=== PATIENT | male | born 1955 | race Caucasian/White ===

== ENCOUNTER 2019-02-08 15:26 | Emergency (ER) | payer MEDICARE ==
[2019-02-08 15:39] VITALS: RESP 16
[2019-02-08] MEDS ORDERED: DIPH,PERTUS(ACELL)TETVAC-LF 0.5 ML VIAL IM ONE (15:57)
[2019-02-08 16:20] LABS: INR 1.9 (<1.2); Prothrombin Time 19.1 sec (9.0-12.0)
--- NOTE | 2019-02-08 16:48 | ED ---
Wound/Laceration HPI - General Chief Complaint: Wound/Laceration Stated Complaint: RT FOOT LACERATION Time Seen by Provider: 02/08/19 15:46 Source: patient Mode of arrival: wheelchair Limitations: no limitations - History of Present Illness Initial Comments: 63-year-old male past medical history of atrial fibrillation on Coumadin presenting today for chief complaint of right foot laceration. Patient states he axially himself the storm door in the posterior right foot. Patient states he is on a blood thinner and has not been ill to stop the bleeding. He is unsure of his last tetanus. Patient denies any fall or twisting of the ankle or foot he denies any other injury or complaints. Pt denies any significant pain, states more concerned about bleeding. Remaining ROS (-). - Related Data Home Medications Medication Instructions Recorded Confirmed Warfarin Sodium 2.5 mg PO SUMOTUTHFRSA 02/08/19 02/08/19 Allergies Allergy/AdvReac Type Severity Reaction Status Date / Time No Known Allergies Allergy Verified 02/08/19 15:39 Review of Systems ROS Statement: Those systems with pertinent positive or pertinent negative responses have been documented in the HPI. ROS Other: All systems not noted in ROS Statement are negative. Past Medical History Past Medical History: Atrial Fibrillation, Hypertension History of Any Multi-Drug Resistant Organisms: None Reported Past Surgical History: No Surgical Hx Reported Past Psychological History: No Psychological Hx Reported Smoking Status: Former smoker Past Alcohol Use History: None Reported Past Drug Use History: None Reported General Exam - General Exam Comments Initial Comments: General: The patient is awake and alert, in no distress, and does not appear acutely ill. Eye: Pupils are equal, round and reactive to light, extra-ocular movements are intact. No nystagmus. There is normal conjunctiva bilaterally. No signs of icterus. Ears, nose, mouth and throat: There are moist mucous membranes and no oral lesions. Neck: The neck is supple, there is no tenderness or JVD. Cardiovascular: There is a regular rate and rhythm. No murmur, rub or gallop is appreciated. Respiratory: Lungs are clear to auscultation, respirations are non-labored, breath sounds are equal. No wheezes, stridor, rales, or rhonchi. Musculoskeletal: Normal ROM, no tenderness. Strength 5/5. Sensation intact. DP pulses equal bilaterally 2+. Neurological: A&O x 3. CN II-XII intact, There are no obvious motor or sensory deficits. Coordination appears grossly intact. Speech is normal. Skin: Skin is warm and dry and no rashes or lesions are noted. 1 cm skin tear of the right heel. No laceration. No active bleeding. Psychiatric: Cooperative, appropriate mood & affect, normal judgment. Limitations: no limitations Course Vital Signs 02/08/19 02/08/19 15:36 17:05 Temperature 98.8 F 98.2 F Pulse Rate 52 L 55 L Respiratory 16 16 Rate Blood Pressure 156/86 150/72 O2 Sat by Pulse 98 98 Oximetry Medical Decision Making - Medical Decision Making 63-year-old on Coumadin presenting for laceration right foot. Upon examination there is very superficial skin tear. No active bleeding on examination. INR was obtained revealing 1.9 subtherapeutic. Recommended outpatient follow-up for adjustment of Coumadin. Patient denies any other symptoms. Area was cleansed extensively. No indication repair bandage applied. At this time feel patient is stable for discharge with outpatient primary care follow-up. Tetanus was updated. Discussed case with Dr. Trimble who is agreeable with care plan and discharge. - Lab Data Lab Results 02/08/19 Range/Units 16:06 PT 19.1 H (9.0-12.0) sec INR 1.9 H (<1.2) Disposition Clinical Impression: Skin tear, Subtherapeutic anticoagulation Disposition: HOME SELF-CARE Condition: Good Instructions (If sedation given, give patient instructions): Skin Tear (ED) Additional Instructions: Please follow-up with both cardiology and primary care provider in the next 1-2 days for warfarin adjustment. Please do not skip any doses. Please use medication as discussed. Please return to emergency room if the symptoms increase or worsen or for any other concerns.. Is patient prescribed a controlled substance at d/c from ED?: No Referrals: Ricardo Weaver DO [Primary Care Provider] - 1-2 days Time of Disposition: 16:48
[2019-02-08 17:28] VITALS: BP 150/72; PULSE 55; TEMP 98.2
== END 2019-02-08 17:05 | disposition home or self-care (01) ==
LOC: EC 15:26
DX: S91.311A Laceration without foreign body, right foot, initial encounter (principal); R79.1 Abnormal coagulation profile; I48.91 Unspecified atrial fibrillation; I10 Essential (primary) hypertension; Z23 Encounter for immunization; Z87.891 Personal history of nicotine dependence; Z79.01 Long term (current) use of anticoagulants; W23.0XXA Caught, crushed, jammed, or pinched between moving objects, initial encounter
CPT/HCPCS: 36415; 85610; 90471; 90715; 99283

== ENCOUNTER → 2020-08-15 | Outpatient (CLI) | payer MEDICARE, OTHER ==
[2020-08-15 12:14] LABS: HCT 40.4 % (39.0-53.0); MCHC 32.2 g/dL (31.0-37.0); MCV 99.4 fL (80.0-100.0); Mean Platelet Volume 7.6; Platelet Count 114 k/uL (150-450); RBC 4.06 m/uL (4.30-5.90); RDW 12.8 % (11.5-15.5); WBC 4.5 k/uL (3.8-10.6)
[2020-08-15 12:30] LABS: Magnesium 2.3 mg/dL (1.6-2.3); Potassium 4.9 mmol/L (3.5-5.1)
== END | disposition home or self-care (01) ==
LOC: LABPAT 11:06
PROVIDERS: ATTEND Internal Medicine Interventional Cardiology
DX: Z01.818 Encounter for other preprocedural examination (principal); I42.0 Dilated cardiomyopathy
CPT/HCPCS: 36415; 80051; 82565; 83735; 84520; 85027

== ENCOUNTER 2020-10-29 06:13 | Day surgery (SDC) | payer MEDICARE, OTHER ==
[2020-10-24 16:22] VITALS: BMI 30.8
[~2020-10-29 06:13] MED LIST: LACTATED RINGERS 1,000 ML IV SCH; LIDOCAINE 1% (10MG/ML) FOR IV START INTRADERMA PRN; MIDAZOLAM 2 MG/2 ML VIAL IV PRN; SODIUM CHLORIDE 0.9% 1,000 ML IV SCH; ceFAZolin 1,000 MG in SODIUM CHLORIDE 0.9% IRRIGATIO 250 ML IRRIGATION STA
[2020-10-29 06:46] LABS: Basophils # (A) 0.1 k/uL (0-0.2); Basophils % (A) 1 %; Eosinophils # (A) 0.2 k/uL (0-0.7); Eosinophils % (A) 3 %; HCT 40.3 % (39.0-53.0); HGB 13.3 gm/dL (13.0-17.5); Lymphocytes # (A) 0.7 k/uL (1.0-4.8); Lymphocytes % (A) 15 %; MCH 31.7 pg (25.0-35.0); MCHC 32.9 g/dL (31.0-37.0); MCV 96.1 fL (80.0-100.0); Mean Platelet Volume 7.6; Monocytes # (A) 0.5 k/uL (0-1.0); Monocytes % (A) 10 %; Neutrophils # (A) 3.2 k/uL (1.3-7.7); Neutrophils % (A) 69 %; Platelet Count 116 k/uL (150-450); RBC 4.19 m/uL (4.30-5.90); RDW 13.1 % (11.5-15.5); WBC 4.7 k/uL (3.8-10.6)
[2020-10-29 06:53] VITALS: RESP 16; TEMP 97.7
[2020-10-29] MEDS ORDERED: HYDROmorphone 0.5 MG/0.5 ML SYRINGE IVP PRN (07:00)
[2020-10-29 07:05] LABS: INR 2.6 (<1.2); Prothrombin Time 24.9 sec (9.0-12.0)
[2020-10-29 07:06] LABS: Calcium 9.7 mg/dL (8.4-10.2); Potassium 4.1 mmol/L (3.5-5.1)
[2020-10-29] MEDS ORDERED: HYDROmorphone (PF) 1 MG/ML ONE (07:25)
[2020-10-29] MEDS ORDERED: PROPOFOL 10 MG/ML 20 ML VIAL IV ONE (07:25)
[2020-10-29] MEDS ORDERED: MIDAZOLAM 2 MG/2 ML VIAL ONE (07:25)
[2020-10-29] MEDS ORDERED: fentaNYL (PF) 50 MCG/ML 2 ML AMP ONE (07:25)
[2020-10-29] MEDS ORDERED: HEPARIN SODIUM 1,000 UN/ML (10ML VL) ONE (07:47)
[2020-10-29] MEDS ORDERED: LIDOCAINE 1% INJ 10MG/ML (20 ML MDV) ONE ×2 (07:51)
[2020-10-29] MEDS ORDERED: LIDOCAINE 1% INJ 10MG/ML (20 ML MDV) SQ ONE ×2 (08:04→09:00)
[2020-10-29] MEDS ORDERED: IOPAMIDOL-250 50ML BTL IV ONE (08:31)
--- NOTE | 2020-10-29 08:44 | P.PCN ---
Preoperative Diagnosis: Procedure Right heart cath Indication for the procedure Severely dilated right atrium and right ventricle An 8-Khmer venous sheath was placed in the right femoral vein A balloon flotation Strandquist-Sruthi catheter was placed in the right heart This was guided into the right ventricle A wire was placed through it and then guided into the pulmonary artery branches on the left side Pulmonary artery pressure 37/13/21 mmHg The catheter was then withdrawn slowly into the right ventricle RV pressure 35/1/17 mmHg Withdrawn into the right atrium RA pressures 24/3/14 mmHg The catheter was removed Coronary sinus deflectable catheter was placed in the coronary sinus to assist in LV lead placement/guidance of the Ravindra sinus sheath Result Right heart cath reveals mild-moderate pulmonary hypertension in the face of a severely dilated right atrium and right ventricle
[2020-10-29] MEDS ORDERED: ACETAMINOPHEN TAB 325 MG TAB PO PRN (10:51)
--- NOTE | 2020-10-29 11:31 | P.PCN ---
Preoperative Diagnosis: Left upper extremity venogram 15 mL IV dye injected in the left arm Left axillary and left subclavian veins well opacified Plan Proceed with implantation of a biventricular ICD Extended procedure This is a long procedure on account of the severely dilated right atrium and a severely dilated right ventricle with tricuspid regurgitation An extra long specially ordered ICD lead had to be placed in the right ventricle Coronary sinus access was difficult and it required multiple sheaths multiple in the sheaths first to cannulate the mean Ravindra sinus body and then to subselect the posterior lateral vein over a guidewire within in the sheath followed by the outer sheath, followed by placement of the LV lead Coronary sinus catheter had been placed from the right femoral vein to guide the access of the biventricular LV lead since this was an extremely dilated right atrium This catheter was removed prior to removing the biventricular sheath Patient of the procedure well without any acute complications
--- NOTE | 2020-10-29 12:25 | XR ---
EXAMINATION TYPE: XR chest 1V portable DATE OF EXAM: 10/29/2020 Comparison: None Clinical History: 65-year-old male Lead placement check Findings: Left anterior chest wall ICD generator with right ventricular and coronary sinus leads. Right atrial lead not well seen on the present exam due to portable technique and large body habitus. Heart is enl arged. Diffuse interstitial and vascular prominence. There is a moderate right effusion with prominen t mid and lower lung opacity on the right. IMPRESSION: 1. Left anterior chest wall AICD generator. Right ventricular and coronary sinus leads are visualized . 2. Cardiomegaly and interstitial/vascular change. Correlate for CHF with pulmonary vascular congestio n. 3. Moderate right effusion with adjacent mid and lower lung atelectasis and/or consolidation.
--- NOTE | 2020-10-29 12:34 | CE ---
CARDIAC ELECTROPHYSIOLOGY REPORT Dylan Garcia is a 65-year-old male patient of Dr. Fletcher and Dr. Ricardo Arnold, who underwent a biventricular ICD implant. 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 The patient underwent a cardiac MRI, which confirmed these findings. His has a QRS of about 142 milliseconds. He has severe bradycardia and is unable to take beta blockers, anticipated RV pacing percentage greater than 40% with a single-chamber device. Hence, a biventricular device was recommended to allow for necessary beta jose alberto use as well as to avoid RV pacing. Patient was brought to the EP lab. Patient's left pectoral area was prepped and draped as per protocol and 1% lidocaine was used for local anesthesia. A 4 cm incision was made parallel to the deltopectoral groove, about 1.5 cm medial to it incision was carried down to the level of the pectoralis muscle. A subfascial pocket was made. Hemostasis was assured. The left axillary vein was accessed at 2 separate points under fluoroscopy and via appropriately-sized introducer sheaths 2 leads were positioned in the right heart. Given the size of the right atrium and the right ventricle, an extra long ICD lead was used. This was special ordered and this was a Medtronic model number 6935M, 72 cm length and serial number [id number]. This was positioned in the low RV septum. The R- waves were 5.3 mV, pacing impedance 456 ohms, pacing threshold 0.5 V at 0.4 milliseconds. Ten volt test was negative. The coronary sinus lead was placed in the posterolateral vein. The coronary sinus was accessed. A sheath was placed. A sub selecting sheath was then placed. A venogram was performed. The patient had a large posterolateral vein. This was then sub selected and a guidewire was placed in this and over that the inner sheath was placed following that. Following that, the outer sheath was placed and this posterolateral vein was sub selected. The LV lead is a Medtronic model number 4398, 88 cm in length and serial number [id number] was positioned in the posterolateral vein. Pacing threshold 1.5 V at 1 millisecond. Good thresholds were obtained between poles 1 and 2 and poles 1 and 3. The pacing impedance of 589 ohms. Both sheaths were removed. The leads were secured to the underlying pectoralis muscle. The leads were connected to the generator (Bownty model number [id number], serial number [id number]). The leads and the generator were then placed in subfascial pocket. The wound was closed in 3 layers and dressed per protocol. RESULT: Successful implantation of a biventricular ICD. The patient has permanent atrial fibrillation for many years and atrial lead was not placed. The atrial port was plugged. Biventricular LV lead in the posterolateral vein and extra long specially ordered 78 cm RV ICD lead placed in the low RV septum on account of severely dilated right ventricle with severe LV dysfunction. PLAN: 1. Biventricular pacing VVIR 60-130 ppm. 2. Add beta blockers to current regimen. NEREIDA / ALLISONN: [id number] /
[2020-10-29] MEDS ORDERED: ACETAMINOPHEN IV (For NPO) 1,000 MG in EMPTY BAG 1 BAG IVPB ONE (13:00)
[2020-10-29 14:05] VITALS: PULSE 70
[2020-10-29 14:06] VITALS: BP 125/73
[2020-10-29] MEDS ORDERED: KETOROLAC 15 MG/ML 1 ML VIAL ONE (15:42)
[2020-10-29] MEDS ORDERED: KETOROLAC 15 MG/ML 1 ML VIAL IVP STA (15:50)
== END 2020-10-29 16:00 | disposition home or self-care (01) ==
LOC: CATHEP 06:13
PROVIDERS: ATTEND Internal Medicine Clinical Cardiac Electrophysiology
DX: I42.6 Alcoholic cardiomyopathy (principal); I47.2 Ventricular tachycardia; I48.21 Permanent atrial fibrillation; I49.5 Sick sinus syndrome; I49.3 Ventricular premature depolarization; R00.1 Bradycardia, unspecified; Q20.8 Other congenital malformations of cardiac chambers and connections; I25.10 Atherosclerotic heart disease of native coronary artery without angina pectoris; R60.9 Edema, unspecified; Z87.891 Personal history of nicotine dependence; I10 Essential (primary) hypertension; Z79.01 Long term (current) use of anticoagulants; Z79.899 Other long term (current) drug therapy
CPT/HCPCS: 93451; 33225; 33249; 80048; 85025; 85610; 71045; C1769 ×9; C1894; C1892; C1730 ×2; C1895; C1900; C1882; J2250; J0690 ×2; J2001; J3010; J1170; J0131; J1885; J2704; Q9966

== ENCOUNTER → 2021-05-05 | Outpatient (CLI) | payer MEDICARE, OTHER ==
[2021-05-05 21:18] LABS: African American GFR (CKD) 36.6 (60.0-200.0); Anion Gap 9.5 mmol/L (4.00-12.00); BUN/Creat Ratio 46.67 Ratio (12.00-20.00); Calcium 9.8 mg/dL (8.7-10.3); Carbon Dioxide 35.5 mmol/L (21.6-31.8); Non-African American GFR(CKD) 31.6 (60.0-200.0); Potassium 3.8 mmol/L (3.5-5.5)
== END | disposition home or self-care (01) ==
LOC: LABWHC1 11:23
PROVIDERS: ATTEND Internal Medicine Interventional Cardiology
DX: I50.9 Heart failure, unspecified (principal)
CPT/HCPCS: 36415; 80048

== ENCOUNTER → 2021-07-17 | Outpatient (CLI) | payer MEDICARE, OTHER ==
[2021-07-18 13:19] LABS: African American GFR (CKD) 47.7 (60.0-200.0); Anion Gap 18.8 mmol/L (4.00-12.00); BUN/Creat Ratio 49.29 Ratio (12.00-20.00); Blood Urea Nitrogen 82.8 mg/dL (9.0-27.0); Calcium 9.7 mg/dL (8.7-10.3); Carbon Dioxide 25.9 mmol/L (21.6-31.8); Non-African American GFR(CKD) 41.1 (60.0-200.0); Potassium 4.3 mmol/L (3.5-5.5)
== END | disposition home or self-care (01) ==
LOC: LABWHC1 12:03
PROVIDERS: ATTEND Internal Medicine Interventional Cardiology
DX: I42.9 Cardiomyopathy, unspecified (principal)
CPT/HCPCS: 36415; 80048

== ENCOUNTER → 2022-03-07 | Outpatient (CLI) | payer MEDICARE, OTHER ==
[2022-03-07 19:42] LABS: African American GFR (CKD) 44.4 (60.0-200.0); Anion Gap 10.2 mmol/L (10.00-18.00); BUN/Creat Ratio 48.15 Ratio (12.00-20.00); Blood Urea Nitrogen 85.7 mg/dL (9.0-27.0); Calcium 9.2 mg/dL (8.7-10.3); Carbon Dioxide 31.2 mmol/L (20.0-27.5); Non-African American GFR(CKD) 38.3 (60.0-200.0); Potassium 4.5 mmol/L (3.5-5.5)
== END | disposition home or self-care (01) ==
LOC: LABWHC1 09:35
PROVIDERS: ATTEND Nurse Practitioner
DX: I12.9 Hypertensive chronic kidney disease with stage 1 through stage 4 chronic kidney disease, or unspecified chronic kidney disease (principal); N18.9 Chronic kidney disease, unspecified
CPT/HCPCS: 36415; 80048

== ENCOUNTER → 2022-03-30 | Outpatient (CLI) | payer MEDICARE, OTHER ==
[2022-03-30 19:30] LABS: African American GFR (CKD) 38.6 (60.0-200.0); Anion Gap 11.5 mmol/L (10.00-18.00); BUN/Creat Ratio 35.15 Ratio (12.00-20.00); Blood Urea Nitrogen 70.3 mg/dL (9.0-27.0); Calcium 9.4 mg/dL (8.7-10.3); Carbon Dioxide 30.5 mmol/L (20.0-27.5); Non-African American GFR(CKD) 33.3 (60.0-200.0); Potassium 4.5 mmol/L (3.5-5.5)
== END | disposition home or self-care (01) ==
LOC: LABWHC1 11:29
PROVIDERS: ATTEND Internal Medicine Interventional Cardiology
DX: I10 Essential (primary) hypertension (principal)
CPT/HCPCS: 36415; 80048

== ENCOUNTER → 2022-06-03 | Outpatient (CLI) | payer MEDICARE, OTHER ==
[2022-06-04 00:19] LABS: African American GFR (CKD) 41.1 (60.0-200.0); Anion Gap 8.9 mmol/L (10.00-18.00); BUN/Creat Ratio 42.74 Ratio (12.00-20.00); Blood Urea Nitrogen 81.2 mg/dL (9.0-27.0); Calcium 9.5 mg/dL (8.7-10.3); Carbon Dioxide 37.1 mmol/L (20.0-27.5); Non-African American GFR(CKD) 35.4 (60.0-200.0); Potassium 3.8 mmol/L (3.5-5.5)
== END | disposition home or self-care (01) ==
LOC: LABWHC1 15:58
PROVIDERS: ATTEND Internal Medicine Interventional Cardiology
DX: I10 Essential (primary) hypertension (principal)
CPT/HCPCS: 36415; 80048

== ENCOUNTER → 2022-08-17 | Outpatient (CLI) | payer MEDICARE, OTHER ==
[2022-08-17 15:03] LABS: African American GFR (CKD) 38.1 (60.0-200.0); Anion Gap 8.8 mmol/L (10.00-18.00); BUN/Creat Ratio 31.44 Ratio (12.00-20.00); Blood Urea Nitrogen 63.2 mg/dL (9.0-27.0); Calcium 9.1 mg/dL (8.7-10.3); Carbon Dioxide 35.4 mmol/L (20.0-27.5); Non-African American GFR(CKD) 32.9 (60.0-200.0); Potassium 5.1 mmol/L (3.5-5.5)
== END | disposition home or self-care (01) ==
LOC: LABWHC1 09:49
PROVIDERS: ATTEND Internal Medicine Interventional Cardiology
DX: I10 Essential (primary) hypertension (principal)
CPT/HCPCS: 36415; 80048

== ENCOUNTER 2022-09-09 15:46 | Inpatient (IN) | payer MEDICARE, OTHER ==
--- NOTE | 2022-09-09 16:39 | ED ---
SOB HPI - General Chief Complaint: Shortness of Breath Stated Complaint: SOB Time Seen by Provider: 09/09/22 16:24 Source: patient Mode of arrival: wheelchair Limitations: altered mental status - History of Present Illness Initial Comments: This patient is a 67-year-old man brought to have evaluation for worsening of shortness of breath that is been going on for the past approximately 2-3 days. The patient had been admitted at [facility], where he was treated for sounds like pneumonia and she was noted to have a pleural effusion, that they w ere going to deal with as an outpatient. The patient had also tested positive for covid infection at the previous hospitalization . The patient completed his course of treatment, was doing a little better and then over the course of the past few days at home they have noted he has had increasing leg edema, increasing shortness of breath, and orthopnea. No fevers noted. Only occasional cough. Patient is very somnolent and only able to give short answers. Denies chest pain. MD Complaint: shortness of breath -: days(s) Severity scale (1-10): 0 Consistency: constant Worsens With: lying flat, exertion Known History Of: congestive heart failure Associated Symptoms: cough Treatments Prior to Arrival: oxygen - Related Data Home Oxygen Therapy: Yes Home Medications Medication Instructions Recorded Confirmed Warfarin Sodium 2.5 mg PO SUMOTUTHFRSA@209902/08/19 09/09/22 Cholecalciferol [Vitamin D3 (25 50 mcg PO DAILY 09/09/22 09/09/22 Mcg = 1000 Iu)] Ferrous Sulfate [Feosol] 325 mg PO DAILY 09/09/22 09/09/22 Glucosamine Sulfate 500 mg PO HS 09/09/22 09/09/22 Losartan [Cozaar] 12.5 mg PO DAILY 09/09/22 09/09/22 Spironolactone [Aldactone] 12.5 mg PO DAILY 09/09/22 09/09/22 Thiamine [Vitamin B-1] 100 mg PO DAILY 09/09/22 09/09/22 Torsemide [Demadex] 30 mg PO BID 09/09/22 09/09/22 Warfarin [Coumadin] 1.25 mg PO WE@209909/09/22 09/09/22 metOLazone [Zaroxolyn] 2.5 mg PO BID 09/09/22 09/09/22 Previous Rx's Medication Instructions Recorded Metoprolol Succinate [Toprol XL] 50 mg PO DAILY #90 tab 10/29/20 Allergies Allergy/AdvReac Type Severity Reaction Status Date / Time aspirin Allergy Unknown Verified 09/09/22 17:18 Review of Systems ROS Statement: Those systems with pertinent positive or pertinent negative responses have been documented in the HPI. ROS Other: All systems not noted in ROS Statement are negative. Constitutional: Denies: fever, chills Respiratory: Reports: cough, dyspnea. Denies: wheezes, hemoptysis Cardiovascular: Reports: orthopnea, edema. Denies: chest pain, palpitations, syncope Gastrointestinal: Denies: abdominal pain, vomiting, diarrhea, melena, hematochezia Genitourinary: Denies: dysuria, hematuria Musculoskeletal: Denies: back pain Skin: Denies: rash Neurological: Denies: headache, weakness, numbness Past Medical History Past Medical History: Atrial Fibrillation, Hypertension, Renal Disease Additional Past Medical History / Comment(s): SEE DR CHIANG'S HISTORY AND ABELARDO MICHELLE FOR CARDIAC HISTORY, CHRONIC KIDNEY DISEASE , History of Any Multi-Drug Resistant Organisms: None Reported Past Surgical History: No Surgical Hx Reported Past Anesthesia/Blood Transfusion Reactions: No Reported Reaction Past Psychological History: No Psychological Hx Reported Smoking Status: Former smoker Past Alcohol Use History: None Reported Past Drug Use History: None Reported - Past Family History Mother Family Medical History: Cancer General Exam Limitations: no limitations General appearance: obtunded Head exam: Present: atraumatic, normocephalic Eye exam: Present: normal appearance. Absent: scleral icterus, conjunctival injection Neck exam: Present: normal inspection, full ROM. Absent: meningismus Respiratory exam: Present: respiratory distress, wheezes, rales, decreased breath sounds. Absent: rhonchi, stridor, accessory muscle use Cardiovascular Exam: Present: normal rhythm, bradycardia, systolic murmur. Absent: diastolic murmur, rubs, gallop GI/Abdominal exam: Present: soft. Absent: distended, tenderness, guarding, re bound, rigid, mass Extremities exam: Present: normal capillary refill, pedal edema. Absent: calf tenderness Back exam: Present: normal inspection Neurological exam: Present: alert Skin exam: Present: warm, dry, intact, normal color. Absent: rash Course Vital Signs 09/09/22 09/09/22 09/09/22 16:18 17:57 18:40 Temperature 98.4 F Pulse Rate 55 L 61 Respiratory 20 18 Rate Blood Pressure 97/66 106/84 O2 Sat by Pulse 87 L 94 L Oximetry Fraction of 28 Inspired Oxygen (FIO2) 09/09/22 09/09/22 19:29 20:34 Temperature Pulse Rate 62 Respiratory 16 Rate Blood Pressure 108/82 O2 Sat by Pulse 93 L Oximetry Fraction of 28 Inspired Oxygen (FIO2) Medical Decision Making - Lab Data Result diagrams: 09/09/22 16:36 09/09/22 16:36 Lab Results 09/09/22 09/09/22 09/09/22 Range/Units 16:36 16:36 16:36 WBC 5.5 (3.8-10.6) k/uL RBC 3.83 L (4.30-5.90) m/uL Hgb 11.9 L (13.0-17.5) gm/dL Hct 38.2 L (39.0-53.0) % MCV 99.5 (80.0-100.0) fL MCH 31.1 (25.0-35.0) pg MCHC 31.3 (31.0-37.0) g/dL RDW 14.3 (11.5-15.5) % Plt Count 138 L (150-450) k/uL MPV 9.5 Neutrophils % 85 % Lymphocytes % 5 % Monocytes % 6 % Eosinophils % 1 % Basophils % 0 % Neutrophils # 4.7 (1.3-7.7) k/uL Lymphocytes # 0.3 L (1.0-4.8) k/uL Monocytes # 0.3 (0-1.0) k/uL Eosinophils # 0.1 (0-0.7) k/uL Basophils # 0.0 (0-0.2) k/uL Hypochromasia Marked PT 32.8 H (9.0-12.0) sec INR 3.4 H (<1.2) APTT 44.0 H (22.0-30.0) sec Sample Site ABG pH (7.35-7.45) ABG pCO2 (35-45) mmHg ABG pO2 (83-108) mmHg ABG HCO3 (21-25) mmol/L ABG Total CO2 (19-24) mmol/L ABG O2 Saturation (94-97) % ABG Base Excess mmol/L Jim Test FiO2 % Sodium 138 (137-145) mmol/L Potassium 4.8 (3.5-5.1) mmol/L Chloride 96 L (98-107) mmol/L Carbon Dioxide 36 H (22-30) mmol/L Anion Gap 6 mmol/L BUN 86 H (9-20) mg/dL Creatinine 2.19 H (0.66-1.25) mg/dL Est GFR (CKD-EPI)AfAm 34 (>60 ml/min/1.73 sqM) Est GFR (CKD-EPI)NonAf 30 (>60 ml/min/1.73 sqM) Glucose 113 H (74-99) mg/dL Plasma Lactic Acid Devonte (0.7-2.0) mmol/L Calcium 9.1 (8.4-10.2) mg/dL Magnesium 2.6 H (1.6-2.3) mg/dL Total Bilirubin 0.7 (0.2-1.3) mg/dL AST 28 (17-59) U/L ALT 19 (4-49) U/L Alkaline Phosphatase 101 (38-126) U/L Troponin I (0.000-0.034) ng/mL NT-Pro-B Natriuret Pep pg/mL Total Protein 7.7 (6.3-8.2) g/dL Albumin 4.2 (3.5-5.0) g/dL 09/09/22 09/09/22 09/09/22 Range/Units 16:36 16:36 16:36 WBC (3.8-10.6) k/uL RBC (4.30-5.90) m/uL Hgb (13.0-17.5) gm/dL Hct (39.0-53.0) % MCV (80.0-100.0) fL MCH (25.0-35.0) pg MCHC (31.0-37.0) g/dL RDW (11.5-15.5) % Plt Count (150-450) k/uL MPV Neutrophils % % Lymphocytes % % Monocytes % % Eosinophils % % Basophils % % Neutrophils # (1.3-7.7) k/uL Lymphocytes # (1.0-4.8) k/uL Monocytes # (0-1.0) k/uL Eosinophils # (0-0.7) k/uL Basophils # (0-0.2) k/uL Hypochromasia PT (9.0-12.0) sec INR (<1.2) APTT (22.0-30.0) sec Sample Site ABG pH (7.35-7.45) ABG pCO2 (35-45) mmHg ABG pO2 (83-108) mmHg ABG HCO3 (21-25) mmol/L ABG Total CO2 (19-24) mmol/L ABG O2 Saturation (94-97) % ABG Base Excess mmol/L Jim Test FiO2 % Sodium (137-145) mmol/L Potassium (3.5-5.1) mmol/L Chloride (98-107) mmol/L Carbon Dioxide (22-30) mmol/L Anion Gap mmol/L BUN (9-20) mg/dL Creatinine (0.66-1.25) mg/dL Est GFR (CKD-EPI)AfAm (>60 ml/min/1.73 sqM) Est GFR (CKD-EPI)NonAf (>60 ml/min/1.73 sqM) Glucose (74-99) mg/dL Plasma Lactic Acid Devonte 1.3 (0.7-2.0) mmol/L Calcium (8.4-10.2) mg/dL Magnesium (1.6-2.3) mg/dL Total Bilirubin (0.2-1.3) mg/dL AST (17-59) U/L ALT (4-49) U/L Alkaline Phosphatase (38-126) U/L Troponin I <0.012 (0.000-0.034) ng/mL NT-Pro-B Natriuret Pep 2810 pg/mL Total Protein (6.3-8.2) g/dL Albumin (3.5-5.0) g/dL 09/09/22 Range/Units 17:30 WBC (3.8-10.6) k/uL RBC (4.30-5.90) m/uL Hgb (13.0-17.5) gm/dL Hct (39.0-53.0) % MCV (80.0-100.0) fL MCH (25.0-35.0) pg MCHC (31.0-37.0) g/dL RDW (11.5-15.5) % Plt Count (150-450) k/uL MPV Neutrophils % % Lymphocytes % % Monocytes % % Eosinophils % % Basophils % % Neutrophils # (1.3-7.7) k/uL Lymphocytes # (1.0-4.8) k/uL Monocytes # (0-1.0) k/uL Eosinophils # (0-0.7) k/uL Basophils # (0-0.2) k/uL Hypochromasia PT (9.0-12.0) sec INR (<1.2) APTT (22.0-30.0) sec Sample Site rrad ABG pH 7.16 L* (7.35-7.45) ABG pCO2 107 H* (35-45) mmHg ABG pO2 119 H (83-108) mmHg ABG HCO3 38 H (21-25) mmol/L ABG Total CO2 41 H (19-24) mmol/L ABG O2 Saturation 97.8 H (94-97) % ABG Base Excess 9.3 mmol/L Jim Test Yes FiO2 28 % Sodium (137-145) mmol/L Potassium (3.5-5.1) mmol/L Chloride (98-107) mmol/L Carbon Dioxide (22-30) mmol/L Anion Gap mmol/L BUN (9-20) mg/dL Creatinine (0.66-1.25) mg/dL Est GFR (CKD-EPI)AfAm (>60 ml/min/1.73 sqM) Est GFR (CKD-EPI)NonAf (>60 ml/min/1.73 sqM) Glucose (74-99) mg/dL Plasma Lactic Acid Devonte (0.7-2.0) mmol/L Calcium (8.4-10.2) mg/dL Magnesium (1.6-2.3) mg/dL Total Bilirubin (0.2-1.3) mg/dL AST (17-59) U/L ALT (4-49) U/L Alkaline Phosphatase (38-126) U/L Troponin I (0.000-0.034) ng/mL NT-Pro-B Natriuret Pep pg/mL Total Protein (6.3-8.2) g/dL Albumin (3.5-5.0) g/dL Disposition Clinical Impression: Congestive heart failure, Hypercarbia, Acute respiratory failure, Chronic renal failure Disposition: ADMITTED IP TO THIS HOSP Condition: Serious Is patient prescribed a controlled substance at d/c from ED?: No
[2022-09-09 17:08] LABS: Basophils % (A) 0 %; Eosinophils # (A) 0.1 k/uL (0-0.7); Eosinophils % (A) 1 %; HCT 38.2 % (39.0-53.0); HGB 11.9 gm/dL (13.0-17.5); Hypochromasia Marked; Lymphocytes # (A) 0.3 k/uL (1.0-4.8); Lymphocytes % (A) 5 %; MCH 31.1 pg (25.0-35.0); MCHC 31.3 g/dL (31.0-37.0); MCV 99.5 fL (80.0-100.0); Mean Platelet Volume 9.5; Monocytes # (A) 0.3 k/uL (0-1.0); Monocytes % (A) 6 %; Neutrophils # (A) 4.7 k/uL (1.3-7.7); Neutrophils % (A) 85 %; Platelet Count 138 k/uL (150-450); RBC 3.83 m/uL (4.30-5.90); RDW 14.3 % (11.5-15.5); WBC 5.5 k/uL (3.8-10.6)
[2022-09-09 17:24] LABS: INR 3.4 (<1.2); Prothrombin Time 32.8 sec (9.0-12.0)
[2022-09-09 17:25] LABS: Albumin 4.2 g/dL (3.5-5.0); Calcium 9.1 mg/dL (8.4-10.2); Magnesium 2.6 mg/dL (1.6-2.3); Potassium 4.8 mmol/L (3.5-5.1); Total Bilirubin 0.7 mg/dL (0.2-1.3); Total Protein 7.7 g/dL (6.3-8.2)
[2022-09-09 17:31] LABS: ABG Base Excess 9.3 mmol/L; ABG HCO3 38 mmol/L (21-25); ABG Oxygen Saturation 97.8 % (94-97); ABG PO2 119 mmHg (83-108); ABG TCO2 41 mmol/L (19-24); Allen Test Performed? Yes
--- NOTE | 2022-09-09 17:32 | XR ---
EXAMINATION TYPE: XR chest 2V DATE OF EXAM: 09/09/2022 COMPARISON: 10/29/2020 HISTORY: Short of breath. Pleural effusion. TECHNIQUE: FINDINGS: The heart is enlarged. There is some pulmonary vascular congestion and blunting of the righ t cost phrenic angle. There is slight blunting also left costophrenic angle. There are no hilar august s. There is left axillary pacemaker. Electrodes appear intact and tips overlying the right ventricle. There are chest leads. IMPRESSION: Congestive heart failure and right pleural effusion. Small left pleural effusion. Pulmona ry congestion increased compared to old exam.
[2022-09-09 17:37] LABS: ABG PCO2 107 mmHg (35-45); ABG PH 7.16 (7.35-7.45)
[2022-09-10 00:47] LABS: Appearance,Urine Cloudy (Clear); Bacteria,Urine Rare /hpf; Bilirubin,Urine Negative (Negative); Blood,Urine Moderate (Negative); Color,Urine Yellow; Glucose,Urine (UA) Negative (Negative); Ketones,Urine Negative (Negative); Leukocyte Esterase,Urine Negative (Negative); Mucus,Urine Rare /hpf; Nitrite,Urine Negative (Negative); Protein,Urine 1+ (Negative); RBC,Urine 29 /hpf (0-5); Specific Gravity,Urine 1.014 (1.001-1.035); Squamous Epithelial Cell,Urine <1 /hpf (0-4); Urobilinogen,Urine <2.0 mg/dL (<2.0); WBC,Urine 9 /hpf (0-5)
[2022-09-10] MEDS: SODIUM CHLORIDE 0.9% 1,000 ML IV SCH ×2 (02:42→23:00)
--- NOTE | 2022-09-10 10:21 | P.CRDCN ---
History of Present Illness History of present illness: This is a 67 year old male with a past medical history of non-ischemic cardiomyopathy, mild non-obstructive coronary artery disease cath in 08/2020, congestive heart failure, ventricular tachycardia, BiV ICD implantation 10/2020, severe tricuspid regurgitation, permanent atrial fibrillation on coumadin, ventricular tachycardia, chronic kidney disease. He follows with Dr. Fletcher. We are consulted for CHF. Patient presented to the ER with complaints of shortness of breath, orthopnea, PND, increased weight gain for about 3 days. Patient was admitted in August 2022 at [facility], being evaluated for nausea and vomiting. On discharge patient was found to be Covid positive and was recovering at home. He was having increased shortness of breath and was evaluated in the office his torsemide was increased and metolazone was added. Over the past couple days patient has been having increased symptoms and presented to the ER for further evaluation. He denies any chest pain. He endorses some lightheadedness, denies any palpitations syncope or near syncope. DIAGNOSTICS * EKG reveals BiV pacing * Chest xray pulmonary vascular congestion, congestive heart failure, pleural effusion, small left pleural effusion * Laboratory reviewed, W be C5 0.5-11.9, platelets 138, INR 3.4, sodium 138, potassium 4.8, BUN 86, serum crit and 2.1, troponin negative, proBNP 2810 * Cardiac catheterization 08/2020 revealed right dominant system minor irregularities, no significant obstructive CAD. * Echocardiogram in the office 07/23/2022 revealed an EF of 45%, mild aortic regurgitation, mild mitral regurgitation, severe tricuspid regurgitation with RVSP of 41 mmHg * Current home cardiac medications include metolazone 2.5 mg twice a day, Coumadin, torsemide 30 mg twice a day, spironolactone 25 mg daily, Toprol pulse ox and 50 mg daily, losartan to 0.5 mg daily REVIEW OF SYSTEMS At the time of my exam: CONSTITUTIONAL: Denies fever or chills. CARDIOVASCULAR: Denies chest pain, +shortness of breath, +orthopnea, +PND +weight gain. No palpitations. RESPIRATORY: Denies cough. GASTROINTESTINAL: Denies abdominal pain, diarrhea, constipation, nausea or vomiting. MUSCULOSKELETAL: Denies myalgias. NEUROLOGIC: Denies numbness, tingling, headacbe or weakness. ENDOCRINE: Denies fatigue, weight change, polydipsia or polyurina. GENITOURINARY: Denies burning, hematuria or urgency with micturation. HEMATOLOGIC: Denies bleeding. PHYSICAL EXAMINATION Vitals reviewed CONSTITUTIONAL: No apparent distress. HEENT: Head is normocephalic. Pupils are equal, round. Sclerae anicteric. Mucous membranes of the mouth are moist. No JVD. \ CHEST EXAMINATION: Lungs crackles bilaterally to auscultation. No chest wall tenderness is noted on palpation or with deep breathing. HEART EXAMINATION: Regular rate and rhythm. S1, S2 heard. Systolic murmur noted. ABDOMEN: Soft, nontender. Positive bowel sounds. EXTREMITIES: 2+ peripheral pulses,2+ bilateral lower extremity edema and no calf tenderness. NEUROLOGIC EXAMINATION: Patient is awake, alert and oriented x3. ASSESSMENT Acute on chronic heart failure with mildly reduced ejection fraction, EF 45% Hypotension Nonischemic cardiomyopathy Mild Nonobstructive coronary disease Permanent atrial fibrillation on Coumadin History of ventricular tachycardia Status post by the ICD in 10/2020 Chronic kidney disease PLAN Start IV Lasix Monitor I/Os daily weights, renal function and electrolytes Continue anticoagulation with coumadin Monitor INR Losartan, aldactone, metoprolol succinate on hold secondary to hypotension, will continue to monitor Further recommendations based on clinical course Nurse practitioner note has been reviewed by physician. Signing provider agrees with the documented findings, assessment, and plan of care. Past Medical History Past Medical History: Atrial Fibrillation, Hypertension, Renal Disease Additional Past Medical History / Comment(s): SEE DR CHIANG'S HISTORY AND PHYSICAL FOR CARDIAC HISTORY, CHRONIC KIDNEY DISEASE , History of Any Multi-Drug Resistant Organisms: None Reported Past Surgical History: No Surgical Hx Reported Past Anesthesia/Blood Transfusion Reactions: No Reported Reaction Past Psychological History: No Psychological Hx Reported Smoking Status: Former smoker Past Alcohol Use History: None Reported Past Drug Use History: None Reported - Past Family History Mother Family Medical History: Cancer Medications and Allergies Home Medications Medication Instructions Recorded Confirmed Type Warfarin Sodium 2.5 mg PO BRIDGETTETUTHFRSA@2100 02/08/19 09/09/22 History Metoprolol Succinate [Toprol XL] 50 mg PO DAILY #90 tab 10/29/20 09/09/22 Rx Cholecalciferol [Vitamin D3 (25 50 mcg PO DAILY 09/09/22 09/09/22 History Mcg = 1000 Iu)] Ferrous Sulfate [Feosol] 325 mg PO DAILY 09/09/22 09/09/22 History Glucosamine Sulfate 500 mg PO HS 09/09/22 09/09/22 History Losartan [Cozaar] 12.5 mg PO DAILY 09/09/22 09/09/22 History Spironolactone [Aldactone] 12.5 mg PO DAILY 09/09/22 09/09/22 History Thiamine [Vitamin B-1] 100 mg PO DAILY 09/09/22 09/09/22 History Torsemide [Demadex] 30 mg PO BID 09/09/22 09/09/22 History Warfarin [Coumadin] 1.25 mg PO WE@2100 09/09/22 09/09/22 History metOLazone [Zaroxolyn] 2.5 mg PO BID 09/09/22 09/09/22 History Allergies Allergy/AdvReac Type Severity Reaction Status Date / Time aspirin Allergy Unknown Verified 09/09/22 17:18 Physical Exam Vitals: Vital Signs Temp Pulse Resp BP Pulse Ox FiO2 09/10/22 07:30 28 09/10/22 03:28 28 09/10/22 00:13 28 09/09/22 20:34 62 16 108/82 93 L 09/09/22 19:29 28 09/09/22 18:40 61 18 106/84 94 L 09/09/22 17:57 28 09/09/22 16:18 98.4 F 55 L 20 97/66 87 L Intake and Output 09/09/22 09/10/22 09/10/22 22:59 06:59 14:59 Other: Weight 118.841 kg Results 09/09/22 16:36 09/09/22 16:36 Cardiac Enzymes 09/09/22 09/09/22 Range/Units 16:36 16:36 AST 28 (17-59) U/L Troponin I <0.012 (0.000-0.034) ng/mL Coagulation 09/09/22 Range/Units 16:36 PT 32.8 H (9.0-12.0) sec APTT 44.0 H (22.0-30.0) sec CBC 09/09/22 Range/Units 16:36 WBC 5.5 (3.8-10.6) k/uL RBC 3.83 L (4.30-5.90) m/uL Hgb 11.9 L (13.0-17.5) gm/dL Hct 38.2 L (39.0-53.0) % Plt Count 138 L (150-450) k/uL Comprehensive Metabolic Panel 09/09/22 Range/Units 16:36 Sodium 138 (137-145) mmol/L Potassium 4.8 (3.5-5.1) mmol/L Chloride 96 L (98-107) mmol/L Carbon Dioxide 36 H (22-30) mmol/L BUN 86 H (9-20) mg/dL Creatinine 2.19 H (0.66-1.25) mg/dL Glucose 113 H (74-99) mg/dL Calcium 9.1 (8.4-10.2) mg/dL AST 28 (17-59) U/L ALT 19 (4-49) U/L Alkaline Phosphatase 101 (38-126) U/L Total Protein 7.7 (6.3-8.2) g/dL Albumin 4.2 (3.5-5.0) g/dL Current Medications Generic Name Dose Route Start Last Admin Trade Name Freq PRN Reason Stop Dose Admin Sodium Chloride 1,000 mls @ 20 mls/hr 09/09/22 22:15 09/10/22 02:42 Saline 0.9% IV 20 mls/hr .Q24H YULY Administration Intake and Output 09/09/22 09/10/22 09/10/22 22:59 06:59 14:59 Other: Weight 118.841 kg 09/09/22 16:36 09/09/22 16:36
[2022-09-10] MEDS: FUROSEMIDE 10 MG/ML 4 ML VIAL IV SCH ×2 (10:29→23:00)
[2022-09-10 10:36] LABS: INR 3.6 (<1.2); Prothrombin Time 35.1 sec (9.0-12.0)
[2022-09-10 11:35] LABS: Basophils % (A) 0 %; Eosinophils # (A) 0.1 k/uL (0-0.7); Eosinophils % (A) 1 %; HCT 37.3 % (39.0-53.0); HGB 11.2 gm/dL (13.0-17.5); Hypochromasia Marked; Lymphocytes # (A) 0.2 k/uL (1.0-4.8); Lymphocytes % (A) 3 %; MCHC 30.1 g/dL (31.0-37.0); MCV 103.2 fL (80.0-100.0); Macrocytosis Slight; Monocytes # (A) 0.3 k/uL (0-1.0); Monocytes % (A) 4 %; Neutrophils # (A) 7.2 k/uL (1.3-7.7); Neutrophils % (A) 91 %; Platelet Count 131 k/uL (150-450); RBC 3.61 m/uL (4.30-5.90); RDW 14.4 % (11.5-15.5); WBC 7.9 k/uL (3.8-10.6)
[2022-09-10] MEDS: IPRATROPIUM-ALBUTEROL 3 ML NEB INHALATION SCH ×2 (11:44→19:15)
--- NOTE | 2022-09-10 11:45 | P.CNPUL ---
History of Present Illness Consult date: 09/10/22 Requesting physician: John Montesinos Reason for consult: dyspnea, hypoxemia, pleural effusion, abnormal CXR/CT Chief complaint: Shortness of breath. History of present illness: Pulmonary consult dated 09/10/2022. 67-year-old male seen in the emergency department, on September 09. He came in with complaints of mental status changes, and shortness of breath. He apparently has not been feeling well for about 2 or 3 days prior to admission. The patient was recently at [facility], he was treated for pneumonia, and pleural effusion. The patient also recently tested positive for coronavirus on his previous hospitalization. Patient complains of shortness of breath, chest congestion, and lower extremity edema. No chest pain or chest discomfort. He is seen in the emergency room, room #2. He is on BiPAP at 16/5 and 28%. He is getting saline at KVO. We added duo neb breathing treatments. White count 5.5, hemoglobin 11.9, hematocrit 38.2, and platelet count 238,000. PTT was 35.1 with an INR 3.6. Arterial blood gases done on 28% oxygen show pO2 of 119, pCO2 of 107, sodium 138, potassium 4.8, chlorides 96, CO2 36, BUN 86, and creatinine 2.19. Chest x-ray shows changes of CHF. Review of Systems REVIEW OF SYSTEMS: CONSTITUTIONAL: weakness. NEUROLOGIC: [ Negative.] HEENT: [ Negative.] CARDIAC: [Negative.] PULMONARY: shortness of breath. GI: [Negative.] : [Negative.] RHEUMATOLOGIC: [ Negative.] IMMUNOLOGIC: [ Negative.] ENDOCRINE: [Negative. ] DERMATOLOGIC: [Negative.] Past Medical History Past Medical History: Atrial Fibrillation, Hypertension, Renal Disease Additional Past Medical History / Comment(s): SEE DR CHIANG'S HISTORY AND PHYSICAL FOR CARDIAC HISTORY, CHRONIC KIDNEY DISEASE , History of Any Multi-Drug Resistant Organisms: None Reported Past Surgical History: No Surgical Hx Reported Past Anesthesia/Blood Transfusion Reactions: No Reported Reaction Past Psychological History: No Psychological Hx Reported Smoking Status: Former smoker Past Alcohol Use History: None Reported Past Drug Use History: None Reported - Past Family History Mother Family Medical History: Cancer Medications and Allergies Home Medications Medication Instructions Recorded Confirmed Type Warfarin Sodium 2.5 mg PO SUMOTUTHFRSA@209902/08/19 09/09/22 History Metoprolol Succinate [Toprol XL] 50 mg PO DAILY #90 tab 10/29/20 09/09/22 Rx Cholecalciferol [Vitamin D3 (25 50 mcg PO DAILY 09/09/22 09/09/22 History Mcg = 1000 Iu)] Ferrous Sulfate [Feosol] 325 mg PO DAILY 09/09/22 09/09/22 History Glucosamine Sulfate 500 mg PO HS 09/09/22 09/09/22 History Losartan [Cozaar] 12.5 mg PO DAILY 09/09/22 09/09/22 History Spironolactone [Aldactone] 12.5 mg PO DAILY 09/09/22 09/09/22 History Thiamine [Vitamin B-1] 100 mg PO DAILY 09/09/22 09/09/22 History Torsemide [Demadex] 30 mg PO BID 09/09/22 09/09/22 History Warfarin [Coumadin] 1.25 mg PO WE@209909/09/22 09/09/22 History metOLazone [Zaroxolyn] 2.5 mg PO BID 09/09/22 09/09/22 History Allergies Allergy/AdvReac Type Severity Reaction Status Date / Time aspirin Allergy Unknown Verified 09/09/22 17:18 Physical Exam Osteopathic Statement: *. No significant issues noted on an osteopathic structural exam other than those noted in the History and Physical/Consult. Vitals: Vital Signs Temp Pulse Resp BP Pulse Ox FiO2 09/10/22 09:52 60 103/86 09/10/22 08:00 66 20 88/66 93 L 09/10/22 07:30 28 09/10/22 03:28 28 09/10/22 00:13 28 09/09/22 20:34 62 16 108/82 93 L 09/09/22 19:29 28 09/09/22 18:40 61 18 106/84 94 L 09/09/22 17:57 28 09/09/22 16:18 98.4 F 55 L 20 97/66 87 L Intake and Output 09/09/22 09/10/22 09/10/22 22:59 06:59 14:59 Other: Weight 118.841 kg No acute distress, oriented 3. BiPAP mask in place. HEENT examination is grossly unremarkable. Neck supple. Full range of motion. No adenopathy thyromegaly or neck vein distention. Cardiovascular examination reveals regular rhythm rate. S1-S2 normal. No S3 or S4. No discernible murmur noted. Heart sounds are distant. Heart rate 66 bpm. Lungs reveal bilateral coarse rhonchi. Bibasilar crackles. Breath sounds equal bilaterally. No wheezes. Saturations are 93% on BiPAP. Abdomen soft bowel sounds are heard. No masses or tenderness. Extremities are wrapped. Significant lower extremity edema is noted. Skin is without rash or lesion. Neurologic examination is brief but nonfocal. Results - Laboratory Findings CBC and BMP: 09/09/22 16:36 09/09/22 16:36 ABG ABG pH 7.16 (7.35-7.45) L* 09/09/22 17:30 ABG pCO2 107 mmHg (35-45) H* 09/09/22 17:30 ABG pO2 119 mmHg (83-108) H 09/09/22 17:30 ABG O2 Saturation 97.8 % (94-97) H 09/09/22 17:30 PT/INR, D-dimer PT 35.1 sec (9.0-12.0) H 09/10/22 09:32 INR 3.6 (<1.2) H 09/10/22 09:32 Abnormal lab findings: Abnormal Labs 09/09/22 09/09/22 09/09/22 16:36 16:36 16:36 RBC 3.83 L Hgb 11.9 L Hct 38.2 L Plt Count 138 L Lymphocytes # 0.3 L PT 32.8 H INR 3.4 H APTT 44.0 H ABG pH ABG pCO2 ABG pO2 ABG HCO3 ABG Total CO2 ABG O2 Saturation Chloride 96 L Carbon Dioxide 36 H BUN 86 H Creatinine 2.19 H Glucose 113 H Magnesium 2.6 H Urine Protein Urine Blood Urine RBC Urine WBC Urine Bacteria Urine Mucus 09/09/22 09/09/22 09/10/22 17:30 23:59 09:32 RBC Hgb Hct Plt Count Lymphocytes # PT 35.1 H INR 3.6 H APTT ABG pH 7.16 L* ABG pCO2 107 H* ABG pO2 119 H ABG HCO3 38 H ABG Total CO2 41 H ABG O2 Saturation 97.8 H Chloride Carbon Dioxide BUN Creatinine Glucose Magnesium Urine Protein 1+ H Urine Blood Moderate H Urine RBC 29 H Urine WBC 9 H Urine Bacteria Rare H Urine Mucus Rare H - Diagnostic Findings Chest x-ray: image reviewed Assessment and Plan Assessment: Acute hypoxemic and hypercapnic respiratory failure, secondary to CHF. History of recent coronavirus infection. History of chronic atrial fibrillation. History of hypertension. Chronic lower extremity edema. History of chronic kidney disease. Obesity. Prior history of tobacco use. Plan: Plan dated 09/10/2022. The patient was initially seen in the emergency department. The patient is seen in room 2. We added sanjay bee, to the patient's regimen. He is currently getting saline at KVO. He is on BiPAP at 16/5 and 28%. Labs, x-rays, and medications are reviewed.We will continue to follow and make recommendations along the way. Time with Patient: Greater than 30
[2022-09-10 11:54] LABS: Calcium 8.6 mg/dL (8.4-10.2); Potassium 4.8 mmol/L (3.5-5.1)
[2022-09-10 12:23] LABS: Glucose,Whole Blood 91 mg/dL (70-110)
--- NOTE | 2022-09-10 14:57 | P.HPIM ---
History of Present Illness H&P Date: 09/09/22 Chief Complaint: Short of breath This is a 67-year-old patient, follows with Dr. Ricardo Arnold. Chronic stable medical conditions include atrial fibrillation, hypertension, COPD, permanent pacemaker. Patient seen by me in the ER. Most of the history is obtained by the at the bedside. Patient was admitted for lung infection about a month ago. He didn't improve. Following the patient did have COVID. Patient now presents with worsening short of breath. Especially for 3-4 days. Also becoming bloated. Lower extremity edema. Appetite is poor. No cough. Patient has also underlying chronic kidney disease. Patient does smoke cigars and pipes. Patient is requiring a BiPAP in the ER. Has lower extremity wound being followed by Dr. Leung. Patient has some not able to give much of history.) Short of breath. Review of systems: GEN.: Tired, decreased appetite EYES: None HEENT: None NECK: None RESPIRATORY: Short of breath CARDIOVASCULAR: No chest pain GASTROINTESTINAL: None GENITOURINARY: None MUSCULOSKELETAL: Arthritis LYMPHATICS: None HEMATOLOGICAL: None PSYCHIATRY: None NEUROLOGICAL: None Past medical history to include: Atrial fibrillation, hypertension, CK D, permanent pacemaker, Social history: . 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 Physical examination: VITAL SIGNS: 98.4, 62, 16, 108/82, 93% on BiPAP GENERAL: BMI 33.6, reclining in bed, tired, short of breath but lethargic. EYES: Pupils equal. Conjunctiva normal. HEENT: [External appearance of nose and ears normal, oral cavity dry mucous membranes. NECK: JVD unable to assess; masses not palpable. HEART: First and second heart sounds are normal; significant edema. LUNGS: Respiratory rate increased; decreased breath sounds. ABDOMEN: Soft, nontender, liver spleen not palpable, no masses palpable. PSYCH: [Lethargic, barely able to answer questions l. MUSCULOSKELETAL:No Clubbing/cyanosis;muscles-grossly intact, OA NEUROLOGICAL: Cranial nerves grossly intact; no facial asymmetry, power and sensation grossly intact. EXTREMITIES: Wound with dressing on the left leg LYMPHATICS: No lymph nodes palpable in the axilla and neck INVESTIGATIONS, reviewed in the clinical context: WBC 5.5 hemoglobin 11.9 platelets 138 ABG: PH 7.16 pCO2 107 oxygen saturation 97.8 Sodium 138 potassium 4.8 BUN 8622.19 proBNP 10 EKG tracing personally reviewed by me-electronic atrial pacemaker Chest x-ray film personally reviewed by me-basilar infiltrate versus fluid. Hyperinflation Assessment and plan: -Acute hypoxic hypercapnic respiratory failure secondary to COPD/pulmonary edema/pneumonia BiPAP. Dr. Mendoza from pulmonary consulted -Possible acute CHF exacerbation, EF not known Blood pressures running a bit on lower side. Consult cardiology -Acute metabolic encephalopathy from hypoxic/delirium -Chronic kidney disease stage III. Likely nephrosclerosis Baseline creatinine 2 from March 2022 -Normocytic anemia, likely from chronic kidney disease Follow H&H -Essential hypertension Hold antihypertensive, currently blood pressure running on the lower side -Permanent pacemaker -Cardiomyopathy, EF not known -Permanent atrial fibrillation On Toprol-XL. Coumadin. -Chronic left lower extremity wound. Follows with Dr. Leung. We'll consulted for the same. -Full code Consultation to cardiology and pulmonary. Patient on BiPAP. Care was discussed with the at the bedside. Prognosis guarded. Prognosis guarded. Past Medical History Past Medical History: Atrial Fibrillation, Hypertension, Renal Disease Additional Past Medical History / Comment(s): SEE DR CHIANG'S HISTORY AND PHYSICAL FOR CARDIAC HISTORY, CHRONIC KIDNEY DISEASE , History of Any Multi-Drug Resistant Organisms: None Reported Past Surgical History: No Surgical Hx Reported Past Anesthesia/Blood Transfusion Reactions: No Reported Reaction Type of Cardiac Device: Permanent Pacemaker Device Placement Date:: 10/2020 Past Psychological History: No Psychological Hx Reported Smoking Status: Former smoker Past Alcohol Use History: None Reported Past Drug Use History: None Reported - Past Family History Mother Family Medical History: Cancer Additional Family Medical History / Comment(s): BREAST CA Medications and Allergies Home Medications Medication Instructions Recorded Confirmed Type Warfarin Sodium 2.5 mg PO SUMOTUTHFRSA@2100 02/08/19 09/09/22 History Metoprolol Succinate [Toprol XL] 50 mg PO DAILY #90 tab 10/29/20 09/09/22 Rx Cholecalciferol [Vitamin D3 (25 50 mcg PO DAILY 09/09/22 09/09/22 History Mcg = 1000 Iu)] Ferrous Sulfate [Feosol] 325 mg PO DAILY 09/09/22 09/09/22 History Glucosamine Sulfate 500 mg PO HS 09/09/22 09/09/22 History Losartan [Cozaar] 12.5 mg PO DAILY 09/09/22 09/09/22 History Spironolactone [Aldactone] 12.5 mg PO DAILY 09/09/22 09/09/22 History Thiamine [Vitamin B-1] 100 mg PO DAILY 09/09/22 09/09/22 History Torsemide [Demadex] 30 mg PO BID 09/09/22 09/09/22 History Warfarin [Coumadin] 1.25 mg PO WE@2100 09/09/22 09/09/22 History metOLazone [Zaroxolyn] 2.5 mg PO BID 09/09/22 09/09/22 History Allergies Allergy/AdvReac Type Severity Reaction Status Date / Time aspirin Allergy Unknown Verified 09/09/22 17:18 Physical Exam Vitals: Vital Signs Temp Pulse Pulse Resp BP BP Pulse Ox 09/10/22 11:55 59 L 09/10/22 11:45 61 09/10/22 11:41 09/10/22 09:52 60 103/86 09/10/22 08:00 66 20 88/66 93 L 09/10/22 07:30 09/10/22 03:28 09/10/22 00:13 09/10/22 00:12 97.2 F L 60 22 81/63 94 L 09/09/22 20:34 62 16 108/82 93 L 09/09/22 19:29 09/09/22 18:40 61 18 106/84 94 L 09/09/22 17:57 09/09/22 16:18 98.4 F 55 L 20 97/66 87 L FiO2 09/10/22 11:55 09/10/22 11:45 09/10/22 11:41 28 09/10/22 09:52 09/10/22 08:00 09/10/22 07:30 28 09/10/22 03:28 28 09/10/22 00:13 28 09/10/22 00:12 28 09/09/22 20:34 09/09/22 19:29 28 09/09/22 18:40 09/09/22 17:57 28 09/09/22 16:18 Intake and Output 09/09/22 09/10/22 09/10/22 22:59 06:59 14:59 Other: Weight 118.841 kg 118.841 kg Results CBC & Chem 7: 09/10/22 09:32 09/10/22 09:32 Labs: Abnormal Lab Results - Last 24 Hours (Table) 09/09/22 09/09/22 09/09/22 Range/Units 16:36 16:36 16:36 RBC 3.83 L (4.30-5.90) m/uL Hgb 11.9 L (13.0-17.5) gm/dL Hct 38.2 L (39.0-53.0) % MCV (80.0-100.0) fL MCHC (31.0-37.0) g/dL Plt Count 138 L (150-450) k/uL Lymphocytes # 0.3 L (1.0-4.8) k/uL PT 32.8 H (9.0-12.0) sec INR 3.4 H (<1.2) APTT 44.0 H (22.0-30.0) sec ABG pH (7.35-7.45) ABG pCO2 (35-45) mmHg ABG pO2 (83-108) mmHg ABG HCO3 (21-25) mmol/L ABG Total CO2 (19-24) mmol/L ABG O2 Saturation (94-97) % Chloride 96 L (98-107) mmol/L Carbon Dioxide 36 H (22-30) mmol/L BUN 86 H (9-20) mg/dL Creatinine 2.19 H (0.66-1.25) mg/dL Glucose 113 H (74-99) mg/dL Magnesium 2.6 H (1.6-2.3) mg/dL Urine Protein (Negative) Urine Blood (Negative) Urine RBC (0-5) /hpf Urine WBC (0-5) /hpf Urine Bacteria (None) /hpf Urine Mucus (None) /hpf 09/09/22 09/09/22 09/10/22 Range/Units 17:30 23:59 09:32 RBC (4.30-5.90) m/uL Hgb (13.0-17.5) gm/dL Hct (39.0-53.0) % MCV (80.0-100.0) fL MCHC (31.0-37.0) g/dL Plt Count (150-450) k/uL Lymphocytes # (1.0-4.8) k/uL PT 35.1 H (9.0-12.0) sec INR 3.6 H (<1.2) APTT (22.0-30.0) sec ABG pH 7.16 L* (7.35-7.45) ABG pCO2 107 H* (35-45) mmHg ABG pO2 119 H (83-108) mmHg ABG HCO3 38 H (21-25) mmol/L ABG Total CO2 41 H (19-24) mmol/L ABG O2 Saturation 97.8 H (94-97) % Chloride (98-107) mmol/L Carbon Dioxide (22-30) mmol/L BUN (9-20) mg/dL Creatinine (0.66-1.25) mg/dL Glucose (74-99) mg/dL Magnesium (1.6-2.3) mg/dL Urine Protein 1+ H (Negative) Urine Blood Moderate H (Negative) Urine RBC 29 H (0-5) /hpf Urine WBC 9 H (0-5) /hpf Urine Bacteria Rare H (None) /hpf Urine Mucus Rare H (None) /hpf 09/10/22 09/10/22 Range/Units 09:32 09:32 RBC 3.61 L (4.30-5.90) m/uL Hgb 11.2 L (13.0-17.5) gm/dL Hct 37.3 L (39.0-53.0) % MCV 103.2 H (80.0-100.0) fL MCHC 30.1 L (31.0-37.0) g/dL Plt Count 131 L (150-450) k/uL Lymphocytes # 0.2 L (1.0-4.8) k/uL PT (9.0-12.0) sec INR (<1.2) APTT (22.0-30.0) sec ABG pH (7.35-7.45) ABG pCO2 (35-45) mmHg ABG pO2 (83-108) mmHg ABG HCO3 (21-25) mmol/L ABG Total CO2 (19-24) mmol/L ABG O2 Saturation (94-97) % Chloride 96 L (98-107) mmol/L Carbon Dioxide 37 H (22-30) mmol/L BUN 90 H (9-20) mg/dL Creatinine 2.75 H (0.66-1.25) mg/dL Glucose (74-99) mg/dL Magnesium (1.6-2.3) mg/dL Urine Protein (Negative) Urine Blood (Negative) Urine RBC (0-5) /hpf Urine WBC (0-5) /hpf Urine Bacteria (None) /hpf Urine Mucus (None) /hpf Thrombosis Risk Factor Assmnt - Choose All That Apply Any of the Below Risk Factors Present?: Yes Each Factor Represents 1 point: Heart failure (<1month), Medical pt on bed rest, Swollen legs (current) Other Risk Factors: Yes Each Risk Factor Represents 2 Points: Age 61-74 years Thrombosis Risk Factor Assessment Total Risk Factor Score: 5 Thrombosis Risk Factor Assessment Level: High Risk
--- NOTE | 2022-09-10 15:01 | P.PN ---
Progress Note - Text Progress Note Date: 09/10/22 Chief Complaint: Short of breath This is a 67-year-old patient, follows with Dr. Ricardo Arnold. Chronic stable medical conditions include atrial fibrillation, hypertension, COPD, permanent pacemaker. Patient seen by me in the ER. Most of the history is obtained by the at the bedside. Patient was admitted for lung infection about a month ago. He didn't improve. Following the patient did have COVID. Patient now presents with worsening short of breath. Especially for 3-4 days. Also becoming bloated. Lower extremity edema. Appetite is poor. No cough. Patient has also underlying chronic kidney disease. Patient does smoke cigars and pipes. Patient is requiring a BiPAP in the ER. Has lower extremity wound being followed by Dr. Leung. Patient has some not able to give much of history.) Short of breath. 09/10/2022: Patient remains or overflow in the ER. On BiPAP. Tired lethargic. IV Lasix. Worsening renal function. We have pneumonia. Start IV ceftriaxone. Bronchodilators. Steroids. Strict I's and O's. Active Medications Albuterol/Ipratropium (Ipratropium-Albuterol 3 Ml Neb) 3 ml INHALATION RT-TID [facility] Last Admin: 09/10/22 11:44 Dose: 3 ml Budesonide (Budesonide 1 Mg/2 Ml Nebu) 1 mg INHALATION RT-BID [facility] Furosemide (Furosemide 10 Mg/Ml 4 Ml Vial) 40 mg IV Q12HR [facility] Last Admin: 09/10/22 10:29 Dose: 40 mg Sodium Chloride (Saline 0.9%) 1,000 mls @ 20 mls/hr IV .Q24H [facility] Last Admin: 09/10/22 02:42 Dose: 20 mls/hr Ceftriaxone Sodium 1 gm/ (Sodium Chloride) 50 mls @ 100 mls/hr IVPB Q12H [facility]; Protocol Methylprednisolone Sodium Succinate (Methylprednisolone Sod Succi 125 Mg/2 Ml Vial) 60 mg IV Q8HR [facility] Miscellaneous Information (Warfarin Per Pharmacy) 0 each MISCELLANE DIRECTED PRN PRN Reason: PER PROTOCOL Warfarin Sodium (Warfarin 0.5 Mg Tab) 0 mg PO ONCE@1800 ONE Stop: 09/10/22 18:01 Past medical history to include: Atrial fibrillation, hypertension, CK D, permanent pacemaker, Social history: . 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 Physical examination: VITAL SIGNS: Afebrile, 60, 20, 103/86, 93% on BiPAP GENERAL: , reclining in bed, tired, short of breath / lethargic. EYES: Pupils equal. Conjunctiva normal. HEENT: [External appearance of nose and ears normal, oral cavity dry mucous membranes. NECK: JVD unable to assess; masses not palpable. HEART: First and second heart sounds are normal; significant edema. LUNGS: Respiratory rate increased; decreased breath sounds. ABDOMEN: Soft, nontender, liver spleen not palpable, no masses palpable. PSYCH: [Lethargic, attempting to answer l. MUSCULOSKELETAL:No Clubbing/cyanosis;muscles-grossly intact, OA EXTREMITIES: Wound with dressing on the left leg INVESTIGATIONS, reviewed in the clinical context: 09/10/2022: WBC 7.9 hemoglobin 11.2 platelets 131 INR 3.6 BUN 90 creatinine 2.75 WBC 5.5 hemoglobin 11.9 platelets 138 ABG: PH 7.16 pCO2 107 oxygen saturation 97.8 Sodium 138 potassium 4.8 BUN 8622.19 proBNP 10 EKG tracing personally reviewed by me-electronic atrial pacemaker Chest x-ray film personally reviewed by me-basilar infiltrate versus fluid. Hyperinflation Assessment and plan: -Acute hypoxic hypercapnic respiratory failure secondary to COPD/pulmonary adeel ma/pneumonia: Slow to respond BiPAP. Dr. Mendoza from pulmonary -Possible acute CHF exacerbation, EF not known Blood pressures running a bit on lower side. Follow with cardiology. 2-D echo. -Acute metabolic encephalopathy from hypoxic/delirium: Slow to respond -Chronic kidney disease stage III. Likely nephrosclerosis Baseline creatinine 2 from March 2022 -Normocytic anemia, likely from chronic kidney disease Follow H&H -Essential hypertension Hold antihypertensive, currently blood pressure running on the lower side -Permanent pacemaker -Cardiomyopathy, EF not known -Permanent atrial fibrillation Coetcf-VS-slyp for low blood pressure. Coumadin. -Coumadin monitoring Pharmacy to dose -Chronic left lower extremity wound. Follows with Dr. Leung. We'll consulted for the same. -Full code [id number]. Nebulized Pulmicort. IV Solu-Medrol. IV ceftriaxone. Strict I's and O's. No family at the bedside. Follows with cardiology and pulmonary. Check pro calcitonin.
[2022-09-10] MEDS: BUDESONIDE 1 MG/2 ML NEBU INHALATION SCH ×2 (15:35→19:15)
--- NOTE | 2022-09-10 16:24 | P.GSCN ---
History of Present Illness History of present illness: 67-year-old gentleman known to me from the past patient has a wound on the plantar S aspect 1 x 0.5 cm with Brown induration of the bilateral lower extremity. Patient has been admitted with shortness of breath and patient is on BiPAP on examination patient has a chronic wound plantar aspect of the right lower leg with Brown induration and running venous hypertension of bilateral Femorals are 1+ PTDP not palpable we will use medihoney gel for the wound clinic today with change dressing daily Chest patient has bilateral rhonchi Eschen or BiPAP Abdomen soft nontender Plan is no surgical intervention we'll use medihoney gel any discharge we'll follow in the wound clinic Past Medical History Past Medical History: Atrial Fibrillation, Hypertension, Renal Disease Additional Past Medical History / Comment(s): SEE DR CHIANG'S HISTORY AND PHYSICAL FOR CARDIAC HISTORY, CHRONIC KIDNEY DISEASE , History of Any Multi-Drug Resistant Organisms: None Reported Past Surgical History: No Surgical Hx Reported Past Anesthesia/Blood Transfusion Reactions: No Reported Reaction Type of Cardiac Device: Permanent Pacemaker Device Placement Date:: 10/2020 Past Psychological History: No Psychological Hx Reported Smoking Status: Former smoker Past Alcohol Use History: None Reported Past Drug Use History: None Reported - Past Family History Mother Family Medical History: Cancer Additional Family Medical History / Comment(s): BREAST CA Medications and Allergies Home Medications Medication Instructions Recorded Confirmed Type Warfarin Sodium 2.5 mg PO SUMOTUTHFRSA@2100 02/08/19 09/09/22 History Metoprolol Succinate [Toprol XL] 50 mg PO DAILY #90 tab 10/29/20 09/09/22 Rx Cholecalciferol [Vitamin D3 (25 50 mcg PO DAILY 09/09/22 09/09/22 History Mcg = 1000 Iu)] Ferrous Sulfate [Feosol] 325 mg PO DAILY 09/09/22 09/09/22 History Glucosamine Sulfate 500 mg PO HS 09/09/22 09/09/22 History Losartan [Cozaar] 12.5 mg PO DAILY 09/09/22 09/09/22 History Spironolactone [Aldactone] 12.5 mg PO DAILY 09/09/22 09/09/22 History Thiamine [Vitamin B-1] 100 mg PO DAILY 09/09/22 09/09/22 History Torsemide [Demadex] 30 mg PO BID 09/09/22 09/09/22 History Warfarin [Coumadin] 1.25 mg PO WE@2100 09/09/22 09/09/22 History metOLazone [Zaroxolyn] 2.5 mg PO BID 09/09/22 09/09/22 History Allergies Allergy/AdvReac Type Severity Reaction Status Date / Time aspirin Allergy Unknown Verified 09/09/22 17:18 Surgical - Exam Vital Signs Temp Pulse Resp BP Pulse Ox 98.4 F 55 L 20 97/66 87 L 09/09/22 16:18 09/09/22 16:18 09/09/22 16:18 09/09/22 16:18 09/09/22 16:18 Results - Labs 09/10/22 09:32 09/10/22 09:32 Abnormal Lab Results - Last 24 Hours (Table) 09/09/22 09/09/22 09/09/22 Range/Units 16:36 16:36 16:36 RBC 3.83 L (4.30-5.90) m/uL Hgb 11.9 L (13.0-17.5) gm/dL Hct 38.2 L (39.0-53.0) % MCV (80.0-100.0) fL MCHC (31.0-37.0) g/dL Plt Count 138 L (150-450) k/uL Lymphocytes # 0.3 L (1.0-4.8) k/uL PT 32.8 H (9.0-12.0) sec INR 3.4 H (<1.2) APTT 44.0 H (22.0-30.0) sec ABG pH (7.35-7.45) ABG pCO2 (35-45) mmHg ABG pO2 (83-108) mmHg ABG HCO3 (21-25) mmol/L ABG Total CO2 (19-24) mmol/L ABG O2 Saturation (94-97) % Chloride 96 L (98-107) mmol/L Carbon Dioxide 36 H (22-30) mmol/L BUN 86 H (9-20) mg/dL Creatinine 2.19 H (0.66-1.25) mg/dL Glucose 113 H (74-99) mg/dL Magnesium 2.6 H (1.6-2.3) mg/dL Urine Protein (Negative) Urine Blood (Negative) Urine RBC (0-5) /hpf Urine WBC (0-5) /hpf Urine Bacteria (None) /hpf Urine Mucus (None) /hpf 09/09/22 09/09/22 09/10/22 Range/Units 17:30 23:59 09:32 RBC (4.30-5.90) m/uL Hgb (13.0-17.5) gm/dL Hct (39.0-53.0) % MCV (80.0-100.0) fL MCHC (31.0-37.0) g/dL Plt Count (150-450) k/uL Lymphocytes # (1.0-4.8) k/uL PT 35.1 H (9.0-12.0) sec INR 3.6 H (<1.2) APTT (22.0-30.0) sec ABG pH 7.16 L* (7.35-7.45) ABG pCO2 107 H* (35-45) mmHg ABG pO2 119 H (83-108) mmHg ABG HCO3 38 H (21-25) mmol/L ABG Total CO2 41 H (19-24) mmol/L ABG O2 Saturation 97.8 H (94-97) % Chloride (98-107) mmol/L Carbon Dioxide (22-30) mmol/L BUN (9-20) mg/dL Creatinine (0.66-1.25) mg/dL Glucose (74-99) mg/dL Magnesium (1.6-2.3) mg/dL Urine Protein 1+ H (Negative) Urine Blood Moderate H (Negative) Urine RBC 29 H (0-5) /hpf Urine WBC 9 H (0-5) /hpf Urine Bacteria Rare H (None) /hpf Urine Mucus Rare H (None) /hpf 09/10/22 09/10/22 Range/Units 09:32 09:32 RBC 3.61 L (4.30-5.90) m/uL Hgb 11.2 L (13.0-17.5) gm/dL Hct 37.3 L (39.0-53.0) % MCV 103.2 H (80.0-100.0) fL MCHC 30.1 L (31.0-37.0) g/dL Plt Count 131 L (150-450) k/uL Lymphocytes # 0.2 L (1.0-4.8) k/uL PT (9.0-12.0) sec INR (<1.2) APTT (22.0-30.0) sec ABG pH (7.35-7.45) ABG pCO2 (35-45) mmHg ABG pO2 (83-108) mmHg ABG HCO3 (21-25) mmol/L ABG Total CO2 (19-24) mmol/L ABG O2 Saturation (94-97) % Chloride 96 L (98-107) mmol/L Carbon Dioxide 37 H (22-30) mmol/L BUN 90 H (9-20) mg/dL Creatinine 2.75 H (0.66-1.25) mg/dL Glucose (74-99) mg/dL Magnesium (1.6-2.3) mg/dL Urine Protein (Negative) Urine Blood (Negative) Urine RBC (0-5) /hpf Urine WBC (0-5) /hpf Urine Bacteria (None) /hpf Urine Mucus (None) /hpf Diabetes panel 09/09/22 09/10/22 Range/Units 16:36 09:32 Sodium 138 141 (137-145) mmol/L Potassium 4.8 4.8 (3.5-5.1) mmol/L Chloride 96 L 96 L (98-107) mmol/L Carbon Dioxide 36 H 37 H (22-30) mmol/L BUN 86 H 90 H (9-20) mg/dL Creatinine 2.19 H 2.75 H (0.66-1.25) mg/dL Glucose 113 H 76 (74-99) mg/dL Calcium 9.1 8.6 (8.4-10.2) mg/dL AST 28 (17-59) U/L ALT 19 (4-49) U/L Alkaline Phosphatase 101 (38-126) U/L Total Protein 7.7 (6.3-8.2) g/dL Albumin 4.2 (3.5-5.0) g/dL Calcium panel 09/09/22 09/10/22 Range/Units 16:36 09:32 Calcium 9.1 8.6 (8.4-10.2) mg/dL Albumin 4.2 (3.5-5.0) g/dL Pituitary panel 09/09/22 09/10/22 Range/Units 16:36 09:32 Sodium 138 141 (137-145) mmol/L Potassium 4.8 4.8 (3.5-5.1) mmol/L Chloride 96 L 96 L (98-107) mmol/L Carbon Dioxide 36 H 37 H (22-30) mmol/L BUN 86 H 90 H (9-20) mg/dL Creatinine 2.19 H 2.75 H (0.66-1.25) mg/dL Glucose 113 H 76 (74-99) mg/dL Calcium 9.1 8.6 (8.4-10.2) mg/dL Adrenal panel 09/09/22 09/10/22 Range/Units 16:36 09:32 Sodium 138 141 (137-145) mmol/L Potassium 4.8 4.8 (3.5-5.1) mmol/L Chloride 96 L 96 L (98-107) mmol/L Carbon Dioxide 36 H 37 H (22-30) mmol/L BUN 86 H 90 H (9-20) mg/dL Creatinine 2.19 H 2.75 H (0.66-1.25) mg/dL Glucose 113 H 76 (74-99) mg/dL Calcium 9.1 8.6 (8.4-10.2) mg/dL Total Bilirubin 0.7 (0.2-1.3) mg/dL AST 28 (17-59) U/L ALT 19 (4-49) U/L Alkaline Phosphatase 101 (38-126) U/L Total Protein 7.7 (6.3-8.2) g/dL Albumin 4.2 (3.5-5.0) g/dL
[2022-09-10] MEDS: methylPREDNISolone SOD SUCCI 125 MG/2 ML VIAL IV SCH (17:58)
[2022-09-10] MEDS ORDERED: WARFARIN 0.5 MG TAB PO ONE (18:00)
[2022-09-10] MEDS ORDERED: WARFARIN 2.5 MG TAB PO SCH (21:00)
[2022-09-11] MEDS: methylPREDNISolone SOD SUCCI 125 MG/2 ML VIAL IV SCH ×3 (00:54→16:44)
[2022-09-11 06:14] LABS: Glucose,Whole Blood 94 mg/dL (70-110)
[2022-09-11] MEDS: IPRATROPIUM-ALBUTEROL 3 ML NEB INHALATION SCH ×3 (07:05→19:13)
[2022-09-11] MEDS: BUDESONIDE 1 MG/2 ML NEBU INHALATION SCH ×2 (07:05→19:13)
[2022-09-11 07:41] LABS: Prothrombin Time 52.9 sec (9.0-12.0)
--- NOTE | 2022-09-11 07:48 | P.PN ---
Subjective Progress Note Date: 09/11/22 Principal diagnosis: Heart failure with reduced ejection fraction This is a 67-year-old gentleman with mild nonobstructive CAD and ischemic cardiomyopathy with EF around 45% as well as permanent atrial fibrillation as well as history of ventricular tachycardia status post AICD as well as multiple comorbid conditions was admitted to the hospital with acute hypoxic respiratory failure secondary to COPD exacerbation and CHF exacerbation as well as. 09/11/2022 The patient was seen this morning. He was transferred to the intensive care unit because of overflow. He is still hypoxic and he is on BiPAP. On examination he is still having bilateral expiratory wheezing and crackles at continues to have bilateral lower extremities edema. Currently he is on Lasix 40 mg IV twice a day and his urine output has been low. I will suggest consult nephrology service. His creatinine continues to be elevated and above his baseline. No symptoms of chest pain or chest discomfort. He continues to have in atrial fibrillation with controlled heart rate and he continues to be on oral anticoagulation. Objective - Vital Signs Vital signs: Vital Signs Temp 97.5 F L 09/10/22 14:00 Pulse 77 09/11/22 07:07 Resp 24 09/11/22 00:00 BP 101/66 09/11/22 00:00 Pulse Ox 91 L 09/11/22 00:00 FiO2 28 09/11/22 07:07 Intake & Output 09/10/22 09/11/22 09/11/22 18:59 06:59 18:59 Weight 118.841 kg 118.6 kg Other: Voiding Method Indwelling Catheter Indwelling Catheter - Constitutional General appearance: Present: no acute distress - Respiratory Respiratory: bilateral: diminished, rales - Cardiovascular Rhythm: irregularly irregular - Labs CBC & Chem 7: 09/10/22 09:32 09/10/22 09:32 Labs: Abnormal Lab Results - Last 24 Hours (Table) 09/10/22 09/10/22 09/10/22 Range/Units 09:32 09:32 09:32 RBC 3.61 L (4.30-5.90) m/uL Hgb 11.2 L (13.0-17.5) gm/dL Hct 37.3 L (39.0-53.0) % MCV 103.2 H (80.0-100.0) fL MCHC 30.1 L (31.0-37.0) g/dL Plt Count 131 L (150-450) k/uL Lymphocytes # 0.2 L (1.0-4.8) k/uL PT 35.1 H (9.0-12.0) sec INR 3.6 H (<1.2) Chloride 96 L (98-107) mmol/L Carbon Dioxide 37 H (22-30) mmol/L BUN 90 H (9-20) mg/dL Creatinine 2.75 H (0.66-1.25) mg/dL Microbiology - Last 24 Hours (Table) 09/09/22 18:57 Blood Culture - Preliminary Blood No Growth after 24 hours 09/09/22 18:40 Blood Culture - Preliminary Blood No Growth after 24 hours Assessment and Plan Assessment: Assessment Acute hypoxic respiratory failure COPD exacerbation CHF exacerbation secondary to heart failure with reduced ejection fraction Permanent atrial fibrillation Nonischemic cardiomyopathy Mild CAD Status post AICD Plan Continue the current dose of Lasix IV. Suggest consult nephrology service Continue oral anticoagulation Follow-up with the patient
[2022-09-11 07:51] LABS: Calcium 8.3 mg/dL (8.4-10.2); Potassium 4.9 mmol/L (3.5-5.1)
[2022-09-11 07:56] LABS: INR 5.4 (<1.2)
[2022-09-11 08:16] LABS: Glucose,Whole Blood 96 mg/dL (70-110)
[2022-09-11] MEDS: FUROSEMIDE 10 MG/ML 4 ML VIAL IV SCH ×2 (08:21→21:21)
--- NOTE | 2022-09-11 09:20 | CT ---
EXAMINATION TYPE: CT brain wo con DATE OF EXAM: 09/11/2022 HISTORY: Altered mental status. Unequal pupils. CT DLP: 2300.4 mGycm. Automated Exposure Control for Dose Reduction was Utilized. TECHNIQUE: CT scan of the head is performed without contrast. COMPARISON: None. FINDINGS: There is no acute intracranial hemorrhage or midline shift identified. There is mild to m oderate diffuse ventricular and sulcal prominence consistent with diffuse age-related cerebral atroph y. There is mild low-attenuation in the periventricular white matter consistent with chronic small v essel ischemic change. The globes are intact bilaterally. There is partial visualization of mucous r etention cyst and/or polyp in the anterior inferior left maxillary sinus otherwise the paranasal sinu ses are clear.. IMPRESSION: No acute intracranial hemorrhage or midline shift. There is mild to moderate diffuse ag e-related cerebral atrophy and mild chronic small vessel ischemic change noted.
[2022-09-11] MEDS: MIDODRINE 5 MG TAB PO SCH ×3 (10:24→16:46)
--- NOTE | 2022-09-11 10:26 | P.NPCON ---
History of Present Illness - Reason for Consult acute renal failure, chronic renal failure - History of Present Illness Reason for consultation: Acute kidney injury on chronic kidney disease History of present illness: Patient is a 67-year-old male seen in renal consultation for acute kidney injury on chronic kidney disease. Patient has chronic kidney disease stage IIIB secondary to nephrosclerosis and cardiorenal syndrome with baseline creatinine in the range of 1.8-2. Patient's creatinine on admission was 2.19 and is up to 2.99 today. Patient presented to the hospital on 09/09/2022 with worsening shortness of breath going on for about 2-3 days. Patient was recently treated for pneumonia and at that time was admitted at [facility]. He is currently on BiPAP. It is noted to the patient tested positive for covid infection during his last hospitalization. Patient was quite somnolent on admission as noted in the chart. Patient's pCO2 yesterday was 107. Again he is currently on a BiPAP. His mentation seems to have improved. He does answer questions at this time. He is denying chest pain or shortness of breath. Patient became hypotensive last night and received IV fluids. However he is back on IV Lasix this morning per cardiology. Patient has history of systolic CHF with ejection fraction of 45% with severe tricuspid regurgitation. He denies history of diabetes. Blood pressure has been low in the systolic 70s to 90s this morning. Vital signs - Hypotensive. General: Resting in bed. No acute distress. HEENT: On BiPAP. LUNGS: Breath sounds decreased. HEART: Rate and Rhythm are regular. ABDOMEN: Soft, no distention. EXTREMITITES: 1+ edema. Past Medical History Past Medical History: Atrial Fibrillation, Hypertension, Renal Disease Additional Past Medical History / Comment(s): SEE DR CHIANG'S HISTORY AND PHYSICAL FOR CARDIAC HISTORY, CHRONIC KIDNEY DISEASE , History of Any Multi-Drug Resistant Organisms: None Reported Past Surgical History: No Surgical Hx Reported Past Anesthesia/Blood Transfusion Reactions: No Reported Reaction Type of Cardiac Device: Permanent Pacemaker Device Placement Date:: 10/2020 Past Psychological History: No Psychological Hx Reported Smoking Status: Former smoker Past Alcohol Use History: None Reported Past Drug Use History: None Reported - Past Family History Mother Family Medical History: Cancer Additional Family Medical History / Comment(s): BREAST CA Medications and Allergies Home Medications Medication Instructions Recorded Confirmed Type Warfarin Sodium 2.5 mg PO BRIDGETTETUTHFRSA@209902/08/19 09/09/22 History Metoprolol Succinate [Toprol XL] 50 mg PO DAILY #90 tab 10/29/20 09/09/22 Rx Cholecalciferol [Vitamin D3 (25 50 mcg PO DAILY 09/09/22 09/09/22 History Mcg = 1000 Iu)] Ferrous Sulfate [Feosol] 325 mg PO DAILY 09/09/22 09/09/22 History Glucosamine Sulfate 500 mg PO HS 09/09/22 09/09/22 History Losartan [Cozaar] 12.5 mg PO DAILY 09/09/22 09/09/22 History Spironolactone [Aldactone] 12.5 mg PO DAILY 09/09/22 09/09/22 History Thiamine [Vitamin B-1] 100 mg PO DAILY 09/09/22 09/09/22 History Torsemide [Demadex] 30 mg PO BID 09/09/22 09/09/22 History Warfarin [Coumadin] 1.25 mg PO WE@209909/09/22 09/09/22 History metOLazone [Zaroxolyn] 2.5 mg PO BID 09/09/22 09/09/22 History Allergies Allergy/AdvReac Type Severity Reaction Status Date / Time aspirin Allergy Unknown Verified 09/09/22 17:18 Physical Exam Vitals: Vital Signs Temp Pulse Pulse Resp BP Pulse Ox FiO2 09/11/22 08:00 96.4 F L 89 22 75/56 91 L 09/11/22 07:07 77 28 09/11/22 03:35 28 09/11/22 00:00 80 24 101/66 91 L 09/10/22 23:36 28 09/10/22 19:32 62 09/10/22 19:19 64 28 09/10/22 15:55 28 09/10/22 14:00 97.5 F L 60 20 73/60 93 L 28 09/10/22 11:55 59 L 09/10/22 11:45 61 09/10/22 11:41 28 Intake and Output 09/10/22 09/11/22 09/11/22 22:59 06:59 14:59 Output Total 150 Balance -150 Output: Urine 150 Other: Voiding Method Indwelling Catheter Indwelling Catheter Weight 118.6 kg Results - Lab Results Most recent lab results ABG pH 7.16 (7.35-7.45) L* 09/09/22 17:30 ABG pCO2 107 mmHg (35-45) H* 09/09/22 17:30 ABG pO2 119 mmHg (83-108) H 09/09/22 17:30 ABG HCO3 38 mmol/L (21-25) H 09/09/22 17:30 ABG O2 Saturation 97.8 % (94-97) H 09/09/22 17:30 Calcium 8.3 mg/dL (8.4-10.2) L 09/11/22 06:13 Magnesium 2.6 mg/dL (1.6-2.3) H 09/09/22 16:36 09/10/22 09:32 09/11/22 06:13 Assessment and Plan Plan: Assessment: 1. Acute kidney injury secondary to ATN secondary to hypotension and cardiorenal syndrome. Creatinine 2.99 today. 2. Chronic kidney disease stage IIIB with baseline creatinine 1.8-2 secondary to nephrosclerosis and cardiorenal syndrome. 3. Acute hypoxic and hypercapnic respiratory failure. On BiPAP. 4. Acute on chronic systolic CHF with ejection fraction of 45% with severe tricuspid regurgitation. Status post AICD. Plan: Maintain IV Lasix for now. Add midodrine 5 mg 3 times daily. Hold for systolic blood pressure greater than 110. May need vasopressor support. Continue to monitor renal function and urine output. Check cortisol level. Check renal ultrasound. Thank you for the consultation. I will continue to follow the patient with you during his hospital stay.
--- NOTE | 2022-09-11 10:27 | P.CNNES ---
History of Present Illness Consult date: 09/11/22 Requesting physician: John Montesinos Reason for Consult: AMS, unequal pupils, weakness History of Present Illness: This is a 67-year-old gentleman with history of atrial fibrillation on Coumadin who presented emergency department on 09/09/2022 for altered mental status and shortness of breath. Neurology is consulted for unequal pupils altered mental status and weakness. Patient is a poor historian. History is obtained from medical records and patient's nurse. According to the patient's nurse patient has been having altered mental status during this hospital stay but upon examining her and starting her shift she noticed that the pupils are unequal and she asked overnight nurse in the overnight nurse felt the patient's pupils were equal. Unknown exact last normal state. According to the patient's nurse jose ent has body jerks with confusion. No history of seizure. Patient stated he had chronic right shoulder pain. Denies headache. It seems that during the patient's hospital stay his ABG is that the pCO2 is 107 with a pH of 7.16 and his creatinine and BUN are trending up. Also the patient's INR is supratherapeutic on presentation is 3.4 and currently is 5.4 and per the nurse and the Coumadin has been held. As a result as stats CAT scan of the head was ordered that today and is reported as no acute intracranial hemorrhage or midline shift. There is mild to moderate diffuse age-related cerebral atrophy and the mild chronic small vessel ischemic changes noted. Some of the other workup during this hospital visit consisted of: Glucose is 1:30 on presentation. Chloride 96, digoxin is 36 ALT and AST are within normal limits Review of Systems Review of system: The 12 point system was reviewed and apparent positive and negative per HPI. Past Medical History Past Medical History: Atrial Fibrillation, Hypertension, Renal Disease Additional Past Medical History / Comment(s): SEE DR CHIANG'S HISTORY AND PHYSICAL FOR CARDIAC HISTORY, CHRONIC KIDNEY DISEASE , History of Any Multi-Drug Resistant Organisms: None Reported Past Surgical History: No Surgical Hx Reported Past Anesthesia/Blood Transfusion Reactions: No Reported Reaction Type of Cardiac Device: Permanent Pacemaker Device Placement Date:: 10/2020 Past Psychological History: No Psychological Hx Reported Smoking Status: Former smoker Past Alcohol Use History: None Reported Past Drug Use History: None Reported - Past Family History Mother Family Medical History: Cancer Additional Family Medical History / Comment(s): BREAST CA Medications and Allergies Home Medications Medication Instructions Recorded Confirmed Type Warfarin Sodium 2.5 mg PO ROSAURA@2100 02/08/19 09/09/22 History Metoprolol Succinate [Toprol XL] 50 mg PO DAILY #90 tab 10/29/20 09/09/22 Rx Cholecalciferol [Vitamin D3 (25 50 mcg PO DAILY 09/09/22 09/09/22 History Mcg = 1000 Iu)] Ferrous Sulfate [Feosol] 325 mg PO DAILY 09/09/22 09/09/22 History Glucosamine Sulfate 500 mg PO HS 09/09/22 09/09/22 History Losartan [Cozaar] 12.5 mg PO DAILY 09/09/22 09/09/22 History Spironolactone [Aldactone] 12.5 mg PO DAILY 09/09/22 09/09/22 History Thiamine [Vitamin B-1] 100 mg PO DAILY 09/09/22 09/09/22 History Torsemide [Demadex] 30 mg PO BID 09/09/22 09/09/22 History Warfarin [Coumadin] 1.25 mg PO WE@209909/09/22 09/09/22 History metOLazone [Zaroxolyn] 2.5 mg PO BID 09/09/22 09/09/22 History Allergies Allergy/AdvReac Type Severity Reaction Status Date / Time aspirin Allergy Unknown Verified 09/09/22 17:18 Physical Examination - Vital Signs Vital Signs: Vital Signs Temp Pulse Pulse Resp BP BP Pulse Ox 09/11/22 08:00 96.4 F L 89 22 75/56 91 L 09/11/22 07:07 77 09/11/22 03:35 09/11/22 00:00 80 24 101/66 91 L 09/10/22 23:36 09/10/22 19:32 62 09/10/22 19:19 64 09/10/22 15:55 09/10/22 14:00 97.5 F L 60 20 73/60 93 L 09/10/22 11:55 59 L 09/10/22 11:45 61 09/10/22 11:41 09/10/22 09:52 60 103/86 FiO2 09/11/22 08:00 09/11/22 07:07 28 09/11/22 03:35 28 09/11/22 00:00 09/10/22 23:36 28 09/10/22 19:32 09/10/22 19:19 28 09/10/22 15:55 28 09/10/22 14:00 28 09/10/22 11:55 09/10/22 11:45 09/10/22 11:41 28 09/10/22 09:52 Intake and Output 09/10/22 09/11/22 09/11/22 22:59 06:59 14:59 Output Total 150 Balance -150 Output: Urine 150 Other: Voiding Method Indwelling Catheter Indwelling Catheter Weight 118.6 kg GENERAL: The patient is lying in bed and is not in acute distress. CHEST: The heart rate is regular rate rhythm. No murmurs to auscultation. LUNG: Clear to auscultation bilaterally no wheezing noted throughout. Not labored breathing. Is on BiPAP. ABDOMEN/GI: Bowel sounds present in all 4 quadrants. No tenderness to palpation throughout. INTEGUMENTARY: Significant edema of bilateral lower extremity NEUROLOGICAL: Limited because of cooperation Higher mental function: The patient is drowsy but is awakeable to voice. Oriented to self, time. He correctly stated he was in the hospital. Patient is following simple commands. No aphasia from limited language and no neglect. Cranial nerves: The pupils are round, right is 3mm and left is 4-5mm and bilater ally reactive to light. Visual johnson is hard to assess because of cooperation. EOM was hard to assess and attempted multiple time and was able to look to right and left with no restriction. The facial strength is normal throughout. No dysarthria is noted. Has breathing mask for his BiPAP. Otherwise rest is limited because of his cooperation. Motor: The strength is hard to assess individual muscles. He was able to raise bilateral upper and lower extremity above gravity but appears has drift on the right lower and stated has old shoulder pain. He has myclonic jerks of uppers. Normal tone and bulk. Cerebellum: Unable to assess. Sensation: Unable to assess. Reflexes (right/left): 1+ throughout. Plantars are mute bilaterally. Results - Laboratory Findings CBC and BMP: 09/10/22 09:32 09/11/22 06:13 Abnormal Lab Findings: Abnormal Labs 09/09/22 09/09/22 09/09/22 16:36 16:36 16:36 RBC 3.83 L Hgb 11.9 L Hct 38.2 L MCV MCHC Plt Count 138 L Lymphocytes # 0.3 L PT 32.8 H INR 3.4 H APTT 44.0 H ABG pH ABG pCO2 ABG pO2 ABG HCO3 ABG Total CO2 ABG O2 Saturation Chloride 96 L Carbon Dioxide 36 H BUN 86 H Creatinine 2.19 H Glucose 113 H Calcium Magnesium 2.6 H Urine Protein Urine Blood Urine RBC Urine WBC Urine Bacteria Urine Mucus 09/09/22 09/09/22 09/10/22 17:30 23:59 09:32 RBC Hgb Hct MCV MCHC Plt Count Lymphocytes # PT 35.1 H INR 3.6 H APTT ABG pH 7.16 L* ABG pCO2 107 H* ABG pO2 119 H ABG HCO3 38 H ABG Total CO2 41 H ABG O2 Saturation 97.8 H Chloride Carbon Dioxide BUN Creatinine Glucose Calcium Magnesium Urine Protein 1+ H Urine Blood Moderate H Urine RBC 29 H Urine WBC 9 H Urine Bacteria Rare H Urine Mucus Rare H 09/10/22 09/10/22 09/11/22 09:32 09:32 06:13 RBC 3.61 L Hgb 11.2 L Hct 37.3 L MCV 103.2 H MCHC 30.1 L Plt Count 131 L Lymphocytes # 0.2 L PT INR APTT ABG pH ABG pCO2 ABG pO2 ABG HCO3 ABG Total CO2 ABG O2 Saturation Chloride 96 L 97 L Carbon Dioxide 37 H 33 H BUN 90 H 98 H Creatinine 2.75 H 2.99 H Glucose Calcium 8.3 L Magnesium Urine Protein Urine Blood Urine RBC Urine WBC Urine Bacteria Urine Mucus 09/11/22 06:13 RBC Hgb Hct MCV MCHC Plt Count Lymphocytes # PT 52.9 H INR 5.4 H* APTT ABG pH ABG pCO2 ABG pO2 ABG HCO3 ABG Total CO2 ABG O2 Saturation Chloride Carbon Dioxide BUN Creatinine Glucose Calcium Magnesium Urine Protein Urine Blood Urine RBC Urine WBC Urine Bacteria Urine Mucus Assessment and Plan Assessment: Altered mental status due to multifactorial: Metabolic encephalopathy, is hypercapnic with elevated kidney function (worsening) Anisocoria (left > right) unknown exact cause. Rule out aneurysm (I feel unlikely since reactive to light) vs medication effect (Nebulizer) Myoclonic jerks and I feel it's most likely due to his metabolic dysfunction and unlikely seizures. Acute hypoxemic and hypercapnic respiratory failure Supratherapeutic INR History of chronic atrial fibrillation on Coumadin History of chronic kidney disease Hypertension History of recent [place] virus Bilateral lower extremity edema History of tobacco use Plan: I ordered MRI of the brain and MRA of the head to rule out any acute stroke or aneurysm. Cannot obtain CT angiography because of the kidney function Ordered routine EEG for his myoclonic jerks to rule out seizure. Ordered TSH, ammonia level, vitamin B12, folate, hemoglobin A1c for generalized weakness and anisocoria (TSH, vitamin B12). Neuro checks. Recommend INR goal to be between 2-3 and we'll defer the management to the primary team Cardiology is consulted We'll defer the rest of the medical management to the primary team The plan is discussed with the nurse and primary attending. Thank you for the consultation. Time spend on case was 35 minutes: Going over history, labs/imaging and relaying history to different team members. Dr. Arambula will start neurology service tomorrow A.M. then Dr. Herrera will resume service Wednesday A.M. Time with Patient: Greater than 30
--- NOTE | 2022-09-11 10:57 | P.PN ---
Subjective Progress Note Date: 09/11/22 Principal diagnosis: Shortness of breath. Pulmonary consult dated 09/10/2022. 67-year-old male seen in the emergency department, on September 09. He came in with complaints of mental status changes, and shortness of breath. He apparently has not been feeling well for about 2 or 3 days prior to admission. The patient was recently at [facility], he was treated for pneumonia, and pleural effusion. The patient also recently tested positive for coronavirus on his previous hospitalization. Patient complains of shortness of breath, chest congestion, and lower extremity edema. No chest pain or chest discomfort. He is seen in the emergency room, room #2. He is on BiPAP at 16/5 and 28%. He is getting saline at KVO. We added duo neb breathing treatments. White count 5.5, hemoglobin 11.9, hematocrit 38.2, and platelet count 238,000. PTT was 35.1 with an INR 3.6. Arterial blood gases done on 28% oxygen show pO2 of 119, pCO2 of 107, sodium 138, potassium 4.8, chlorides 96, CO2 36, BUN 86, and creatinine 2.19. Chest x-ray shows changes of CHF. Progress note dated 09/11/2022. 67-year-old male seen in the emergency department yesterday. He came in with me ntal status changes shortness of breath. The patient is on BiPAP at 16/5 and 28%. He was on BiPAP yesterday. He is going for a CAT scan of the brain. The nurse noted that his pupils were unequal. His INR was 5.4. Labs today include a sodium 141, potassium 4.9, chlorides 97, CO2 33, BUN 98, and creatinine 2.99.Blood cultures are thus far negative. Computed tomography scan of the brain shows nothing acute. Objective - Vital Signs Vital signs: Vital Signs Temp 96.4 F L 09/11/22 08:00 Pulse 89 09/11/22 08:00 Resp 22 09/11/22 08:00 BP 75/56 09/11/22 08:00 Pulse Ox 91 L 09/11/22 08:00 FiO2 28 09/11/22 07:07 Intake & Output 09/10/22 09/11/22 09/11/22 18:59 06:59 18:59 Output Total 150 Balance -150 Weight 118.841 kg 118.6 kg Output: Urine 150 Other: Voiding Method Indwelling Catheter Indwelling Catheter Indwelling Catheter - Exam No acute distress, oriented 3. BiPAP mask in place. HEENT examination is grossly unremarkable. Neck supple. Full range of motion. No adenopathy thyromegaly or neck vein distention. Cardiovascular examination reveals regular rhythm rate. S1-S2 normal. No S3 or S4. No discernible murmur noted. Heart sounds are distant. Heart rate 89 bpm. Lungs reveal bilateral coarse rhonchi. Bibasilar crackles. Breath sounds equal bilaterally. No wheezes. Saturations are 91% on BiPAP. Abdomen soft bowel sounds are heard. No masses or tenderness. Extremities are wrapped. Significant lower extremity edema is noted. Skin reveals chronic venous stasis changes. Neurologic examination is brief but nonfocal. - Labs CBC & Chem 7: 09/10/22 09:32 09/11/22 06:13 Labs: Abnormal Lab Results - Last 24 Hours (Table) 09/10/22 09/10/22 09/11/22 Range/Units 09:32 09:32 06:13 RBC 3.61 L (4.30-5.90) m/uL Hgb 11.2 L (13.0-17.5) gm/dL Hct 37.3 L (39.0-53.0) % MCV 103.2 H (80.0-100.0) fL MCHC 30.1 L (31.0-37.0) g/dL Plt Count 131 L (150-450) k/uL Lymphocytes # 0.2 L (1.0-4.8) k/uL PT (9.0-12.0) sec INR (<1.2) Chloride 96 L 97 L (98-107) mmol/L Carbon Dioxide 37 H 33 H (22-30) mmol/L BUN 90 H 98 H (9-20) mg/dL Creatinine 2.75 H 2.99 H (0.66-1.25) mg/dL Calcium 8.3 L (8.4-10.2) mg/dL 09/11/22 Range/Units 06:13 RBC (4.30-5.90) m/uL Hgb (13.0-17.5) gm/dL Hct (39.0-53.0) % MCV (80.0-100.0) fL MCHC (31.0-37.0) g/dL Plt Count (150-450) k/uL Lymphocytes # (1.0-4.8) k/uL PT 52.9 H (9.0-12.0) sec INR 5.4 H* (<1.2) Chloride (98-107) mmol/L Carbon Dioxide (22-30) mmol/L BUN (9-20) mg/dL Creatinine (0.66-1.25) mg/dL Calcium (8.4-10.2) mg/dL Microbiology - Last 24 Hours (Table) 09/09/22 18:57 Blood Culture - Preliminary Blood No Growth after 24 hours 09/09/22 18:40 Blood Culture - Preliminary Blood No Growth after 24 hours Assessment and Plan Assessment: Acute hypoxemic and hypercapnic respiratory failure, secondary to CHF. History of recent coronavirus infection. History of chronic atrial fibrillation. History of hypertension. Chronic lower extremity edema. History of chronic kidney disease. Obesity. Prior history of tobacco use. Plan: Plan dated 09/10/2022. The patient was initially seen in the emergency department. The patient is seen in room 2. We added duo nebs, to the patient's regimen. He is currently getting saline at KVO. He is on BiPAP at 16/5 and 28%. Labs, x-rays, and medications are reviewed.We will continue to follow and make recommendations along the way. Plan dated 09/11/2022. The patient remains on BiPAP, 16/5, and 28%. The patient's getting saline at 10 mL an hour. INR is 5.4. The brain CT was negative. Labs, x-rays, and medications are reviewed. We will continue to follow and make recommendations were appropriate. Prognosis is guarded. The patient is seen today in the intensive care unit, room 250. Time with Patient: Less than 30
--- NOTE | 2022-09-11 13:56 | US ---
EXAMINATION TYPE: US kidneys/renal and bladder DATE OF EXAM: 09/11/2022 COMPARISON: NONE CLINICAL HISTORY: keyana. KEYANA EXAM MEASUREMENTS: Right Kidney: 9.2 x 4.6 x 4.3 cm Left Kidney: 10.5 x 4.9 x 5.1 cm Limited views due to pt immobility and overlying bowel gas Right Kidney: Limited views show no evidence of hydro Left Kidney: Limited views show no evidence of hydro Bladder: Pt has cath in place Suboptimal study. No obvious hydronephrosis. No masses are identified on images saved. Dalton cathete r decompresses bladder. IMPRESSION: Suboptimal study without hydronephrosis seen bilaterally.
[2022-09-11 17:04] LABS: ABG Base Excess 8.3 mmol/L; ABG HCO3 34 mmol/L (21-25); ABG Oxygen Saturation 97.6 % (94-97); ABG PCO2 61 mmHg (35-45); ABG PH 7.36 (7.35-7.45); ABG PO2 85 mmHg (83-108); ABG TCO2 36 mmol/L (19-24); Allen Test Performed? Yes
[2022-09-11 17:21] LABS: Appearance,Urine Turbid (Clear); Bacteria,Urine Occasional /hpf; Bilirubin,Urine Negative (Negative); Blood,Urine Large (Negative); Color,Urine Red; Glucose,Urine (UA) Negative (Negative); Hyaline Casts,Urine 40 /lpf (0-2); Ketones,Urine Negative (Negative); Leukocyte Esterase,Urine Moderate (Negative); Mucus,Urine Occasional /hpf; Nitrite,Urine Negative (Negative); Protein,Urine 1+ (Negative); RBC,Urine >182 /hpf (0-5); Specific Gravity,Urine 1.015 (1.001-1.035); Urobilinogen,Urine <2.0 mg/dL (<2.0); WBC,Urine 57 /hpf (0-5)
[2022-09-11] MEDS ORDERED: WARFARIN 0.5 MG TAB PO ONE (18:00)
--- NOTE | 2022-09-11 18:06 | P.PN ---
Progress Note - Text Progress Note Date: 09/11/22 Chief Complaint: Short of breath This is a 67-year-old patient, follows with Dr. Ricardo Arnold. Chronic stable medical conditions include atrial fibrillation, hypertension, COPD, permanent pacemaker. Patient seen by me in the ER. Most of the history is obtained by the at the bedside. Patient was admitted for lung infection about a month ago. He didn't improve. Following the patient did have COVID. Patient now presents with worsening short of breath. Especially for 3-4 days. Also becoming bloated. Lower extremity edema. Appetite is poor. No cough. Patient has also underlying chronic kidney disease. Patient does smoke cigars and pipes. Patient is requiring a BiPAP in the ER. Has lower extremity wound being followed by Dr. Leung. Patient has some not able to give much of history.) Short of breath. 09/10/2022: Patient remains or overflow in the ER. On BiPAP. Tired lethargic. IV Lasix. Worsening renal function. We have pneumonia. Start IV ceftriaxone. Bronchodilators. Steroids. Strict I's and O's. 09/11/2022: Patient will lethargic. Remains on BiPAP. 16/5/28%. Overnight patient had become hypotensive. I held the Lasix temporarily and given fluid bolus. Lasix resumed today. Remains on IV ceftriaxone, DuoNeb, IV Solu-Medrol. Active Medications Albuterol/Ipratropium (Ipratropium-Albuterol 3 Ml Neb) 3 ml INHALATION RT-TID [facility] Last Admin: 09/11/22 13:14 Dose: 3 ml Budesonide (Budesonide 1 Mg/2 Ml Nebu) 1 mg INHALATION RT-BID [facility] Last Admin: 09/11/22 07:05 Dose: 1 mg Furosemide (Furosemide 10 Mg/Ml 4 Ml Vial) 40 mg IV Q12HR [facility] Last Admin: 09/11/22 08:21 Dose: 40 mg Sodium Chloride (Saline 0.9%) 1,000 mls @ 20 mls/hr IV .Q24H [facility] Last Admin: 09/10/22 23:00 Dose: 20 mls/hr Ceftriaxone Sodium 1 gm/ (Sodium Chloride) 50 mls @ 100 mls/hr IVPB Q12H [facility]; Protocol Last Admin: 09/11/22 16:41 Dose: 100 mls/hr Methylprednisolone Sodium Succinate (Methylprednisolone Sod Succi 125 Mg/2 Ml Vial) 60 mg IV Q8HR [facility] Last Admin: 09/11/22 16:44 Dose: 60 mg Midodrine (Midodrine 5 Mg Tab) 5 mg PO AC-TID [facility] Last Admin: 09/11/22 16:46 Dose: 5 mg Miscellaneous Information (Warfarin Per Pharmacy) 0 each MISCELLANE DIRECTED PRN PRN Reason: PER PROTOCOL Past medical history to include: Atrial fibrillation, hypertension, CK D, permanent pacemaker, Social history: . 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 Physical examination: VITAL SIGNS: I 6.5, 89, 22, 106/79, 90% on BiPAP GENERAL: , reclining in bed, tired, short of breath / lethargic. EYES: Pupils equal. Conjunctiva normal. HEENT: [External appearance of nose and ears normal, oral cavity dry mucous membranes. NECK: JVD unable to assess; masses not palpable. HEART: First and second heart sounds are normal; edema. LUNGS: Respiratory rate increased; decreased breath sounds. ABDOMEN: Soft, nontender, liver spleen not palpable, no masses palpable. PSYCH: [Lethargic, unable to answer questions MUSCULOSKELETAL:No Clubbing/cyanosis;muscles-grossly intact, OA EXTREMITIES: Wound with dressing on the both plantar INVESTIGATIONS, reviewed in the clinical context: 09/11/2022: Potassium 4.9 BUN 98 creatinine 2.99 procalcitonin 1.02 TSH 0.79 09/10/2022: WBC 7.9 hemoglobin 11.2 platelets 131 INR 3.6 BUN 90 creatinine 2.75 WBC 5.5 hemoglobin 11.9 platelets 138 ABG: PH 7.16 pCO2 107 oxygen saturation 97.8 Sodium 138 potassium 4.8 BUN 8622.19 proBNP 10 EKG tracing personally reviewed by me-electronic atrial pacemaker Chest x-ray film personally reviewed by me-basilar infiltrate versus fluid. Hyperinflation Assessment and plan: -Acute hypoxic hypercapnic respiratory failure secondary to COPD/pulmonary edema/pneumonia: Slow to respond BiPAP. Dr. Mendoza from pulmonary - acute on chronic CHF exacerbation, from systolic dysfunction EF 45% IV Lasix Follow with cardiology. 2-D echo. -Acute metabolic encephalopathy from hypoxic/delirium: Slow to respond -Chronic kidney disease stage III. Likely nephrosclerosis Baseline creatinine 2 from March 2022 -Normocytic anemia, likely from chronic kidney disease Follow H&H -Essential hypertension Hold antihypertensive, currently blood pressure running on the lower side -AICD for regular tachycardia -Permanent atrial fibrillation Ftpsut-PE-igal for low blood pressure. Coumadin. -Coumadin monitoring Pharmacy to dose -Lateral plantar lower extremity wound. Follows with Dr. Leung. [facility] -Full code DuoNeb. Nebulized Pulmicort. IV Solu-Medrol. IV ceftriaxone. Strict I's and O's. Follow with multiple consultants. Wound care.
[2022-09-11] MEDS: LACOSAMIDE IV 50 MG in SODIUM CHLORIDE 0.9% 50 ML IVPB SCH (21:21)
[2022-09-12] MEDS: methylPREDNISolone SOD SUCCI 125 MG/2 ML VIAL IV SCH ×2 (00:45→10:36)
[2022-09-12] MEDS: SODIUM CHLORIDE 0.9% 1,000 ML IV SCH (00:45)
[2022-09-12 06:21] LABS: Prothrombin Time 39.6 sec (9.0-12.0)
--- NOTE | 2022-09-12 06:56 | P.PN ---
Subjective Progress Note Date: 09/12/22 Principal diagnosis: Heart failure with reduced ejection fraction This is a 67-year-old gentleman with mild nonobstructive CAD and ischemic cardiomyopathy with EF around 45% as well as permanent atrial fibrillation as well as history of ventricular tachycardia status post AICD as well as multiple comorbid conditions was admitted to the hospital with acute hypoxic respiratory failure secondary to COPD exacerbation and CHF exacerbation as well as. 09/11/2022 The patient was seen this morning. He was transferred to the intensive care unit because of overflow. He is still hypoxic and he is on BiPAP. On examination he is still having bilateral expiratory wheezing and crackles at continues to have bilateral lower extremities edema. Currently he is on Lasix 40 mg IV twice a day and his urine output has been low. I will suggest consult nephrology service. His creatinine continues to be elevated and above his baseline. No symptoms of chest pain or chest discomfort. He continues to have in atrial fibrillation with controlled heart rate and he continues to be on oral anticoagulation. September [id number] The patient was seen this morning. He definitely looks better. His mentation has improved. He is not on BiPAP anymore and the saturation seems to be in norm al limits. Clinically he continues to be in heart failure was evidence of diminished breathing sounds bilaterally and bilateral lower extremity edema. Currently he is on Lasix 40 mg twice a day and he seems to be making urine now. At this point I would continue the current medical regimen including the current dose of Lasix IV with continued monitor the kidney function and electrolytes and follow-up with the patient. He continues to be in atrial fibrillation was controlled heart rate continues to be on oral anticoagulation Objective - Vital Signs Vital signs: Vital Signs Temp 98 F 09/12/22 00:00 Pulse 64 09/11/22 19:29 Resp 17 09/12/22 04:00 BP 107/97 09/12/22 04:00 Pulse Ox 94 L 09/12/22 04:00 FiO2 28 09/12/22 04:00 Intake & Output 09/11/22 09/11/22 09/12/22 06:59 18:59 06:59 Intake Total 140 1340 Output Total 500 480 Balance -360 860 Weight 118.6 kg 122.1 kg Intake: IV 140 240 Sodium Chloride 0.9% 1, 140 240 000 ml @ 20 mls/hr IV . Q24H [facility] Rx#:[id number] Intake, IV Titration 100 Amount Lacosamide IV 50 mg In 50 Sodium Chloride 0.9% 50 ml @ 100 mls/hr IVPB BID [facility] Rx#:[id number] cefTRIAXone 1 gm In 50 Sodium Chloride 0.9% 50 ml @ 100 mls/hr IVPB Q12H [facility] Rx#:[id number] Oral 1000 Output: Urine 500 480 Other: Voiding Method Indwelling Catheter Indwelling Catheter Indwelling Catheter - Constitutional General appearance: Present: no acute distress - Respiratory Respiratory: bilateral: diminished - Cardiovascular Rhythm: irregularly irregular - Labs CBC & Chem 7: 09/10/22 09:32 09/11/22 06:13 Labs: Abnormal Lab Results - Last 24 Hours (Table) 09/11/22 09/11/22 09/11/22 Range/Units 06:13 06:13 06:13 PT 52.9 H (9.0-12.0) sec INR 5.4 H* (<1.2) ABG pCO2 (35-45) mmHg ABG HCO3 (21-25) mmol/L ABG Total CO2 (19-24) mmol/L ABG O2 Saturation (94-97) % Chloride 97 L (98-107) mmol/L Carbon Dioxide 33 H (22-30) mmol/L BUN 98 H (9-20) mg/dL Creatinine 2.99 H (0.66-1.25) mg/dL Calcium 8.3 L (8.4-10.2) mg/dL Vitamin B12 (200.0-944.0) pg/mL Procalcitonin 1.02 H (0.02-0.09) ng/mL Urine Protein (Negative) Urine Blood (Negative) Ur Leukocyte Esterase (Negative) Urine RBC (0-5) /hpf Urine WBC (0-5) /hpf Urine Bacteria (None) /hpf Hyaline Casts (0-2) /lpf Urine Mucus (None) /hpf 09/11/22 09/11/22 09/11/22 Range/Units 10:06 16:48 17:03 PT (9.0-12.0) sec INR (<1.2) ABG pCO2 61 H (35-45) mmHg ABG HCO3 34 H (21-25) mmol/L ABG Total CO2 36 H (19-24) mmol/L ABG O2 Saturation 97.6 H (94-97) % Chloride (98-107) mmol/L Carbon Dioxide (22-30) mmol/L BUN (9-20) mg/dL Creatinine (0.66-1.25) mg/dL Calcium (8.4-10.2) mg/dL Vitamin B12 1159.0 H (200.0-944.0) pg/mL Procalcitonin (0.02-0.09) ng/mL Urine Protein 1+ H (Negative) Urine Blood Large H (Negative) Ur Leukocyte Esterase Moderate H (Negative) Urine RBC >182 H (0-5) /hpf Urine WBC 57 H (0-5) /hpf Urine Bacteria Occasional H (None) /hpf Hyaline Casts 40 H (0-2) /lpf Urine Mucus Occasional H (None) /hpf 09/12/22 Range/Units 05:25 PT 39.6 H (9.0-12.0) sec INR 4.0 H (<1.2) ABG pCO2 (35-45) mmHg ABG HCO3 (21-25) mmol/L ABG Total CO2 (19-24) mmol/L ABG O2 Saturation (94-97) % Chloride (98-107) mmol/L Carbon Dioxide (22-30) mmol/L BUN (9-20) mg/dL Creatinine (0.66-1.25) mg/dL Calcium (8.4-10.2) mg/dL Vitamin B12 (200.0-944.0) pg/mL Procalcitonin (0.02-0.09) ng/mL Urine Protein (Negative) Urine Blood (Negative) Ur Leukocyte Esterase (Negative) Urine RBC (0-5) /hpf Urine WBC (0-5) /hpf Urine Bacteria (None) /hpf Hyaline Casts (0-2) /lpf Urine Mucus (None) /hpf Microbiology - Last 24 Hours (Table) 09/09/22 18:57 Blood Culture - Preliminary Blood No Growth after 48 hours 09/09/22 18:40 Blood Culture - Preliminary Blood No Growth after 48 hours Assessment and Plan Assessment: Assessment Acute hypoxic respiratory failure COPD exacerbation CHF exacerbation secondary to heart failure with reduced ejection fraction Permanent atrial fibrillation Nonischemic cardiomyopathy Mild CAD Status post AICD Plan Continue the current dose of Lasix IV. Monitor the kidney function and electrolyte Continue oral anticoagulation Follow-up with the patient
[2022-09-12] MEDS: BUDESONIDE 1 MG/2 ML NEBU INHALATION SCH ×2 (07:47→19:22)
[2022-09-12] MEDS: IPRATROPIUM-ALBUTEROL 3 ML NEB INHALATION SCH ×3 (07:47→19:22)
[2022-09-12] MEDS: MIDODRINE 5 MG TAB PO SCH ×4 (08:33→17:04)
--- NOTE | 2022-09-12 10:14 | P.PN ---
Subjective Patient is seen in follow-up for acute kidney injury on chronic kidney disease. Creatinine 2.99 as of yesterday morning. Maintained on IV Lasix. Urine output documented as 980 mL for today. Currently on 2 L cannula. Blood pressure stable. Oral intake is fair. Vital signs are stable. General: No acute distress. HEENT: Head exam is unremarkable. On nasal cannula. LUNGS: Breath sounds decreased. HEART: Rate and Rhythm are regular. ABDOMEN: Soft, no distention. EXTREMITITES: Lower extremities wrapped. Trace edema. Objective - Vital Signs Vital signs: Vital Signs Temp 98 F 09/12/22 00:00 Pulse 68 09/12/22 08:03 Resp 17 09/12/22 04:00 BP 107/97 09/12/22 04:00 Pulse Ox 94 L 09/12/22 04:00 FiO2 28 09/12/22 04:00 Intake & Output 09/11/22 09/12/22 09/12/22 18:59 06:59 18:59 Intake Total 140 1340 Output Total 500 480 Balance -360 860 Weight 119.3 kg Intake: IV 140 240 Sodium Chloride 0.9% 1, 140 240 000 ml @ 20 mls/hr IV . Q24H [facility] Rx#:[id number] Intake, IV Titration 100 Amount Lacosamide IV 50 mg In 50 Sodium Chloride 0.9% 50 ml @ 100 mls/hr IVPB BID [facility] Rx#:[id number] cefTRIAXone 1 gm In 50 Sodium Chloride 0.9% 50 ml @ 100 mls/hr IVPB Q12H [facility] Rx#:[id number] Oral 1000 Output: Urine 500 480 Other: Voiding Method Indwelling Catheter Indwelling Catheter - Labs CBC & Chem 7: 09/10/22 09:32 09/11/22 06:13 Labs: Abnormal Lab Results - Last 24 Hours (Table) 09/11/22 09/11/22 09/11/22 Range/Units 06:13 10:06 16:48 PT (9.0-12.0) sec INR (<1.2) ABG pCO2 (35-45) mmHg ABG HCO3 (21-25) mmol/L ABG Total CO2 (19-24) mmol/L ABG O2 Saturation (94-97) % Vitamin B12 1159.0 H (200.0-944.0) pg/mL Procalcitonin 1.02 H (0.02-0.09) ng/mL Urine Protein 1+ H (Negative) Urine Blood Large H (Negative) Ur Leukocyte Esterase Moderate H (Negative) Urine RBC >182 H (0-5) /hpf Urine WBC 57 H (0-5) /hpf Urine Bacteria Occasional H (None) /hpf Hyaline Casts 40 H (0-2) /lpf Urine Mucus Occasional H (None) /hpf 09/11/22 09/12/22 Range/Units 17:03 05:25 PT 39.6 H (9.0-12.0) sec INR 4.0 H (<1.2) ABG pCO2 61 H (35-45) mmHg ABG HCO3 34 H (21-25) mmol/L ABG Total CO2 36 H (19-24) mmol/L ABG O2 Saturation 97.6 H (94-97) % Vitamin B12 (200.0-944.0) pg/mL Procalcitonin (0.02-0.09) ng/mL Urine Protein (Negative) Urine Blood (Negative) Ur Leukocyte Esterase (Negative) Urine RBC (0-5) /hpf Urine WBC (0-5) /hpf Urine Bacteria (None) /hpf Hyaline Casts (0-2) /lpf Urine Mucus (None) /hpf Microbiology - Last 24 Hours (Table) 09/09/22 18:57 Blood Culture - Preliminary Blood No Growth after 48 hours 09/09/22 18:40 Blood Culture - Preliminary Blood No Growth after 48 hours Assessment and Plan Plan: Assessment: 1. Acute kidney injury secondary to ATN secondary to hypotension and cardiorenal syndrome. Creatinine 2.99 yesterday. No hydronephrosis noted on kidney ultrasound. 2. Chronic kidney disease stage IIIB with baseline creatinine 1.8-2 secondary to nephrosclerosis and cardiorenal syndrome. 3. Acute hypoxic and hypercapnic respiratory failure. On BiPAP. 4. Acute on chronic systolic CHF with ejection fraction of 45% with severe tricuspid regurgitation. Status post AICD. Plan: Maintain IV Lasix for now. Maintain midodrine 5 mg 3 times daily. Hold for systolic blood pressure greater than 110. Continue to monitor renal function and urine output. Cortisol level not low. Morning labs pending.
[2022-09-12] MEDS: FUROSEMIDE 10 MG/ML 4 ML VIAL IV SCH (10:35)
[2022-09-12] MEDS: LACOSAMIDE IV 50 MG in SODIUM CHLORIDE 0.9% 50 ML IVPB SCH ×2 (10:41→22:52)
[2022-09-12 10:53] LABS: Calcium 8.4 mg/dL (8.4-10.2); Potassium 5.1 mmol/L (3.5-5.1)
--- NOTE | 2022-09-12 11:29 | P.PN ---
Subjective Progress Note Date: 09/12/22 Principal diagnosis: Shortness of breath. Pulmonary consult dated 09/10/2022. 67-year-old male seen in the emergency department, on September 09. He came in with complaints of mental status changes, and shortness of breath. He apparently has not been feeling well for about 2 or 3 days prior to admission. The patient was recently at [facility], he was treated for pneumonia, and pleural effusion. The patient also recently tested positive for coronavirus on his previous hospitalization. Patient complains of shortness of breath, chest congestion, and lower extremity edema. No chest pain or chest discomfort. He is seen in the emergency room, room #2. He is on BiPAP at 16/5 and 28%. He is getting saline at KVO. We added duo neb breathing treatments. White count 5.5, hemoglobin 11.9, hematocrit 38.2, and platelet count 238,000. PTT was 35.1 with an INR 3.6. Arterial blood gases done on 28% oxygen show pO2 of 119, pCO2 of 107, sodium 138, potassium 4.8, chlorides 96, CO2 36, BUN 86, and creatinine 2.19. Chest x-ray shows changes of CHF. Progress note dated 09/11/2022. 67-year-old male seen in the emergency department yesterday. He came in with me ntal status changes shortness of breath. The patient is on BiPAP at 16/5 and 28%. He was on BiPAP yesterday. He is going for a CAT scan of the brain. The nurse noted that his pupils were unequal. His INR was 5.4. Labs today include a sodium 141, potassium 4.9, chlorides 97, CO2 33, BUN 98, and creatinine 2.99.Blood cultures are thus far negative. Computed tomography scan of the brain shows nothing acute. Progress note dated 09/12/2022. 67-year-old male seen in room 250. The patient came in with changes of CHF. The patient was on BiPAP, is currently on 4 L of oxygen. BiPAP setting, or 16/5 and 28%. The patient is on saline at 10 mL an hour. He's getting Rocephin for suspected urinary tract infection. Lab data includes a PT of 39.6 and an INR of 4.0. Blood gases yesterday showed a pO2 of 85, pCO2 of 61, and a pH is 7.36. Sodium 137, potassium 5.1, chlorides 94, CO2 33, BUN 111, creatinine 3.09. No chest x-ray today. Objective - Vital Signs Vital signs: Vital Signs Temp 98.0 F 09/12/22 08:00 Pulse 71 09/12/22 10:00 Resp 21 09/12/22 10:00 BP 102/68 09/12/22 10:00 Pulse Ox 87 L 09/12/22 10:00 FiO2 28 09/12/22 04:00 Intake & Output 09/11/22 09/12/22 09/12/22 18:59 06:59 18:59 Intake Total 140 1340 160 Output Total 500 480 100 Balance -360 860 60 Weight 119.3 kg Intake: IV 140 240 160 Sodium Chloride 0.9% 1, 140 240 160 000 ml @ 20 mls/hr IV . Q24H [facility] Rx#:[id number] Intake, IV Titration 100 Amount Lacosamide IV 50 mg In 50 Sodium Chloride 0.9% 50 ml @ 100 mls/hr IVPB BID [facility] Rx#:[id number] cefTRIAXone 1 gm In 50 Sodium Chloride 0.9% 50 ml @ 100 mls/hr IVPB Q12H [facility] Rx#:[id number] Oral 1000 Output: Urine 500 480 100 Other: Voiding Method Indwelling Catheter Indwelling Catheter # Voids 1 - Exam No acute distress, oriented 3. BiPAP mask in place. HEENT examination is grossly unremarkable. Neck supple. Full range of motion. No adenopathy thyromegaly or neck vein distention. Cardiovascular examination reveals regular rhythm rate. S1-S2 normal. No S3 or S4. No discernible murmur noted. Heart sounds are distant. Heart rate 71 bpm. Lungs reveal bilateral coarse rhonchi. Bibasilar crackles. Breath sounds equal bilaterally. No wheezes. Saturations are 88% on 4 L. Abdomen soft bowel sounds are heard. No masses or tenderness. Extremities are wrapped. Significant lower extremity edema is noted. Skin reveals chronic venous stasis changes. Neurologic examination is brief but nonfocal. - Labs CBC & Chem 7: 09/10/22 09:32 09/12/22 05:26 Labs: Abnormal Lab Results - Last 24 Hours (Table) 09/11/22 09/11/22 09/11/22 Range/Units 10:06 16:48 17:03 PT (9.0-12.0) sec INR (<1.2) ABG pCO2 61 H (35-45) mmHg ABG HCO3 34 H (21-25) mmol/L ABG Total CO2 36 H (19-24) mmol/L ABG O2 Saturation 97.6 H (94-97) % Chloride (98-107) mmol/L Carbon Dioxide (22-30) mmol/L BUN (9-20) mg/dL Creatinine (0.66-1.25) mg/dL Glucose (74-99) mg/dL Vitamin B12 1159.0 H (200.0-944.0) pg/mL Urine Protein 1+ H (Negative) Urine Blood Large H (Negative) Ur Leukocyte Esterase Moderate H (Negative) Urine RBC >182 H (0-5) /hpf Urine WBC 57 H (0-5) /hpf Urine Bacteria Occasional H (None) /hpf Hyaline Casts 40 H (0-2) /lpf Urine Mucus Occasional H (None) /hpf 09/12/22 09/12/22 Range/Units 05:25 05:26 PT 39.6 H (9.0-12.0) sec INR 4.0 H (<1.2) ABG pCO2 (35-45) mmHg ABG HCO3 (21-25) mmol/L ABG Total CO2 (19-24) mmol/L ABG O2 Saturation (94-97) % Chloride 94 L (98-107) mmol/L Carbon Dioxide 33 H (22-30) mmol/L BUN 111 H* (9-20) mg/dL Creatinine 3.09 H (0.66-1.25) mg/dL Glucose 155 H (74-99) mg/dL Vitamin B12 (200.0-944.0) pg/mL Urine Protein (Negative) Urine Blood (Negative) Ur Leukocyte Esterase (Negative) Urine RBC (0-5) /hpf Urine WBC (0-5) /hpf Urine Bacteria (None) /hpf Hyaline Casts (0-2) /lpf Urine Mucus (None) /hpf Microbiology - Last 24 Hours (Table) 09/09/22 18:57 Blood Culture - Preliminary Blood No Growth after 48 hours 09/09/22 18:40 Blood Culture - Preliminary Blood No Growth after 48 hours Assessment and Plan Assessment: Acute hypoxemic and hypercapnic respiratory failure, secondary to CHF. History of recent coronavirus infection. History of chronic atrial fibrillation. History of hypertension. Chronic lower extremity edema. History of chronic kidney disease. Obesity. Prior history of tobacco use. Plan: Plan dated 09/10/2022. The patient was initially seen in the emergency department. The patient is seen in room 2. We added duo nebs, to the patient's regimen. He is currently getting saline at KVO. He is on BiPAP at 16/5 and 28%. Labs, x-rays, and medications are reviewed.We will continue to follow and make recommendations along the way. Plan dated 09/11/2022. The patient remains on BiPAP, 16/5, and 28%. The patient's getting saline at 10 mL an hour. INR is 5.4. The brain CT was negative. Labs, x-rays, and medications are reviewed. We will continue to follow and make recommendations were appropriate. Prognosis is guarded. The patient is seen today in the intensive care unit, room 250. Plan dated 09/12/2022. The patient appears to be doing better. The patient's on Rocephin for suspected urinary tract infection. The patient's on 4 L of oxygen with saturations in the high 80s. Clinically, the patient feels better and looks better. Labs, x-rays, and medications are reviewed. We will continue to follow make recommendations along the way. Prognosis is guarded. Brain CT was negative. Blood gases from yesterday were reviewed. Time with Patient: Less than 30
--- NOTE | 2022-09-12 14:51 | P.PN ---
Progress Note - Text Progress Note Date: 09/12/22 Chief Complaint: Short of breath This is a 67-year-old patient, follows with Dr. Ricardo Arnold. Chronic stable medical conditions include atrial fibrillation, hypertension, COPD, permanent pacemaker. Patient seen by me in the ER. Most of the history is obtained by the at the bedside. Patient was admitted for lung infection about a month ago. He didn't improve. Following the patient did have COVID. Patient now presents with worsening short of breath. Especially for 3-4 days. Also becoming bloated. Lower extremity edema. Appetite is poor. No cough. Patient has also underlying chronic kidney disease. Patient does smoke cigars and pipes. Patient is requiring a BiPAP in the ER. Has lower extremity wound being followed by Dr. Leung. Patient has some not able to give much of history.) Short of breath. 09/10/2022: Patient remains or overflow in the ER. On BiPAP. Tired lethargic. IV Lasix. Worsening renal function. We have pneumonia. Start IV ceftriaxone. Bronchodilators. Steroids. Strict I's and O's. 09/11/2022: Patient will lethargic. Remains on BiPAP. 16/5/28%. Overnight patient had become hypotensive. I held the Lasix temporarily and given fluid bolus. Lasix resumed today. Remains on IV ceftriaxone, DuoNeb, IV Solu-Medrol. 09/12/2022: ICU: On 4 L nasal cannula. Lethargic but would answer occasional question. at the bedside. Started on midodrine yesterday. Per neurology started IV Vimpat. Remains on IV Lasix. Active Medications Albuterol/Ipratropium (Ipratropium-Albuterol 3 Ml Neb) 3 ml INHALATION RT-TID [facility] Last Admin: 09/12/22 07:47 Dose: 3 ml Budesonide (Budesonide 1 Mg/2 Ml Nebu) 1 mg INHALATION RT-BID [facility] Last Admin: 09/12/22 07:47 Dose: 1 mg Furosemide (Furosemide 10 Mg/Ml 4 Ml Vial) 40 mg IV DAILY [facility] Sodium Chloride (Saline 0.9%) 1,000 mls @ 20 mls/hr IV .Q24H [facility] Last Admin: 09/12/22 00:45 Dose: 20 mls/hr Ceftriaxone Sodium 1 gm/ (Sodium Chloride) 50 mls @ 100 mls/hr IVPB Q12H [facility]; Protocol Last Admin: 09/12/22 06:26 Dose: 100 mls/hr Lacosamide 50 mg/ Sodium (Chloride) 55 mls @ 100 mls/hr IVPB BID [facility] Last Admin: 09/12/22 10:41 Dose: 100 mls/hr Methylprednisolone Sodium Succinate (Methylprednisolone Sod Succi 125 Mg/2 Ml Vial) 40 mg IV Q8HR [facility] Midodrine (Midodrine 5 Mg Tab) 5 mg PO AC-TID [facility] Last Admin: 09/12/22 11:55 Dose: 5 mg Miscellaneous Information (Warfarin Per Pharmacy) 0 each MISCELLANE DIRECTED PRN PRN Reason: PER PROTOCOL Warfarin Sodium (Warfarin 0.5 Mg Tab) 0 mg PO ONCE@1800 ONE Stop: 09/12/22 18:01 Past medical history to include: Atrial fibrillation, hypertension, CK D, permanent pacemaker, Social history: . 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 Physical examination: VITAL SIGNS: 97.8, 79, 15, 98/62, 92% on 4 L GENERAL: , reclining in bed, lethargic but arousable, short of breath EYES: Pupils equal. Conjunctiva normal. HEENT: [External appearance of nose and ears normal, oral cavity dry mucous membranes. NECK: JVD unable to assess; masses not palpable. HEART: First and second heart sounds are normal; edema present. LUNGS: Respiratory rate increased; decreased breath sounds. ABDOMEN: Soft, nontender, liver spleen not palpable, no masses palpable. PSYCH: [Lethargic, we'll answer occasional question MUSCULOSKELETAL:No Clubbing/cyanosis;muscles-grossly intact, OA EXTREMITIES: Wound with dressing on the both plantar INVESTIGATIONS, reviewed in the clinical context: 09/12/2022: Potassium 5.1 BUN 111 creatinine 3.09 Digital ultrasound: Suboptimal study. 09/11/2022: Potassium 4.9 BUN 98 creatinine 2.99 procalcitonin 1.02 TSH 0.79 09/10/2022: WBC 7.9 hemoglobin 11.2 platelets 131 INR 3.6 BUN 90 creatinine 2.75 WBC 5.5 hemoglobin 11.9 platelets 138 ABG: PH 7.16 pCO2 107 oxygen saturation 97.8 Sodium 138 potassium 4.8 BUN 8622.19 proBNP 10 EKG tracing personally reviewed by me-electronic atrial pacemaker Chest x-ray film personally reviewed by me-basilar infiltrate versus fluid. Hyperinflation Assessment and plan: -Acute hypoxic hypercapnic respiratory failure secondary to COPD/pulmonary edema/pneumonia: Slow improvement Currently on [address] Mendoza from pulmonary - acute on chronic CHF exacerbation, from systolic dysfunction EF 45% IV Lasix 40 mg daily. Follow with cardiology. 2-D echo. -Right basal pneumonia suspect gram-negative organism IV ceftriaxone procalcitonin 1.02 -Acute metabolic encephalopathy from hypoxic/delirium: Slow to respond -Acute kidney injury secondary to ATN secondary to hypertension/cardiac renal syndrome. -Chronic kidney disease stage III B. Likely nephrosclerosis Baseline creatinine 2 from March 2022 -Normocytic anemia, likely from chronic kidney disease Follow H&H -Essential hypertension Hold antihypertensive, currently blood pressure running on the lower side -AICD for regular tachycardia -Permanent atrial fibrillation [id number]-BY-[id number] for low blood pressure. Coumadin. -Coumadin monitoring Pharmacy to dose -biLateral plantar lower extremity wound. Follows with Dr. Leung. Local [facility] -Full code DuoNeb. Nebulized Pulmicort. IV Solu-Medrol. IV ceftriaxone. IV Lasix. Follow with multiple consultants. Wound care. Discussed with at the bedside. On nasal cannula 4 L
--- NOTE | 2022-09-12 16:13 | P.PN ---
Subjective Progress Note Date: 09/12/22 The patient is seen in neurologic follow-up on September 12, 2022, via teleneurology. The patient was originally seen in neurologic consultation because of anisocoria. There were also concerns about myoclonic jerking type movements. EEG was performed and there was concern regarding rare sharp and slow waves. The patient was subsequently started on antiepileptic medication. Today, the patient reports that he is feeling better. His [id number] is present at the bedside at the time of the evaluation. The patient reports that he continues to have intermittent shaking of an extremity. He denies full-body shaking. He denies vision changes. According to the patient's [id number], the patient recently complained of decreased hearing. The patient states that it began 4-5 days ago. He says that his hearing is somewhat diminished. He denies ear pain. The chart has been reviewed. The patient presented with markedly elevated PCO2 level of 107. PCO2 today, continues to be elevated however, at 65. BUN remains elevated at 111 with a creatinine of 3.09 Objective - Vital Signs Vital signs: Vital Signs Temp 97.8 F 09/12/22 12:00 Pulse 65 09/12/22 13:00 Resp 13 09/12/22 13:00 BP 107/74 09/12/22 13:00 Pulse Ox 88 L 09/12/22 13:00 FiO2 28 09/12/22 04:00 Intake & Output 09/11/22 09/12/22 09/12/22 18:59 06:59 18:59 Intake Total 140 1340 160 Output Total 500 480 100 Balance -360 860 60 Weight 119.3 kg Intake: IV 140 240 160 Sodium Chloride 0.9% 1, 140 240 160 000 ml @ 20 mls/hr IV . Q24H [facility] Rx#:[id number] Intake, IV Titration 100 Amount Lacosamide IV 50 mg In 50 Sodium Chloride 0.9% 50 ml @ 100 mls/hr IVPB BID [facility] Rx#:[id number] cefTRIAXone 1 gm In 50 Sodium Chloride 0.9% 50 ml @ 100 mls/hr IVPB Q12H [facility] Rx#:[id number] Oral 1000 Output: Urine 500 480 100 Other: Voiding Method Indwelling Catheter Indwelling Catheter Indwelling Catheter # Voids 1 - Exam Gen.: The patient is reclining in the bed. Head of the bed is elevated at approximate 45. The patient reports feeling fine. He is in no acute distress. HEENT: Head is atraumatic, normocephalic. Fundus not visualized. There is no scleral icterus. Mucous membranes are dry. Lungs: The patient has 3-4 word dyspnea. O2 sat is 87-89% Extremities: Bilateral lower extremities are wrapped. They are edematous. Neurological examination Mental status: The patient is awake, alert and oriented 3. Speech is clear however, labored because of shortness of breath Cranial nerves: Pupils are equal at 3 mm and reactive. Visual johnson are full to confrontation. Extraocular movements are intact. There is no nystagmus. There is no obvious facial asymmetry. Hearing is diminished. Motor: Strength is 4-5/5 throughout. There are rare myoclonic jerking type movements of the left foot. - Labs CBC & Chem 7: 09/10/22 09:32 09/12/22 05:26 Labs: Abnormal Lab Results - Last 24 Hours (Table) 09/11/22 09/11/22 09/11/22 Range/Units 10:06 16:48 17:03 PT (9.0-12.0) sec INR (<1.2) ABG pCO2 61 H (35-45) mmHg ABG HCO3 34 H (21-25) mmol/L ABG Total CO2 36 H (19-24) mmol/L ABG O2 Saturation 97.6 H (94-97) % Chloride (98-107) mmol/L Carbon Dioxide (22-30) mmol/L BUN (9-20) mg/dL Creatinine (0.66-1.25) mg/dL Glucose (74-99) mg/dL Vitamin B12 1159.0 H (200.0-944.0) pg/mL Urine Protein 1+ H (Negative) Urine Blood Large H (Negative) Ur Leukocyte Esterase Moderate H (Negative) Urine RBC >182 H (0-5) /hpf Urine WBC 57 H (0-5) /hpf Urine Bacteria Occasional H (None) /hpf Hyaline Casts 40 H (0-2) /lpf Urine Mucus Occasional H (None) /hpf 09/12/22 09/12/22 Range/Units 05:25 05:26 PT 39.6 H (9.0-12.0) sec INR 4.0 H (<1.2) ABG pCO2 (35-45) mmHg ABG HCO3 (21-25) mmol/L ABG Total CO2 (19-24) mmol/L ABG O2 Saturation (94-97) % Chloride 94 L (98-107) mmol/L Carbon Dioxide 33 H (22-30) mmol/L BUN 111 H* (9-20) mg/dL Creatinine 3.09 H (0.66-1.25) mg/dL Glucose 155 H (74-99) mg/dL Vitamin B12 (200.0-944.0) pg/mL Urine Protein (Negative) Urine Blood (Negative) Ur Leukocyte Esterase (Negative) Urine RBC (0-5) /hpf Urine WBC (0-5) /hpf Urine Bacteria (None) /hpf Hyaline Casts (0-2) /lpf Urine Mucus (None) /hpf Microbiology - Last 24 Hours (Table) 09/11/22 16:48 Urine Culture - Preliminary Urine,Voided 09/09/22 18:57 Blood Culture - Preliminary Blood No Growth after 48 hours 09/09/22 18:40 Blood Culture - Preliminary Blood No Growth after 48 hours Assessment and Plan Assessment: -Altered mental status due to multifactorial: Metabolic encephalopathy, is hypercapnic with elevated kidney function (worsening) -Anisocoria (left > right) unknown exact cause. Rule out aneurysm (I feel unlikely since reactive to light) vs medication effect (Nebulizer) -Myoclonic jerks and I feel it's most likely due to his metabolic dysfunction and unlikely seizures, although EEG showed rare spike and slow wave activity. -Acute hypoxemic and hypercapnic respiratory failure -Supratherapeutic INR -History of chronic atrial fibrillation on Coumadin -History of chronic kidney disease -Hypertension -History of recent [place] virus -Bilateral lower extremity edema -History of tobacco use -labs ordered at the initial consultation; TSH, B12, ammonia, hemoglobin A1c have been reviewed and are all normal Plan: 1. MRI/MRA continue to be pending 2. Continue Vimpat at this point in time 3. Continue supportive respiratory care 4. Continue nephrology care for kidney disease Time with Patient: Less than 30 (Spent 25 minutes with highly complex patient, in the intensive care unit and an additional 15 minutes preparing this note)
[2022-09-12] MEDS: methylPREDNISolone SOD SUCCI 40 MG/ML 1 ML VIAL IV SCH ×2 (16:59→23:55)
[2022-09-12] MEDS ORDERED: WARFARIN 0.5 MG TAB PO ONE (18:00)
[2022-09-13 05:50] LABS: INR 3.3 (<1.2); Prothrombin Time 31.8 sec (9.0-12.0)
[2022-09-13 05:55] LABS: Calcium 8.4 mg/dL (8.4-10.2); Magnesium 2.9 mg/dL (1.6-2.3); Potassium 5.5 mmol/L (3.5-5.1)
--- NOTE | 2022-09-13 07:14 | P.PN ---
Subjective Progress Note Date: 09/13/22 Principal diagnosis: Heart failure with reduced ejection fraction This is a 67-year-old gentleman with mild nonobstructive CAD and ischemic cardiomyopathy with EF around 45% as well as permanent atrial fibrillation as well as history of ventricular tachycardia status post AICD as well as multiple comorbid conditions was admitted to the hospital with acute hypoxic respiratory failure secondary to COPD exacerbation and CHF exacerbation as well as. 09/11/2022 The patient was seen this morning. He was transferred to the intensive care unit because of overflow. He is still hypoxic and he is on BiPAP. On examination he is still having bilateral expiratory wheezing and crackles at continues to have bilateral lower extremities edema. Currently he is on Lasix 40 mg IV twice a day and his urine output has been low. I will suggest consult nephrology service. His creatinine continues to be elevated and above his baseline. No symptoms of chest pain or chest discomfort. He continues to have in atrial fibrillation with controlled heart rate and he continues to be on oral anticoagulation. September 122021 The patient was seen this morning. He definitely looks better. His mentation has improved. He is not on BiPAP anymore and the saturation seems to be in norm al limits. Clinically he continues to be in heart failure was evidence of diminished breathing sounds bilaterally and bilateral lower extremity edema. Currently he is on Lasix 40 mg twice a day and he seems to be making urine now. At this point I would continue the current medical regimen including the current dose of Lasix IV with continued monitor the kidney function and electrolytes and follow-up with the patient. He continues to be in atrial fibrillation was controlled heart rate continues to be on oral anticoagulation September [id number] The patient was seen this morning. He seems to be slightly lethargic. He stated that the shortness of breath is improved. He still required oxygen at least 5 L to maintain saturation above 90s. His to have diminished breathing sounds bilaterally and continues to have bilateral lower extremities edema which also somewhat improved. No symptoms of chest pain or chest discomfort. The creatinine is worse today as well as potassium. Urine output has been marginal. Currently he is on Lasix IV at 40 mg daily which I would suggest to decrease to 20 mg IV daily. Nephrology services on the case and will discuss that with him. Beside that he continues to have controlled heart rate for the atrial fibrillation and he continues to be on oral anticoagulation with Coumadin Objective - Vital Signs Vital signs: Vital Signs Temp 97.7 F 09/13/22 04:00 Pulse 63 09/13/22 05:00 Resp 13 09/13/22 04:00 BP 125/68 09/13/22 05:00 Pulse Ox 97 09/13/22 05:00 FiO2 28 09/12/22 04:00 Intake & Output 09/12/22 09/13/22 09/13/22 18:59 06:59 18:59 Intake Total 80 680 Output Total 345 100 Balance -265 580 Weight 121.2 kg Intake: IV 80 80 0.9 @ 10 80 Sodium Chloride 0.9% 1, 80 000 ml @ 20 mls/hr IV . Q24H [facility] Rx#:[id number] Intake, IV Titration 100 Amount Lacosamide IV 50 mg In 50 Sodium Chloride 0.9% 50 ml @ 100 mls/hr IVPB BID [facility] Rx#:[id number] cefTRIAXone 1 gm In 50 Sodium Chloride 0.9% 50 ml @ 100 mls/hr IVPB Q12H [facility] Rx#:[id number] Oral 500 Output: Urine 345 100 Other: Voiding Method Indwelling Catheter Indwelling Catheter - Constitutional General appearance: Present: no acute distress - Respiratory Respiratory: bilateral: diminished - Cardiovascular Rhythm: irregularly irregular - Labs CBC & Chem 7: 09/10/22 09:32 09/13/22 04:32 Labs: Abnormal Lab Results - Last 24 Hours (Table) 09/12/22 09/13/22 09/13/22 Range/Units 05:26 04:32 04:32 PT 31.8 H (9.0-12.0) sec INR 3.3 H (<1.2) Potassium 5.5 H (3.5-5.1) mmol/L Chloride 94 L 92 L (98-107) mmol/L Carbon Dioxide 33 H 33 H (22-30) mmol/L BUN 111 H* 119 H* (9-20) mg/dL Creatinine 3.09 H 3.63 H (0.66-1.25) mg/dL Glucose 155 H 187 H (74-99) mg/dL Magnesium 2.9 H (1.6-2.3) mg/dL Microbiology - Last 24 Hours (Table) 09/09/22 18:57 Blood Culture - Preliminary Blood No Growth after 72 hours 09/09/22 18:40 Blood Culture - Preliminary Blood No Growth after 72 hours 09/11/22 16:48 Urine Culture - Preliminary Urine,Voided Assessment and Plan Assessment: Assessment Acute hypoxic respiratory failure COPD exacerbation CHF exacerbation secondary to heart failure with reduced ejection fraction Permanent atrial fibrillation Nonischemic cardiomyopathy Mild CAD Status post AICD Plan Decrease the dose of Lasix IV Monitor the kidney function and electrolyte Continue oral anticoagulation Follow-up with the patient
--- NOTE | 2022-09-13 07:21 | P.PN ---
Subjective Progress Note Date: 09/13/22 Principal diagnosis: Heart failure with reduced ejection fraction This is a 67-year-old gentleman with mild nonobstructive CAD and ischemic cardiomyopathy with EF around 45% as well as permanent atrial fibrillation as well as history of ventricular tachycardia status post AICD as well as multiple comorbid conditions was admitted to the hospital with acute hypoxic respiratory failure secondary to COPD exacerbation and CHF exacerbation as well as. 09/11/2022 The patient was seen this morning. He was transferred to the intensive care unit because of overflow. He is still hypoxic and he is on BiPAP. On examination he is still having bilateral expiratory wheezing and crackles at continues to have bilateral lower extremities edema. Currently he is on Lasix 40 mg IV twice a day and his urine output has been low. I will suggest consult nephrology service. His creatinine continues to be elevated and above his baseline. No symptoms of chest pain or chest discomfort. He continues to have in atrial fibrillation with controlled heart rate and he continues to be on oral anticoagulation. September 122021 The patient was seen this morning. He definitely looks better. His mentation has improved. He is not on BiPAP anymore and the saturation seems to be in norm al limits. Clinically he continues to be in heart failure was evidence of diminished breathing sounds bilaterally and bilateral lower extremity edema. Currently he is on Lasix 40 mg twice a day and he seems to be making urine now. At this point I would continue the current medical regimen including the current dose of Lasix IV with continued monitor the kidney function and electrolytes and follow-up with the patient. He continues to be in atrial fibrillation was controlled heart rate continues to be on oral anticoagulation September 132021 The patient was seen this morning. He seems to be slightly lethargic. He stated that the shortness of breath is improved. He still required oxygen at least 5 L to maintain saturation above 90s. His to have diminished breathing sounds bilaterally and continues to have bilateral lower extremities edema which also somewhat improved. No symptoms of chest pain or chest discomfort. The creatinine is worse today as well as potassium. Urine output has been marginal. Currently he is on Lasix IV at 40 mg daily which I would suggest to decrease to 20 mg IV daily. Nephrology services on the case and will discuss that with him. Beside that he continues to have controlled heart rate for the atrial fibrillation and he continues to be on oral anticoagulation with Coumadin Objective - Vital Signs Vital signs: Vital Signs Temp 97.7 F 09/13/22 04:00 Pulse 63 09/13/22 05:00 Resp 13 09/13/22 04:00 BP 125/68 09/13/22 05:00 Pulse Ox 97 09/13/22 05:00 FiO2 28 09/12/22 04:00 Intake & Output 09/12/22 09/13/22 09/13/22 18:59 06:59 18:59 Intake Total 80 680 Output Total 345 100 Balance -265 580 Weight 121.2 kg Intake: IV 80 80 0.9 @ 10 80 Sodium Chloride 0.9% 1, 80 000 ml @ 20 mls/hr IV . Q24H [facility] Rx#:[id number] Intake, IV Titration 100 Amount Lacosamide IV 50 mg In 50 Sodium Chloride 0.9% 50 ml @ 100 mls/hr IVPB BID [facility] Rx#:[id number] cefTRIAXone 1 gm In 50 Sodium Chloride 0.9% 50 ml @ 100 mls/hr IVPB Q12H [facility] [place] Rx#:[id number] Oral 500 Output: Urine 345 100 Other: Voiding Method Indwelling Catheter Indwelling Catheter - Labs CBC & Chem 7: 09/10/22 09:32 09/13/22 04:32 Labs: Abnormal Lab Results - Last 24 Hours (Table) 09/12/22 09/13/22 09/13/22 Range/Units 05:26 04:32 04:32 PT 31.8 H (9.0-12.0) sec INR 3.3 H (<1.2) Potassium 5.5 H (3.5-5.1) mmol/L Chloride 94 L 92 L (98-107) mmol/L Carbon Dioxide 33 H 33 H (22-30) mmol/L BUN 111 H* 119 H* (9-20) mg/dL Creatinine 3.09 H 3.63 H (0.66-1.25) mg/dL Glucose 155 H 187 H (74-99) mg/dL Magnesium 2.9 H (1.6-2.3) mg/dL Microbiology - Last 24 Hours (Table) 09/09/22 18:57 Blood Culture - Preliminary Blood No Growth after 72 hours 09/09/22 18:40 Blood Culture - Preliminary Blood No Growth after 72 hours 09/11/22 16:48 Urine Culture - Preliminary Urine,Voided
--- NOTE | 2022-09-13 07:26 | XR ---
EXAMINATION TYPE: XR chest 1V DATE OF EXAM: 09/13/2022 HISTORY: Shortness of breath. COMPARISON: 09/19/2022 TECHNIQUE: Single view of the chest is submitted. FINDINGS: Demonstrated are scattered senescent parenchymal change. Continued cardiomegaly with a loculated right basilar pleural effusion, pulmonary venous congestion s cattered infiltrates compatible with congestive failure. Overall the appearance is stable. Hilar and mediastinal structures are within normal limits. Degenerative changes are seen of the dorsal spine. IMPRESSION: 1. Continued cardiomegaly with a loculated right basilar pleural effusion, pulmonary venous congesti on scattered infiltrates compatible with congestive failure. Overall the appearance is stable.
[2022-09-13] MEDS: IPRATROPIUM-ALBUTEROL 3 ML NEB INHALATION SCH ×4 (07:33→23:47)
[2022-09-13] MEDS: BUDESONIDE 1 MG/2 ML NEBU INHALATION SCH ×2 (07:33→19:52)
--- NOTE | 2022-09-13 09:07 | XR ---
EXAMINATION TYPE: XR abdomen 1V DATE OF EXAM: 09/13/2022 COMPARISON: NONE HISTORY: Pain TECHNIQUE: Single supine KUB image of the abdomen is obtained FINDINGS: There is evidence of gastric distention. Small and large bowel appear to be of normal caliber. No convincing evidence for pneumoperitoneum. No unusual calcifications. Basilar changes have been described on same day chest radiograph. The osseous structures are intact. IMPRESSION: 1. Gastric distention.
--- NOTE | 2022-09-13 09:48 | P.PN ---
Subjective Patient is seen in follow-up for acute kidney injury on chronic kidney disease. Renal function worsening. Lasix decreased. On 4 L nasal cannula. Urine output documented as 445 mL so far today. Oral intake is poor. Vital signs are stable. General: No acute distress. HEENT: Head exam is unremarkable. On nasal cannula. LUNGS: Breath sounds decreased. HEART: Rate and Rhythm are regular. ABDOMEN: Soft, distention noted. EXTREMITITES: Lower extremities wrapped. Trace edema. Objective - Vital Signs Vital signs: Vital Signs Temp 97.7 F 09/13/22 04:00 Pulse 76 09/13/22 07:45 Resp 13 09/13/22 04:00 BP 125/68 09/13/22 05:00 Pulse Ox 97 09/13/22 05:00 FiO2 28 09/12/22 04:00 Intake & Output 09/12/22 09/13/22 09/13/22 18:59 06:59 18:59 Intake Total 80 680 Output Total 345 100 Balance -265 580 Weight 121.2 kg Intake: IV 80 80 0.9 @ 10 80 Sodium Chloride 0.9% 1, 80 000 ml @ 20 mls/hr IV . Q24H [facility] Rx#:[id number] Intake, IV Titration 100 Amount Lacosamide IV 50 mg In 50 Sodium Chloride 0.9% 50 ml @ 100 mls/hr IVPB BID [facility] Rx#:[id number] cefTRIAXone 1 gm In 50 Sodium Chloride 0.9% 50 ml @ 100 mls/hr IVPB Q12H [facility] Rx#:[id number] Oral 500 Output: Urine 345 100 Other: Voiding Method Indwelling Catheter Indwelling Catheter - Labs CBC & Chem 7: 09/10/22 09:32 09/13/22 04:32 Labs: Abnormal Lab Results - Last 24 Hours (Table) 09/12/22 09/13/22 09/13/22 Range/Units 05:26 04:32 04:32 PT 31.8 H (9.0-12.0) sec INR 3.3 H (<1.2) Potassium 5.5 H (3.5-5.1) mmol/L Chloride 94 L 92 L (98-107) mmol/L Carbon Dioxide 33 H 33 H (22-30) mmol/L BUN 111 H* 119 H* (9-20) mg/dL Creatinine 3.09 H 3.63 H (0.66-1.25) mg/dL Glucose 155 H 187 H (74-99) mg/dL Magnesium 2.9 H (1.6-2.3) mg/dL Microbiology - Last 24 Hours (Table) 09/09/22 18:57 Blood Culture - Preliminary Blood No Growth after 72 hours 09/09/22 18:40 Blood Culture - Preliminary Blood No Growth after 72 hours 09/11/22 16:48 Urine Culture - Preliminary Urine,Voided Assessment and Plan Plan: Assessment: 1. Acute kidney injury secondary to ATN secondary to hypotension and cardiorenal syndrome. Renal function worsening. Elevated BUN partially due to steroids. Creatinine 3.63 today. No hydronephrosis noted on kidney ultrasound. 2. Chronic kidney disease stage IIIB with baseline creatinine 1.8-2 secondary to nephrosclerosis and cardiorenal syndrome. 3. Acute hypoxic and hypercapnic respiratory failure. On BiPAP. 4. Acute on chronic systolic CHF with ejection fraction of 45% with severe tricuspid regurgitation. Status post AICD. 5. Hyperkalemia secondary to acute kidney injury. Plan: Maintain IV Lasix - decreased to once daily. Maintain midodrine 5 mg 3 times daily. Hold for systolic blood pressure greater than 110. Continue to monitor renal function and urine output. Cortisol level not low. Add Lokelma bid. Repeat potassium level this evening. Continue to assess daily for need for renal placement therapy.
--- NOTE | 2022-09-13 09:57 | P.PN ---
Subjective Progress Note Date: 09/13/22 Principal diagnosis: Shortness of breath. Pulmonary consult dated 09/10/2022. 67-year-old male seen in the emergency department, on September 09. He came in with complaints of mental status changes, and shortness of breath. He apparently has not been feeling well for about 2 or 3 days prior to admission. The patient was recently at [facility], he was treated for pneumonia, and pleural effusion. The patient also recently tested positive for coronavirus on his previous hospitalization. Patient complains of shortness of breath, chest congestion, and lower extremity edema. No chest pain or chest discomfort. He is seen in the emergency room, room #2. He is on BiPAP at 16/5 and 28%. He is getting saline at KVO. We added duo neb breathing treatments. White count 5.5, hemoglobin 11.9, hematocrit 38.2, and platelet count 238,000. PTT was 35.1 with an INR 3.6. Arterial blood gases done on 28% oxygen show pO2 of 119, pCO2 of 107, sodium 138, potassium 4.8, chlorides 96, CO2 36, BUN 86, and creatinine 2.19. Chest x-ray shows changes of CHF. Progress note dated 09/11/2022. 67-year-old male seen in the emergency department yesterday. He came in with me ntal status changes shortness of breath. The patient is on BiPAP at 16/5 and 28%. He was on BiPAP yesterday. He is going for a CAT scan of the brain. The nurse noted that his pupils were unequal. His INR was 5.4. Labs today include a sodium 141, potassium 4.9, chlorides 97, CO2 33, BUN 98, and creatinine 2.99.Blood cultures are thus far negative. Computed tomography scan of the brain shows nothing acute. Progress note dated 09/12/2022. 67-year-old male seen in room 250. The patient came in with changes of CHF. The patient was on BiPAP, is currently on 4 L of oxygen. BiPAP setting, or 16/5 and 28%. The patient is on saline at 10 mL an hour. He's getting Rocephin for suspected urinary tract infection. Lab data includes a PT of 39.6 and an INR of 4.0. Blood gases yesterday showed a pO2 of 85, pCO2 of 61, and a pH is 7.36. Sodium 137, potassium 5.1, chlorides 94, CO2 33, BUN 111, creatinine 3.09. No chest x-ray today. Progress note dated 09/13/2022. 67-year-old male seen again in room 250. According to the nurse, Day, the patient had a pretty uneventful night. He is on 5 L of oxygen. He is getting saline at 20 mL an hour. He did not use of BiPAP device last night. On examination today, I noted that his abdomen was a bit distended, and he has not had a bowel movement. The flat plate of the abdomen. Other than that, he seems to be doing reasonably well. PTT 31.8, INR 3.3. Sodium 137, potassium 5.5, chlorides 92, CO2 33, anion gap 12, BUN 119, and creatinine 3.63. The patient remains on Rocephin for suspected urinary tract infection. Culture data is as far negative. Chest x-ray continues to show a pattern of CHF with small effusions. Abdominal film shows gastric distention. Objective - Vital Signs Vital signs: Vital Signs Temp 97.7 F 09/13/22 04:00 Pulse 76 09/13/22 07:45 Resp 13 09/13/22 04:00 BP 125/68 09/13/22 05:00 Pulse Ox 97 09/13/22 05:00 FiO2 28 09/12/22 04:00 Intake & Output 09/12/22 09/13/22 09/13/22 18:59 06:59 18:59 Intake Total 80 680 Output Total 345 100 Balance -265 580 Weight 121.2 kg Intake: IV 80 80 0.9 @ 10 80 Sodium Chloride 0.9% 1, 80 000 ml @ 20 mls/hr IV . Q24H Y[facility] Rx#:[id number] Intake, IV Titration 100 Amount Lacosamide IV 50 mg In 50 Sodium Chloride 0.9% 50 ml @ 100 mls/hr IVPB BID [facility] Rx#:[id number] cefTRIAXone 1 gm In 50 Sodium Chloride 0.9% 50 ml @ 100 mls/hr IVPB Q12H [facility] Rx#:[id number] Oral 500 Output: Urine 345 100 Other: Voiding Method Indwelling Catheter Indwelling Catheter - Exam No acute distress, oriented 3. Currently on 5 L of oxygen. HEENT examination is grossly unremarkable. Neck supple. Full range of motion. No adenopathy thyromegaly or neck vein distention. Cardiovascular examination reveals regular rhythm rate. S1-S2 normal. No S3 or S4. No discernible murmur noted. Heart sounds are distant. Heart rate 76 bpm. Lungs reveal bilateral coarse rhonchi. Bibasilar crackles. Breath sounds equal bilaterally. No wheezes. Saturations are 97 % on 5 L. Abdomen distended, and a bit tympanitic. No tenderness on palpation. Diminished bowel sounds. Extremities are wrapped. Significant lower extremity edema is noted. Skin reveals chronic venous stasis changes. Neurologic examination is brief but nonfocal. - Labs CBC & Chem 7: 09/10/22 09:32 09/13/22 04:32 Labs: Abnormal Lab Results - Last 24 Hours (Table) 09/12/22 09/13/22 09/13/22 Range/Units 05:26 04:32 04:32 PT 31.8 H (9.0-12.0) sec INR 3.3 H (<1.2) Potassium 5.5 H (3.5-5.1) mmol/L Chloride 94 L 92 L (98-107) mmol/L Carbon Dioxide 33 H 33 H (22-30) mmol/L BUN 111 H* 119 H* (9-20) mg/dL Creatinine 3.09 H 3.63 H (0.66-1.25) mg/dL Glucose 155 H 187 H (74-99) mg/dL Magnesium 2.9 H (1.6-2.3) mg/dL Microbiology - Last 24 Hours (Table) 09/09/22 18:57 Blood Culture - Preliminary Blood No Growth after 72 hours 09/09/22 18:40 Blood Culture - Preliminary Blood No Growth after 72 hours 09/11/22 16:48 Urine Culture - Preliminary Urine,Voided Assessment and Plan Assessment: Acute hypoxemic and hypercapnic respiratory failure, secondary to CHF. History of recent coronavirus infection. History of chronic atrial fibrillation. History of hypertension. Chronic lower extremity edema. History of chronic kidney disease. Obesity. Prior history of tobacco use. Plan: Plan dated 09/10/2022. The patient was initially seen in the emergency department. The patient is seen in room 2. We added duo nebs, to the patient's regimen. He is currently getting saline at KVO. He is on BiPAP at 16/5 and 28%. Labs, x-rays, and medications are reviewed.We will continue to follow and make recommendations along the way. Plan dated 09/11/2022. The patient remains on BiPAP, 16/5, and 28%. The patient's getting saline at 10 mL an hour. INR is 5.4. The brain CT was negative. Labs, x-rays, and medications are reviewed. We will continue to follow and make recommendations were appropriate. Prognosis is guarded. The patient is seen today in the intensive care unit, room 250. Plan dated 09/12/2022. The patient appears to be doing better. The patient's on Rocephin for suspected urinary tract infection. The patient's on 4 L of oxygen with saturations in the high 80s. Clinically, the patient feels better and looks better. Labs, x-rays, and medications are reviewed. We will continue to follow make recommendations along the way. Prognosis is guarded. Brain CT was negative. Blood gases from yesterday were reviewed. Plan dated 09/13/2022. The patient is currently on 5 L of oxygen. That may be able to be weaned a bit. Labs, x-rays, and medications are reviewed. The patient did not use BiPAP last night. He continues to be followed by nephrology for his renal failure. Abdominal flat plate is ordered. Additional recommendations and suggestions are forthcoming. He continues on Rocephin for suspected urinary tract infection. Time with Patient: Less than 30
[2022-09-13] MEDS: SODIUM CHLORIDE 0.9% 1,000 ML IV SCH ×2 (10:30→22:50)
[2022-09-13] MEDS: MIDODRINE 5 MG TAB PO SCH ×3 (10:35→18:18)
[2022-09-13] MEDS: SODIUM ZIRCONIUM CYCLOSILICATE 10 GM PACKET PO SCH ×2 (10:35→20:43)
[2022-09-13] MEDS: methylPREDNISolone SOD SUCCI 40 MG/ML 1 ML VIAL IV SCH (10:35)
[2022-09-13] MEDS: FUROSEMIDE 10 MG/ML 4 ML VIAL IV SCH (10:35)
[2022-09-13] MEDS: LACOSAMIDE IV 50 MG in SODIUM CHLORIDE 0.9% 50 ML IVPB SCH ×2 (12:27→20:43)
[2022-09-13] MEDS ORDERED: ONDANSETRON 4 MG/2 ML VIAL IVP PRN (12:43)
--- NOTE | 2022-09-13 15:18 | P.PN ---
Progress Note - Text Progress Note Date: 09/13/22 Chief Complaint: Short of breath This is a 67-year-old patient, follows with Dr. Ricardo Arnold. Chronic stable medical conditions include atrial fibrillation, hypertension, COPD, permanent pacemaker. Patient seen by me in the ER. Most of the history is obtained by the at the bedside. Patient was admitted for lung infection about a month ago. He didn't improve. Following the patient did have COVID. Patient now presents with worsening short of breath. Especially for 3-4 days. Also becoming bloated. Lower extremity edema. Appetite is poor. No cough. Patient has also underlying chronic kidney disease. Patient does smoke cigars and pipes. Patient is requiring a BiPAP in the ER. Has lower extremity wound being followed by Dr. Leung. Patient has some not able to give much of history.) Short of breath. 09/10/2022: Patient remains or overflow in the ER. On BiPAP. Tired lethargic. IV Lasix. Worsening renal function. We have pneumonia. Start IV ceftriaxone. Bronchodilators. Steroids. Strict I's and O's. 09/11/2022: Patient will lethargic. Remains on BiPAP. 16/02/28%. Overnight patient had become hypotensive. I held the Lasix temporarily and given fluid bolus. Lasix resumed today. Remains on IV ceftriaxone, DuoNeb, IV Solu-Medrol. 09/12/2022: ICU: On 4 L nasal cannula. Lethargic but would answer occasional question. at the bedside. Started on midodrine yesterday. Per neurology started IV Vimpat. Remains on IV Lasix. 09/13/2022: ICU. On 5 L nasal cannula. Lethargic. Hypothermic. Temperature 97.2. Rectal. Apolonia hugger started. and [id number] at the bedside. Patient for unequal pupils was seen by neurology. Cause unknown. Patient also had some myoclonic jerks felt to be a metabolic dysfunction. He followed by neurology. Patient is on Vimpat per neurology. Advanced care planning carried out with patient's and [id number] at the bedside. Patient does have advanced directives. Currently full code. Patient has been on and off BiPAP. Abdomen distended. Abdominal x-ray shows gastric distention. We will try temporary NG tube suction. Should help the bleeding also. Active Medications Albuterol/Ipratropium (Ipratropium-Albuterol 3 Ml Neb) 3 ml INHALATION RT-TID [facility] Last Admin: 09/13/22 12:36 Dose: Not Given Budesonide (Budesonide 1 Mg/2 Ml Nebu) 1 mg INHALATION RT-BID [facility] Last Admin: 09/13/22 07:33 Dose: 1 mg Furosemide (Furosemide 10 Mg/Ml 4 Ml Vial) 40 mg IV DAILY [facility] Last Admin: 09/13/22 10:35 Dose: 40 mg Sodium Chloride (Saline 0.9%) 1,000 mls @ 20 mls/hr IV .Q24H [facility] Last Admin: 09/13/22 10:30 Dose: Not Given Ceftriaxone Sodium 1 gm/ (Sodium Chloride) 50 mls @ 100 mls/hr IVPB Q12H [facility]; Protocol Last Admin: 09/13/22 03:39 Dose: 100 mls/hr Lacosamide 50 mg/ Sodium (Chloride) 55 mls @ 100 mls/hr IVPB BID [facility] Last Admin: 09/13/22 12:27 Dose: 100 mls/hr Methylprednisolone Sodium Succinate (Methylprednisolone Sod Succi 40 Mg/Ml 1 Ml Vial) 40 mg IV Q8HR [facility] Last Admin: 09/13/22 10:35 Dose: 40 mg Midodrine (Midodrine 5 Mg Tab) 5 mg PO AC-TID [facility] Last Admin: 09/13/22 12:33 Dose: Not Given Miscellaneous Information (Warfarin Per Pharmacy) 0 each MISCELLANE DIRECTED PRN PRN Reason: PER PROTOCOL Ondansetron HCl (Ondansetron 4 Mg/2 Ml Vial) 4 mg IVP Q6HR PRN PRN Reason: Nausea And Vomiting Last Admin: 09/13/22 12:48 Dose: 4 mg Sodium Zirconium Cyclosilicate (Sodium Zirconium Cyclosilicate 10 Gm Packet) 10 gm PO BID [facility] Stop: 09/14/22 21:01 Last Admin: 09/13/22 10:35 Dose: 10 gm Warfarin Sodium (Warfarin 1.25 Mg Tab) 1.25 mg PO ONCE@1800 ONE Stop: 09/13/22 18:01 Past medical history to include: Atrial fibrillation, hypertension, CK D, permanent pacemaker, Social history: . 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 Physical examination: VITAL SIGNS: 97.7, 63, 16, 125-68, 97% on 4 L GENERAL: , reclining in bed, lethargic but arousable, short of breath, Apolonia hugger EYES: Pupils equal. Conjunctiva normal. HEENT: [External appearance of nose and ears normal, oral cavity dry mucous membranes. NECK: JVD unable to assess; masses not palpable. HEART: First and second heart sounds are normal; edema present. LUNGS: Respiratory rate increased; decreased breath sounds. ABDOMEN: Soft, distended nontender, liver spleen not palpable, no masses palpable. PSYCH: [Lethargic, we'll answer occasional question MUSCULOSKELETAL:No Clubbing/cyanosis;muscles-grossly intact, OA EXTREMITIES: Wound with dressing on the both plantar INVESTIGATIONS, reviewed in the clinical context: Abdominal x-ray: Personally reviewed by me. Stomach distended. Some stool retention 09/13/2022: INR 3.3 potassium 5.5 BUN 119 creatinine 3.63 09/12/2022: Potassium 5.1 BUN 111 creatinine 3.09 Digital ultrasound: Suboptimal study. 09/11/2022: Potassium 4.9 BUN 98 creatinine 2.99 procalcitonin 1.02 TSH 0.79 09/10/2022: WBC 7.9 hemoglobin 11.2 platelets 131 INR 3.6 BUN 90 creatinine 2.75 WBC 5.5 hemoglobin 11.9 platelets 138 ABG: PH 7.16 pCO2 107 oxygen saturation 97.8 Sodium 138 potassium 4.8 BUN 8622.19 proBNP 10 EKG tracing personally reviewed by me-electronic atrial pacemaker Chest x-ray film personally reviewed by me-basilar infiltrate versus fluid. Hyperinflation Assessment and plan: -Acute hypoxic hypercapnic respiratory failure secondary to COPD/pulmonary edema/pneumonia: Slow improvement Currently on [address] Mendoza from pulmonary -Anisocoria left greater than right Being followed by neurology -Myoclonic jerks On Vimpat. Being followed by neurology - acute on chronic CHF exacerbation, from systolic dysfunction EF 45% IV Lasix 40 mg daily. Follow with cardiology. -Right basal pneumonia suspect gram-negative organism IV ceftriaxone procalcitonin 1.02 -Acute metabolic encephalopathy from hypoxic/delirium: Slow to respond -Acute kidney injury secondary to ATN secondary to hypotension/cardiac renal syndrome.: Worsening Decreased urine output -Chronic kidney disease stage III B. Likely nephrosclerosis Baseline creatinine 2 from March 2022 -Hypothermia, multifactorial: New diagnosis Apolonia collins -Normocytic anemia, likely from chronic kidney disease Follow H&H -Hyperkalemia from worsening kidney function.: New diagnosis Lokelma -Essential hypertension Hold antihypertensive, currently blood pressure running on the lower side -AICD for regular tachycardia -Permanent atrial fibrillation [id number]-[id number] for low blood pressure. Coumadin. -Coumadin monitoring Pharmacy to dose -biLateral plantar lower extremity wound. Follows with Dr. Leung. Local [facility] -Full code On 5 L nasal cannula. Hypothermic. Apolonia hugger. We will try NG tube to decompress the stomach. Should help the breathing also. IV Vimpat. IV ceftriaxone. Prognosis guarded Advance care planning: This was discussed with the patient's at the bedside. Also 's sister present. Patient does have advanced directive. is the POA. Overall clinical condition was discussed. Prognosis guarded. DO NOT RESUSCITATE condition was discussed. She may consider the same. Patient lives alone again review the advanced directives. They understand patient's prognosis guarded. 25 minutes was spent for this.
[2022-09-13] MEDS ORDERED: propofoL 100 ML IV ONE (15:57)
[2022-09-13] MEDS ORDERED: SUCCINYLCHOLINE CHLORIDE 200 MG/10 ML VIAL IV ONE (15:58)
[2022-09-13] MEDS ORDERED: ROCURONIUM 10 MG/ML (5 ML VIAL) IV STA (16:06)
--- NOTE | 2022-09-13 16:22 | P.PN ---
Progress Note - Text 09/13/22 3821 67-year-old man underresponsive and needed to be intubated.. Patient preoxygenated and rock 30 mg was given Y the IV and intubated with a Mac 3 blade. 7.5 cuffed EGD was placed under direct visualization. End tidal CO2 was confirmed. tube was taped at 22cm.
[2022-09-13 16:34] LABS: Basophils # (A) 0.1 k/uL (0-0.2); Basophils % (A) 1 %; Eosinophils # (A) 0.1 k/uL (0-0.7); Eosinophils % (A) 1 %; HCT 41.1 % (39.0-53.0); HGB 11.7 gm/dL (13.0-17.5); Hypochromasia Marked; Lymphocytes # (A) 0.1 k/uL (1.0-4.8); Lymphocytes % (A) 0 %; MCHC 28.5 g/dL (31.0-37.0); MCV 105.3 fL (80.0-100.0); Macrocytosis Moderate; Mean Platelet Volume 8.9; Monocytes # (A) 0.6 k/uL (0-1.0); Monocytes % (A) 5 %; Neutrophils # (A) 11.4 k/uL (1.3-7.7); Neutrophils % (A) 92 %; Platelet Count 166 k/uL (150-450); RBC 3.91 m/uL (4.30-5.90); RDW 14.6 % (11.5-15.5); WBC 12.3 k/uL (3.8-10.6)
--- NOTE | 2022-09-13 16:35 | XR ---
EXAMINATION TYPE: XR chest 1V portable DATE OF EXAM: 09/13/2022 COMPARISON: 09/13/2022 HISTORY: Tube placement TECHNIQUE: Single frontal view of the chest is obtained. FINDINGS: ET tube is 3.3 cm above the vivienne. There is an NG tube within the stomach. There is a 2-lead cardiac pacemaker. Heart is markedly enlarged. There is a moderate loculated pleural effusion on the right which is stab le. There is persistent moderate pulmonary vascular congestion. There is no pneumothorax. IMPRESSION: 1. ET tube 3.3 cm above the vivienne. 2. No change in the moderate right loculated pleural effusion and no change in the moderate pulmonary vascular congestion.
[2022-09-13] MEDS ORDERED: NOREPINEPHRIN 4 MG-0.9% NS PMX 4 MG/250 ML ML IV ONE (16:47)
[2022-09-13] MEDS ORDERED: CISATRACURIUM 2 MG/ML 5 ML VIAL IV ONE ×2 (16:48→17:32)
[2022-09-13 16:55] LABS: Potassium 5.5 mmol/L (3.5-5.1)
[2022-09-13 17:27] LABS: Glucose,Whole Blood 184 mg/dL (70-110)
[2022-09-13] MEDS ORDERED: INSULIN REGULAR 100 UNIT/ML VIAL (IV) IV ONE (17:40)
[2022-09-13] MEDS ORDERED: DEXTROSE 50% SYRINGE 50 ML IVP STA (17:41)
[2022-09-13] MEDS ORDERED: FUROSEMIDE 10 MG/ML 10 ML VIAL IV STA (17:41)
[2022-09-13 17:48] LABS: ABG Base Excess 4.5 mmol/L; ABG HCO3 33 mmol/L (21-25); ABG Oxygen Saturation 99.5 % (94-97); ABG PO2 356 mmHg (83-108); ABG TCO2 35 mmol/L (19-24); Allen Test Performed? Yes
--- NOTE | 2022-09-13 17:55 | XR ---
EXAMINATION TYPE: XR chest 1V portable DATE OF EXAM: 09/13/2022 COMPARISON: 09/13/2022 HISTORY: Tube placement TECHNIQUE: Single frontal view of the chest is obtained. FINDINGS: ET tube has been retracted and now lies 5.7 cm above the vivienne. There is an NG tube within the stoma ch. There is a 2-lead cardiac pacemaker. The moderate to large right loculated pleural effusion is unchanged. There is moderate to marked pulm onary vascular congestion and cardiomegaly unchanged as well. IMPRESSION: 1. ET tube retracted and now lies 5.7 cm above the vivienne. 2. No change in the acute cardiopulmonary disease as described above.
[2022-09-13] MEDS ORDERED: WARFARIN 1.25 MG TAB PO ONE (18:00)
[2022-09-13] MEDS: CISATRACURIUM 200 MG in SODIUM CHLORIDE 0.9% 180 ML IV SCH (18:20)
[2022-09-13] MEDS: NOREPINEPHRINE 8 MG in SODIUM CHLORIDE 0.9% 250 ML IV SCH (18:22)
[2022-09-13 18:32] LABS: ABG PCO2 83 mmHg (35-45)
[2022-09-13] MEDS: methylPREDNISolone SOD SUCCI 125 MG/2 ML VIAL IV SCH ×2 (18:33→23:26)
--- NOTE | 2022-09-13 19:10 | XR ---
EXAMINATION TYPE: XR chest 1V DATE OF EXAM: 09/13/2022 6:44 PM COMPARISON: Earlier chest radiographs from 09/13/2022, 09/09/2022 TECHNIQUE: XR chest 1V . CLINICAL INDICATION:Male, 67 years old with history of ett placement and line placement; FINDINGS: Lungs/Pleura: Low large loculated right pleural effusion. Diffuse interstitial edema bilaterally. No pneumothorax. Pulmonary vascularity: Pulmonary vascular congestion. Heart/mediastinum: Cardiomediastinal silhouette is enlarged and stable. Two lead cardiac conduction d evice overlying the left hemithorax with lead tips projecting over the right ventricle and right atri um. Musculoskeletal: No acute osseous pathology. Lines/Tubes: Endotracheal tube with distal tip approximately 7.8 cm above the vivienne, intervally retracted from ea rlier. Nasogastric tube appears subdiaphragmatic. IMPRESSION: 1. ET tube intervally retracted and now lies 7.8 cm above the vivienne. Nasogastric tube is in stable p osition. 2. Loculated right pleural effusion, unchanged from prior. 3. Similar cardiomegaly with pulmonary vascular congestion.
[2022-09-13 19:39] LABS: ABG Base Excess 6.5 mmol/L; ABG HCO3 31 mmol/L (21-25); ABG Oxygen Saturation 96.5 % (94-97); ABG PCO2 50 mmHg (35-45); ABG PO2 65 mmHg (83-108); ABG TCO2 33 mmol/L (19-24); Allen Test Performed? Yes
--- NOTE | 2022-09-13 20:22 | PCN ---
PROCEDURE NOTE PROCEDURE PERFORMED: Right radial arterial line. PREOPERATIVE DIAGNOSES: Frequent blood draws and blood gas monitoring. POSTOPERATIVE DIAGNOSES: Frequent blood draws and blood gas monitoring. There was informed consent and universal timeout. ARTERIAL LINE PLACEMENT: Indications: Hemodynamic monitoring. A time-out was completed verifying correct patient, procedure, site, positioning, and implant(s) or special equipment if applicable. Jim's test was performed to ensure adequate perfusion. The patient's right wrist or right groin was prepped and draped in sterile fashion. 1% Lidocaine was used to anesthetize the area. An 18G Arrow arterial line was introduced into the radial artery. The catheter was threaded over the guide wire and the needle was removed with appropriate pulsatile blood return. Blood loss was minimal. The catheter was then sutured in place to the skin and a sterile dressing applied. Perfusion to the extremity distal to the point of catheter insertion was checked and found to be adequate. The patient tolerated the procedure well and there were no complications. We used a right radial artery. There was good blood return and waveform. The patient tolerated the procedure well. The catheter was sutured in place. Sterile dressing was applied by the nurse. There was no immediate complication. MMODL / IJN: [id number] /
--- NOTE | 2022-09-13 20:25 | PCN ---
PROCEDURE NOTE PROCEDURE PERFORMED: Left internal jugular triple-lumen catheter. PREOPERATIVE DIAGNOSES: Hypotension, administration of fluids and pressors. POSTOPERATIVE DIAGNOSES: Hypotension, administration of fluids and pressors. There was informed consent and universal timeout. TRIPLE LUMEN CATHETER PLACEMENT: Indication: Hemodynamic monitoring/Intravenous access. A time-out was completed verifying correct patient, procedure, site, positioning, and implant(s) or special equipment if applicable. The patient was placed in a dependent position appropriate for triple lumen catheter placement based on the vein to be cannulated. The patient's left shoulder or left neck or left groin was prepped and draped in sterile fashion. 1% Lidocaine was used to anesthetize the surrounding skin area. A triple lumen 9F Cordis catheter was introduced into the left internal jugular or common femoral vein using Seldinger technique. The catheter was threaded smoothly over the guide wire and appropriate blood return was obtained. Each lumen of the catheter was evacuated of air and flushed with sterile saline. The catheter was then sutured in place to the skin and a sterile dressing applied. Perfusion to the extremity distal to the point of catheter insertion was checked and found to be adequate. We used the left internal jugular vein. There was good blood return from all 3 ports. The patient tolerated the procedure well. A chest x-ray was ordered to check placement of the catheter. The catheter was sutured in place. Sterile dressing was applied by the nurse. There was no immediate complication. The tip of the catheter was seen at the junction of superior vena cava and right atrium. MMODL / IJN: [id number] /
[2022-09-13] MEDS: CHLORHEXIDINE GLUCONATE 15 ML CUP MUCOUS MEM SCH (20:43)
--- NOTE | 2022-09-13 22:53 | PCN ---
PROCEDURE NOTE PROCEDURE: Bronchoscopy. PREOPERATIVE DIAGNOSES: Retained secretions, endotracheal tube obstruction, high airway pressures. POSTOPERATIVE DIAGNOSES: Retained secretions, endotracheal tube obstruction, high airway pressures. DESCRIPTION OF PROCEDURE: There was informed consent and universal timeout. The patient was placed on 100% oxygen for the procedure. The bronchoscope adapter was connected to the endotracheal tube. The bronchoscope was pushed through the endotracheal tube in the middle of the bronchoscope adapter. There were some secretions noted within the endotracheal tube, not many. Once I exited the endotracheal tube, it was noted that the endotracheal tube was above the tracheal vivienne. There were minimal secretions in the distal trachea. The right and left mainstem were evaluated. Right upper lobe and its 3 segments, right middle lobe and its 2 segments, right lower lobe and its 5 segments, left upper lobe proper and its 2 segments, lingula and its 2 segments, and left lower lobe and its 4 segments were all patent. Minimal secretions were noted throughout. There was some mild degree of erythema and hyperemia of the airways. No definitive obstruction, mucus plugging, endobronchial mass, or tumor. The bronchoscope was then withdrawn. No samples were taken. The patient tolerated the procedure well. MMODL / IJN: [id number] /
[2022-09-13 23:33] LABS: Glucose,Whole Blood 166 mg/dL (70-110)
[2022-09-14 00:05] LABS: Calcium 8.1 mg/dL (8.4-10.2); Magnesium 2.5 mg/dL (1.6-2.3); Potassium 4.8 mmol/L (3.5-5.1)
[2022-09-14] MEDS: NOREPINEPHRINE 8 MG in SODIUM CHLORIDE 0.9% 250 ML IV SCH ×4 (00:05→16:23)
[2022-09-14] MEDS: INSULIN ASPART (NovoLOG) 100 UNIT/ML VIAL SQ SCH ×5 (00:22→23:55)
[2022-09-14] MEDS: IPRATROPIUM-ALBUTEROL 3 ML NEB INHALATION SCH ×5 (03:59→19:19)
[2022-09-14] MEDS: CISATRACURIUM 200 MG in SODIUM CHLORIDE 0.9% 180 ML IV SCH (04:06)
[2022-09-14 04:26] LABS: Basophils # (A) 0.1 k/uL (0-0.2); Basophils % (A) 0 %; Eosinophils # (A) 0.1 k/uL (0-0.7); Eosinophils % (A) 1 %; HCT 35.7 % (39.0-53.0); HGB 11.7 gm/dL (13.0-17.5); Hypochromasia Slight; Lymphocytes # (A) 0.2 k/uL (1.0-4.8); Lymphocytes % (A) 2 %; MCH 31.3 pg (25.0-35.0); MCHC 32.7 g/dL (31.0-37.0); Mean Platelet Volume 9.5; Monocytes # (A) 0.8 k/uL (0-1.0); Monocytes % (A) 6 %; Neutrophils # (A) 11.7 k/uL (1.3-7.7); Neutrophils % (A) 90 %; Platelet Count 168 k/uL (150-450); RBC 3.73 m/uL (4.30-5.90); RDW 14.9 % (11.5-15.5); WBC 13.1 k/uL (3.8-10.6)
[2022-09-14 04:34] LABS: MCV 95.9 fL (80.0-100.0)
[2022-09-14 04:36] LABS: INR 3.5 (<1.2); Prothrombin Time 34.4 sec (9.0-12.0)
[2022-09-14 04:44] LABS: Calcium 8.3 mg/dL (8.4-10.2); Magnesium 2.6 mg/dL (1.6-2.3); Phosphorus 4.5 mg/dL (2.5-4.5); Potassium 4.5 mmol/L (3.5-5.1)
--- NOTE | 2022-09-14 05:23 | PCN ---
PROCEDURE NOTE PROCEDURE PERFORMED: Endotracheal tube change. PREOPERATIVE DIAGNOSIS: High airway pressures. POSTOPERATIVE DIAGNOSIS: High airway pressures. DESCRIPTION OF PROCEDURE: We are going to change the endotracheal tube from a 7.5 tube to an 8.5 tube. We used the endotracheal tube changer and an 8.5 endotracheal tube which was lubricated. The patient was again on 100% oxygen. The stylet was passed through the endotracheal tube that was currently in the airway of the patient. The endotracheal tube balloon was deflated. The endotracheal tube was removed. The new 8.5 endotracheal tube was placed over the stylet. The stylet was removed. The balloon was inflated. The patient was connected to the ventilator. The patient had good return of tidal volumes. The patient tolerated the procedure well without complication. The tube was at 25 cm at the lip which is where it was before and we knew that was where the tube was above the tracheal vivienne. Again, the patient tolerated the procedure well without any complication. A chest x-ray will be done just to check placement. MMODL / IJN: [id number] / [facility]
[2022-09-14 05:43] LABS: Glucose,Whole Blood 166 mg/dL (70-110)
[2022-09-14] MEDS: methylPREDNISolone SOD SUCCI 125 MG/2 ML VIAL IV SCH ×4 (05:43→23:55)
[2022-09-14] MEDS: MIDODRINE 5 MG TAB PO SCH ×3 (05:48→17:24)
[2022-09-14 05:53] LABS: ABG Base Excess 10.1 mmol/L; ABG HCO3 33 mmol/L (21-25); ABG Oxygen Saturation 97.2 % (94-97); ABG PCO2 38 mmHg (35-45); ABG PH 7.55 (7.35-7.45); ABG PO2 82 mmHg (83-108); ABG TCO2 34 mmol/L (19-24)
[2022-09-14] MEDS: BUDESONIDE 1 MG/2 ML NEBU INHALATION SCH ×2 (07:45→19:19)
--- NOTE | 2022-09-14 08:00 | XR ---
EXAMINATION TYPE: XR chest 1V portable DATE OF EXAM: 09/14/2022 COMPARISON: 09/13/2022 HISTORY: Shortness of breath TECHNIQUE: Single frontal view of the chest is obtained. FINDINGS: ET and NG tube stable. Cardiac device noted. Cardiomegaly with bilateral pleural effusion and infiltrate noted. Diffuse interstitial pattern. No pneumothorax. Left-sided central line stable. IMPRESSION: Diffuse pleural-parenchymal changes are stable correlate for CHF.
[2022-09-14] MEDS: CHLORHEXIDINE GLUCONATE 15 ML CUP MUCOUS MEM SCH ×2 (08:19→20:22)
[2022-09-14] MEDS: FUROSEMIDE 10 MG/ML 4 ML VIAL IV SCH (08:20)
--- NOTE | 2022-09-14 08:44 | EEG ---
ELECTROENCEPHALOGRAM REPORT CLINICAL HISTORY: This is a 67-year-old gentleman with altered mental status and body jerks. The video EEG is obtained to evaluate for seizure epileptiform activity. RELEVANT MEDICATION: The patient is not on any antiepileptic drugs. EEG TYPE: A routine 21-channel EEG is performed with video using the 10/20 electrode placement system. DESCRIPTION: Wakefulness is obtained. During awake state, the posterior-dominant rhythm consists of yyp-la-bjaxksls voltage of 5.5 to 6.5 hertz activity. There was no physiological stage 2 sleep architecture. There is no focal slowing. There is at least moderate to severe myogenic artifact. Interictal and ictal: There is suspicious rare generalized sharp and slow waves with occipital predominance. No seizure detected during this study. ACTIVATION PROCEDURE: Photic stimulation and hyperventilation is not performed because of the patient's cooperation. CLINICAL INTERPRETATION: Somewhat limited because of myogenic artifact. This is an abnormal routine EEG. The background slowing is suggestive of mild-to- moderate encephalopathy likely due to toxic metabolic derangements. There is suspicious rare generalized sharps with occipital predominance that increases risk for seizure. No seizure detected during this study. Also no focal slowing. Clinical correlation is recommended. MMODL / IJN: [id number] / MTDD
--- NOTE | 2022-09-14 08:51 | P.PN ---
Subjective Progress Note Date: 09/14/22 PROGRESS NOTE The patient is a 67-year-old male who presented with symptoms of progressive dyspnea and CHF requiring chemical ventilation. He is intubated and sedated. Hemodynamically he is stable. He is having good urinary output. She has chronic atrial fibrillation and his ventricular response is controlled. He has been paced. There is no evidence of ventricular ectopic activity. He had recent Covid infection. He has renal failure and a history of chronic kidney disease. He was intubated yesterday. He has a pacemaker with normal sensing and pacing. His echocardiogram in July showed an ejection fraction of 45% with mild mitral and severe tricuspid regurgitation. He underwent cardiac catheterization in 2019 that showed mild obstructive disease. He is followed on a regular basis by Dr. Fletcher. He has a biventricular pacer placed in October 2020. He has a prior history of ventricular tachycardia. Medications: Lasix 40 mg daily, midodrine, Solu-Medrol, Coumadin, norepinephrine PHYSICAL EXAMINATION: Blood pressure 118/60 heart rate 70 LUNGS: Clear to auscultation anteriorly HEART: Regular rate and rhythm, S1, S2. No S3. Holosystolic murmur at the apex, 3/6 ABDOMEN: Soft, nontender, no organomegaly EXTREMETIES: +1 edema, Red wrap LAB: Hemoglobin 11.7, white blood cell 13.1, BUN 130, creatinine 3.5 IMPRESSION: 1. Respiratory failure with CHF. He had a mildly impaired systolic function in the past 2. Worsening renal failure 3. Atrial fibrillation, anticoagulated 4. Post biventricular pacing 5. Recent COVID infection 7. Obesity PLAN: 1. The patient may require dialysis in view of the worsening BUN 2. Continue other medications 3. Prognosis is guarded 4. Depending on his progress further recommendations will be made Objective - Vital Signs Vital signs: Vital Signs Temp 98.2 F 09/14/22 08:00 Pulse 96 09/14/22 08:19 Resp 32 H 09/14/22 08:00 BP 118/65 09/14/22 08:00 Pulse Ox 100 09/14/22 08:00 FiO2 40 09/14/22 08:00 Intake & Output 09/13/22 09/14/22 09/14/22 18:59 06:59 18:59 Intake Total 9752.097 6095.511 87.308 Output Total 80 2430 225 Balance 1081.889 -866.489 -137.692 Weight 121.8 kg Intake: IV 1140 446 20 0.9 bolus 1000 Lacosamide IV 50 mg In 100 Sodium Chloride 0.9% 50 ml @ 100 mls/hr IVPB BID YULY Rx#:[id number] Pressure Bag 36 0 Sodium Chloride 0.9% 1, 140 260 20 000 ml @ 20 mls/hr IV . Q24H Y[facility]Y Rx#:[id number] cefTRIAXone 1 gm In 50 Sodium Chloride 0.9% 50 ml @ 100 mls/hr IVPB Q12H Y[facility]Y Rx#:[id number] Intake, IV Titration 21.889 1057.511 67.308 Amount Cisatracurium 200 mg In 196.828 Sodium Chloride 0.9% 180 ml @ 2 MCG/KG/MIN 14.544 mls/hr IV .[id number] Y[facility]Y Rx #:[id number] Norepinephrine 8 mg In 21.889 414.051 67.308 Sodium Chloride 0.9% 250 ml @ 0.22 MCG/KG/MIN 51. 595 mls/hr IV .Q5H1M YULY Rx#:[id number] propofoL 1,000 mg In 446.632 Empty Bag 1 bag @ 15 MCG/ KG/MIN 10.908 mls/hr IV . Q9H11M YULY Rx#:[id number] Other 60 Output: Gastric Drainage 500 Urine 80 1930 225 Other: Voiding Method Indwelling Catheter Indwelling Catheter ABP, PAP, CO, CI - Last Documented Arterial Blood Pressure 127/59 - Labs CBC & Chem 7: 09/14/22 04:15 09/14/22 04:15 Labs: Abnormal Lab Results - Last 24 Hours (Table) 09/13/22 09/13/22 09/13/22 Range/Units 16:22 16:26 17:25 WBC 12.3 H (3.8-10.6) k/uL RBC 3.91 L (4.30-5.90) m/uL Hgb 11.7 L (13.0-17.5) gm/dL Hct (39.0-53.0) % MCV 105.3 H (80.0-100.0) fL MCHC 28.5 L (31.0-37.0) g/dL Neutrophils # 11.4 H (1.3-7.7) k/uL Lymphocytes # 0.1 L (1.0-4.8) k/uL PT (9.0-12.0) sec INR (<1.2) ABG pH (7.35-7.45) ABG pCO2 (35-45) mmHg ABG pO2 (83-108) mmHg ABG HCO3 (21-25) mmol/L ABG Total CO2 (19-24) mmol/L ABG O2 Saturation (94-97) % Sodium (137-145) mmol/L Potassium 5.5 H (3.5-5.1) mmol/L Chloride 94 L (98-107) mmol/L Carbon Dioxide 32 H (22-30) mmol/L BUN 129 H* (9-20) mg/dL Creatinine 3.73 H (0.66-1.25) mg/dL Glucose 195 H (74-99) mg/dL POC Glucose (mg/dL) 184 H (70-110) mg/dL Calcium 8.0 L (8.4-10.2) mg/dL Magnesium (1.6-2.3) mg/dL 09/13/22 09/13/22 09/13/22 Range/Units 17:55 19:34 23:30 WBC (3.8-10.6) k/uL RBC (4.30-5.90) m/uL Hgb (13.0-17.5) gm/dL Hct (39.0-53.0) % MCV (80.0-100.0) fL MCHC (31.0-37.0) g/dL Neutrophils # (1.3-7.7) k/uL Lymphocytes # (1.0-4.8) k/uL PT (9.0-12.0) sec INR (<1.2) ABG pH 7.20 L (7.35-7.45) ABG pCO2 83 H* 50 H (35-45) mmHg ABG pO2 356 H 65 L (83-108) mmHg ABG HCO3 33 H 31 H (21-25) mmol/L ABG Total CO2 35 H 33 H (19-24) mmol/L ABG O2 Saturation 99.5 H (94-97) % Sodium (137-145) mmol/L Potassium (3.5-5.1) mmol/L Chloride (98-107) mmol/L Carbon Dioxide (22-30) mmol/L BUN (9-20) mg/dL Creatinine (0.66-1.25) mg/dL Glucose (74-99) mg/dL POC Glucose (mg/dL) 166 H (70-110) mg/dL Calcium (8.4-10.2) mg/dL Magnesium (1.6-2.3) mg/dL 09/13/22 09/14/22 09/14/22 Range/Units 23:32 04:15 04:15 WBC 13.1 H (3.8-10.6) k/uL RBC 3.73 L (4.30-5.90) m/uL Hgb 11.7 L (13.0-17.5) gm/dL Hct 35.7 L (39.0-53.0) % MCV (80.0-100.0) fL MCHC (31.0-37.0) g/dL Neutrophils # 11.7 H (1.3-7.7) k/uL Lymphocytes # 0.2 L (1.0-4.8) k/uL PT 34.4 H (9.0-12.0) sec INR 3.5 H (<1.2) ABG pH (7.35-7.45) ABG pCO2 (35-45) mmHg ABG pO2 (83-108) mmHg ABG HCO3 (21-25) mmol/L ABG Total CO2 (19-24) mmol/L ABG O2 Saturation (94-97) % Sodium 135 L (137-145) mmol/L Potassium (3.5-5.1) mmol/L Chloride 95 L (98-107) mmol/L Carbon Dioxide (22-30) mmol/L BUN 128 H* (9-20) mg/dL Creatinine 3.62 H (0.66-1.25) mg/dL Glucose 171 H (74-99) mg/dL POC Glucose (mg/dL) (70-110) mg/dL Calcium 8.1 L (8.4-10.2) mg/dL Magnesium 2.5 H (1.6-2.3) mg/dL 09/14/22 09/14/22 09/14/22 Range/Units 04:15 05:40 05:46 WBC (3.8-10.6) k/uL RBC (4.30-5.90) m/uL Hgb (13.0-17.5) gm/dL Hct (39.0-53.0) % MCV (80.0-100.0) fL MCHC (31.0-37.0) g/dL Neutrophils # (1.3-7.7) k/uL Lymphocytes # (1.0-4.8) k/uL PT (9.0-12.0) sec INR (<1.2) ABG pH 7.55 H (7.35-7.45) ABG pCO2 (35-45) mmHg ABG pO2 82 L (83-108) mmHg ABG HCO3 33 H (21-25) mmol/L ABG Total CO2 34 H (19-24) mmol/L ABG O2 Saturation 97.2 H (94-97) % Sodium 136 L (137-145) mmol/L Potassium (3.5-5.1) mmol/L Chloride 96 L (98-107) mmol/L Carbon Dioxide (22-30) mmol/L BUN 130 H* (9-20) mg/dL Creatinine 3.50 H (0.66-1.25) mg/dL Glucose 159 H (74-99) mg/dL POC Glucose (mg/dL) 166 H (70-110) mg/dL Calcium 8.3 L (8.4-10.2) mg/dL Magnesium 2.6 H (1.6-2.3) mg/dL Microbiology - Last 24 Hours (Table) 09/09/22 18:57 Blood Culture - Preliminary Blood No Growth after 96 hours 09/09/22 18:40 Blood Culture - Preliminary Blood No Growth after 96 hours 09/11/22 16:48 Urine Culture - Final Urine,Voided
[2022-09-14] MEDS: LACOSAMIDE IV 50 MG in SODIUM CHLORIDE 0.9% 50 ML IVPB SCH ×2 (10:00→20:48)
[2022-09-14] MEDS: SODIUM ZIRCONIUM CYCLOSILICATE 10 GM PACKET PO SCH (10:03)
--- NOTE | 2022-09-14 11:25 | P.PN ---
Subjective Patient is seen in follow-up for acute kidney injury on chronic kidney disease. Renal function stable. Received 80 mg of IV Lasix yesterday afternoon. Urine output much better. Patient went into respiratory distress yesterday and was subsequently intubated. He is currently on 40% FiO2. On levofed. Still having significant output from NG. Vital signs are stable. On vasopressor support. General: No acute distress. HEENT: Head exam is unremarkable. On nasal cannula. LUNGS: Breath sounds decreased. HEART: Rate and Rhythm are regular. ABDOMEN: Soft, distention noted. EXTREMITITES: 1+ edema. Objective - Vital Signs Vital signs: Vital Signs Temp 98.2 F 09/14/22 08:00 Pulse 84 09/14/22 10:00 Resp 32 H 09/14/22 10:00 BP 125/65 09/14/22 10:00 Pulse Ox 98 09/14/22 10:00 FiO2 40 09/14/22 11:17 Intake & Output 09/13/22 09/14/22 09/14/22 18:59 06:59 18:59 Intake Total 1171.621 7026.511 380.564 Output Total 80 2430 850 Balance 1081.889 -866.489 -469.436 Weight 121.8 kg Intake: IV 1140 446 130 0.9 bolus 1000 Lacosamide IV 50 mg In 100 50 Sodium Chloride 0.9% 50 ml @ 100 mls/hr IVPB BID Y[facility]Y Rx#:[id number] Pressure Bag 36 0 Sodium Chloride 0.9% 1, 140 260 80 000 ml @ 20 mls/hr IV . Q24H [facility] Rx#:[id number] cefTRIAXone 1 gm In 50 Sodium Chloride 0.9% 50 ml @ 100 mls/hr IVPB Q12H [facility] Rx#:[id number] Intake, IV Titration 21.889 1057.511 250.564 Amount Cisatracurium 200 mg In 196.828 Sodium Chloride 0.9% 180 ml @ 2 MCG/KG/MIN 14.544 mls/hr IV .[id number] Y[facility] Rx #:[id number] Norepinephrine 8 mg In 21.889 414.051 150.564 Sodium Chloride 0.9% 250 ml @ 0.22 MCG/KG/MIN 51. 595 mls/hr IV .Q5H1M Y[facility] Rx#:[id number] propofoL 1,000 mg In 446.632 100 Empty Bag 1 bag @ 15 MCG/ KG/MIN 10.908 mls/hr IV . Q9H11M Y[facility] Rx#:[id number] Other 60 Output: Gastric Drainage 500 Urine 80 1930 850 Other: Voiding Method Indwelling Catheter Indwelling Catheter ABP, PAP, CO, CI - Last Documented Arterial Blood Pressure 127/59 - Labs CBC & Chem 7: 09/14/22 04:15 09/14/22 04:15 Labs: Abnormal Lab Results - Last 24 Hours (Table) 09/13/22 09/13/22 09/13/22 Range/Units 16:22 16:26 17:25 WBC 12.3 H (3.8-10.6) k/uL RBC 3.91 L (4.30-5.90) m/uL Hgb 11.7 L (13.0-17.5) gm/dL Hct (39.0-53.0) % MCV 105.3 H (80.0-100.0) fL MCHC 28.5 L (31.0-37.0) g/dL Neutrophils # 11.4 H (1.3-7.7) k/uL Lymphocytes # 0.1 L (1.0-4.8) k/uL PT (9.0-12.0) sec INR (<1.2) ABG pH (7.35-7.45) ABG pCO2 (35-45) mmHg ABG pO2 (83-108) mmHg ABG HCO3 (21-25) mmol/L ABG Total CO2 (19-24) mmol/L ABG O2 Saturation (94-97) % Sodium (137-145) mmol/L Potassium 5.5 H (3.5-5.1) mmol/L Chloride 94 L (98-107) mmol/L Carbon Dioxide 32 H (22-30) mmol/L BUN 129 H* (9-20) mg/dL Creatinine 3.73 H (0.66-1.25) mg/dL Glucose 195 H (74-99) mg/dL POC Glucose (mg/dL) 184 H (70-110) mg/dL Calcium 8.0 L (8.4-10.2) mg/dL Magnesium (1.6-2.3) mg/dL 09/13/22 09/13/22 09/13/22 Range/Units 17:55 19:34 23:30 WBC (3.8-10.6) k/uL RBC (4.30-5.90) m/uL Hgb (13.0-17.5) gm/dL Hct (39.0-53.0) % MCV (80.0-100.0) fL MCHC (31.0-37.0) g/dL Neutrophils # (1.3-7.7) k/uL Lymphocytes # (1.0-4.8) k/uL PT (9.0-12.0) sec INR (<1.2) ABG pH 7.20 L (7.35-7.45) ABG pCO2 83 H* 50 H (35-45) mmHg ABG pO2 356 H 65 L (83-108) mmHg ABG HCO3 33 H 31 H (21-25) mmol/L ABG Total CO2 35 H 33 H (19-24) mmol/L ABG O2 Saturation 99.5 H (94-97) % Sodium (137-145) mmol/L Potassium (3.5-5.1) mmol/L Chloride (98-107) mmol/L Carbon Dioxide (22-30) mmol/L BUN (9-20) mg/dL Creatinine (0.66-1.25) mg/dL Glucose (74-99) mg/dL POC Glucose (mg/dL) 166 H (70-110) mg/dL Calcium (8.4-10.2) mg/dL Magnesium (1.6-2.3) mg/dL 09/13/22 09/14/22 09/14/22 Range/Units 23:32 04:15 04:15 WBC 13.1 H (3.8-10.6) k/uL RBC 3.73 L (4.30-5.90) m/uL Hgb 11.7 L (13.0-17.5) gm/dL Hct 35.7 L (39.0-53.0) % MCV (80.0-100.0) fL MCHC (31.0-37.0) g/dL Neutrophils # 11.7 H (1.3-7.7) k/uL Lymphocytes # 0.2 L (1.0-4.8) k/uL PT 34.4 H (9.0-12.0) sec INR 3.5 H (<1.2) ABG pH (7.35-7.45) ABG pCO2 (35-45) mmHg ABG pO2 (83-108) mmHg ABG HCO3 (21-25) mmol/L ABG Total CO2 (19-24) mmol/L ABG O2 Saturation (94-97) % Sodium 135 L (137-145) mmol/L Potassium (3.5-5.1) mmol/L Chloride 95 L (98-107) mmol/L Carbon Dioxide (22-30) mmol/L BUN 128 H* (9-20) mg/dL Creatinine 3.62 H (0.66-1.25) mg/dL Glucose 171 H (74-99) mg/dL POC Glucose (mg/dL) (70-110) mg/dL Calcium 8.1 L (8.4-10.2) mg/dL Magnesium 2.5 H (1.6-2.3) mg/dL 09/14/22 09/14/22 09/14/22 Range/Units 04:15 05:40 05:46 WBC (3.8-10.6) k/uL RBC (4.30-5.90) m/uL Hgb (13.0-17.5) gm/dL Hct (39.0-53.0) % MCV (80.0-100.0) fL MCHC (31.0-37.0) g/dL Neutrophils # (1.3-7.7) k/uL Lymphocytes # (1.0-4.8) k/uL PT (9.0-12.0) sec INR (<1.2) ABG pH 7.55 H (7.35-7.45) ABG pCO2 (35-45) mmHg ABG pO2 82 L (83-108) mmHg ABG HCO3 33 H (21-25) mmol/L ABG Total CO2 34 H (19-24) mmol/L ABG O2 Saturation 97.2 H (94-97) % Sodium 136 L (137-145) mmol/L Potassium (3.5-5.1) mmol/L Chloride 96 L (98-107) mmol/L Carbon Dioxide (22-30) mmol/L BUN 130 H* (9-20) mg/dL Creatinine 3.50 H (0.66-1.25) mg/dL Glucose 159 H (74-99) mg/dL POC Glucose (mg/dL) 166 H (70-110) mg/dL Calcium 8.3 L (8.4-10.2) mg/dL Magnesium 2.6 H (1.6-2.3) mg/dL Microbiology - Last 24 Hours (Table) 09/13/22 16:30 Sputum Culture - Preliminary Sputum 09/09/22 18:57 Blood Culture - Preliminary Blood No Growth after 96 hours 09/09/22 18:40 Blood Culture - Preliminary Blood No Growth after 96 hours 09/11/22 16:48 Urine Culture - Final Urine,Voided Assessment and Plan Plan: Assessment: 1. Acute kidney injury secondary to ATN secondary to hypotension and cardiorenal syndrome. Renal function better. Urine output significantly improved. Creatinine stable. Elevated BUN partially due to steroids. No hydronephrosis noted on kidney ultrasound. 2. Chronic kidney disease stage IIIB with baseline creatinine 1.8-2 secondary to nephrosclerosis and cardiorenal syndrome. 3. Acute hypoxic and hypercapnic respiratory failure. Intubated. On 40% FiO2. 4. Acute on chronic systolic CHF with ejection fraction of 45% with severe tricuspid regurgitation. Status post AICD. 5. Hyperkalemia secondary to acute kidney injury. Resolved. Plan: Maintain IV Lasix. Continue to monitor renal function and urine output. Cortisol level not low. Stop Lokelma. Wean FiO2 and vasopressors. No need for renal replacement therapy at this time.
[2022-09-14] MEDS: PANTOPRAZOLE 40 MG/10 ML VIAL IVP SCH (11:44)
[2022-09-14 11:52] LABS: Glucose,Whole Blood 175 mg/dL (70-110)
--- NOTE | 2022-09-14 13:42 | CT ---
EXAMINATION TYPE: CT brain wo con DATE OF EXAM: 09/14/2022 COMPARISON: 09/11/22 HISTORY: AMS CT DLP: 1161.[address] of the brain was performed. The ventricles, basal cisterns and sulci overlying the cerebral convexities demonstrate mild enlargem ent. There is no evidence for intracranial hemorrhage or sulcal effacement. There is decreased attenuation about the periventricular white matter and deep white matter of both c erebral hemispheres, compatible with chronic small vessel ischemia. Differential diagnosis does inclu de demyelination. No mass effects are seen.No midline shift. Osseous calvarium is intact. If symptoms persist consider MRI. IMPRESSION: 1. Age related atrophic and chronic small vessel ischemic change without acute intracranial process s een at this time.
--- NOTE | 2022-09-14 13:46 | CT ---
EXAMINATION TYPE: CT ChestAbdPelvis wo con DATE OF EXAM: 09/14/2022 COMPARISON: None HISTORY: AMS, aspiration CT DLP: 1982.7mGycm Unenhanced CT of the Chest, Abdomen and Pelvis Unenhanced CT of the chest ,abdomen and pelvis is performed. The lack of intravenous contrast limits evaluation of the solid and hollow viscera. Oral contrast: None CT Chest: LUNGS: The lungs are clear and free of infiltrate or atelectasis. No pulmonary nodule or mass is det ected. Right-sided loculated pleural effusion moderate in size with the maximal AP dimension of 6.3 c m. A smaller left basilar effusion with maximal AP dimension of 3 cm. Dependent atelectasis or small infiltrates. Upper lobes and midlung zones are clear. MEDIASTINUM: NG tube is seen coursing into the stomach. Thoracic aorta is of normal caliber. Moderate cardiomegaly is noted. No evidence for mediastinal mass or adenopathy. HILAR STRUCTURES: No evidence for mass. No hilar adenopathy is appreciated. OTHER: No significant abnormality. CONTRAST CT ABDOMEN AND PELVIS: LIVER/GB: No calcified gallstones. No space occupying hepatic lesion. Biliary tree is of normal ca liber. PANCREAS: No inflammation. No distinct mass. SPLEEN: No splenic enlargement. No lesion seen. ADRENALS: No nodule. No thickening. KIDNEYS/BLADDER: No hydronephrosis. No nephrolithiasis. No distinct renal mass. Dalton catheter is noted within the urinary bladder lumen. BOWEL: Normal appendix. Normal bowel caliber. No inflammation. GENITAL ORGANS: Bilateral hydroceles. Prostate glandular calcifications. LYMPH NODES: No greater than 1cm abdominal or pelvic lymph nodes are appreciated. AORTA: No significant abnormality. OSSEOUS STRUCTURES: No significant abnormality is seen. OTHER: Small volume upper abdominal ascites. Small volume pelvic ascites. Subcutaneous edema May refl ect changes of anasarca. IMPRESSION: 1. Anasarca changes. Bilateral pleural effusions right greater than left with right-sided effusion be ing loculated. There is small volume intra-abdominal/pelvic ascites. 2. Basilar atelectasis without definite consolidation.
--- NOTE | 2022-09-14 15:34 | P.PN ---
Subjective Progress Note Date: 09/14/22 Patient was seen for a follow-up. Patient initially seen by Dr. Jayesh Mendoza. Please refer to his note for details. Patient is a 67-year-old male with anisocoria, left more than right, but reactive to light. He has altered mental status due to metabolic/hypercapnic, kidney insufficiency. Patient had an EEG for myoclonic jerks and no seizures were seen. MRI of the brain and MRA were recommended. Repeat EEG was performed today. Spoke to patient's nurse as well as patient's . Patient is currently on propofol 50 mcg/kg/m. He was also on Nimbex, which has been discontinued as of 6 AM today. Patient's pupils are now equal round and reacting. Objective - Vital Signs Vital signs: Vital Signs Temp 98.1 F 09/14/22 11:30 Pulse 85 09/14/22 14:30 Resp 32 H 09/14/22 14:30 BP 108/73 09/14/22 14:30 Pulse Ox 98 09/14/22 14:30 FiO2 40 09/14/22 13:39 Intake & Output 09/13/22 09/14/22 09/14/22 18:59 06:59 18:59 Intake Total 4785.513 0941.511 597.045 Output Total 80 2430 1500 Balance 1081.889 -866.489 -902.955 Weight 121.8 kg Intake: IV 1140 446 190 0.9 bolus 1000 Lacosamide IV 50 mg In 100 50 Sodium Chloride 0.9% 50 ml @ 100 mls/hr IVPB BID [facility] Rx#:[id number] Pressure Bag 36 0 Sodium Chloride 0.9% 1, 140 260 140 000 ml @ 20 mls/hr IV . Q24H [facility] Rx#:[id number] cefTRIAXone 1 gm In 50 Sodium Chloride 0.9% 50 ml @ 100 mls/hr IVPB Q12H [facility] Rx#:[id number] Intake, IV Titration 21.889 1057.511 407.045 Amount Cisatracurium 200 mg In 196.828 Sodium Chloride 0.9% 180 ml @ 2 MCG/KG/MIN 14.544 mls/hr IV .[id number] [facility] Rx #:[id number] Norepinephrine 8 mg In 21.889 414.051 207.045 Sodium Chloride 0.9% 250 ml @ 0.22 MCG/KG/MIN 51. 595 mls/hr IV .Q5H1M [facility] Rx#:[id number] propofoL 1,000 mg In 446.632 200 Empty Bag 1 bag @ 15 MCG/ KG/MIN 10.908 mls/hr IV . Q9H11M [facility] Rx#:[id number] Other 60 Output: Gastric Drainage 500 Urine 80 1930 1500 Other: Voiding Method Indwelling Catheter Indwelling Catheter Indwelling Catheter ABP, PAP, CO, CI - Last Documented Arterial Blood Pressure 127/59 - Exam Patient is intubated, sedated. He is on propofol 50 mcg/mg/m. Patient's pupils are equal, round and briskly reacting to light. Oculocephalics are absent. Corneals are present. Patient has facial grimacing to painful stimuli equally. Patient wiggles his feet equally. Reflexes are 2 at the biceps, 1 brachioradialis, 1 at the knees and plantars are possible withdrawal versus upgoing bilaterally. No obvious seizure-like activity noted. Patient did become tremulous with painful stimuli. Patient has peripheral edema. Abdomen is soft. - Labs CBC & Chem 7: 09/20/22 06:42 09/20/22 06:42 Labs: Abnormal Lab Results - Last 24 Hours (Table) 09/13/22 09/13/22 09/13/22 Range/Units 16:22 16:26 17:25 WBC 12.3 H (3.8-10.6) k/uL RBC 3.91 L (4.30-5.90) m/uL Hgb 11.7 L (13.0-17.5) gm/dL Hct (39.0-53.0) % MCV 105.3 H (80.0-100.0) fL MCHC 28.5 L (31.0-37.0) g/dL Neutrophils # 11.4 H (1.3-7.7) k/uL Lymphocytes # 0.1 L (1.0-4.8) k/uL PT (9.0-12.0) sec INR (<1.2) ABG pH (7.35-7.45) ABG pCO2 (35-45) mmHg ABG pO2 (83-108) mmHg ABG HCO3 (21-25) mmol/L ABG Total CO2 (19-24) mmol/L ABG O2 Saturation (94-97) % Sodium (137-145) mmol/L Potassium 5.5 H (3.5-5.1) mmol/L Chloride 94 L (98-107) mmol/L Carbon Dioxide 32 H (22-30) mmol/L BUN 129 H* (9-20) mg/dL Creatinine 3.73 H (0.66-1.25) mg/dL Glucose 195 H (74-99) mg/dL POC Glucose (mg/dL) 184 H (70-110) mg/dL Calcium 8.0 L (8.4-10.2) mg/dL Magnesium (1.6-2.3) mg/dL 09/13/22 09/13/22 09/13/22 Range/Units 17:55 19:34 23:30 WBC (3.8-10.6) k/uL RBC (4.30-5.90) m/uL Hgb (13.0-17.5) gm/dL Hct (39.0-53.0) % MCV (80.0-100.0) fL MCHC (31.0-37.0) g/dL Neutrophils # (1.3-7.7) k/uL Lymphocytes # (1.0-4.8) k/uL PT (9.0-12.0) sec INR (<1.2) ABG pH 7.20 L (7.35-7.45) ABG pCO2 83 H* 50 H (35-45) mmHg ABG pO2 356 H 65 L (83-108) mmHg ABG HCO3 33 H 31 H (21-25) mmol/L ABG Total CO2 35 H 33 H (19-24) mmol/L ABG O2 Saturation 99.5 H (94-97) % Sodium (137-145) mmol/L Potassium (3.5-5.1) mmol/L Chloride (98-107) mmol/L Carbon Dioxide (22-30) mmol/L BUN (9-20) mg/dL Creatinine (0.66-1.25) mg/dL Glucose (74-99) mg/dL POC Glucose (mg/dL) 166 H (70-110) mg/dL Calcium (8.4-10.2) mg/dL Magnesium (1.6-2.3) mg/dL 09/13/22 09/14/22 09/14/22 Range/Units 23:32 04:15 04:15 WBC 13.1 H (3.8-10.6) k/uL RBC 3.73 L (4.30-5.90) m/uL Hgb 11.7 L (13.0-17.5) gm/dL Hct 35.7 L (39.0-53.0) % MCV (80.0-100.0) fL MCHC (31.0-37.0) g/dL Neutrophils # 11.7 H (1.3-7.7) k/uL Lymphocytes # 0.2 L (1.0-4.8) k/uL PT 34.4 H (9.0-12.0) sec INR 3.5 H (<1.2) ABG pH (7.35-7.45) ABG pCO2 (35-45) mmHg ABG pO2 (83-108) mmHg ABG HCO3 (21-25) mmol/L ABG Total CO2 (19-24) mmol/L ABG O2 Saturation (94-97) % Sodium 135 L (137-145) mmol/L Potassium (3.5-5.1) mmol/L Chloride 95 L (98-107) mmol/L Carbon Dioxide (22-30) mmol/L BUN 128 H* (9-20) mg/dL Creatinine 3.62 H (0.66-1.25) mg/dL Glucose 171 H (74-99) mg/dL POC Glucose (mg/dL) (70-110) mg/dL Calcium 8.1 L (8.4-10.2) mg/dL Magnesium 2.5 H (1.6-2.3) mg/dL 09/14/22 09/14/22 09/14/22 Range/Units 04:15 05:40 05:46 WBC (3.8-10.6) k/uL RBC (4.30-5.90) m/uL Hgb (13.0-17.5) gm/dL Hct (39.0-53.0) % MCV (80.0-100.0) fL MCHC (31.0-37.0) g/dL Neutrophils # (1.3-7.7) k/uL Lymphocytes # (1.0-4.8) k/uL PT (9.0-12.0) sec INR (<1.2) ABG pH 7.55 H (7.35-7.45) ABG pCO2 (35-45) mmHg ABG pO2 82 L (83-108) mmHg ABG HCO3 33 H (21-25) mmol/L ABG Total CO2 34 H (19-24) mmol/L ABG O2 Saturation 97.2 H (94-97) % Sodium 136 L (137-145) mmol/L Potassium (3.5-5.1) mmol/L Chloride 96 L (98-107) mmol/L Carbon Dioxide (22-30) mmol/L BUN 130 H* (9-20) mg/dL Creatinine 3.50 H (0.66-1.25) mg/dL Glucose 159 H (74-99) mg/dL POC Glucose (mg/dL) 166 H (70-110) mg/dL Calcium 8.3 L (8.4-10.2) mg/dL Magnesium 2.6 H (1.6-2.3) mg/dL 09/14/22 Range/Units 11:51 WBC (3.8-10.6) k/uL RBC (4.30-5.90) m/uL Hgb (13.0-17.5) gm/dL Hct (39.0-53.0) % MCV (80.0-100.0) fL MCHC (31.0-37.0) g/dL Neutrophils # (1.3-7.7) k/uL Lymphocytes # (1.0-4.8) k/uL PT (9.0-12.0) sec INR (<1.2) ABG pH (7.35-7.45) ABG pCO2 (35-45) mmHg ABG pO2 (83-108) mmHg ABG HCO3 (21-25) mmol/L ABG Total CO2 (19-24) mmol/L ABG O2 Saturation (94-97) % Sodium (137-145) mmol/L Potassium (3.5-5.1) mmol/L Chloride (98-107) mmol/L Carbon Dioxide (22-30) mmol/L BUN (9-20) mg/dL Creatinine (0.66-1.25) mg/dL Glucose (74-99) mg/dL POC Glucose (mg/dL) 175 H (70-110) mg/dL Calcium (8.4-10.2) mg/dL Magnesium (1.6-2.3) mg/dL Microbiology - Last 24 Hours (Table) 09/13/22 16:30 Gram Stain - Preliminary Sputum Sputum Culture - Preliminary 09/09/22 18:57 Blood Culture - Preliminary Blood No Growth after 96 hours 09/09/22 18:40 Blood Culture - Preliminary Blood No Growth after 96 hours 09/11/22 16:48 Urine Culture - Final Urine,Voided Assessment and Plan Assessment: -Altered mental status due to multifactorial: Metabolic encephalopathy, is hypercapnic with elevated kidney function (worsening) -Anisocoria, now resolved. Perhaps related to medication effect. -Myoclonic jerks; Dr. Mendoza has felt it's most likely due to his metabolic dysfunction and unlikely seizures. -Acute hypoxemic and hypercapnic respiratory failure -Supratherapeutic INR -History of chronic atrial fibrillation on Coumadin -History of chronic kidney disease -Hypertension -History of recent [place] virus -Bilateral lower extremity edema -History of tobacco use Plan: 1. MRI/MRA continue to be pending 2. EEG performed today 09/14/2022 was abnormal due to background slowing of moderate to severe degree. This is suggestive of generalized cerebral dysfunction as can be seen with toxic metabolic encephalopathy or due to diffuse structural brain abnormality. Clinical correlation is recommended. No obvious epileptiform activity was seen. When compared to the EEG from 09/11/2022, there is slightly more slowing and decrement in the amplitude of the brain waves. Some more periods of suppression probably related to medication effect. No epileptiform activity was seen in the current study. Clinical correlation is strongly recommended. Continue Vimpat at this point in time 3. Continue supportive respiratory care 4. Continue nephrology care for kidney disease 5. Labs ordered at the initial consultation; TSH, B12, ammonia, hemoglobin A1c have been reviewed and are all normal 6. CT head 09/14/2022 showed age-related changes, with no acute process. I personally reviewed CT head, agree with the findings. 7. Medical management as per IM and other specialties. Neurology will follow clinically.
--- NOTE | 2022-09-14 17:18 | P.PN ---
Subjective Progress Note Date: 09/14/22 On 09/14/2022, the patient is intubated on a mechanical ventilator. The patient has history of COPD, hypertension, chronic atrial fibrillation and the patient has a permanent pacemaker in place, chronic kidney disease and is a chronic smoker. The patient presented to the hospital because of worsening shortness of breath. Yesterday evening, the patient acutely became unresponsive, and he would to be intubated and placed on a mechanical ventilator. It is not clear to me whether the patient was having any seizure activity. It is possible the patient could've aspirated. However, those events overnight clear to me. This morning the patient is on propofol which is running at 50 mcg/kg/m. The patient is also on Nimbex for paralysis. IV fluids are currently at KVO. Patient is on norepinephrine which is running at 0.11 mg/kg/m. Overall fluid balance is +2.7 L over the past 24 hours. NG tube is in place and output from the NG tube inserted is in order of 700 mL. The patient is currently on a mechanical ventilator assist control mode at a rate of 32, tidal volume of 350, FiO2 of 40% with a PEEP of 5. Blood gas showed a pH of 7.55 with a pCO2 of 38 and pO2 of 82. The peak airway pressure is at 23 The chest x-ray from today showing diffuse parenchymal changes and cardiomegaly and bilateral pleural effusions more consistent with CHF. The blood work shows a white cell count 15.1 with a hemoglobin of 11.7 and a platelet count of 168. The patient's INR is at 3.5 with a PT of 35 and the patient's cardiac rhythm is currently paced at this point in time. The blood work shows a sodium level of 135, potassium level is 4.5, chloride is 96 with a bicarb of 29, sodium is at 130 with a potassium level of 3.5. Glucose at 159. The patient is afebrile. Bedside EEG was done and it showed no evidence of any acute seizure activity. Neurologically, the patient is grimacing to painful condition of 4 extremities. He is withdrawing to painful stimulation. No focal neurological deficits. Objective - Vital Signs Vital signs: Vital Signs Temp 98.2 F 09/14/22 08:00 Pulse 84 09/14/22 10:00 Resp 32 H 09/14/22 10:00 BP 125/65 09/14/22 10:00 Pulse Ox 98 09/14/22 10:00 FiO2 40 09/14/22 10:00 Intake & Output 09/13/22 09/14/22 09/14/22 18:59 06:59 18:59 Intake Total 7043.311 5640.511 332.187 Output Total 80 2430 625 Balance 1081.889 -866.489 -292.813 Weight 121.8 kg Intake: IV 1140 446 110 0.9 bolus 1000 Lacosamide IV 50 mg In 100 50 Sodium Chloride 0.9% 50 ml @ 100 mls/hr IVPB BID [facility] Rx#:[id number] Pressure Bag 36 0 Sodium Chloride 0.9% 1, 140 260 60 000 ml @ 20 mls/hr IV . Q24H [facility] Rx#:[id number] cefTRIAXone 1 gm In 50 Sodium Chloride 0.9% 50 ml @ 100 mls/hr IVPB Q12H [facility] Rx#:[id number] Intake, IV Titration 21.889 1057.511 222.187 Amount Cisatracurium 200 mg In 196.828 Sodium Chloride 0.9% 180 ml @ 2 MCG/KG/MIN 14.544 mls/hr IV .[id number] [facility] Rx #:[id number] Norepinephrine 8 mg In 21.889 414.051 122.187 Sodium Chloride 0.9% 250 ml @ 0.22 MCG/KG/MIN 51. 595 mls/hr IV .Q5H1M [facility] Rx#:[id number] propofoL 1,000 mg In 446.632 100 Empty Bag 1 bag @ 15 MCG/ KG/MIN 10.908 mls/hr IV . Q9H11M [facility] Rx#:[id number] Other 60 Output: Gastric Drainage 500 Urine 80 1930 625 Other: Voiding Method Indwelling Catheter Indwelling Catheter ABP, PAP, CO, CI - Last Documented Arterial Blood Pressure 127/59 - Exam Gen. appearance the patient is calm and comfortable not acute distress. Intubated on mechanical ventilator. Head exam was generally normal. There was no scleral icterus or corneal arcus. Mucous membranes were moist. Neck was supple and without jugular venous distension, thyromegaly, or carotid bruits. Carotids were easily palpable bilaterally. There was no adenopathy. The patient has an orogastric and orotracheal tube water enema in place Lungs were clear to auscultation and percussion, and with normal diaphragmatic excursion. No wheezes or rales were noted. Cardiac exam revealed the PMI to be normally situated and sized. The rhythm was regular and no extrasystoles were noted during several minutes of auscultation. The first and second heart sounds were normal and physiologic splitting of the second heart sound was noted. There were no murmurs, rubs, clicks, or gallops. Abdominal exam revealed normal bowel sounds. The abdomen was soft, non-tender, and without masses, organomegaly, or appreciable enlargement of the abdominal aorta. Examination of the extremities revealed easily palpable radial, femoral and pedal pulses. There was no cyanosis, clubbing or edema. Examination of the skin revealed no evidence of significant rashes, suspicious appearing nevi or other concerning lesions. Neurologically, the patient is awake and alert and the patient does not have any focal neurological deficit. Cranial nerves are essentially intact. - Labs CBC & Chem 7: 09/14/22 04:15 09/14/22 04:15 Labs: Abnormal Lab Results - Last 24 Hours (Table) 09/13/22 09/13/22 09/13/22 Range/Units 16:22 16:26 17:25 WBC 12.3 H (3.8-10.6) k/uL RBC 3.91 L (4.30-5.90) m/uL Hgb 11.7 L (13.0-17.5) gm/dL Hct (39.0-53.0) % MCV 105.3 H (80.0-100.0) fL MCHC 28.5 L (31.0-37.0) g/dL Neutrophils # 11.4 H (1.3-7.7) k/uL Lymphocytes # 0.1 L (1.0-4.8) k/uL PT (9.0-12.0) sec INR (<1.2) ABG pH (7.35-7.45) ABG pCO2 (35-45) mmHg ABG pO2 (83-108) mmHg ABG HCO3 (21-25) mmol/L ABG Total CO2 (19-24) mmol/L ABG O2 Saturation (94-97) % Sodium (137-145) mmol/L Potassium 5.5 H (3.5-5.1) mmol/L Chloride 94 L (98-107) mmol/L Carbon Dioxide 32 H (22-30) mmol/L BUN 129 H* (9-20) mg/dL Creatinine 3.73 H (0.66-1.25) mg/dL Glucose 195 H (74-99) mg/dL POC Glucose (mg/dL) 184 H (70-110) mg/dL Calcium 8.0 L (8.4-10.2) mg/dL Magnesium (1.6-2.3) mg/dL 09/13/22 09/13/22 09/13/22 Range/Units 17:55 19:34 23:30 WBC (3.8-10.6) k/uL RBC (4.30-5.90) m/uL Hgb (13.0-17.5) gm/dL Hct (39.0-53.0) % MCV (80.0-100.0) fL MCHC (31.0-37.0) g/dL Neutrophils # (1.3-7.7) k/uL Lymphocytes # (1.0-4.8) k/uL PT (9.0-12.0) sec INR (<1.2) ABG pH 7.20 L (7.35-7.45) ABG pCO2 83 H* 50 H (35-45) mmHg ABG pO2 356 H 65 L (83-108) mmHg ABG HCO3 33 H 31 H (21-25) mmol/L ABG Total CO2 35 H 33 H (19-24) mmol/L ABG O2 Saturation 99.5 H (94-97) % Sodium (137-145) mmol/L Potassium (3.5-5.1) mmol/L Chloride (98-107) mmol/L Carbon Dioxide (22-30) mmol/L BUN (9-20) mg/dL Creatinine (0.66-1.25) mg/dL Glucose (74-99) mg/dL POC Glucose (mg/dL) 166 H (70-110) mg/dL Calcium (8.4-10.2) mg/dL Magnesium (1.6-2.3) mg/dL 09/13/22 09/14/22 09/14/22 Range/Units 23:32 04:15 04:15 WBC 13.1 H (3.8-10.6) k/uL RBC 3.73 L (4.30-5.90) m/uL Hgb 11.7 L (13.0-17.5) gm/dL Hct 35.7 L (39.0-53.0) % MCV (80.0-100.0) fL MCHC (31.0-37.0) g/dL Neutrophils # 11.7 H (1.3-7.7) k/uL Lymphocytes # 0.2 L (1.0-4.8) k/uL PT 34.4 H (9.0-12.0) sec INR 3.5 H (<1.2) ABG pH (7.35-7.45) ABG pCO2 (35-45) mmHg ABG pO2 (83-108) mmHg ABG HCO3 (21-25) mmol/L ABG Total CO2 (19-24) mmol/L ABG O2 Saturation (94-97) % Sodium 135 L (137-145) mmol/L Potassium (3.5-5.1) mmol/L Chloride 95 L (98-107) mmol/L Carbon Dioxide (22-30) mmol/L BUN 128 H* (9-20) mg/dL Creatinine 3.62 H (0.66-1.25) mg/dL Glucose 171 H (74-99) mg/dL POC Glucose (mg/dL) (70-110) mg/dL Calcium 8.1 L (8.4-10.2) mg/dL Magnesium 2.5 H (1.6-2.3) mg/dL 09/14/22 09/14/22 09/14/22 Range/Units 04:15 05:40 05:46 WBC (3.8-10.6) k/uL RBC (4.30-5.90) m/uL Hgb (13.0-17.5) gm/dL Hct (39.0-53.0) % MCV (80.0-100.0) fL MCHC (31.0-37.0) g/dL Neutrophils # (1.3-7.7) k/uL Lymphocytes # (1.0-4.8) k/uL PT (9.0-12.0) sec INR (<1.2) ABG pH 7.55 H (7.35-7.45) ABG pCO2 (35-45) mmHg ABG pO2 82 L (83-108) mmHg ABG HCO3 33 H (21-25) mmol/L ABG Total CO2 34 H (19-24) mmol/L ABG O2 Saturation 97.2 H (94-97) % Sodium 136 L (137-145) mmol/L Potassium (3.5-5.1) mmol/L Chloride 96 L (98-107) mmol/L Carbon Dioxide (22-30) mmol/L BUN 130 H* (9-20) mg/dL Creatinine 3.50 H (0.66-1.25) mg/dL Glucose 159 H (74-99) mg/dL POC Glucose (mg/dL) 166 H (70-110) mg/dL Calcium 8.3 L (8.4-10.2) mg/dL Magnesium 2.6 H (1.6-2.3) mg/dL Microbiology - Last 24 Hours (Table) 09/13/22 16:30 Sputum Culture - Preliminary Sputum 09/09/22 18:57 Blood Culture - Preliminary Blood No Growth after 96 hours 09/09/22 18:40 Blood Culture - Preliminary Blood No Growth after 96 hours 09/11/22 16:48 Urine Culture - Final Urine,Voided Assessment and Plan Plan: Acute hypoxemic and hypercapnic respiratory failure, secondary to CHF/aspiration. Exact circumstances of the respiratory failure is not clear. The patient was found to be unresponsive. It is possible that the patient also had a acute neurologic event/CVA/seizure which led into further decompensation and respiratory failure. Possibility of aspiration cannot be completely ruled out. EEG is not showing any acute or ongoing seizure activity. Acute hypotension, currently under investigation. Rule out underlying sepsis. Currently on norepinephrine infusion. History of recent coronavirus infection. History of chronic atrial fibrillation, rate is controlled for now. The patient has biventricular pacing Chronic systolic heart failure with previous ejection fraction from July 2022 showing an EF of around 45% along with mild MR, severe tricuspid regurgitation Coronary artery disease with mild nonobstructive disease based on an cardiac catheterization that was done in 2019 Previous history of ventricular tachycardia History of hypertension. Chronic lower extremity edema Acute on chronic kidney disease with KEYANA, nonoliguric at this point in time and nephrology is also on the case Obesity. Prior history of tobacco use. Plan Continue ventilator support Continue sedation with propofol Discontinue the Nimbex IV fluids at KVO Continue gentle diuresis with IV Lasix and attempt to wean off the norepinephrine infusion CAT scan of the brain without contrast CAT scan of the chest and abdomen Continue antibiotics. Discontinue the IV Rocephin this was this patient to Zosyn for the possibility of aspiration Continue IV coagulation with warfarin and INR is slightly supratherapeutic at this point in time Continue bronchodilators Continue steroids Continue Vimpat for seizures Echocardiogram to evaluate LV function Neurologic consultation Cardiology consultation Condition is critical and this is a critical care evaluation that was done in more than 30 minutes. Time with Patient: Greater than 30
[2022-09-14 17:35] LABS: Glucose,Whole Blood 171 mg/dL (70-110)
[2022-09-14] MEDS ORDERED: WARFARIN 0.5 MG TAB PO ONE (18:00)
--- NOTE | 2022-09-14 19:35 | P.PN ---
Progress Note - Text Progress Note Date: 09/14/22 Chief Complaint: Short of breath This is a 67-year-old patient, follows with Dr. Ricardo Arnold. Chronic stable medical conditions include atrial fibrillation, hypertension, COPD, permanent pacemaker. Patient seen by me in the ER. Most of the history is obtained by the at the bedside. Patient was admitted for lung infection about a month ago. He didn't improve. Following the patient did have COVID. Patient now presents with worsening short of breath. Especially for 3-4 days. Also becoming bloated. Lower extremity edema. Appetite is poor. No cough. Patient has also underlying chronic kidney disease. Patient does smoke cigars and pipes. Patient is requiring a BiPAP in the ER. Has lower extremity wound being followed by Dr. Leung. Patient has some not able to give much of history.) Short of breath. 09/10/2022: Patient remains or overflow in the ER. On BiPAP. Tired lethargic. IV Lasix. Worsening renal function. We have pneumonia. Start IV ceftriaxone. Bronchodilators. Steroids. Strict I's and O's. 09/11/2022: Patient will lethargic. Remains on BiPAP. 16/02/28%. Overnight patient had become hypotensive. I held the Lasix temporarily and given fluid bolus. Lasix resumed today. Remains on IV ceftriaxone, DuoNeb, IV Solu-Medrol. 09/12/2022: ICU: On 4 L nasal cannula. Lethargic but would answer occasional question. at the bedside. Started on midodrine yesterday. Per neurology started IV Vimpat. Remains on IV Lasix. 09/13/2022: ICU. On 5 L nasal cannula. Lethargic. Hypothermic. Temperature 97.2. Rectal. Apolonia hugger started. and [id number] at the bedside. Patient for unequal pupils was seen by neurology. Cause unknown. Patient also had some myoclonic jerks felt to be a metabolic dysfunction. He followed by neurology. Patient is on Vimpat per neurology. Advanced care planning carried out with patient's and [id number] at the bedside. Patient does have advanced directives. Currently full code. Patient has been on and off BiPAP. Abdomen distended. Abdominal x-ray shows gastric distention. We will try temporary NG tube suction. Should help the bleeding also. 09/14/2022: ICU. Yesterday late afternoon patient had an NG tube placed for gastric distention. After he had some emesis into the BiPAP. About 700 mL of maroon-colored aspirate was obtained. Patient denied a 15 beat run of V. tach. Also had some abdominal breathing's. Patient had a bronchoscopy done by Dr. Mendoza. Following that patient's brother Nimbex and propofol drip. Intubated. This morning was taken out and the Bextra. Had his CAT scan demonstrated that showed bilateral pleural effusion. 2 feeding has been started 10 mL an hour. Currently the ventilator with FiO2 40 and a PEEP of 5. On propofol. Discussed with the at the bedside. Active Medications Albuterol/Ipratropium (Ipratropium-Albuterol 3 Ml Neb) 3 ml INHALATION RT-Q4H [facility] Last Admin: 09/14/22 19:19 Dose: 3 ml Budesonide (Budesonide 1 Mg/2 Ml Nebu) 1 mg INHALATION RT-BID Y[facility]Y Last Admin: 09/14/22 19:19 Dose: 1 mg Chlorhexidine Gluconate (Chlorhexidine Gluconate 15 Ml Cup) 15 ml MUCOUS MEM BID [facility] Last Admin: 09/14/22 08:19 Dose: 15 ml Furosemide (Furosemide 10 Mg/Ml 4 Ml Vial) 40 mg IV DAILY [facility] Last Admin: 09/14/22 08:20 Dose: 40 mg Sodium Chloride (Saline 0.9%) 1,000 mls @ 20 mls/hr IV .Q24H [facility] Last Admin: 09/13/22 22:50 Dose: 20 mls/hr Lacosamide 50 mg/ Sodium (Chloride) 55 mls @ 100 mls/hr IVPB BID [facility]Y Last Admin: 09/14/22 10:00 Dose: 100 mls/hr Norepinephrine Bitartrate 8 mg (/ Sodium Chloride) 258 mls @ 51.595 mls/hr IV .Q5H1M [facility]; Protocol Last Admin: 09/14/22 16:23 Dose: 0.1 mcg/kg/min, 23.452 mls/hr Cisatracurium Besylate 200 mg/ (Sodium Chloride) 200 mls @ 14.544 mls/hr IV .[id number] [facility]; Protocol Last Titration: 09/14/22 06:00 Dose: 0 mcg/kg/min, 0 mls/hr Propofol 1,000 mg/ IV Solution 100 mls @ 10.908 mls/hr IV .Q9H11M [facility]; Protocol Last Admin: 09/14/22 17:43 Dose: 45 mcg/kg/min, 32.724 mls/hr Piperacillin Sod/Tazobactam (Sod 3.375 gm/ Sodium Chloride) 100 mls @ 25 mls/hr IVPB Q12HR [facility]; Protocol Insulin Aspart (Insulin Aspart (Novolog) 100 Unit/Ml Vial) 0 unit SQ Q6H [facility]; Protocol Last Admin: 09/14/22 17:35 Dose: 2 unit Methylprednisolone Sodium Succinate (Methylprednisolone Sod Succi 125 Mg/2 Ml Vial) 60 mg IV Q6HR [facility] Last Admin: 09/14/22 17:29 Dose: 60 mg Midodrine (Midodrine 5 Mg Tab) 5 mg PO AC-TID [facility] Last Admin: 09/14/22 17:24 Dose: 5 mg Miscellaneous Information (Warfarin Per Pharmacy) 0 each MISCELLANE DIRECTED PRN PRN Reason: PER PROTOCOL Ondansetron HCl (Ondansetron 4 Mg/2 Ml Vial) 4 mg IVP Q6HR PRN PRN Reason: Nausea And Vomiting Last Admin: 09/13/22 12:48 Dose: 4 mg Pantoprazole Sodium (Pantoprazole 40 Mg/10 Ml Vial) 40 mg IVP DAILY [facility] Last Admin: 09/14/22 11:44 Dose: 40 mg Past medical history to include: Atrial fibrillation, hypertension, CK D, permanent pacemaker, Social history: . 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 Physical examination: VITAL SIGNS: Afebrile, 75, 32, 10 9 x 62, 100% on the right GENERAL: , reclining in bed, intubated EYES: Pupils equal. Conjunctiva normal. HEENT: [External appearance of nose and ears normal, oral cavity dry mucous membranes. ET tube NECK: JVD unable to assess; masses not palpable. HEART: First and second heart sounds are normal; edema present. LUNGS: Respiratory rate increased; decreased breath sounds. ABDOMEN: Soft, much less distended nontender, liver spleen not palpable, no masses palpable. PSYCH: [Unable to assess MUSCULOSKELETAL:No Clubbing/cyanosis;muscles-grossly intact, OA EXTREMITIES: Wound with dressing on the both plantar INVESTIGATIONS, reviewed in the clinical context: 09/14/2022: WBC 13.1 hemoglobin 11.7 INR 3.5 potassium 4.5 BUN 1:30 creatinine 3.5. ABG: PH 7.55 pCO2 [address] chest abdomen pelvis: Anasarca changes. Lateral pleural effusion right greater than left and right-sided effusion be loculated. Bilateral atelectasis. Abdominal x-ray: Personally reviewed by me. Stomach distended. Some stool retention 09/13/2022: INR 3.3 potassium 5.5 BUN 119 creatinine 3.63 09/12/2022: Potassium 5.1 BUN 111 creatinine 3.09 Digital ultrasound: Suboptimal study. 09/11/2022: Potassium 4.9 BUN 98 creatinine 2.99 procalcitonin 1.02 TSH 0.79 09/10/2022: WBC 7.9 hemoglobin 11.2 platelets 131 INR 3.6 BUN 90 creatinine 2.75 WBC 5.5 hemoglobin 11.9 platelets 138 ABG: PH 7.16 pCO2 107 oxygen saturation 97.8 Sodium 138 potassium 4.8 BUN 8622.19 proBNP 10 EKG tracing personally reviewed by me-electronic atrial pacemaker Chest x-ray film personally reviewed by me-basilar infiltrate versus fluid. Hyperinflation Assessment and plan: -Acute hypoxic hypercapnic respiratory failure secondary to COPD/pulmonary edema/pneumonia: Worsening Ventilator support. -Bilateral pleural effusion from CHF On IV Lasix - -Anisocoria left greater than right Being followed by neurology -Myoclonic jerks On Vimpat. Being followed by neurology - acute on chronic CHF exacerbation, from systolic dysfunction EF 45% IV Lasix 40 mg daily. Follow with cardiology. -Right basal pneumonia suspect gram-negative organism/aspiration pneumonia IV ceftriaxone and being changed over to IV Zosyn. -Acute metabolic encephalopathy from hypoxic/delirium: Slow to respond -Acute kidney injury secondary to ATN secondary to hypotension/cardiac renal syndrome.: Worsening Decreased urine output -Chronic kidney disease stage III B. Likely nephrosclerosis Baseline creatinine 2 from March 2022 -Hypothermia, multifactorial: Apolonia huaideer -Normocytic anemia, likely from chronic kidney disease Follow H&H -Hyperkalemia from worsening kidney function.: New diagnosis Lokelma -Essential hypertension Hold antihypertensive, currently blood pressure running on the lower side -AICD for regular tachycardia -Permanent atrial fibrillation [id number] for low blood pressure. Coumadin held. -Coumadin monitoring Pharmacy to dose -biLateral plantar lower extremity wound. Follows with Dr. Leung. Local medihoney -Full code Intubated/ventilator. Propofol. Off Nimbex this morning. 2 feeding started at 10 mL an hour. Protonix. Coumadin held. Spoke to the at the bedside. Prognosis guarded.
[2022-09-14] MEDS: PIPERACILLIN-TAZOBACTAM 3.375 GM in SODIUM CHLORIDE 0.9% 100 ML IVPB SCH (20:22)
--- NOTE | 2022-09-14 21:06 | EEG ---
ELECTROENCEPHALOGRAM REPORT PREAMBLE: This is a 67-year-old male with confusion with body jerks, rule out seizure. CURRENT MEDICATIONS: The patient is on, 1. Precedex. 2. Lasix. 3. NovoLog. 4. Solu-Medrol. 5. ProAmatine. 6. Coumadin. EEG FINDINGS: This is a 21-channel digital EEG recorded with video component, utilizing 10/20 international system with referential and bipolar montages. Background consists of a moderately developed, poorly regulated, mixed frequencies of 2 to 3 hertz delta intermixed with some theta activity in bihemispheric region. Some periods of suppression were also seen periodically. Photic driving response was not seen. Different stages of sleep were not seen. No definitive focal or generalized epileptiform activity was seen. IMPRESSION: This is an abnormal EEG due to background slowing of moderate to severe degree. This is suggestive of generalized cerebral dysfunction as can be seen with toxic metabolic encephalopathy or due to diffuse structural brain abnormality. Clinical correlation is recommended. No obvious epileptiform activity was seen. When compared to the EEG from 09/11/2022, there is slightly more slowing and decrement in the amplitude of the brain waves. Some more periods of suppression. No epileptiform activity seen in the current study. Clinical correlation is strongly recommended. MMODL / IJN: [id number] /
[2022-09-14] MEDS: SODIUM CHLORIDE 0.9% 1,000 ML IV SCH (21:59)
[2022-09-14 23:52] LABS: Glucose,Whole Blood 171 mg/dL (70-110)
[2022-09-15] MEDS: IPRATROPIUM-ALBUTEROL 3 ML NEB INHALATION SCH ×7 (00:51→19:24)
[2022-09-15 01:32] LABS: ABG Base Excess 11.5 mmol/L; ABG HCO3 35 mmol/L (21-25); ABG Oxygen Saturation 96.6 % (94-97); ABG PCO2 46 mmHg (35-45); ABG PH 7.49 (7.35-7.45); ABG PO2 86 mmHg (83-108); ABG TCO2 36 mmol/L (19-24); Allen Test Performed? Yes
[2022-09-15] MEDS: NOREPINEPHRINE 8 MG in SODIUM CHLORIDE 0.9% 250 ML IV SCH ×5 (02:00→18:49)
[2022-09-15 05:59] LABS: Glucose,Whole Blood 178 mg/dL (70-110)
[2022-09-15] MEDS: MIDODRINE 5 MG TAB PO SCH ×3 (07:31→17:13)
[2022-09-15] MEDS: INSULIN ASPART (NovoLOG) 100 UNIT/ML VIAL SQ SCH ×3 (07:32→18:49)
[2022-09-15] MEDS: methylPREDNISolone SOD SUCCI 125 MG/2 ML VIAL IV SCH ×3 (07:32→17:13)
[2022-09-15 07:44] LABS: Basophils % (A) 0 %; Eosinophils # (A) 0.1 k/uL (0-0.7); Eosinophils % (A) 1 %; HCT 33.3 % (39.0-53.0); HGB 11.1 gm/dL (13.0-17.5); Lymphocytes # (A) 0.1 k/uL (1.0-4.8); Lymphocytes % (A) 1 %; MCH 30.9 pg (25.0-35.0); MCHC 33.4 g/dL (31.0-37.0); MCV 92.4 fL (80.0-100.0); Mean Platelet Volume 8.5; Monocytes # (A) 0.4 k/uL (0-1.0); Monocytes % (A) 5 %; Neutrophils # (A) 8.8 k/uL (1.3-7.7); Neutrophils % (A) 93 %; Platelet Count 116 k/uL (150-450); RDW 14.9 % (11.5-15.5); WBC 9.4 k/uL (3.8-10.6)
[2022-09-15 07:52] LABS: INR 2.3 (<1.2); Prothrombin Time 22.5 sec (9.0-12.0)
--- NOTE | 2022-09-15 07:56 | P.PN ---
Subjective Progress Note Date: 09/15/22 PROGRESS NOTE The patient is a 67-year-old male who presented with symptoms of progressive dyspnea and CHF requiring chemical ventilation. He is intubated and sedated. Hemodynamically he is stable. He is having good urinary output. She has chronic atrial fibrillation and his ventricular response is controlled. He has been paced. There is no evidence of ventricular ectopic activity. He had recent Covid infection. He has renal failure and a history of chronic kidney disease. He was intubated yesterday. He has a pacemaker with normal sensing and pacing. His echocardiogram in July showed an ejection fraction of 45% with mild mitral and severe tricuspid regurgitation. He underwent cardiac catheterization in 2019 that showed mild obstructive disease. He is followed on a regular basis by Dr. Fletcher. He has a biventricular pacer placed in October 2020. He has a prior history of ventricular tachycardia. September 15: The patient remains intubated and sedated, he has good urinary output. He is ventricularly paced with no evidence of ventricular tachycardia. He continues to be on norepinephrine at the lower dose. Hemodynamically there is no significant changes. He has been followed by the neurology service for the metabolic encephalopathy and the myoclonic jerks that was thought to be related to metabolic abnormalities. Medications: Lasix 40 mg IV daily, midodrine, Solu-Medrol, Coumadin, norepinephrine PHYSICAL EXAMINATION: Blood pressure 102/60 heart rate 80, intubated and sedated LUNGS: Clear to auscultation anteriorly HEART: Regular rate and rhythm, S1, S2. No S3. Holosystolic murmur at the apex, 3/6 ABDOMEN: Soft, nontender, no organomegaly EXTREMETIES: +1 edema, Red wrap LAB: Hemoglobin 11.1, white blood cell 9.4. INR 2.3. IMPRESSION: 1. Respiratory failure with CHF and possible aspiration. He had a mildly impaired systolic function in the past 2. Worsening renal failure 3. Atrial fibrillation, anticoagulated 4. Post biventricular pacing 5. Recent COVID infection 7. Obesity PLAN: 1. Follow renal functions 2. Wean IV norepinephrine as tolerated 3. Continue present therapy with anticoagulation 4. Depending on his progress further recommendations will be made Objective - Vital Signs Vital signs: Vital Signs Temp 99.1 F 09/15/22 04:00 Pulse 87 09/15/22 07:00 Resp 40 H 09/15/22 07:00 BP 102/69 09/15/22 07:00 Pulse Ox 99 09/15/22 07:00 FiO2 40 09/15/22 04:03 Intake & Output 09/14/22 09/15/22 09/15/22 18:59 06:59 18:59 Intake Total 598.275 5399.353 117.537 Output Total 2175 1285 100 Balance -1337.000 -78.647 17.537 Weight 120 kg Intake: IV 270 423 23 Lacosamide IV 50 mg In 50 50 Sodium Chloride 0.9% 50 ml @ 100 mls/hr IVPB BID YULY Rx#:[id number] Piperacillin-Tazobactam 3 100 .375 gm In Sodium Chloride 0.9% 100 ml @ 25 mls/hr IVPB Q12HR [facility] Rx #:[id number] Pressure Bag 0 33 3 Sodium Chloride 0.9% 1, 220 240 20 000 ml @ 20 mls/hr IV . Q24H [facility] Rx#:[id number] Intake, IV Titration 558.000 633.353 84.537 Amount Norepinephrine 8 mg In 258.000 283.68 Sodium Chloride 0.9% 250 ml @ 0.22 MCG/KG/MIN 51. 595 mls/hr IV .Q5H1M [facility] Rx#:[id number] propofoL 1,000 mg In 300.000 349.673 84.537 Empty Bag 1 bag @ 15 MCG/ KG/MIN 10.908 mls/hr IV . Q9H11M [facility] Rx#:[id number] Tube Feeding 10 120 10 Other 30 Output: Gastric Drainage 200 Urine 1975 1085 100 Oral Regurgitation 200 Other: Voiding Method Indwelling Catheter Indwelling Catheter ABP, PAP, CO, CI - Last Documented Arterial Blood Pressure 127/59 - Labs CBC & Chem 7: 09/15/22 07:18 09/14/22 04:15 Labs: Abnormal Lab Results - Last 24 Hours (Table) 09/14/22 09/14/22 09/14/22 Range/Units 11:51 17:34 23:51 RBC (4.30-5.90) m/uL Hgb (13.0-17.5) gm/dL Hct (39.0-53.0) % Plt Count (150-450) k/uL Neutrophils # (1.3-7.7) k/uL Lymphocytes # (1.0-4.8) k/uL ABG pH (7.35-7.45) ABG pCO2 (35-45) mmHg ABG HCO3 (21-25) mmol/L ABG Total CO2 (19-24) mmol/L POC Glucose (mg/dL) 175 H 171 H 171 H (70-110) mg/dL 09/15/22 09/15/22 09/15/22 Range/Units 01:20 05:58 07:18 RBC 3.60 L (4.30-5.90) m/uL Hgb 11.1 L (13.0-17.5) gm/dL Hct 33.3 L (39.0-53.0) % Plt Count 116 L (150-450) k/uL Neutrophils # 8.8 H (1.3-7.7) k/uL Lymphocytes # 0.1 L (1.0-4.8) k/uL ABG pH 7.49 H (7.35-7.45) ABG pCO2 46 H (35-45) mmHg ABG HCO3 35 H (21-25) mmol/L ABG Total CO2 36 H (19-24) mmol/L POC Glucose (mg/dL) 178 H (70-110) mg/dL Microbiology - Last 24 Hours (Table) 09/09/22 18:57 Blood Culture - Preliminary Blood No Growth after 120 hours 09/09/22 18:40 Blood Culture - Preliminary Blood No Growth after 120 hours 09/13/22 16:30 Gram Stain - Preliminary Sputum Sputum Culture - Preliminary
[2022-09-15 07:59] LABS: Albumin 2.9 g/dL (3.5-5.0); Calcium 7.9 mg/dL (8.4-10.2); Potassium 3.6 mmol/L (3.5-5.1); Total Bilirubin 0.6 mg/dL (0.2-1.3); Total Protein 5.7 g/dL (6.3-8.2)
[2022-09-15] MEDS: FUROSEMIDE 10 MG/ML 4 ML VIAL IV SCH (08:19)
[2022-09-15] MEDS: PANTOPRAZOLE 40 MG/10 ML VIAL IVP SCH (08:19)
[2022-09-15] MEDS: CHLORHEXIDINE GLUCONATE 15 ML CUP MUCOUS MEM SCH ×2 (08:19→20:35)
[2022-09-15] MEDS: PIPERACILLIN-TAZOBACTAM 3.375 GM in SODIUM CHLORIDE 0.9% 100 ML IVPB SCH ×2 (08:20→15:37)
[2022-09-15] MEDS: BUDESONIDE 1 MG/2 ML NEBU INHALATION SCH ×2 (08:32→19:24)
--- NOTE | 2022-09-15 08:32 | XR ---
EXAMINATION TYPE: XR chest 1V portable DATE OF EXAM: 09/15/2022 COMPARISON: 09/14/2022 HISTORY: Shortness of breath TECHNIQUE: Single frontal view of the chest is obtained. FINDINGS: ET and NG tube stable. Cardiac device noted. Cardiomegaly with bilateral pleural effusion and infiltrate noted. Diffuse interstitial pattern. No pneumothorax. Left-sided central line stable. A pleural fluid on the right could be loculated stable from previous exam. IMPRESSION: Stable diffuse pleural-parenchymal changes with loculated bilateral pleural effusion and infiltrate correlate for CHF versus pneumonia.
[2022-09-15 09:34] LABS: ABG Base Excess 12.2 mmol/L; ABG HCO3 35 mmol/L (21-25); ABG PCO2 40 mmHg (35-45); ABG PH 7.54 (7.35-7.45); ABG PO2 74 mmHg (83-108); ABG TCO2 36 mmol/L (19-24); Allen Test Performed? Yes
[2022-09-15] MEDS: LACOSAMIDE IV 50 MG in SODIUM CHLORIDE 0.9% 50 ML IVPB SCH ×2 (09:38→21:22)
[2022-09-15] MEDS ORDERED: POTASSIUM CHLORIDE 20 MEQ in WATER FOR INJECTION 1 100ML.BAG IVPB ONE (10:00)
--- NOTE | 2022-09-15 11:11 | P.PN ---
Subjective Patient is seen for follow-up for acute kidney injury. He is currently on the vent Sedation has been decreased. Patient has had good urine output. It is at 100 - 150 ML per hour Lasix is currently at 40 mg IV daily Objective - Vital Signs Vital signs: Vital Signs Temp 98.8 F 09/15/22 08:00 Pulse 105 H 09/15/22 11:00 Resp 32 H 09/15/22 11:00 BP 118/64 09/15/22 09:30 Pulse Ox 99 09/15/22 11:00 FiO2 50 09/15/22 11:00 Intake & Output 09/14/22 09/15/22 09/15/22 18:59 06:59 18:59 Intake Total 548.743 3490.353 564.505 Output Total 2175 1285 725 Balance -1337.000 -78.647 -160.495 Weight 120 kg 120 kg Intake: IV 270 423 169 Lacosamide IV 50 mg In 50 50 50 Sodium Chloride 0.9% 50 ml @ 100 mls/hr IVPB BID YULY Rx#:[id number] Piperacillin-Tazobactam 3 100 50 .375 gm In Sodium Chloride 0.9% 100 ml @ 25 mls/hr IVPB Q12HR [facility] Rx #:[id number] Pressure Bag 0 33 9 Sodium Chloride 0.9% 1, 220 240 60 000 ml @ 20 mls/hr IV . Q24H [facility] Rx#:[id number] Intake, IV Titration 558.000 633.353 345.505 Amount Norepinephrine 8 mg In 258.000 283.68 97.641 Sodium Chloride 0.9% 250 ml @ 0.22 MCG/KG/MIN 51. 595 mls/hr IV .Q5H1M [facility] Rx#:[id number] Potassium Chloride 20 meq 100 In Water For Injection 1 100ml.bag @ 50 mls/hr IVPB ONCE ONE Rx#: [id number] propofoL 1,000 mg In 300.000 349.673 147.864 Empty Bag 1 bag @ 15 MCG/ KG/MIN 10.908 mls/hr IV . Q9H11M [facility] Rx#:[id number] Tube Feeding 10 120 50 Other 30 Output: Gastric Drainage 200 Urine 1975 1085 725 Oral Regurgitation 200 Other: Voiding Method Indwelling Catheter Indwelling Catheter Indwelling Catheter ABP, PAP, CO, CI - Last Documented Arterial Blood Pressure 120/60 - Exam Patient is trying to wake up as sedation is being decreased Examination of the heart S1 and S2 Exertion lungs bilateral breath sounds are heard Abdomen is soft nontender Examination lower extremity shows significant edema in the lower extremities with scrotal edema noted. Both legs are wrapped - Labs CBC & Chem 7: 09/15/22 07:18 09/15/22 07:18 Labs: Abnormal Lab Results - Last 24 Hours (Table) 09/14/22 09/14/22 09/14/22 Range/Units 11:51 17:34 23:51 RBC (4.30-5.90) m/uL Hgb (13.0-17.5) gm/dL Hct (39.0-53.0) % Plt Count (150-450) k/uL Neutrophils # (1.3-7.7) k/uL Lymphocytes # (1.0-4.8) k/uL PT (9.0-12.0) sec INR (<1.2) ABG pH (7.35-7.45) ABG pCO2 (35-45) mmHg ABG pO2 (83-108) mmHg ABG HCO3 (21-25) mmol/L ABG Total CO2 (19-24) mmol/L Chloride (98-107) mmol/L Carbon Dioxide (22-30) mmol/L BUN (9-20) mg/dL Creatinine (0.66-1.25) mg/dL Glucose (74-99) mg/dL POC Glucose (mg/dL) 175 H 171 H 171 H (70-110) mg/dL Calcium (8.4-10.2) mg/dL AST (17-59) U/L Total Protein (6.3-8.2) g/dL Albumin (3.5-5.0) g/dL 09/15/22 09/15/22 09/15/22 Range/Units 01:20 05:58 07:18 RBC (4.30-5.90) m/uL Hgb (13.0-17.5) gm/dL Hct (39.0-53.0) % Plt Count (150-450) k/uL Neutrophils # (1.3-7.7) k/uL Lymphocytes # (1.0-4.8) k/uL PT (9.0-12.0) sec INR (<1.2) ABG pH 7.49 H (7.35-7.45) ABG pCO2 46 H (35-45) mmHg ABG pO2 (83-108) mmHg ABG HCO3 35 H (21-25) mmol/L ABG Total CO2 36 H (19-24) mmol/L Chloride 96 L (98-107) mmol/L Carbon Dioxide 32 H (22-30) mmol/L BUN 134 H* (9-20) mg/dL Creatinine 3.33 H (0.66-1.25) mg/dL Glucose 182 H (74-99) mg/dL POC Glucose (mg/dL) 178 H (70-110) mg/dL Calcium 7.9 L (8.4-10.2) mg/dL AST 14 L (17-59) U/L Total Protein 5.7 L (6.3-8.2) g/dL Albumin 2.9 L (3.5-5.0) g/dL 09/15/22 09/15/22 09/15/22 Range/Units 07:18 07:18 09:32 RBC 3.60 L (4.30-5.90) m/uL Hgb 11.1 L (13.0-17.5) gm/dL Hct 33.3 L (39.0-53.0) % Plt Count 116 L (150-450) k/uL Neutrophils # 8.8 H (1.3-7.7) k/uL Lymphocytes # 0.1 L (1.0-4.8) k/uL PT 22.5 H (9.0-12.0) sec INR 2.3 H (<1.2) ABG pH 7.54 H (7.35-7.45) ABG pCO2 (35-45) mmHg ABG pO2 74 L (83-108) mmHg ABG HCO3 35 H (21-25) mmol/L ABG Total CO2 36 H (19-24) mmol/L Chloride (98-107) mmol/L Carbon Dioxide (22-30) mmol/L BUN (9-20) mg/dL Creatinine (0.66-1.25) mg/dL Glucose (74-99) mg/dL POC Glucose (mg/dL) (70-110) mg/dL Calcium (8.4-10.2) mg/dL AST (17-59) U/L Total Protein (6.3-8.2) g/dL Albumin (3.5-5.0) g/dL Microbiology - Last 24 Hours (Table) 09/09/22 18:57 Blood Culture - Preliminary Blood No Growth after 120 hours 09/09/22 18:40 Blood Culture - Preliminary Blood No Growth after 120 hours 09/13/22 16:30 Gram Stain - Preliminary Sputum Sputum Culture - Preliminary Assessment and Plan Assessment: 1. Acute kidney injury secondary to ATN secondary to hypotension and cardiorenal syndrome. Renal function better. Urine output significantly improved. Creatinine stable. Elevated BUN partially due to steroids. No hydronephrosis noted on kidney ultrasound. 2. Chronic kidney disease stage IIIB with baseline creatinine 1.8-2 secondary to nephrosclerosis and cardiorenal syndrome. 3. Acute hypoxic and hypercapnic respiratory failure. Intubated. On 40% FiO2. 4. Acute on chronic systolic CHF with ejection fraction of 45% with severe tricuspid regurgitation. Status post AICD. 5. Hyperkalemia secondary to acute kidney injury. Resolved. Plan: Continue current dose of IV Lasix Maintained on Diamox for metabolic alkalosis Repeat labs in a.m.
--- NOTE | 2022-09-15 11:17 | CA ---
Transthoracic Echo Report Name: Dylan Garcia Age: 67 Gender: M : 1955 Exam Date: 09/15/2022 08:19 Exam Location: [place] Echo Ht (in): 74 Wt (lb): 264 Ordering Physician: Omayra Plummer MD Attending/Referring Phys: [employer] Teacher Emilie Sutherland RDCS Procedure CPT: Indications: Hypotension Cardiac Hx: Technical Quality: Fair Contrast 1: Total Dose (mL): Contrast 2: Total Dose (mL): MEASUREMENTS (Male / Female) Normal Values 2D ECHO LV Diastolic Diameter PLAX 6.0 cm 4.2 - 5.9 / 3.9 - 5.3 cm LV Systolic Diameter PLAX 4.7 cm IVS Diastolic Thickness 1.1 cm 0.6 - 1.0 / 0.6 - 0.9 cm LVPW Diastolic Thickness 1.2 cm 0.6 - 1.0 / 0.6 - 0.9 cm LV Relative Wall Thickness 0.4 RV Internal Dim ED PLAX 5.3 cm LA Volume 138.3 cm??? 18 - 58 / 22 - 52 cm??? M-MODE Aortic Root Diameter MM 3.1 cm LA Systolic Diameter MM 5.7 cm LA Ao Ratio MM 1.8 AV Cusp Separation MM 2.1 cm DOPPLER AV Peak Velocity 254.6 cm/s AV Peak Gradient 25.9 mmHg AV Mean Velocity 161.4 cm/s AV Mean Gradient 12.4 mmHg AV Velocity Time Integral 44.7 cm LVOT Peak Velocity 87.5 cm/s LVOT Peak Gradient 3.1 mmHg LVOT Velocity Time Integral 14.4 cm TR Peak Velocity 223.1 cm/s TR Peak Gradient 19.9 mmHg Right Ventricular Systolic Press 23.6 mmHg FINDINGS Left Ventricle Left ventricular cavity size normal. Left ventricular wall thickness normal. Preserved LV systolic function. EF estimated at 50%. Paradoxical septal wall motion. Right Ventricle Severe right ventricular dilatation. Underestimated right ventricular systolic function due to TR jet tracings. Right Atrium Moderate right atrial dilatation. Catheter/pacemaker wire in the right atrial cavity. Left Atrium Severely increased left atrial volume. Moderately increased left atrial area. Mitral Valve Mitral valve thickened. Mild mitral annular calcification. Tqwq-gl-httxadpm mitral regurgitation. Aortic Valve Mild aortic stenosis with a peak gradient of 26 mmHg and a mean gradient of 12.4 mmHg. Mild aortic regurgitation. Tricuspid Valve Sodbragm-gn-oltcth tricuspid regurgitation. Pulmonic Valve Trace pulmonic regurgitation. Pericardium No pericardial effusion. Aorta Normal size aortic root and proximal ascending aorta. CONCLUSIONS Preserved LV systolic function Dilated right ventricle Dilated right and left atria Mild to moderate mitral regurgitation Mild aortic stenosis Moderate to severe tricuspid regurgitation Previewed by: Dr. Len García MD (Electronically Signed) Final Date: 15 September 2022 11:16
[2022-09-15 11:52] LABS: Glucose,Whole Blood 178 mg/dL (70-110)
--- NOTE | 2022-09-15 13:39 | P.PN ---
Subjective Progress Note Date: 09/15/22 On 09/14/2022, the patient is intubated on a mechanical ventilator. The patient has history of COPD, hypertension, chronic atrial fibrillation and the patient has a permanent pacemaker in place, chronic kidney disease and is a chronic smoker. The patient presented to the hospital because of worsening shortness of breath. Yesterday evening, the patient acutely became unresponsive, and he would to be intubated and placed on a mechanical ventilator. It is not clear to me whether the patient was having any seizure activity. It is possible the patient could've aspirated. However, those events overnight clear to me. This morning the patient is on propofol which is running at 50 mcg/kg/m. The patient is also on Nimbex for paralysis. IV fluids are currently at KVO. Patient is on norepinephrine which is running at 0.11 mg/kg/m. Overall fluid balance is +2.7 L over the past 24 hours. NG tube is in place and output from the NG tube inserted is in order of 700 mL. The patient is currently on a mechanical ventilator assist control mode at a rate of 32, tidal volume of 350, FiO2 of 40% with a PEEP of 5. Blood gas showed a pH of 7.55 with a pCO2 of 38 and pO2 of 82. The peak airway pressure is at 23 The chest x-ray from today showing diffuse parenchymal changes and cardiomegaly and bilateral pleural effusions more consistent with CHF. The blood work shows a white cell count 15.1 with a hemoglobin of 11.7 and a platelet count of 168. The patient's INR is at 3.5 with a PT of 35 and the patient's cardiac rhythm is currently paced at this point in time. The blood work shows a sodium level of 135, potassium level is 4.5, chloride is 96 with a bicarb of 29, sodium is at 130 with a potassium level of 3.5. Glucose at 159. The patient is afebrile. Bedside EEG was done and it showed no evidence of any acute seizure activity. Neurologically, the patient is grimacing to painful condition of 4 extremities. He is withdrawing to painful stimulation. No focal neurological deficits. On 09/15/2022, the patient is being seen for a follow-up. This morning, the patient is still sedated on propofol is running at 45 mcg/kg/m. The patient is on a mechanical ventilator on assist control mode with a rate of 32, tidal volume of 350 with an FiO2 of 40% and a PEEP of 5. The blood gases from today is showing a pH of 7.54 with episodes of 40 and pO2 of 74 and this was an apparent of 40%. Chest x-ray essentially unchanged. His cardiomegaly. There is also evidence of a stable pleural parenchymal changes with a loculated chronic right-sided pleural effusion. As part of further investigation, I the day CAT scan of the chest yesterday in addition to a CAT scan of the abdomen and a CAT scan showed anasarca changes with bilateral pleural effusions right more than left and right-sided pleural effusion seemed to be chronic and loculated and was well demarcated with some calcification along the pleural lining. There was also small volume of intra-abdominal/pelvic ascites. There was evidence of bibasilar atelectasis without definite consolidation. There was cardiomegaly. CAT scan of the brain was essentially negative for any acute abnormalities. The patient was being diuresed with IV Lasix. The patient is a negative fluid balance of 1.4 L over the past 24 hours. On today's evaluation, the patient is on norepinephrine which is running at a dose of 0.08 microvascular kilogram per minutes. His white cell count is at 3.4 with a hemoglobin of 11.1 and an INR of 2.3. Sodium is at 139, potassium is at 3.6, bicarb is 32, BUN is at 134 with a creatinine of 3.3. The patient has a paced cardiac rhythm at this point in time. Echocardiogram was also done presented on the function with dilated RV, dilated atria bilaterally right and left and [id number] mitral regurgitation and mitral aortic stenosis with moderate to severe tricuspid regurgitation. EEG was completed and showed no evidence of any seizure activity and the patient remains on Vimpat. Objective - Vital Signs Vital signs: Vital Signs Temp 98.8 F 09/15/22 08:00 Pulse 101 H 09/15/22 12:00 Resp 31 H 09/15/22 12:00 BP 118/64 09/15/22 09:30 Pulse Ox 98 09/15/22 12:00 FiO2 50 09/15/22 11:24 Intake & Output 09/14/22 09/15/22 09/15/22 18:59 06:59 18:59 Intake Total 874.110 4320.353 611.103 Output Total 2175 1285 850 Balance -1337.000 -78.647 -238.897 Weight 120 kg 120 kg Intake: IV 270 423 197 Lacosamide IV 50 mg In 50 50 50 Sodium Chloride 0.9% 50 ml @ 100 mls/hr IVPB BID [facility] Rx#:[id number] Piperacillin-Tazobactam 3 100 75 .375 gm In Sodium Chloride 0.9% 100 ml @ 25 mls/hr IVPB Q12HR [facility] Rx #:[id number] Pressure Bag 0 33 12 Sodium Chloride 0.9% 1, 220 240 60 000 ml @ 20 mls/hr IV . Q24H [facility] Rx#:[id number] Intake, IV Titration 558.000 633.353 354.103 Amount Norepinephrine 8 mg In 258.000 283.68 106.239 Sodium Chloride 0.9% 250 ml @ 0.22 MCG/KG/MIN 51. 595 mls/hr IV .Q5H1M [facility] Rx#:[id number] Potassium Chloride 20 meq 100 In Water For Injection 1 100ml.bag @ 50 mls/hr IVPB ONCE ONE Rx#: [id number] propofoL 1,000 mg In 300.000 349.673 147.864 Empty Bag 1 bag @ 15 MCG/ KG/MIN 10.908 mls/hr IV . Q9H11M [facility] Rx#:[id number] Tube Feeding 10 120 60 Other 30 Output: Gastric Drainage 200 Urine 1975 1085 850 Oral Regurgitation 200 Other: Voiding Method Indwelling Catheter Indwelling Catheter Indwelling Catheter ABP, PAP, CO, CI - Last Documented Arterial Blood Pressure 112/57 - Exam Gen. appearance the patient is calm and comfortable not acute distress. Intubated on mechanical ventilator. Head exam was generally normal. There was no scleral icterus or corneal arcus. Mucous membranes were moist. Neck was supple and without jugular venous distension, thyromegaly, or carotid bruits. Carotids were easily palpable bilaterally. There was no adenopathy. The patient has an orogastric and orotracheal tube water enema in place Lungs were clear to auscultation and percussion, and with normal diaphragmatic excursion. No wheezes or rales were noted. Cardiac exam revealed the PMI to be normally situated and sized. The rhythm was regular and no extrasystoles were noted during several minutes of auscultation. The first and second heart sounds were normal and physiologic splitting of the second heart sound was noted. There were no murmurs, rubs, clicks, or gallops. Abdominal exam revealed normal bowel sounds. The abdomen was soft, non-tender, and without masses, organomegaly, or appreciable enlargement of the abdominal aorta. Examination of the extremities revealed easily palpable radial, femoral and pedal pulses. There was no cyanosis, clubbing or edema. Examination of the skin revealed no evidence of significant rashes, suspicious appearing nevi or other concerning lesions. Neurologically, the patient is awake and alert and the patient does not have any focal neurological deficit. Cranial nerves are essentially intact. - Labs CBC & Chem 7: 09/15/22 07:18 09/15/22 07:18 Labs: Abnormal Lab Results - Last 24 Hours (Table) 09/14/22 09/14/22 09/15/22 Range/Units 17:34 23:51 01:20 RBC (4.30-5.90) m/uL Hgb (13.0-17.5) gm/dL Hct (39.0-53.0) % Plt Count (150-450) k/uL Neutrophils # (1.3-7.7) k/uL Lymphocytes # (1.0-4.8) k/uL PT (9.0-12.0) sec INR (<1.2) ABG pH 7.49 H (7.35-7.45) ABG pCO2 46 H (35-45) mmHg ABG pO2 (83-108) mmHg ABG HCO3 35 H (21-25) mmol/L ABG Total CO2 36 H (19-24) mmol/L Chloride (98-107) mmol/L Carbon Dioxide (22-30) mmol/L BUN (9-20) mg/dL Creatinine (0.66-1.25) mg/dL Glucose (74-99) mg/dL POC Glucose (mg/dL) 171 H 171 H (70-110) mg/dL Calcium (8.4-10.2) mg/dL AST (17-59) U/L Total Protein (6.3-8.2) g/dL Albumin (3.5-5.0) g/dL 09/15/22 09/15/22 09/15/22 Range/Units 05:58 07:18 07:18 RBC 3.60 L (4.30-5.90) m/uL Hgb 11.1 L (13.0-17.5) gm/dL Hct 33.3 L (39.0-53.0) % Plt Count 116 L (150-450) k/uL Neutrophils # 8.8 H (1.3-7.7) k/uL Lymphocytes # 0.1 L (1.0-4.8) k/uL PT (9.0-12.0) sec INR (<1.2) ABG pH (7.35-7.45) ABG pCO2 (35-45) mmHg ABG pO2 (83-108) mmHg ABG HCO3 (21-25) mmol/L ABG Total CO2 (19-24) mmol/L Chloride 96 L (98-107) mmol/L Carbon Dioxide 32 H (22-30) mmol/L BUN 134 H* (9-20) mg/dL Creatinine 3.33 H (0.66-1.25) mg/dL Glucose 182 H (74-99) mg/dL POC Glucose (mg/dL) 178 H (70-110) mg/dL Calcium 7.9 L (8.4-10.2) mg/dL AST 14 L (17-59) U/L Total Protein 5.7 L (6.3-8.2) g/dL Albumin 2.9 L (3.5-5.0) g/dL 09/15/22 09/15/22 09/15/22 Range/Units 07:18 09:32 11:50 RBC (4.30-5.90) m/uL Hgb (13.0-17.5) gm/dL Hct (39.0-53.0) % Plt Count (150-450) k/uL Neutrophils # (1.3-7.7) k/uL Lymphocytes # (1.0-4.8) k/uL PT 22.5 H (9.0-12.0) sec INR 2.3 H (<1.2) ABG pH 7.54 H (7.35-7.45) ABG pCO2 (35-45) mmHg ABG pO2 74 L (83-108) mmHg ABG HCO3 35 H (21-25) mmol/L ABG Total CO2 36 H (19-24) mmol/L Chloride (98-107) mmol/L Carbon Dioxide (22-30) mmol/L BUN (9-20) mg/dL Creatinine (0.66-1.25) mg/dL Glucose (74-99) mg/dL POC Glucose (mg/dL) 178 H (70-110) mg/dL Calcium (8.4-10.2) mg/dL AST (17-59) U/L Total Protein (6.3-8.2) g/dL Albumin (3.5-5.0) g/dL Microbiology - Last 24 Hours (Table) 09/09/22 18:57 Blood Culture - Preliminary Blood No Growth after 120 hours 09/09/22 18:40 Blood Culture - Preliminary Blood No Growth after 120 hours 09/13/22 16:30 Gram Stain - Preliminary Sputum Sputum Culture - Preliminary Assessment and Plan Plan: Acute hypoxemic and hypercapnic respiratory failure, secondary to CHF/aspiration. Exact circumstances of the respiratory failure is not clear. The patient was found to be unresponsive. It is possible that the patient also had a acute neurologic event/CVA/seizure which led into further decompensation and respiratory failure. Possibility of aspiration cannot be completely ruled out. EEG is not showing any acute or ongoing seizure activity. The patient remains on a mechanical ventilator for now. Chest x-ray was noted. CAT scan of the chest was noted. Blood gas was noted. The patient went the pleural effusion is right more than left and the right-sided pleural effusion essentially chronic and somewhat loculated. Acute hypotension, currently under investigation. Rule out underlying sepsis. Currently on norepinephrine infusion. The prostate is improvement and the patient is being diuresed for now with IV Lasix. History of recent coronavirus infection. History of chronic atrial fibrillation, rate is controlled for now. The patient has biventricular pacing, INR therapeutic at 2.3 Chronic systolic heart failure with previous ejection fraction from July 2022 showing an EF of around 45% along with mild MR, severe tricuspid regurgitation Coronary artery disease with mild nonobstructive disease based on an cardiac catheterization that was done in 2019 Previous history of ventricular tachycardia History of hypertension. Chronic lower extremity edema Acute on chronic kidney disease with KEYANA, nonoliguric at this point in time and nephrology is also on the case Obesity. Prior history of tobacco use. Plan Continue ventilator support Continue diuretics Wean off pressors IV fluids at KVO Echocardiogram was noted INR therapeutic PHYSICIANS as the patient's mental status and weaning parameters Assess candidacy for further weaning Enteral feeding has been started with Nepro Repeat echocardiogram was noted Monitor renal function Neurologic consultation Cardiology consultation Condition is critical and this is a critical care evaluation that was done in mo re than 30 minutes. Time with Patient: Greater than 30
[2022-09-15] MEDS ORDERED: Potassium Replacement Protocol 1 EACH MISC MISCELLANE PRN (14:49)
[2022-09-15] MEDS ORDERED: POTASSIUM BICARBONATE/CIT AC 20 MEQ TABLET.EFF NG-TUBE SCH (16:00)
--- NOTE | 2022-09-15 16:09 | P.PN ---
Progress Note - Text Progress Note Date: 09/15/22 Chief Complaint: Short of breath This is a 67-year-old patient, follows with Dr. Ricardo Arnold. Chronic stable medical conditions include atrial fibrillation, hypertension, COPD, permanent pacemaker. Patient seen by me in the ER. Most of the history is obtained by the at the bedside. Patient was admitted for lung infection about a month ago. He didn't improve. Following the patient did have COVID. Patient now presents with worsening short of breath. Especially for 3-4 days. Also becoming bloated. Lower extremity edema. Appetite is poor. No cough. Patient has also underlying chronic kidney disease. Patient does smoke cigars and pipes. Patient is requiring a BiPAP in the ER. Has lower extremity wound being followed by Dr. Leung. Patient has some not able to give much of history.) Short of breath. 09/10/2022: Patient remains or overflow in the ER. On BiPAP. Tired lethargic. IV Lasix. Worsening renal function. We have pneumonia. Start IV ceftriaxone. Bronchodilators. Steroids. Strict I's and O's. 09/11/2022: Patient will lethargic. Remains on BiPAP. 16/02/%. Overnight patient had become hypotensive. I held the Lasix temporarily and given fluid bolus. Lasix resumed today. Remains on IV ceftriaxone, DuoNeb, IV Solu-Medrol. 09/12/2022: ICU: On 4 L nasal cannula. Lethargic but would answer occasional question. at the bedside. Started on midodrine yesterday. Per neurology started IV Vimpat. Remains on IV Lasix. 09/13/2022: ICU. On 5 L nasal cannula. Lethargic. Hypothermic. Temperature 97.2. Rectal. Apolonia hugger started. and [id number] at the bedside. Patient for unequal pupils was seen by neurology. Cause unknown. Patient also had some myoclonic jerks felt to be a metabolic dysfunction. He followed by neurology. Patient is on Vimpat per neurology. Advanced care planning carried out with patient's and [id number] at the bedside. Patient does have advanced directives. Currently full code. Patient has been on and off BiPAP. Abdomen distended. Abdominal x-ray shows gastric distention. We will try temporary NG tube suction. Should help the bleeding also. 09/14/2022: ICU. Yesterday late afternoon patient had an NG tube placed for gastric distention. After he had some emesis into the BiPAP. About 700 mL of maroon-colored aspirate was obtained. Patient denied a 15 beat run of V. tach. Also had some abdominal breathing's. Patient had a bronchoscopy done by Dr. Mendoza. Following that patient's brother Nimbex and propofol drip. Intubated. This morning was taken out and the Bextra. Had his CAT scan demonstrated that showed bilateral pleural effusion. 2 feeding has been started 10 mL an hour. Currently the ventilator with FiO2 40 and a PEEP of 5. On propofol. Discussed with the at the bedside. 09/15/2022: ICU. Remains on the ventilator at 50/5. Small dose of levo. Propofol.. Remains on IV Lasix. Placed on IV Zosyn today. Discussed with at the bedside. Followed by multiple consultants. Ventricle paced rhythm. Active Medications Acetazolamide Sodium (Acetazolamide Sodium 500 Mg Vial) 500 mg IV Q12HR [facility] Stop: 09/15/22 21:01 Last Admin: 09/15/22 10:38 Dose: 500 mg Albuterol/Ipratropium (Ipratropium-Albuterol 3 Ml Neb) 3 ml INHALATION RT-Q4H [facility] Last Admin: 09/15/22 11:28 Dose: 3 ml Budesonide (Budesonide 1 Mg/2 Ml Nebu) 1 mg INHALATION RT-BID [facility] Last Admin: 09/15/22 08:32 Dose: 1 mg Chlorhexidine Gluconate (Chlorhexidine Gluconate 15 Ml Cup) 15 ml MUCOUS MEM BID [facility] Last Admin: 09/15/22 08:19 Dose: 15 ml Furosemide (Furosemide 10 Mg/Ml 4 Ml Vial) 40 mg IV DAILY [facility] Last Admin: 09/15/22 08:19 Dose: 40 mg Sodium Chloride (Saline 0.9%) 1,000 mls @ 20 mls/hr IV .Q24H [facility] Last Admin: 09/14/22 21:59 Dose: 20 mls/hr Lacosamide 50 mg/ Sodium (Chloride) 55 mls @ 100 mls/hr IVPB BID [facility] Last Admin: 09/15/22 09:38 Dose: 100 mls/hr Norepinephrine Bitartrate 8 mg (/ Sodium Chloride) 258 mls @ 51.595 mls/hr IV .Q5H1M [facility]; Protocol Last Admin: 09/15/22 14:11 Dose: Not Given Propofol 1,000 mg/ IV Solution 100 mls @ 10.908 mls/hr IV .Q9H11M [facility]; Protocol Last Titration: 09/15/22 10:25 Dose: 0 mcg/kg/min, 0 mls/hr Piperacillin Sod/Tazobactam (Sod 3.375 gm/ Sodium Chloride) 100 mls @ 25 mls/hr IVPB Q8HR [facility]; Protocol Last Admin: 09/15/22 15:37 Dose: 25 mls/hr Insulin Aspart (Insulin Aspart (Novolog) 100 Unit/Ml Vial) 0 unit SQ Q6H [facility]; Protocol Last Admin: 09/15/22 12:03 Dose: 2 unit Methylprednisolone Sodium Succinate (Methylprednisolone Sod Succi 125 Mg/2 Ml Vial) 60 mg IV Q6HR [facility] Last Admin: 09/15/22 12:02 Dose: 60 mg Midodrine (Midodrine 5 Mg Tab) 5 mg PO AC-TID [facility] Last Admin: 09/15/22 12:02 Dose: 5 mg Miscellaneous Information (Warfarin Per Pharmacy) 0 each MISCELLANE DIRECTED PRN PRN Reason: PER PROTOCOL Miscellaneous Information (Potassium Replacement Protocol 1 Each Misc) 1 each MISCELLANE DAILY PRN; Protocol PRN Reason: Per Protocol Ondansetron HCl (Ondansetron 4 Mg/2 Ml Vial) 4 mg IVP Q6HR PRN PRN Reason: Nausea And Vomiting Last Admin: 09/13/22 12:48 Dose: 4 mg Pantoprazole Sodium (Pantoprazole 40 Mg/10 Ml Vial) 40 mg IVP DAILY [facility] Last Admin: 09/15/22 08:19 Dose: 40 mg Potassium Bicarbonate (Potassium Bicarbonate/Cit Ac 20 Meq Tablet.Eff) 20 meq NG-TUBE Q1HR [facility]; Protocol Stop: 09/15/22 16:01 Last Admin: 09/15/22 15:43 Dose: 20 meq Warfarin Sodium (Warfarin 1 Mg Tab) 1 mg PO ONCE@1800 ONE Stop: 09/15/22 18:01 Past medical history to include: Atrial fibrillation, hypertension, CK D, permanent pacemaker, Social history: . 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 Physical examination: VITAL SIGNS: Afebrile, 93, 31, 11 4 x 61, 100% on ventilator GENERAL: , Laying in bed, intubated EYES: Pupils equal. Conjunctiva normal. HEENT: [External appearance of nose and ears normal, oral cavity dry mucous membranes. ET tube NECK: JVD unable to assess; masses not palpable. HEART: First and second heart sounds are normal; edema present. LUNGS: Respiratory rate increased; decreased breath sounds. ABDOMEN: Soft, nontender, liver spleen not palpable, no masses palpable. PSYCH: Patient sedated MUSCULOSKELETAL:No Clubbing/cyanosis;muscles-grossly intact, OA EXTREMITIES: Wound with dressing on the both plantar INVESTIGATIONS, reviewed in the clinical context: 09/15/2022: White count 9.4 hemoglobin 11.1 platelets 116 potassium 3.6 BUN 134 creatinine 3.33 albumin 2.9 09/14/2022: WBC 13.1 hemoglobin 11.7 INR 3.5 potassium 4.5 BUN 1:30 creatinine 3.5. ABG: PH 7.55 pCO2 [address] chest abdomen pelvis: Anasarca changes. Lateral pleural effusion right greater than left and right-sided effusion be loculated. Bilateral atelectasis. Abdominal x-ray: Personally reviewed by me. Stomach distended. Some stool retention 09/13/2022: INR 3.3 potassium 5.5 BUN 119 creatinine 3.63 09/12/2022: Potassium 5.1 BUN 111 creatinine 3.09 Digital ultrasound: Suboptimal study. 09/11/2022: Potassium 4.9 BUN 98 creatinine 2.99 procalcitonin 1.02 TSH 0.79 09/10/2022: WBC 7.9 hemoglobin 11.2 platelets 131 INR 3.6 BUN 90 creatinine 2.75 WBC 5.5 hemoglobin 11.9 platelets 138 ABG: PH 7.16 pCO2 107 oxygen saturation 97.8 Sodium 138 potassium 4.8 BUN 8622.19 proBNP 10 EKG tracing personally reviewed by me-electronic atrial pacemaker Chest x-ray film personally reviewed by me-basilar infiltrate versus fluid. Hyperinflation Assessment and plan: -Acute hypoxic hypercapnic respiratory failure secondary to COPD/pulmonary edema/pneumonia: Slow to respond Ventilator support. -Hypotensive shock, multifactorial On levo fed -Bilateral pleural effusion from CHF On IV Lasix -Anisocoria left greater than right Being followed by neurology -Myoclonic jerks On Vimpat. Being followed by neurology. EEG negative for seizures - acute on chronic CHF exacerbation, from systolic dysfunction EF 45% IV Lasix 40 mg daily. -pneumonia suspect gram-negative organism/aspiration pneumonia IV Zosyn. -Acute metabolic encephalopathy from hypoxic/delirium: Slow to respond -Acute kidney injury secondary to ATN secondary to hypotension/cardiac renal syndrome.: Not improving Decreased urine output -Chronic kidney disease stage III B. Likely nephrosclerosis Baseline creatinine 2 from March 2022 -Hypothermia, multifactorial: Better -Normocytic anemia, likely from chronic kidney disease Follow H&H -Hyperkalemia from worsening kidney function.: Better Lokelma -Essential hypertension Hold antihypertensive, currently blood pressure running on the lower side -AICD -Permanent atrial fibrillation [id number] for low blood pressure. Coumadin held. -Coumadin monitoring Pharmacy to dose -biLateral plantar lower extremity wound. Follows with Dr. Leung. Local [facility] -Full code Intubated/ventilator. Propofol. IV levo fed. Discussed with at bedside. Follow with multiple consultants
[2022-09-15] MEDS ORDERED: WARFARIN 1 MG TAB PO ONE (18:00)
[2022-09-15 18:48] LABS: Glucose,Whole Blood 178 mg/dL (70-110)
[2022-09-16] MEDS: IPRATROPIUM-ALBUTEROL 3 ML NEB INHALATION SCH ×7 (00:02→23:51)
[2022-09-16 00:31] LABS: Glucose,Whole Blood 159 mg/dL (70-110)
[2022-09-16] MEDS: INSULIN ASPART (NovoLOG) 100 UNIT/ML VIAL SQ SCH ×5 (00:32→23:12)
[2022-09-16] MEDS: methylPREDNISolone SOD SUCCI 125 MG/2 ML VIAL IV SCH ×2 (00:32→06:03)
[2022-09-16] MEDS: PIPERACILLIN-TAZOBACTAM 3.375 GM in SODIUM CHLORIDE 0.9% 100 ML IVPB SCH ×4 (00:33→23:12)
[2022-09-16] MEDS: NOREPINEPHRINE 8 MG in SODIUM CHLORIDE 0.9% 250 ML IV SCH ×5 (02:00→22:43)
[2022-09-16] MEDS: SODIUM CHLORIDE 0.9% 1,000 ML IV SCH ×2 (03:58→22:43)
[2022-09-16 05:49] LABS: ABG Base Excess 10.6 mmol/L; ABG HCO3 34 mmol/L (21-25); ABG Oxygen Saturation 97.6 % (94-97); ABG PCO2 47 mmHg (35-45); ABG PH 7.47 (7.35-7.45); ABG PO2 85 mmHg (83-108); ABG TCO2 36 mmol/L (19-24); Allen Test Performed? Yes
[2022-09-16 05:58] LABS: HCT 33.4 % (39.0-53.0); HGB 10.8 gm/dL (13.0-17.5); Hypochromasia Slight; MCH 30.7 pg (25.0-35.0); MCHC 32.4 g/dL (31.0-37.0); Mean Platelet Volume 9.8; Platelet Count 103 k/uL (150-450); RBC 3.51 m/uL (4.30-5.90); RDW 14.7 % (11.5-15.5)
[2022-09-16 06:00] LABS: Glucose,Whole Blood 178 mg/dL (70-110)
[2022-09-16 06:07] LABS: Calcium 7.9 mg/dL (8.4-10.2); INR 2.3 (<1.2); Potassium 3.6 mmol/L (3.5-5.1)
--- NOTE | 2022-09-16 08:15 | XR ---
EXAMINATION TYPE: XR chest 1V portable DATE OF EXAM: 09/16/2022 COMPARISON: 09/15/2022 HISTORY: Shortness of breath TECHNIQUE: Single frontal view of the chest is obtained. FINDINGS: ET and NG tube stable. Cardiac device noted. Cardiomegaly with bilateral pleural effusion and infiltrate noted. Diffuse interstitial pattern. No pneumothorax. Left-sided central line stable. A pleural fluid on the right could be loculated stable from previous exam. IMPRESSION: 1. Stable diffuse pleural-parenchymal changes with suspected bilateral pleural effusions. Correlate f or CHF.
[2022-09-16] MEDS: BUDESONIDE 1 MG/2 ML NEBU INHALATION SCH ×2 (08:26→19:24)
--- NOTE | 2022-09-16 08:41 | P.PN ---
Subjective Progress Note Date: 09/16/22 PROGRESS NOTE The patient is a 67-year-old male who presented with symptoms of progressive dyspnea and CHF requiring chemical ventilation. He is intubated and sedated. Hemodynamically he is stable. He is having good urinary output. She has chronic atrial fibrillation and his ventricular response is controlled. He has been paced. There is no evidence of ventricular ectopic activity. He had recent Covid infection. He has renal failure and a history of chronic kidney disease. He was intubated yesterday. He has a pacemaker with normal sensing and pacing. His echocardiogram in July showed an ejection fraction of 45% with mild mitral and severe tricuspid regurgitation. He underwent cardiac catheterization in 2019 that showed mild obstructive disease. He is followed on a regular basis by Dr. Fletcher. He has a biventricular pacer placed in October 2020. He has a prior history of ventricular tachycardia. September 15: The patient remains intubated and sedated, he has good urinary output. He is ventricularly paced with no evidence of ventricular tachycardia. He continues to be on norepinephrine at the lower dose. Hemodynamically there is no significant changes. He has been followed by the neurology service for the metabolic encephalopathy and the myoclonic jerks that was thought to be related to metabolic abnormalities. September 16: The patient remains intubated, he is on no sedation. He remains unresponsive. His blood pressure is stable. His echocardiogram showed an ejection fraction of 50% with severe IV W and mild to moderate mitral and moderate to severe tricusp id regurgitation. His chest x-ray showed diffuse changes with pleural effusion. No evidence of recurrent ventricular tachycardia. Medications: Lasix 40 mg IV daily, midodrine, Solu-Medrol, Coumadin, norepinephrine PHYSICAL EXAMINATION: Blood pressure 116/50 heart rate 78, intubated, not responding to verbal stimuli LUNGS: Clear to auscultation anteriorly HEART: Regular rate and rhythm, S1, S2. No S3. Holosystolic murmur at the apex, 3/6 ABDOMEN: Soft, positive bowel sounds, no organomegaly EXTREMETIES: +1 edema, Red wrap LAB: Hemoglobin 10.8, INR 2.3, BUN 141, creatinine 3.59. IMPRESSION: 1. Respiratory failure with CHF and possible aspiration. He had a mildly impaired systolic function in the past 2. Worsening renal failure 3. Atrial fibrillation, anticoagulated 4. Post biventricular pacing 5. Recent COVID infection 7. Obesity 8. Unresponsiveness rule out neurological event PLAN: 1. Follow renal functions 2. Weaning per pulmonary 3. Patient may require dialysis 4. Prognosis is guarded Objective - Vital Signs Vital signs: Vital Signs Temp 97.9 F 09/16/22 08:00 Pulse 78 09/16/22 08:26 Resp 32 H 09/16/22 08:00 BP 102/61 09/16/22 01:00 Pulse Ox 99 09/16/22 08:00 FiO2 40 09/16/22 08:00 Intake & Output 09/15/22 09/16/22 09/16/22 18:59 06:59 18:59 Intake Total 952.103 663 116 Output Total 1345 950 175 Balance -392.897 -287 -59 Weight 120 kg 117.2 kg Intake: IV 438 393 46 Lacosamide IV 50 mg In 50 50 Sodium Chloride 0.9% 50 ml @ 100 mls/hr IVPB BID [facility] Rx#:[id number] Piperacillin-Tazobactam 3 175 100 .375 gm In Sodium Chloride 0.9% 100 ml @ 25 mls/hr IVPB Q12HR [facility] Rx #:[id number] Pressure Bag 33 33 6 Sodium Chloride 0.9% 1, 180 210 40 000 ml @ 20 mls/hr IV . Q24H [facility] Rx#:[id number] Intake, IV Titration 354.103 Amount Norepinephrine 8 mg In 106.239 Sodium Chloride 0.9% 250 ml @ 0.22 MCG/KG/MIN 51. 595 mls/hr IV .Q5H1M [facility] Rx#:[id number] Potassium Chloride 20 meq 100 In Water For Injection 1 100ml.bag @ 50 mls/hr IVPB ONCE ONE Rx#: [id number] propofoL 1,000 mg In 147.864 Empty Bag 1 bag @ 15 MCG/ KG/MIN 10.908 mls/hr IV . Q9H11M [facility] Rx#:[id number] Tube Feeding 130 180 40 Other 30 90 30 Output: Urine 1345 950 175 Other: Voiding Method Indwelling Catheter Indwelling Catheter ABP, PAP, CO, CI - Last Documented Arterial Blood Pressure 116/54 - Labs CBC & Chem 7: 09/16/22 05:35 09/16/22 05:35 Labs: Abnormal Lab Results - Last 24 Hours (Table) 09/15/22 09/15/22 09/15/22 Range/Units 09:32 11:50 18:46 RBC (4.30-5.90) m/uL Hgb (13.0-17.5) gm/dL Hct (39.0-53.0) % Plt Count (150-450) k/uL PT (9.0-12.0) sec INR (<1.2) ABG pH 7.54 H (7.35-7.45) ABG pCO2 (35-45) mmHg ABG pO2 74 L (83-108) mmHg ABG HCO3 35 H (21-25) mmol/L ABG Total CO2 36 H (19-24) mmol/L ABG O2 Saturation (94-97) % Carbon Dioxide (22-30) mmol/L BUN (9-20) mg/dL Creatinine (0.66-1.25) mg/dL Glucose (74-99) mg/dL POC Glucose (mg/dL) 178 H 178 H (70-110) mg/dL Calcium (8.4-10.2) mg/dL 09/16/22 09/16/22 09/16/22 Range/Units 00:28 05:35 05:35 RBC 3.51 L (4.30-5.90) m/uL Hgb 10.8 L (13.0-17.5) gm/dL Hct 33.4 L (39.0-53.0) % Plt Count 103 L (150-450) k/uL PT (9.0-12.0) sec INR (<1.2) ABG pH (7.35-7.45) ABG pCO2 (35-45) mmHg ABG pO2 (83-108) mmHg ABG HCO3 (21-25) mmol/L ABG Total CO2 (19-24) mmol/L ABG O2 Saturation (94-97) % Carbon Dioxide 34 H (22-30) mmol/L BUN 141 H* (9-20) mg/dL Creatinine 3.59 H (0.66-1.25) mg/dL Glucose 185 H (74-99) mg/dL POC Glucose (mg/dL) 159 H (70-110) mg/dL Calcium 7.9 L (8.4-10.2) mg/dL 09/16/22 09/16/2222 Range/Units 05:35 05:47 05:59 RBC (4.30-5.90) m/uL Hgb (13.0-17.5) gm/dL Hct (39.0-53.0) % Plt Count (150-450) k/uL PT 22.0 H (9.0-12.0) sec INR 2.3 H (<1.2) ABG pH 7.47 H (7.35-7.45) ABG pCO2 47 H (35-45) mmHg ABG pO2 (83-108) mmHg ABG HCO3 34 H (21-25) mmol/L ABG Total CO2 36 H (19-24) mmol/L ABG O2 Saturation 97.6 H (94-97) % Carbon Dioxide (22-30) mmol/L BUN (9-20) mg/dL Creatinine (0.66-1.25) mg/dL Glucose (74-99) mg/dL POC Glucose (mg/dL) 178 H (70-110) mg/dL Calcium (8.4-10.2) mg/dL Microbiology - Last 24 Hours (Table) 09/09/22 18:57 Blood Culture - Final Blood No Growth after 144 hours 09/09/22 18:40 Blood Culture - Final Blood No Growth after 144 hours
[2022-09-16] MEDS: FUROSEMIDE 10 MG/ML 4 ML VIAL IV SCH (08:43)
[2022-09-16] MEDS: MIDODRINE 5 MG TAB PO SCH ×3 (08:43→16:36)
[2022-09-16] MEDS: PANTOPRAZOLE 40 MG/10 ML VIAL IVP SCH (08:43)
[2022-09-16] MEDS: CHLORHEXIDINE GLUCONATE 15 ML CUP MUCOUS MEM SCH ×2 (08:43→21:00)
[2022-09-16] MEDS: LACOSAMIDE IV 50 MG in SODIUM CHLORIDE 0.9% 50 ML IVPB SCH ×2 (09:34→21:00)
[2022-09-16 11:34] LABS: Glucose,Whole Blood 193 mg/dL (70-110)
--- NOTE | 2022-09-16 14:16 | P.PN ---
Subjective Progress Note Date: 09/15/22 09/15/2022: Patient was seen for a follow-up. Patient is off sedation and pressors since 10:30 AM today. He still very encephalopathic. Patient's nurse has noticed that he moves all extremities. He does not follow some commands. He is still somnolent. No seizure-like activity. 09/14/2022: Patient was seen for a follow-up. Patient initially seen by Dr. Jayesh Mendoza. Please refer to his note for details. Patient is a 67-year-old male with anisocoria, left more than right, but reactive to light. He has altered mental status due to metabolic/hypercapnic, kidney insufficiency. Patient had an EEG for myoclonic jerks and no seizures were seen. MRI of the brain and MRA were recommended. Repeat EEG was performed today. Spoke to patient's nurse as well as patient's . Patient is currently on propofol 50 g per program per minute. He was also on Nimbex, which has been discontinued as of 6 AM today. Patient's pupils are now equal round and reacting. Objective - Vital Signs Vital signs: Vital Signs Temp 98.8 F 09/15/22 08:00 Pulse 93 09/15/22 18:00 Resp 16 09/15/22 18:00 BP 104/73 09/15/22 18:00 Pulse Ox 100 09/15/22 18:00 FiO2 50 09/15/22 18:00 Intake & Output 09/14/22 09/15/22 09/15/22 18:59 06:59 18:59 Intake Total 505.697 7343.353 919.103 Output Total 2175 1285 1285 Balance -1337.000 -78.647 -365.897 Weight 120 kg 120 kg Intake: IV 270 423 415 Lacosamide IV 50 mg In 50 50 50 Sodium Chloride 0.9% 50 ml @ 100 mls/hr IVPB BID [facility] Rx#:[id number] Piperacillin-Tazobactam 3 100 175 .375 gm In Sodium Chloride 0.9% 100 ml @ 25 mls/hr IVPB Q12HR [facility] Rx #:[id number] Pressure Bag 0 33 30 Sodium Chloride 0.9% 1, 220 240 160 000 ml @ 20 mls/hr IV . Q24H [facility] Rx#:[id number] Intake, IV Titration 558.000 633.353 354.103 Amount Norepinephrine 8 mg In 258.000 283.68 106.239 Sodium Chloride 0.9% 250 ml @ 0.22 MCG/KG/MIN 51. 595 mls/hr IV .Q5H1M [facility] Rx#:[id number] Potassium Chloride 20 meq 100 In Water For Injection 1 100ml.bag @ 50 mls/hr IVPB ONCE ONE Rx#: [id number] propofoL 1,000 mg In 300.000 349.673 147.864 Empty Bag 1 bag @ 15 MCG/ KG/MIN 10.908 mls/hr IV . Q9H11M [facility] Rx#:[id number] Tube Feeding 10 120 120 Other 30 30 Output: Gastric Drainage 200 Urine 1975 1085 1285 Oral Regurgitation 200 Other: Voiding Method Indwelling Catheter Indwelling Catheter Indwelling Catheter ABP, PAP, CO, CI - Last Documented Arterial Blood Pressure 116/59 - Exam Patient is intubated, off sedation since 10:30 AM today. Patient's pupils are equal, round and reacting. Oculocephalics are absent. Corneals present. Patient has facial grimacing to painful stimuli equally. Patient wiggles his feet equally. Reflexes are 2 at the biceps, 1 brachioradialis, 1 at the knees and plantars are possible withdrawal versus upgoing bilaterally. No obvious seizure-like activity noted. Patient did become tremulous and painful stimuli. Patient has peripheral edema. Abdomen is soft. - Labs CBC & Chem 7: 09/16/22 05:35 09/16/22 05:35 Labs: Abnormal Lab Results - Last 24 Hours (Table) 09/14/22 09/15/22 09/15/22 Range/Units 23:51 01:20 05:58 RBC (4.30-5.90) m/uL Hgb (13.0-17.5) gm/dL Hct (39.0-53.0) % Plt Count (150-450) k/uL Neutrophils # (1.3-7.7) k/uL Lymphocytes # (1.0-4.8) k/uL PT (9.0-12.0) sec INR (<1.2) ABG pH 7.49 H (7.35-7.45) ABG pCO2 46 H (35-45) mmHg ABG pO2 (83-108) mmHg ABG HCO3 35 H (21-25) mmol/L ABG Total CO2 36 H (19-24) mmol/L Chloride (98-107) mmol/L Carbon Dioxide (22-30) mmol/L BUN (9-20) mg/dL Creatinine (0.66-1.25) mg/dL Glucose (74-99) mg/dL POC Glucose (mg/dL) 171 H 178 H (70-110) mg/dL Calcium (8.4-10.2) mg/dL AST (17-59) U/L Total Protein (6.3-8.2) g/dL Albumin (3.5-5.0) g/dL 09/15/22 09/15/22 09/15/22 Range/Units 07:18 07:18 07:18 RBC 3.60 L (4.30-5.90) m/uL Hgb 11.1 L (13.0-17.5) gm/dL Hct 33.3 L (39.0-53.0) % Plt Count 116 L (150-450) k/uL Neutrophils # 8.8 H (1.3-7.7) k/uL Lymphocytes # 0.1 L (1.0-4.8) k/uL PT 22.5 H (9.0-12.0) sec INR 2.3 H (<1.2) ABG pH (7.35-7.45) ABG pCO2 (35-45) mmHg ABG pO2 (83-108) mmHg ABG HCO3 (21-25) mmol/L ABG Total CO2 (19-24) mmol/L Chloride 96 L (98-107) mmol/L Carbon Dioxide 32 H (22-30) mmol/L BUN 134 H* (9-20) mg/dL Creatinine 3.33 H (0.66-1.25) mg/dL Glucose 182 H (74-99) mg/dL POC Glucose (mg/dL) (70-110) mg/dL Calcium 7.9 L (8.4-10.2) mg/dL AST 14 L (17-59) U/L Total Protein 5.7 L (6.3-8.2) g/dL Albumin 2.9 L (3.5-5.0) g/dL 09/15/22 09/15/22 Range/Units 09:32 11:50 RBC (4.30-5.90) m/uL Hgb (13.0-17.5) gm/dL Hct (39.0-53.0) % Plt Count (150-450) k/uL Neutrophils # (1.3-7.7) k/uL Lymphocytes # (1.0-4.8) k/uL PT (9.0-12.0) sec INR (<1.2) ABG pH 7.54 H (7.35-7.45) ABG pCO2 (35-45) mmHg ABG pO2 74 L (83-108) mmHg ABG HCO3 35 H (21-25) mmol/L ABG Total CO2 36 H (19-24) mmol/L Chloride (98-107) mmol/L Carbon Dioxide (22-30) mmol/L BUN (9-20) mg/dL Creatinine (0.66-1.25) mg/dL Glucose (74-99) mg/dL POC Glucose (mg/dL) 178 H (70-110) mg/dL Calcium (8.4-10.2) mg/dL AST (17-59) U/L Total Protein (6.3-8.2) g/dL Albumin (3.5-5.0) g/dL Microbiology - Last 24 Hours (Table) 09/09/22 18:57 Blood Culture - Preliminary Blood No Growth after 120 hours 09/09/22 18:40 Blood Culture - Preliminary Blood No Growth after 120 hours 09/13/22 16:30 Gram Stain - Preliminary Sputum Sputum Culture - Preliminary Assessment and Plan Assessment: -Altered mental status due to multifactorial: Metabolic encephalopathy, is hypercapnic with elevated kidney function (worsening) -Anisocoria, now resolved. Perhaps related to medication effect. -Myoclonic jerks and I feel it's most likely due to his metabolic dysfunction and unlikely seizures. -Acute hypoxemic and hypercapnic respiratory failure -Supratherapeutic INR -History of chronic atrial fibrillation on Coumadin -History of chronic kidney disease -Hypertension -History of recent [place] virus -Bilateral lower extremity edema -History of tobacco use Plan: 1. MRI/MRA continue to be pending 2. Continue Vimpat at this point in time 3. Continue supportive respiratory care 4. Continue nephrology care for kidney disease 5. Labs ordered at the initial consultation; TSH, B12, ammonia, hemoglobin A1c have been reviewed and are all normal 6. CT head showed age-related changes, with no acute process. 7. Medical management as per IM and other specialties. Discussed with patient's family and nursing staff in detail.
--- NOTE | 2022-09-16 14:45 | P.PN ---
Subjective Progress Note Date: 09/16/22 On 09/14/2022, the patient is intubated on a mechanical ventilator. The patient has history of COPD, hypertension, chronic atrial fibrillation and the patient has a permanent pacemaker in place, chronic kidney disease and is a chronic smoker. The patient presented to the hospital because of worsening shortness of breath. Yesterday evening, the patient acutely became unresponsive, and he would to be intubated and placed on a mechanical ventilator. It is not clear to me whether the patient was having any seizure activity. It is possible the patient could've aspirated. However, those events overnight clear to me. This morning the patient is on propofol which is running at 50 mcg/kg/m. The patient is also on Nimbex for paralysis. IV fluids are currently at KVO. Patient is on norepinephrine which is running at 0.11 mg/kg/m. Overall fluid balance is +2.7 L over the past 24 hours. NG tube is in place and output from the NG tube inserted is in order of 700 mL. The patient is currently on a mechanical ventilator assist control mode at a rate of 32, tidal volume of 350, FiO2 of 40% with a PEEP of 5. Blood gas showed a pH of 7.55 with a pCO2 of 38 and pO2 of 82. The peak airway pressure is at 23 The chest x-ray from today showing diffuse parenchymal changes and cardiomegaly and bilateral pleural effusions more consistent with CHF. The blood work shows a white cell count 15.1 with a hemoglobin of 11.7 and a platelet count of 168. The patient's INR is at 3.5 with a PT of 35 and the patient's cardiac rhythm is currently paced at this point in time. The blood work shows a sodium level of 135, potassium level is 4.5, chloride is 96 with a bicarb of 29, sodium is at 130 with a potassium level of 3.5. Glucose at 159. The patient is afebrile. Bedside EEG was done and it showed no evidence of any acute seizure activity. Neurologically, the patient is grimacing to painful condition of 4 extremities. He is withdrawing to painful stimulation. No focal neurological deficits. On 09/15/2022, the patient is being seen for a follow-up. This morning, the patient is still sedated on propofol is running at 45 mcg/kg/m. The patient is on a mechanical ventilator on assist control mode with a rate of 32, tidal volume of 350 with an FiO2 of 40% and a PEEP of 5. The blood gases from today is showing a pH of 7.54 with episodes of 40 and pO2 of 74 and this was an apparent of 40%. Chest x-ray essentially unchanged. His cardiomegaly. There is also evidence of a stable pleural parenchymal changes with a loculated chronic right-sided pleural effusion. As part of further investigation, I the day CAT scan of the chest yesterday in addition to a CAT scan of the abdomen and a CAT scan showed anasarca changes with bilateral pleural effusions right more than left and right-sided pleural effusion seemed to be chronic and loculated and was well demarcated with some calcification along the pleural lining. There was also small volume of intra-abdominal/pelvic ascites. There was evidence of bibasilar atelectasis without definite consolidation. There was cardiomegaly. CAT scan of the brain was essentially negative for any acute abnormalities. The patient was being diuresed with IV Lasix. The patient is a negative fluid balance of 1.4 L over the past 24 hours. On today's evaluation, the patient is on norepinephrine which is running at a dose of 0.08 microvascular kilogram per minutes. His white cell count is at 3.4 with a hemoglobin of 11.1 and an INR of 2.3. Sodium is at 139, potassium is at 3.6, bicarb is 32, BUN is at 134 with a creatinine of 3.3. The patient has a paced cardiac rhythm at this point in time. Echocardiogram was also done presented on the function with dilated RV, dilated atria bilaterally right and left and [id number] mitral regurgitation and mitral aortic stenosis with moderate to severe tricuspid regurgitation. EEG was completed and showed no evidence of any seizure activity and the patient remains on Vimpat. 09/16/2022, the patient remains off sedation and the patient has been off propofol for the past 24 hours. Unfortunately, is not following commands. He grimaces to painful stimulation. He is fasting. All 4 extremities and occasionally withdraws. No seizure activity has been noted. The patient has positive brainstem reflexes including reading to flex, cough and gag reflex. He also has spontaneous eye opening and the patient blinks and looks around. Nevertheless, is not following any commands. This is obviously concerning. At the same time, the patient remains on a mechanical ventilator. Today, the patient is on assist control mode at a rate of 32, tidal volume of 350, FiO2 of 40% with a PEEP of 5. Blood gas shows a pH of 7.47 with a pCO2 of 47 and pO2 of 85. The patient remains on IV Lasix. Overall fluid balance is -680 mL over the past 24 hours. The patient has a paced cardiac rhythm. The patient has a sodium level of 141 with a potassium level of 3.6, sodium level is 141, BUN is 141 with a creatinine of 3.5. the patientthe patient also has a hemoglobin of 10.8 with a platelet count of 103 and a white cell count of 9.0.CULTURES are negative. Chest x-ray findings of essentially unchanged and the patient is about the pleural effusion and the patient has a loculated right-sided pleural effusion. She was in a good location. The patient is currently off pressors for now. Echo of the heart showed dilated RV, [id number] mitral regurgitation, mild aortic stenosis and moderate degree of tricuspid regurgitation. Objective - Vital Signs Vital signs: Vital Signs Temp 97.9 F 09/16/22 08:00 Pulse 89 09/16/22 13:00 Resp 33 H 09/16/22 13:00 BP 102/61 09/16/22 01:00 Pulse Ox 99 09/16/22 13:00 FiO2 40 09/16/22 12:00 Intake & Output 09/15/22 09/16/22 09/16/22 18:59 06:59 18:59 Intake Total 952.103 663 521 Output Total 1345 950 925 Balance -392.897 -287 -404 Weight 120 kg 117.2 kg Intake: IV 438 393 251 Lacosamide IV 50 mg In 50 50 50 Sodium Chloride 0.9% 50 ml @ 100 mls/hr IVPB BID [facility] Rx#:[id number] Piperacillin-Tazobactam 3 175 100 100 .375 gm In Sodium Chloride 0.9% 100 ml @ 25 mls/hr IVPB Q12HR [facility] Rx #:[id number] Pressure Bag 33 33 21 Sodium Chloride 0.9% 1, 180 210 80 000 ml @ 20 mls/hr IV . Q24H [facility] Rx#:[id number] Intake, IV Titration 354.103 Amount Norepinephrine 8 mg In 106.239 Sodium Chloride 0.9% 250 ml @ 0.22 MCG/KG/MIN 51. 595 mls/hr IV .Q5H1M [facility] Rx#:[id number] Potassium Chloride 20 meq 100 In Water For Injection 1 100ml.bag @ 50 mls/hr IVPB ONCE ONE Rx#: [id number] propofoL 1,000 mg In 147.864 Empty Bag 1 bag @ 15 MCG/ KG/MIN 10.908 mls/hr IV . Q9H11M [facility] Rx#:[id number] Tube Feeding 130 180 210 Other 30 90 60 Output: Urine 1345 950 925 Other: Voiding Method Indwelling Catheter Indwelling Catheter Indwelling Catheter ABP, PAP, CO, CI - Last Documented Arterial Blood Pressure 127/61 - Exam Gen. appearance the patient is calm and comfortable not acute distress. Intubated on mechanical ventilator.the patient is off sedation. Head exam was generally normal. There was no scleral icterus or corneal arcus. Mucous membranes were moist. Neck was supple and without jugular venous distension, thyromegaly, or carotid bruits. Carotids were easily palpable bilaterally. There was no adenopathy. The patient has an orogastric and orotracheal tube water enema in place Lungs were clear to auscultation and percussion, and with normal diaphragmatic excursion. No wheezes or rales were noted. Cardiac exam revealed the PMI to be normally situated and sized. The rhythm was regular and no extrasystoles were noted during several minutes of auscultation. The first and second heart sounds were normal and physiologic splitting of the second heart sound was noted. There were no murmurs, rubs, clicks, or gallops. Abdominal exam revealed normal bowel sounds. The abdomen was soft, non-tender, and without masses, organomegaly, or appreciable enlargement of the abdominal aorta. Examination of the extremities revealed easily palpable radial, femoral and pedal pulses. There was no cyanosis, clubbing or edema. Examination of the skin revealed no evidence of significant rashes, suspicious appearing nevi or other concerning lesions. Neurologically, neurologically, the patient is off sedation. Positive cough and gag reflex. No facial asymmetry. No seizure activity. Cranial nerves are essentially intact.the patient is not responsive to any verbal Motor and s ensory function cannot be assessed and the patient is not following any commands He withdraws to painful stimulation all 4 extremities. - Labs CBC & Chem 7: 09/16/22 05:35 09/16/22 05:35 Labs: Abnormal Lab Results - Last 24 Hours (Table) 09/15/22 09/16/22 09/16/22 Range/Units 18:46 00:28 05:35 RBC (4.30-5.90) m/uL Hgb (13.0-17.5) gm/dL Hct (39.0-53.0) % Plt Count (150-450) k/uL PT (9.0-12.0) sec INR (<1.2) ABG pH (7.35-7.45) ABG pCO2 (35-45) mmHg ABG HCO3 (21-25) mmol/L ABG Total CO2 (19-24) mmol/L ABG O2 Saturation (94-97) % Carbon Dioxide 34 H (22-30) mmol/L BUN 141 H* (9-20) mg/dL Creatinine 3.59 H (0.66-1.25) mg/dL Glucose 185 H (74-99) mg/dL POC Glucose (mg/dL) 178 H 159 H (70-110) mg/dL Calcium 7.9 L (8.4-10.2) mg/dL 09/16/22 09/16/22 09/16/22 Range/Units 05:35 05:35 05:47 RBC 3.51 L (4.30-5.90) m/uL Hgb 10.8 L (13.0-17.5) gm/dL Hct 33.4 L (39.0-53.0) % Plt Count 103 L (150-450) k/uL PT 22.0 H (9.0-12.0) sec INR 2.3 H (<1.2) ABG pH 7.47 H (7.35-7.45) ABG pCO2 47 H (35-45) mmHg ABG HCO3 34 H (21-25) mmol/L ABG Total CO2 36 H (19-24) mmol/L ABG O2 Saturation 97.6 H (94-97) % Carbon Dioxide (22-30) mmol/L BUN (9-20) mg/dL Creatinine (0.66-1.25) mg/dL Glucose (74-99) mg/dL POC Glucose (mg/dL) (70-110) mg/dL Calcium (8.4-10.2) mg/dL 09/16/22 09/16/22 Range/Units 05:59 11:32 RBC (4.30-5.90) m/uL Hgb (13.0-17.5) gm/dL Hct (39.0-53.0) % Plt Count (150-450) k/uL PT (9.0-12.0) sec INR (<1.2) ABG pH (7.35-7.45) ABG pCO2 (35-45) mmHg ABG HCO3 (21-25) mmol/L ABG Total CO2 (19-24) mmol/L ABG O2 Saturation (94-97) % Carbon Dioxide (22-30) mmol/L BUN (9-20) mg/dL Creatinine (0.66-1.25) mg/dL Glucose (74-99) mg/dL POC Glucose (mg/dL) 178 H 193 H (70-110) mg/dL Calcium (8.4-10.2) mg/dL Microbiology - Last 24 Hours (Table) 09/13/22 16:30 Gram Stain - Final Sputum Sputum Culture - Final 09/09/22 18:57 Blood Culture - Final Blood No Growth after 144 hours 09/09/22 18:40 Blood Culture - Final Blood No Growth after 144 hours Assessment and Plan Plan: Acute hypoxemic and hypercapnic respiratory failure, secondary to CHF/aspirat ion. Exact circumstances of the respiratory failure is not clear. The patient was found to be unresponsive. It is possible that the patient also had a acute neurologic event/CVA/seizure which led into further decompensation and respiratory failure. Possibility of aspiration cannot be completely ruled out. EEG is not showing any acute or ongoing seizure activity. The patient remains on a mechanical ventilator for now. Chest x-ray was noted. CAT scan of the chest was noted. Blood gas was noted. The patient went the pleural effusion is right more than left and the right-sided pleural effusion essentially chronic and somewhat loculated. Altered mental status and the patient remains unresponsive despite being off sedation for the past 24 hours. Acute hypotension,the patient is currently off pressors and the patient has been taken off the norepinephrine infusion. The patient continued to diabetes with IV Lasix. There is ongoing edema in his lower extremities in the scrotal area. History of recent coronavirus infection. History of chronic atrial fibrillation, rate is controlled for now. The patient has biventricular pacing, INR therapeutic Chronic systolic heart failure with previous ejection fraction from July 2022 showing an EF of around 45% along with mild MR, severe tricuspid regurgitation Coronary artery disease with mild nonobstructive disease based on an cardiac catheterization that was done in 2019 Previous history of ventricular tachycardia History of hypertension. Chronic lower extremity edema Acute on chronic kidney disease with KEYANA, nonoliguric at this point in time and nephrology is also on the case Obesity. Prior history of tobacco use. Plan Continue ventilator support, no ventilator changes will be done today Continue diuretics the patient was taken off pressors IV fluids at KVO Echocardiogram was noted INR therapeutic monitor mental status the patient is not showing any signs of neurologic recovery over the past 24 hours. I'm going to repeat a CAT scan of the brain. We will also consult with neurology. Enteral feeding has been started with Nepro echocardiogram was noted Monitor renal function Neurologic consultation Cardiology consultation Condition is critical and this is a critical care evaluation that was done in more than 30 minutes.
--- NOTE | 2022-09-16 15:06 | P.PCN ---
Date of Procedure: 09/16/22 Preoperative Diagnosis: acute hypoxic respiratory failure Postoperative Diagnosis: same Procedure(s) Performed: Arterial line insertion Anesthesia: local Surgeon: Omayra Plummer Estimated Blood Loss (ml): 0 Pathology: none sent Condition: critical Disposition: ICU Operative Findings: Indication: Hemodynamic monitoring. A time-out was completed verifying correct patient, procedure, site, positioning, and implant(s) or special equipment if applicable. Allens test was performed to ensure adequate perfusion. The patient s right wrist or was prepped and draped in sterile fashion. 1% Lidocaine was used to anesthetize the area. An 18G Arrow arterial line was introduced into the right radial artery. The catheter was threaded over the guide wire and the needle was removed with appropriate pulsatile blood return. Blood loss was minimal. The catheter was then sutured in place to the skin and a sterile dressing applied. Perfusion to the extremity distal to the point of catheter insertion was checked and found to be adequate. The patient tolerated the procedure well and there were no complications.
--- NOTE | 2022-09-16 15:51 | P.PN ---
Subjective Patient is seen for follow-up for acute kidney injury. He is currently on the vent Off of sedation since yesterday. No improvement in mentation. Patient has had good urine output. It is at 60-70 ML per hour Lasix is currently at 40 mg IV daily Solumedrol decreased today. BUN continues to climb. Discussed with family regarding possibly starting SILK WORKER if renal function worsens tomorrow. They are in agreement. Objective - Vital Signs Vital signs: Vital Signs Temp 97.9 F 09/16/22 08:00 Pulse 69 09/16/22 15:00 Resp 36 H 09/16/22 15:00 BP 102/61 09/16/22 01:00 Pulse Ox 98 09/16/22 15:00 FiO2 40 09/16/22 15:00 Intake & Output 09/15/22 09/16/22 09/16/22 18:59 06:59 18:59 Intake Total 952.103 663 521 Output Total 1345 950 925 Balance -392.897 -287 -404 Weight 120 kg 117.2 kg Intake: IV 438 393 251 Lacosamide IV 50 mg In 50 50 50 Sodium Chloride 0.9% 50 ml @ 100 mls/hr IVPB BID [facility] Rx#:[id number] Piperacillin-Tazobactam 3 175 100 100 .375 gm In Sodium Chloride 0.9% 100 ml @ 25 mls/hr IVPB Q12HR [facility] Rx #:[id number] Pressure Bag 33 33 21 Sodium Chloride 0.9% 1, 180 210 80 000 ml @ 20 mls/hr IV . Q24H [facility] Rx#:[id number] Intake, IV Titration 354.103 Amount Norepinephrine 8 mg In 106.239 Sodium Chloride 0.9% 250 ml @ 0.22 MCG/KG/MIN 51. 595 mls/hr IV .Q5H1M [facility] Rx#:[id number] Potassium Chloride 20 meq 100 In Water For Injection 1 100ml.bag @ 50 mls/hr IVPB ONCE ONE Rx#: [id number] propofoL 1,000 mg In 147.864 Empty Bag 1 bag @ 15 MCG/ KG/MIN 10.908 mls/hr IV . Q9H11M [facility] Rx#:[id number] Tube Feeding 130 180 210 Other 30 90 60 Output: Urine 1345 950 925 Other: Voiding Method Indwelling Catheter Indwelling Catheter Indwelling Catheter ABP, PAP, CO, CI - Last Documented Arterial Blood Pressure 111/51 - Exam on the vent Off of sedation Examination of the heart S1 and S2 Examination of the lungs shows bilateral breath sounds are heard Abdomen is soft nontender Examination lower extremity shows significant edema in the lower extremities with scrotal edema noted. Both legs are wrapped Responds to painful stimuli. - Labs CBC & Chem 7: 09/16/22 05:35 09/16/22 05:35 Labs: Abnormal Lab Results - Last 24 Hours (Table) 09/15/22 09/16/22 09/16/22 Range/Units 18:46 00:28 05:35 RBC (4.30-5.90) m/uL Hgb (13.0-17.5) gm/dL Hct (39.0-53.0) % Plt Count (150-450) k/uL PT (9.0-12.0) sec INR (<1.2) ABG pH (7.35-7.45) ABG pCO2 (35-45) mmHg ABG HCO3 (21-25) mmol/L ABG Total CO2 (19-24) mmol/L ABG O2 Saturation (94-97) % Carbon Dioxide 34 H (22-30) mmol/L BUN 141 H* (9-20) mg/dL Creatinine 3.59 H (0.66-1.25) mg/dL Glucose 185 H (74-99) mg/dL POC Glucose (mg/dL) 178 H 159 H (70-110) mg/dL Calcium 7.9 L (8.4-10.2) mg/dL 09/16/22 09/16/22 09/16/22 Range/Units 05:35 05:35 05:47 RBC 3.51 L (4.30-5.90) m/uL Hgb 10.8 L (13.0-17.5) gm/dL Hct 33.4 L (39.0-53.0) % Plt Count 103 L (150-450) k/uL PT 22.0 H (9.0-12.0) sec INR 2.3 H (<1.2) ABG pH 7.47 H (7.35-7.45) ABG pCO2 47 H (35-45) mmHg ABG HCO3 34 H (21-25) mmol/L ABG Total CO2 36 H (19-24) mmol/L ABG O2 Saturation 97.6 H (94-97) % Carbon Dioxide (22-30) mmol/L BUN (9-20) mg/dL Creatinine (0.66-1.25) mg/dL Glucose (74-99) mg/dL POC Glucose (mg/dL) (70-110) mg/dL Calcium (8.4-10.2) mg/dL 09/16/22 09/16/22 Range/Units 05:59 11:32 RBC (4.30-5.90) m/uL Hgb (13.0-17.5) gm/dL Hct (39.0-53.0) % Plt Count (150-450) k/uL PT (9.0-12.0) sec INR (<1.2) ABG pH (7.35-7.45) ABG pCO2 (35-45) mmHg ABG HCO3 (21-25) mmol/L ABG Total CO2 (19-24) mmol/L ABG O2 Saturation (94-97) % Carbon Dioxide (22-30) mmol/L BUN (9-20) mg/dL Creatinine (0.66-1.25) mg/dL Glucose (74-99) mg/dL POC Glucose (mg/dL) 178 H 193 H (70-110) mg/dL Calcium (8.4-10.2) mg/dL Microbiology - Last 24 Hours (Table) 09/13/22 16:30 Gram Stain - Final Sputum Sputum Culture - Final 09/09/22 18:57 Blood Culture - Final Blood No Growth after 144 hours 09/09/22 18:40 Blood Culture - Final Blood No Growth after 144 hours Assessment and Plan Assessment: 1. Acute kidney injury secondary to ATN secondary to hypotension and cardiorenal syndrome. Urine output significantly improved. Creatinine stable. Elevated BUN partially due to steroids. No hydronephrosis noted on kidney ultrasound. Discussed SILK WORKER with family. 2. Chronic kidney disease stage IIIB with baseline creatinine 1.8-2 secondary to nephrosclerosis and cardiorenal syndrome. 3. Acute hypoxic and hypercapnic respiratory failure. Intubated. On 40% FiO2. 4. Acute on chronic systolic CHF with ejection fraction of 45% with severe tricuspid regurgitation. Status post AICD. 5. Hyperkalemia secondary to acute kidney injury. Resolved. 6. Encephalopathy, possibly uremic. Start HD tomorrow if cr is worse. Plan: Continue current dose of IV Lasix Maintained on Diamox for metabolic alkalosis Repeat labs in a.m. Start SILK WORKER tomorrow if cr is higher
--- NOTE | 2022-09-16 16:15 | CT ---
EXAMINATION TYPE: CT brain wo con DATE OF EXAM: 09/16/2022 HISTORY: unresponsive CT DLP: 1239.4 mGycm. Automated Exposure Control for Dose Reduction was Utilized. TECHNIQUE: CT scan of the head is performed without contrast. COMPARISON: CT brain 2 days earlier. FINDINGS: There is no acute intracranial hemorrhage or midline shift identified. There is mild-to-m oderate diffuse ventricular and sulcal prominence consistent with diffuse age-related cerebral atroph y redemonstrated. There is mild low-attenuation in the periventricular white matter consistent with chronic small vessel ischemic change redemonstrated. There is 2.0 cm mucous retention cyst or polyp i n the anterior left maxillary sinus axial image 15 redemonstrated. Endotracheal and nasogastric tub es are partially imaged similar to prior. Globes are intact bilaterally. IMPRESSION: No acute intracranial hemorrhage or midline shift. There is is mild to moderate diffuse cerebral atrophy and mild chronic small vessel ischemic change redemonstrated. No significant sanchez e from CT study 2 days earlier.
--- NOTE | 2022-09-16 16:30 | P.PN ---
Progress Note - Text Progress Note Date: 09/16/22 Chief Complaint: Short of breath This is a 67-year-old patient, follows with Dr. Ricardo Arnold. Chronic stable medical conditions include atrial fibrillation, hypertension, COPD, permanent pacemaker. Patient seen by me in the ER. Most of the history is obtained by the at the bedside. Patient was admitted for lung infection about a month ago. He didn't improve. Following the patient did have COVID. Patient now presents with worsening short of breath. Especially for 3-4 days. Also becoming bloated. Lower extremity edema. Appetite is poor. No cough. Patient has also underlying chronic kidney disease. Patient does smoke cigars and pipes. Patient is requiring a BiPAP in the ER. Has lower extremity wound being followed by Dr. Leung. Patient has some not able to give much of history.) Short of breath. 09/10/2022: Patient remains or overflow in the ER. On BiPAP. Tired lethargic. IV Lasix. Worsening renal function. We have pneumonia. Start IV ceftriaxone. Bronchodilators. Steroids. Strict I's and O's. 09/11/2022: Patient will lethargic. Remains on BiPAP. 16/02/%. Overnight patient had become hypotensive. I held the Lasix temporarily and given fluid bolus. Lasix resumed today. Remains on IV ceftriaxone, DuoNeb, IV Solu-Medrol. 09/12/2022: ICU: On 4 L nasal cannula. Lethargic but would answer occasional question. at the bedside. Started on midodrine yesterday. Per neurology started IV Vimpat. Remains on IV Lasix. 09/13/2022: ICU. On 5 L nasal cannula. Lethargic. Hypothermic. Temperature 97.2. Rectal. Apolonia hugger started. and [id number] at the bedside. Patient for unequal pupils was seen by neurology. Cause unknown. Patient also had some myoclonic jerks felt to be a metabolic dysfunction. He followed by neurology. Patient is on Vimpat per neurology. Advanced care planning carried out with patient's and [id number] at the bedside. Patient does have advanced directives. Currently full code. Patient has been on and off BiPAP. Abdomen distended. Abdominal x-ray shows gastric distention. We will try temporary NG tube suction. Should help the bleeding also. 09/14/2022: ICU. Yesterday late afternoon patient had an NG tube placed for gastric distention. After he had some emesis into the BiPAP. About 700 mL of maroon-colored aspirate was obtained. Patient denied a 15 beat run of V. tach. Also had some abdominal breathing's. Patient had a bronchoscopy done by Dr. Mendoza. Following that patient's brother Nimbex and propofol drip. Intubated. This morning was taken out and the Bextra. Had his CAT scan demonstrated that showed bilateral pleural effusion. 2 feeding has been started 10 mL an hour. Currently the ventilator with FiO2 40 and a PEEP of 5. On propofol. Discussed with the at the bedside. 09/15/2022: ICU. Remains on the ventilator at 50/5. Small dose of levo. Propofol.. Remains on IV Lasix. Placed on IV Zosyn today. Discussed with at the bedside. Followed by multiple consultants. Ventricle paced rhythm. 09/16/2022: ICU. On the ventilator 40/5. Patient is of levo fed and propofol. Off the ladder for closer 24 hours. IV Lasix. IV Zosyn. 2 feeding at 34 mL an hour. Ventricular paced rhythm. Nephrology is planning to start dialysis tomorrow. Patient not responding otherwise. Encephalopathic Active Medications Albuterol/Ipratropium (Ipratropium-Albuterol 3 Ml Neb) 3 ml INHALATION RT-Q4H [facility] Last Admin: 09/16/22 16:20 Dose: 3 ml Budesonide (Budesonide 1 Mg/2 Ml Nebu) 1 mg INHALATION RT-BID [facility] Last Admin: 09/16/22 08:26 Dose: 1 mg Chlorhexidine Gluconate (Chlorhexidine Gluconate 15 Ml Cup) 15 ml MUCOUS MEM BID [facility] Last Admin: 09/16/22 08:43 Dose: 15 ml Furosemide (Furosemide 10 Mg/Ml 4 Ml Vial) 40 mg IV DAILY [facility] Last Admin: 09/16/22 08:43 Dose: 40 mg Sodium Chloride (Saline 0.9%) 1,000 mls @ 20 mls/hr IV .Q24H [facility] Last Admin: 09/16/22 03:58 Dose: 20 mls/hr Lacosamide 50 mg/ Sodium (Chloride) 55 mls @ 100 mls/hr IVPB BID [facility] Last Admin: 09/16/22 09:34 Dose: 100 mls/hr Norepinephrine Bitartrate 8 mg (/ Sodium Chloride) 258 mls @ 51.595 mls/hr IV .Q5H1M [facility]; Protocol Last Admin: 09/16/22 13:55 Dose: Not Given Propofol 1,000 mg/ IV Solution 100 mls @ 10.908 mls/hr IV .Q9H11M [facility]; Protocol Last Titration: 09/15/22 10:25 Dose: 0 mcg/kg/min, 0 mls/hr Piperacillin Sod/Tazobactam (Sod 3.375 gm/ Sodium Chloride) 100 mls @ 25 mls/hr IVPB Q8HR [facility]; Protocol Last Admin: 09/16/22 08:42 Dose: 25 mls/hr Insulin Aspart (Insulin Aspart (Novolog) 100 Unit/Ml Vial) 0 unit SQ Q6H [facility]; Protocol Last Admin: 09/16/22 12:31 Dose: 2 unit Methylprednisolone Sodium Succinate (Methylprednisolone Sod Succi 40 Mg/Ml 1 Ml Vial) 40 mg IV Q12HR [facility] Midodrine (Midodrine 5 Mg Tab) 5 mg PO AC-TID [facility] Last Admin: 09/16/22 12:31 Dose: 5 mg Miscellaneous Information (Warfarin Per Pharmacy) 0 each MISCELLANE DIRECTED PRN PRN Reason: PER PROTOCOL Miscellaneous Information (Potassium Replacement Protocol 1 Each Misc) 1 each MISCELLANE DAILY PRN; Protocol PRN Reason: Per Protocol Ondansetron HCl (Ondansetron 4 Mg/2 Ml Vial) 4 mg IVP Q6HR PRN PRN Reason: Nausea And Vomiting Last Admin: 09/13/22 12:48 Dose: 4 mg Pantoprazole Sodium (Pantoprazole 40 Mg/10 Ml Vial) 40 mg IVP DAILY [facility] Last Admin: 09/16/22 08:43 Dose: 40 mg Warfarin Sodium (Warfarin 1 Mg Tab) 1 mg PO ONCE@1800 ONE Stop: 09/16/22 18:01 Past medical history to include: Atrial fibrillation, hypertension, CK D, permanent pacemaker, Social history: . 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 Physical examination: VITAL SIGNS: 97.9, 75, 19, 19 bun 55, 99% on the ventilator GENERAL: , Laying in bed, intubated EYES: Pupils equal. Conjunctiva normal. HEENT: [External appearance of nose and ears normal, oral cavity dry mucous membranes. ET tube NECK: JVD unable to assess; masses not palpable. HEART: First and second heart sounds are normal; edema present. LUNGS: Respiratory rate increased; decreased breath sounds. ABDOMEN: Soft, nontender, liver spleen not palpable, no masses palpable. PSYCH: Patient rather lethargic not waking up. MUSCULOSKELETAL:No Clubbing/cyanosis;muscles-grossly intact, OA EXTREMITIES: Wound with dressing on the both plantar INVESTIGATIONS, reviewed in the clinical context: 09/16/2022: White count 7-year-old woman 10.8 ABG pH 7.47 potassium 3.6 BUN 141 creatinine 3.59 09/15/2022: White count 9.4 hemoglobin 11.1 platelets 116 potassium 3.6 BUN 134 creatinine 3.33 albumin 2.9 09/14/2022: WBC 13.1 hemoglobin 11.7 INR 3.5 potassium 4.5 BUN 1:30 creatinine 3.5. ABG: PH 7.55 pCO2 [address] chest abdomen pelvis: Anasarca changes. Lateral pleural effusion right greater than left and right-sided effusion be loculated. Bilateral atelectasis. Abdominal x-ray: Personally reviewed by me. Stomach distended. Some stool retention 09/13/2022: INR 3.3 potassium 5.5 BUN 119 creatinine 3.63 09/12/2022: Potassium 5.1 BUN 111 creatinine 3.09 Digital ultrasound: Suboptimal study. 09/11/2022: Potassium 4.9 BUN 98 creatinine 2.99 procalcitonin 1.02 TSH 0.79 09/10/2022: WBC 7.9 hemoglobin 11.2 platelets 131 INR 3.6 BUN 90 creatinine 2.75 WBC 5.5 hemoglobin 11.9 platelets 138 ABG: PH 7.16 pCO2 107 oxygen saturation 97.8 Sodium 138 potassium 4.8 BUN 8622.19 proBNP 10 EKG tracing personally reviewed by me-electronic atrial pacemaker Chest x-ray film personally reviewed by me-basilar infiltrate versus fluid. Hyperinflation Assessment and plan: -Acute hypoxic hypercapnic respiratory failure secondary to COPD/pulmonary edema/pneumonia: Slow to respond Ventilator support. -Hypotensive shock, multifactorial On levo fed: After same -Bilateral pleural effusion from CHF On IV Lasix -Anisocoria left greater than right Being followed by neurology -Myoclonic jerks On Vimpat. Being followed by neurology. EEG negative for seizures - acute on chronic CHF exacerbation, from systolic dysfunction EF 45% IV Lasix 40 mg daily. -pneumonia suspect gram-negative organism/aspiration pneumonia IV Zosyn. -Acute metabolic encephalopathy from hypoxic/delirium: Slow to respond -Acute kidney injury secondary to ATN secondary to hypotension/cardiac renal syndrome.: Worsening Decreased urine output -Chronic kidney disease stage III B. Likely nephrosclerosis Baseline creatinine 2 from March 2022 -Hypothermia, multifactorial: Better -Normocytic anemia, likely from chronic kidney disease Follow H&H -Hyperkalemia from worsening kidney function.: Better Lokelma -Essential hypertension Hold antihypertensive, currently blood pressure running on the lower side -AICD -Permanent atrial fibrillation [id number] for low blood pressure. Coumadin held. -Coumadin monitoring Pharmacy to dose -biLateral plantar lower extremity wound. Follows with Dr. Leung. Local [facility] -Full code Intubated/ventilator. Patient has been off propofol and levo fed. 2 feeding at goal. Patient remains encephalopathic. Planning to start dialysis tomorrow per nephrology. Discussed with .
[2022-09-16 17:30] LABS: Glucose,Whole Blood 178 mg/dL (70-110)
[2022-09-16] MEDS ORDERED: WARFARIN 1 MG TAB PO ONE (18:00)
[2022-09-16] MEDS ORDERED: methylPREDNISolone SOD SUCCI 40 MG/ML 1 ML VIAL IV SCH (21:00)
[2022-09-16] MEDS ORDERED: WARFARIN 2.5 MG TAB PO SCH (21:00)
[2022-09-16 23:07] LABS: Glucose,Whole Blood 195 mg/dL (70-110)
[2022-09-17] MEDS: NOREPINEPHRINE 8 MG in SODIUM CHLORIDE 0.9% 250 ML IV SCH ×5 (03:05→20:51)
[2022-09-17] MEDS: IPRATROPIUM-ALBUTEROL 3 ML NEB INHALATION SCH ×6 (03:23→23:38)
[2022-09-17 03:36] LABS: Basophils % (A) 0 %; Eosinophils % (A) 0 %; HCT 33.5 % (39.0-53.0); HGB 10.6 gm/dL (13.0-17.5); Hypochromasia Slight; Lymphocytes # (A) 0.1 k/uL (1.0-4.8); Lymphocytes % (A) 1 %; MCH 30.1 pg (25.0-35.0); MCHC 31.5 g/dL (31.0-37.0); MCV 95.4 fL (80.0-100.0); Monocytes # (A) 0.6 k/uL (0-1.0); Monocytes % (A) 5 %; Neutrophils # (A) 9.8 k/uL (1.3-7.7); Neutrophils % (A) 93 %; RBC 3.51 m/uL (4.30-5.90); WBC 10.6 k/uL (3.8-10.6)
[2022-09-17 03:45] LABS: Calcium 8.1 mg/dL (8.4-10.2); Magnesium 2.7 mg/dL (1.6-2.3); Potassium 3.1 mmol/L (3.5-5.1)
[2022-09-17 04:31] LABS: INR 2.9 (<1.2); Prothrombin Time 27.9 sec (9.0-12.0)
[2022-09-17 04:32] LABS: ABG Base Excess 11.4 mmol/L; ABG HCO3 35 mmol/L (21-25); ABG Oxygen Saturation 99.2 % (94-97); ABG PCO2 50 mmHg (35-45); ABG PH 7.46 (7.35-7.45); ABG PO2 106 mmHg (83-108); ABG TCO2 37 mmol/L (19-24); Allen Test Performed? Yes
[2022-09-17] MEDS: POTASSIUM BICARBONATE/CIT AC 20 MEQ TABLET.EFF NG-TUBE SCH ×2 (04:39→06:09)
[2022-09-17 05:22] LABS: Platelet Count 98 k/uL (150-450)
[2022-09-17 06:09] LABS: Glucose,Whole Blood 191 mg/dL (70-110)
[2022-09-17] MEDS: INSULIN ASPART (NovoLOG) 100 UNIT/ML VIAL SQ SCH ×4 (06:09→23:31)
[2022-09-17] MEDS: MIDODRINE 5 MG TAB PO SCH ×4 (06:49→17:44)
--- NOTE | 2022-09-17 07:02 | P.PN ---
Subjective Progress Note Date: 09/17/22 On 09/14/2022, the patient is intubated on a mechanical ventilator. The patient has history of COPD, hypertension, chronic atrial fibrillation and the patient has a permanent pacemaker in place, chronic kidney disease and is a chronic smoker. The patient presented to the hospital because of worsening shortness of breath. Yesterday evening, the patient acutely became unresponsive, and he would to be intubated and placed on a mechanical ventilator. It is not clear to me whether the patient was having any seizure activity. It is possible the patient could've aspirated. However, those events overnight clear to me. This morning the patient is on propofol which is running at 50 mcg/kg/m. The patient is also on Nimbex for paralysis. IV fluids are currently at KVO. Patient is on norepinephrine which is running at 0.11 mg/kg/m. Overall fluid balance is +2.7 L over the past 24 hours. NG tube is in place and output from the NG tube inserted is in order of 700 mL. The patient is currently on a mechanical ventilator assist control mode at a rate of 32, tidal volume of 350, FiO2 of 40% with a PEEP of 5. Blood gas showed a pH of 7.55 with a pCO2 of 38 and pO2 of 82. The peak airway pressure is at 23 The chest x-ray from today showing diffuse parenchymal changes and cardiomegaly and bilateral pleural effusions more consistent with CHF. The blood work shows a white cell count 15.1 with a hemoglobin of 11.7 and a platelet count of 168. The patient's INR is at 3.5 with a PT of 35 and the patient's cardiac rhythm is currently paced at this point in time. The blood work shows a sodium level of 135, potassium level is 4.5, chloride is 96 with a bicarb of 29, sodium is at 130 with a potassium level of 3.5. Glucose at 159. The patient is afebrile. Bedside EEG was done and it showed no evidence of any acute seizure activity. Neurologically, the patient is grimacing to painful condition of 4 extremities. He is withdrawing to painful stimulation. No focal neurological deficits. On 09/15/2022, the patient is being seen for a follow-up. This morning, the patient is still sedated on propofol is running at 45 mcg/kg/m. The patient is on a mechanical ventilator on assist control mode with a rate of 32, tidal volume of 350 with an FiO2 of 40% and a PEEP of 5. The blood gases from today is showing a pH of 7.54 with episodes of 40 and pO2 of 74 and this was an apparent of 40%. Chest x-ray essentially unchanged. His cardiomegaly. There is also evidence of a stable pleural parenchymal changes with a loculated chronic right-sided pleural effusion. As part of further investigation, I the day CAT scan of the chest yesterday in addition to a CAT scan of the abdomen and a CAT scan showed anasarca changes with bilateral pleural effusions right more than left and right-sided pleural effusion seemed to be chronic and loculated and was well demarcated with some calcification along the pleural lining. There was also small volume of intra-abdominal/pelvic ascites. There was evidence of bibasilar atelectasis without definite consolidation. There was cardiomegaly. CAT scan of the brain was essentially negative for any acute abnormalities. The patient was being diuresed with IV Lasix. The patient is a negative fluid balance of 1.4 L over the past 24 hours. On today's evaluation, the patient is on norepinephrine which is running at a dose of 0.08 microvascular kilogram per minutes. His white cell count is at 3.4 with a hemoglobin of 11.1 and an INR of 2.3. Sodium is at 139, potassium is at 3.6, bicarb is 32, BUN is at 134 with a creatinine of 3.3. The patient has a paced cardiac rhythm at this point in time. Echocardiogram was also done presented on the function with dilated RV, dilated atria bilaterally right and left and [id number] mitral regurgitation and mitral aortic stenosis with moderate to severe tricuspid regurgitation. EEG was completed and showed no evidence of any seizure activity and the patient remains on Vimpat. 09/16/2022, the patient remains off sedation and the patient has been off propofol for the past 24 hours. Unfortunately, is not following commands. He grimaces to painful stimulation. He is fasting. All 4 extremities and occasionally withdraws. No seizure activity has been noted. The patient has positive brainstem reflexes including reading to flex, cough and gag reflex. He also has spontaneous eye opening and the patient blinks and looks around. Nevertheless, is not following any commands. This is obviously concerning. At the same time, the patient remains on a mechanical ventilator. Today, the patient is on assist control mode at a rate of 32, tidal volume of 350, FiO2 of 40% with a PEEP of 5. Blood gas shows a pH of 7.47 with a pCO2 of 47 and pO2 of 85. The patient remains on IV Lasix. Overall fluid balance is -680 mL over the past 24 hours. The patient has a paced cardiac rhythm. The patient has a sodium level of 141 with a potassium level of 3.6, sodium level is 141, BUN is 141 with a creatinine of 3.5. the patientthe patient also has a hemoglobin of 10.8 with a platelet count of 103 and a white cell count of 9.0.CULTURES are negative. Chest x-ray findings of essentially unchanged and the patient is about the pleural effusion and the patient has a loculated right-sided pleural effusion. She was in a good location. The patient is currently off pressors for now. Echo of the heart showed dilated RV, atum-qw-kbaqsbfs mitral regurgitation, mild aortic stenosis and moderate degree of tricuspid regurgitation. 09/17/2022, the patient is still off sedation. The patient has been off propofol for the past 48 hours. Unfortunately, is not following any commands. He keeps his eyes closed. At times he opens his eyes spontaneously. Does not track. Does not indicate that he is comprehending and the patient has been withdrawing only to painful stimulation. He does grimace when stimulated and we have noticed this for the past 24-48 hours. Another E is in progress today. Note that the repeat CAT scan of the brain showed no acute abnormalities. No seizure activity clinically has been noted. He is afebrile. He is hemodynamically stable. He is on a mechanical ventilator at this point in time. He is on assist-control mode and is able to tolerate that well while being Sedation. He Is Active 32 with a Tidal Volume of 350 and FiO2 of 40% with a PEEP of 5. A blood gas that was done this morning showed a pH of 7.46 with a pCO2 of 50 and pO2 of 106. A repeat chest x-ray was done today that shows cardiomegaly and there is evidence of bilateral pleural effusion which is essentially unchanged. The right-sided pleural effusion is loculated. There is also evidence also of cardiomegaly and pulmonary edema and increased pulmonary vascular markings bilaterally with cephalization. His ET tube is in a good location. He also has a left IJ triple lumen catheter in place. He continues to have third spacing and edema both in his upper and lower extremities and he also has scrotal edema. His urine output is in order of 2.2 L over the past 24 hours and the patient is still diuresing. He remains on Lasix 40 mg IV every 24 hours. On his blood work, the patient's creatinine today is at 3.43 with this BUN of 152 and his sodium level is at 144. Potassium levels at 3.1 and needs to be replaced. The white cell cause of 10.6 with a hemoglobin of 10.6 and a platelet count of 98. The INR today's of 2.9. The patient's cardiac rhythm. He remains on warfarin for long-term anticoagulation. I think the plan is to consider dialysis on this patient. There is a concern that he may have encephalopathy due to his chronic kidney disease and nephrology once dialyze him to optimize his volume status and the same time monitor his mental status while on dialysis. Objective - Vital Signs Vital signs: Vital Signs Temp 97.6 F 09/17/22 04:00 Pulse 85 09/17/22 06:00 Resp 26 H 09/17/22 06:00 BP 102/61 09/16/22 01:00 Pulse Ox 100 09/17/22 06:00 FiO2 40 09/17/22 04:00 Intake & Output 09/16/22 09/16/22 09/17/22 06:59 18:59 06:59 Intake Total 663 893 807 Output Total 686 8049 4635 Balance -287 -707 -558 Weight 117.2 kg 114.5 kg Intake: IV 393 389 303 Lacosamide IV 50 mg In 50 50 50 Sodium Chloride 0.9% 50 ml @ 100 mls/hr IVPB BID [facility] Rx#:[id number] Piperacillin-Tazobactam 3 100 100 .375 gm In Sodium Chloride 0.9% 100 ml @ 25 mls/hr IVPB Q12HR [facility] Rx #:[id number] Pressure Bag 33 39 33 Sodium Chloride 0.9% 1, 210 200 220 000 ml @ 20 mls/hr IV . Q24H [facility] Rx#:[id number] Intake, IV Titration 100 Amount Piperacillin-Tazobactam 3 100 .375 gm In Sodium Chloride 0.9% 100 ml @ 25 mls/hr IVPB Q8HR [facility] Rx# :[id number] Tube Feeding 180 414 374 Other 90 90 30 Output: Urine 950 1600 1365 Other: Voiding Method Indwelling Catheter Indwelling Catheter Indwelling Catheter # Bowel Movements 1 ABP, PAP, CO, CI - Last Documented Arterial Blood Pressure 124/54 - Exam Gen. appearance the patient is calm and comfortable not acute distress. Intubated on mechanical ventilator. the patient is off sedation. Head exam was generally normal. There was no scleral icterus or corneal arcus. Mucous membranes were moist. Neck was supple and without jugular venous distension, thyromegaly, or carotid bruits. Carotids were easily palpable bilaterally. There was no adenopathy. The patient has an orogastric and orotracheal tube water enema in place Lungs were clear to auscultation and percussion, and with normal diaphragmatic excursion. No wheezes or rales were noted. Cardiac exam revealed the PMI to be normally situated and sized. The rhythm was regular and no extrasystoles were noted during several minutes of auscultation. The first and second heart sounds were normal and physiologic splitting of the second heart sound was noted. There were no murmurs, rubs, clicks, or gallops. Abdominal exam revealed normal bowel sounds. The abdomen was soft, non-tender, and without masses, organomegaly, or appreciable enlargement of the abdominal a colette. Examination of the extremities revealed easily palpable radial, femoral and pedal pulses. There was no cyanosis, clubbing and the patient continues to have significant amount of edema in his lower extremities and is scrotal area. There is also some abdominal wall edema. Examination of the skin revealed no evidence of significant rashes, suspicious appearing nevi or other concerning lesions. Neurologically, neurologically, the patient is off sedation. Positive cough and gag reflex. No facial asymmetry. No seizure activity. Cranial nerves are essentially intact.the patient is not responsive to any verbal Motor and sensory function cannot be assessed and the patient is not following any commands He withdraws to painful stimulation all 4 extremities. No major change in his neurologic function since yesterday. Still unresponsive. His gaze is downwards on today's evaluation and the patient has a synchronous case. Pupils are reactive to light and the around 3-4 mm in size. - Labs CBC & Chem 7: 09/17/22 03:15 09/17/22 03:15 Labs: Abnormal Lab Results - Last 24 Hours (Table) 09/16/22 09/16/22 09/16/22 Range/Units 05:35 11:32 17:28 RBC (4.30-5.90) m/uL Hgb (13.0-17.5) gm/dL Hct (39.0-53.0) % Plt Count (150-450) k/uL Neutrophils # (1.3-7.7) k/uL Lymphocytes # (1.0-4.8) k/uL PT (9.0-12.0) sec INR (<1.2) ABG pH (7.35-7.45) ABG pCO2 (35-45) mmHg ABG HCO3 (21-25) mmol/L ABG Total CO2 (19-24) mmol/L ABG O2 Saturation (94-97) % Potassium (3.5-5.1) mmol/L Carbon Dioxide 34 H (22-30) mmol/L BUN 141 H* (9-20) mg/dL Creatinine 3.59 H (0.66-1.25) mg/dL Glucose 185 H (74-99) mg/dL POC Glucose (mg/dL) 193 H 178 H (70-110) mg/dL Calcium 7.9 L (8.4-10.2) mg/dL Magnesium (1.6-2.3) mg/dL 09/16/22 09/17/22 09/17/22 Range/Units 23:04 03:15 03:15 RBC 3.51 L (4.30-5.90) m/uL Hgb 10.6 L (13.0-17.5) gm/dL Hct 33.5 L (39.0-53.0) % Plt Count 98 L (150-450) k/uL Neutrophils # 9.8 H (1.3-7.7) k/uL Lymphocytes # 0.1 L (1.0-4.8) k/uL PT (9.0-12.0) sec INR (<1.2) ABG pH (7.35-7.45) ABG pCO2 (35-45) mmHg ABG HCO3 (21-25) mmol/L ABG Total CO2 (19-24) mmol/L ABG O2 Saturation (94-97) % Potassium 3.1 L (3.5-5.1) mmol/L Carbon Dioxide 34 H (22-30) mmol/L BUN 152 H* (9-20) mg/dL Creatinine 3.43 H (0.66-1.25) mg/dL Glucose 156 H (74-99) mg/dL POC Glucose (mg/dL) 195 H (70-110) mg/dL Calcium 8.1 L (8.4-10.2) mg/dL Magnesium 2.7 H (1.6-2.3) mg/dL 09/17/22 09/17/22 09/17/22 Range/Units 03:15 04:28 06:07 RBC (4.30-5.90) m/uL Hgb (13.0-17.5) gm/dL Hct (39.0-53.0) % Plt Count (150-450) k/uL Neutrophils # (1.3-7.7) k/uL Lymphocytes # (1.0-4.8) k/uL PT 27.9 H (9.0-12.0) sec INR 2.9 H (<1.2) ABG pH 7.46 H (7.35-7.45) ABG pCO2 50 H (35-45) mmHg ABG HCO3 35 H (21-25) mmol/L ABG Total CO2 37 H (19-24) mmol/L ABG O2 Saturation 99.2 H (94-97) % Potassium (3.5-5.1) mmol/L Carbon Dioxide (22-30) mmol/L BUN (9-20) mg/dL Creatinine (0.66-1.25) mg/dL Glucose (74-99) mg/dL POC Glucose (mg/dL) 191 H (70-110) mg/dL Calcium (8.4-10.2) mg/dL Magnesium (1.6-2.3) mg/dL Microbiology - Last 24 Hours (Table) 09/13/22 16:30 Gram Stain - Final Sputum Sputum Culture - Final Assessment and Plan Plan: Acute hypoxemic and hypercapnic respiratory failure, secondary to CHF/aspiration. Exact circumstances of the respiratory failure is not clear. The patient was found to be unresponsive. It is possible that the patient also had a acute neurologic event/CVA/seizure which led into further decompensation and respiratory failure. Possibility of aspiration cannot be completely ruled out. EEG is not showing any acute or ongoing seizure activity. The patient remains on a mechanical ventilator for now. Chest x-ray was noted. CAT scan of the chest was noted. Blood gas was noted. The patient went the pleural effusion is right more than left and the right-sided pleural effusion essentially chronic and somewhat loculated. Chest x-ray from today remains unchanged. Chest x-ray was noted. Blood gas was noted. Altered mental status and the patient remains unresponsive despite being off sedation for the past 48 hours. Consider encephalopathy/metabolic/drug induced in a setting of chronic kidney disease. Consider CVA. The patient has not showing any signs of adequate neurological recovery over the past 48 hours while being off sedation. A repeat EEG was is to be done today. Denies on the case. CAT scan on 2 separate occasions showed no acute abnormalities. Acute hypotension, recovered and the patient is currently off pressors There is ongoing edema in his lower extremities in the scrotal area. History of recent coronavirus infection. History of chronic atrial fibrillation, rate is controlled for now. The patient has biventricular pacing, INR therapeutic Chronic systolic heart failure with previous ejection fraction from July 2022 showing an EF of around 45% along with mild MR, severe tricuspid regurgitation Coronary artery disease with mild nonobstructive disease based on an cardiac catheterization that was done in 2019 Previous history of ventricular tachycardia History of hypertension. Chronic lower extremity edema Acute on chronic kidney disease with KEYANA, nonoliguric at this point in time and nephrology is also on the case Obesity. Prior history of tobacco use. Plan Consent remains altered mentation and diminished level of consciousness. This can be encephalopathy. Underlying stroke cannot be completely excluded. I think is reasonable to give the patient few sessions of hemodialysis and evaluate his mentation. A repeat EEG to be done today. The patient will be kept off sedation for now. Avoid any form of sedative medication. We'll do repeated neuro checks. Continue ventilator support, Continue diuretics the patient was taken off pressors IV fluids at KVO Echocardiogram was noted We'll may need to reverse the coagulopathy for dialysis catheter insertion. This will be coordinated with the vascular surgeon. Enteral feeding has been started with Nepro Stop the IV Solu-Medrol echocardiogram was noted Monitor renal function Neurologic consultation Cardiology consultation Condition is critical and this is a critical care evaluation that was done in more than 30 minutes. Time with Patient: Greater than 30
[2022-09-17] MEDS ORDERED: PHYTONADIONE 10 MG in SODIUM CHLORIDE 0.9% 50 ML IVPB STA (07:03)
--- NOTE | 2022-09-17 08:06 | P.PN ---
Subjective Progress Note Date: 09/17/22 PROGRESS NOTE The patient is a 67-year-old male who presented with symptoms of progressive dyspnea and CHF requiring chemical ventilation. He is intubated and sedated. Hemodynamically he is stable. He is having good urinary output. She has chronic atrial fibrillation and his ventricular response is controlled. He has been paced. There is no evidence of ventricular ectopic activity. He had recent Covid infection. He has renal failure and a history of chronic kidney disease. He was intubated yesterday. He has a pacemaker with normal sensing and pacing. His echocardiogram in July showed an ejection fraction of 45% with mild mitral and severe tricuspid regurgitation. He underwent cardiac catheterization in 2019 that showed mild obstructive disease. He is followed on a regular basis by Dr. Fletcher. He has a biventricular pacer placed in October 2020. He has a prior history of ventricular tachycardia. September 15: The patient remains intubated and sedated, he has good urinary output. He is ventricularly paced with no evidence of ventricular tachycardia. He continues to be on norepinephrine at the lower dose. Hemodynamically there is no significant changes. He has been followed by the neurology service for the metabolic encephalopathy and the myoclonic jerks that was thought to be related to metabolic abnormalities. September 16: The patient remains intubated, he is on no sedation. He remains unresponsive. His blood pressure is stable. His echocardiogram showed an ejection fraction of 50% with mild aortic stenosis and mild to moderate mitral and moderate to severe tricuspid regurgitation. His chest x-ray showed diffuse changes with pleural effusion. No evidence of recurrent ventricular tachycardia. September 17: The patient remains intubated, unresponsive, not sedated. He has no evidence of ventricular ectopic activity or pacemaker malfunction. His urine output has been stable. Hemodynamically he has been stable. He is undergoing an EEG to further evaluate his neurological status. His head CT yesterday showed no significant changes. Medications: Lasix 40 mg IV daily, midodrine, Solu-Medrol, Coumadin, norepinephrine PHYSICAL EXAMINATION: Blood pressure 116/50 heart rate 78, intubated, not opening eyes to painful stimulation LUNGS: Clear to auscultation anteriorly HEART: Regular rate and rhythm, S1, S2. No S3. Holosystolic murmur at the apex, 3/6 ABDOMEN: Soft, positive bowel sounds, no organomegaly EXTREMETIES: +1 edema, Red wrap LAB: Hemoglobin 10.6, INR 2.9, BUN 152, creatinine 3.4. Potassium 3.1, 1. Respiratory failure with CHF and possible aspiration. He had a mildly impaired systolic function in the past 2. Worsening renal failure with acute renal injury, non-oliguric 3. Atrial fibrillation, anticoagulated 4. Post biventricular pacing 5. Recent COVID infection 7. Obesity 8. Unresponsiveness rule out neurological event, rule out metabolic encephalopathy with uremic encephalopathy PLAN: 1. Neurological evaluation, rule out seizure 2. Possible dialysis, awaiting nephrology input 3. Continue supportive care 4. Prognosis is guarded Objective - Vital Signs Vital signs: Vital Signs Temp 97.6 F 09/17/22 04:00 Pulse 89 09/17/22 07:00 Resp 32 H 09/17/22 07:00 BP 102/61 09/16/22 01:00 Pulse Ox 100 09/17/22 07:00 FiO2 40 09/17/22 07:29 Intake & Output 09/16/22 09/17/22 09/17/22 18:59 06:59 18:59 Intake Total 893 894 Output Total 1600 1490 Balance -707 -596 Weight 114.5 kg Intake: IV 389 326 Lacosamide IV 50 mg In 50 50 Sodium Chloride 0.9% 50 ml @ 100 mls/hr IVPB BID [facility] Rx#:[id number] Piperacillin-Tazobactam 3 100 .375 gm In Sodium Chloride 0.9% 100 ml @ 25 mls/hr IVPB Q12HR [facility] Rx #:[id number] Pressure Bag 39 36 Sodium Chloride 0.9% 1, 200 240 000 ml @ 20 mls/hr IV . Q24H [facility] Rx#:[id number] Intake, IV Titration 100 Amount Piperacillin-Tazobactam 3 100 .375 gm In Sodium Chloride 0.9% 100 ml @ 25 mls/hr IVPB Q8HR [facility] Rx# :[id number] Tube Feeding 414 408 Other 90 60 Output: Urine 1600 1490 Other: Voiding Method Indwelling Catheter Indwelling Catheter # Bowel Movements 1 ABP, PAP, CO, CI - Last Documented Arterial Blood Pressure 126/56 - Labs CBC & Chem 7: 09/17/22 03:15 09/17/22 03:15 Labs: Abnormal Lab Results - Last 24 Hours (Table) 09/16/22 09/16/2209/16/22 Range/Units 11:32 17:28 23:04 RBC (4.30-5.90) m/uL Hgb (13.0-17.5) gm/dL Hct (39.0-53.0) % Plt Count (150-450) k/uL Neutrophils # (1.3-7.7) k/uL Lymphocytes # (1.0-4.8) k/uL PT (9.0-12.0) sec INR (<1.2) ABG pH (7.35-7.45) ABG pCO2 (35-45) mmHg ABG HCO3 (21-25) mmol/L ABG Total CO2 (19-24) mmol/L ABG O2 Saturation (94-97) % Potassium (3.5-5.1) mmol/L Carbon Dioxide (22-30) mmol/L BUN (9-20) mg/dL Creatinine (0.66-1.25) mg/dL Glucose (74-99) mg/dL POC Glucose (mg/dL) 193 H 178 H 195 H (70-110) mg/dL Calcium (8.4-10.2) mg/dL Magnesium (1.6-2.3) mg/dL 09/17/22 09/17/22 09/17/22 Range/Units 03:15 03:15 03:15 RBC 3.51 L (4.30-5.90) m/uL Hgb 10.6 L (13.0-17.5) gm/dL Hct 33.5 L (39.0-53.0) % Plt Count 98 L (150-450) k/uL Neutrophils # 9.8 H (1.3-7.7) k/uL Lymphocytes # 0.1 L (1.0-4.8) k/uL PT 27.9 H (9.0-12.0) sec INR 2.9 H (<1.2) ABG pH (7.35-7.45) ABG pCO2 (35-45) mmHg ABG HCO3 (21-25) mmol/L ABG Total CO2 (19-24) mmol/L ABG O2 Saturation (94-97) % Potassium 3.1 L (3.5-5.1) mmol/L Carbon Dioxide 34 H (22-30) mmol/L BUN 152 H* (9-20) mg/dL Creatinine 3.43 H (0.66-1.25) mg/dL Glucose 156 H (74-99) mg/dL POC Glucose (mg/dL) (70-110) mg/dL Calcium 8.1 L (8.4-10.2) mg/dL Magnesium 2.7 H (1.6-2.3) mg/dL 09/17/22 09/17/22 Range/Units 04:28 06:07 RBC (4.30-5.90) m/uL Hgb (13.0-17.5) gm/dL Hct (39.0-53.0) % Plt Count (150-450) k/uL Neutrophils # (1.3-7.7) k/uL Lymphocytes # (1.0-4.8) k/uL PT (9.0-12.0) sec INR (<1.2) ABG pH 7.46 H (7.35-7.45) ABG pCO2 50 H (35-45) mmHg ABG HCO3 35 H (21-25) mmol/L ABG Total CO2 37 H (19-24) mmol/L ABG O2 Saturation 99.2 H (94-97) % Potassium (3.5-5.1) mmol/L Carbon Dioxide (22-30) mmol/L BUN (9-20) mg/dL Creatinine (0.66-1.25) mg/dL Glucose (74-99) mg/dL POC Glucose (mg/dL) 191 H (70-110) mg/dL Calcium (8.4-10.2) mg/dL Magnesium (1.6-2.3) mg/dL Microbiology - Last 24 Hours (Table) 09/13/22 16:30 Gram Stain - Final Sputum Sputum Culture - Final
[2022-09-17] MEDS: BUDESONIDE 1 MG/2 ML NEBU INHALATION SCH ×2 (08:19→21:00)
--- NOTE | 2022-09-17 09:05 | XR ---
EXAMINATION TYPE: XR chest 1V portable DATE OF EXAM: 09/17/2022 COMPARISON: 09/16/2022 HISTORY: Tube placement TECHNIQUE: Single frontal view of the chest is obtained. FINDINGS: ET and NG tube stable. Cardiac device noted. Cardiomegaly with bilateral pleural effusion and infiltrate noted. Diffuse interstitial pattern. No pneumothorax. Left-sided central line stable. A pleural fluid on the right could be loculated stable from previous exam. IMPRESSION: 1. Stable bilateral pleural-parenchymal disease correlate for CHF versus pneumonia.
[2022-09-17] MEDS: CHLORHEXIDINE GLUCONATE 15 ML CUP MUCOUS MEM SCH ×2 (09:25→21:38)
[2022-09-17] MEDS: PANTOPRAZOLE 40 MG/10 ML VIAL IVP SCH (09:25)
[2022-09-17] MEDS: PIPERACILLIN-TAZOBACTAM 3.375 GM in SODIUM CHLORIDE 0.9% 100 ML IVPB SCH ×3 (09:26→23:31)
[2022-09-17] MEDS: FUROSEMIDE 10 MG/ML 4 ML VIAL IV SCH (09:26)
--- NOTE | 2022-09-17 09:42 | P.PN ---
Subjective Progress Note Date: 09/16/22 09/16/2022: Patient was seen for follow-up. Patient's and patient's [id number]-gc-[id number] visiting from [place] were present today. Patient is off sedation. He is not showing significant improvement. Continues to be very encephalopathic, keeps his eyes closed. No seizure-like activity witnessed. 09/15/2022: Patient was seen for a follow-up. Patient is off sedation and pressors since 10:30 AM today. He still very encephalopathic. Patient's nurse has noticed that he moves all extremities. He does not follow some commands. He is still somnolent. No seizure-like activity. 09/14/2022: Patient was seen for a follow-up. Patient initially seen by Dr. Jayesh Mendoza. Please refer to his note for details. Patient is a 67-year-old male with anisocoria, left more than right, but reactive to light. He has altered mental status due to metabolic/hypercapnic, kidney insufficiency. Patient had an EEG for myoclonic jerks and no seizures were seen. MRI of the brain and MRA were recommended. Repeat EEG was performed today. Spoke to patient's nurse as well as patient's . Patient is currently on propofol 50 g per program per minute. He was also on Nimbex, which has been discontinued as of 6 AM today. Patient's pupils are now equal round and reacting. Objective - Vital Signs Vital signs: Vital Signs Temp 97.9 F 09/16/22 16:00 Pulse 81 09/16/22 17:00 Resp 33 H 09/16/22 17:00 BP 102/61 09/16/22 01:00 Pulse Ox 95 09/16/22 17:00 FiO2 40 09/16/22 16:00 Intake & Output 09/15/22 09/16/22 09/16/22 18:59 06:59 18:59 Intake Total 952.103 663 722 Output Total 6456 011 2368 Balance -392.897 -287 -553 Weight 120 kg 117.2 kg Intake: IV 438 393 320 Lacosamide IV 50 mg In 50 50 50 Sodium Chloride 0.9% 50 ml @ 100 mls/hr IVPB BID [facility] Rx#:[id number] Piperacillin-Tazobactam 3 175 100 100 .375 gm In Sodium Chloride 0.9% 100 ml @ 25 mls/hr IVPB Q12HR [facility] Rx #:[id number] Pressure Bag 33 33 30 Sodium Chloride 0.9% 1, 180 210 140 000 ml @ 20 mls/hr IV . Q24H [facility] Rx#:[id number] Intake, IV Titration 354.103 Amount Norepinephrine 8 mg In 106.239 Sodium Chloride 0.9% 250 ml @ 0.22 MCG/KG/MIN 51. 595 mls/hr IV .Q5H1M [facility] Rx#:[id number] Potassium Chloride 20 meq 100 In Water For Injection 1 100ml.bag @ 50 mls/hr IVPB ONCE ONE Rx#: [id number] propofoL 1,000 mg In 147.864 Empty Bag 1 bag @ 15 MCG/ KG/MIN 10.908 mls/hr IV . Q9H11M [facility] Rx#:[id number] Tube Feeding 130 180 312 Other 30 90 90 Output: Urine 9022 600 0669 Other: Voiding Method Indwelling Catheter Indwelling Catheter Indwelling Catheter ABP, PAP, CO, CI - Last Documented Arterial Blood Pressure 107/49 - Exam Patient is intubated, off sedation since 10:30 AM yesterday. Patient's pupils are equal, round and briskly reacting. Oculocephalics are present. Corneals present. Patient has very prominent facial grimacing on painful stimuli on either upper and lower extremities. Patient moves lower extremities much better with painful stimuli. Abdomen is soft, nontender. - Labs CBC & Chem 7: 09/17/22 03:15 09/17/22 03:15 Labs: Abnormal Lab Results - Last 24 Hours (Table) 09/15/22 09/16/22 09/16/22 Range/Units 18:46 00:28 05:35 RBC (4.30-5.90) m/uL Hgb (13.0-17.5) gm/dL Hct (39.0-53.0) % Plt Count (150-450) k/uL PT (9.0-12.0) sec INR (<1.2) ABG pH (7.35-7.45) ABG pCO2 (35-45) mmHg ABG HCO3 (21-25) mmol/L ABG Total CO2 (19-24) mmol/L ABG O2 Saturation (94-97) % Carbon Dioxide 34 H (22-30) mmol/L BUN 141 H* (9-20) mg/dL Creatinine 3.59 H (0.66-1.25) mg/dL Glucose 185 H (74-99) mg/dL POC Glucose (mg/dL) 178 H 159 H (70-110) mg/dL Calcium 7.9 L (8.4-10.2) mg/dL 09/16/22 09/16/22 09/16/22 Range/Units 05:35 05:35 05:47 RBC 3.51 L (4.30-5.90) m/uL Hgb 10.8 L (13.0-17.5) gm/dL Hct 33.4 L (39.0-53.0) % Plt Count 103 L (150-450) k/uL PT 22.0 H (9.0-12.0) sec INR 2.3 H (<1.2) ABG pH 7.47 H (7.35-7.45) ABG pCO2 47 H (35-45) mmHg ABG HCO3 34 H (21-25) mmol/L ABG Total CO2 36 H (19-24) mmol/L ABG O2 Saturation 97.6 H (94-97) % Carbon Dioxide (22-30) mmol/L BUN (9-20) mg/dL Creatinine (0.66-1.25) mg/dL Glucose (74-99) mg/dL POC Glucose (mg/dL) (70-110) mg/dL Calcium (8.4-10.2) mg/dL 09/16/22 09/16/22 09/16/22 Range/Units 05:59 11:32 17:28 RBC (4.30-5.90) m/uL Hgb (13.0-17.5) gm/dL Hct (39.0-53.0) % Plt Count (150-450) k/uL PT (9.0-12.0) sec INR (<1.2) ABG pH (7.35-7.45) ABG pCO2 (35-45) mmHg ABG HCO3 (21-25) mmol/L ABG Total CO2 (19-24) mmol/L ABG O2 Saturation (94-97) % Carbon Dioxide (22-30) mmol/L BUN (9-20) mg/dL Creatinine (0.66-1.25) mg/dL Glucose (74-99) mg/dL POC Glucose (mg/dL) 178 H 193 H 178 H (70-110) mg/dL Calcium (8.4-10.2) mg/dL Microbiology - Last 24 Hours (Table) 09/13/22 16:30 Gram Stain - Final Sputum Sputum Culture - Final 09/09/22 18:57 Blood Culture - Final Blood No Growth after 144 hours 09/09/22 18:40 Blood Culture - Final Blood No Growth after 144 hours Assessment and Plan Assessment: -Altered mental status due to multifactorial: Metabolic encephalopathy, probably multifactorial. Patient has hypercapnia with acute renal failure. (worsening) -Anisocoria, now resolved. Perhaps related to medication effect. -Myoclonic jerks and I feel it's most likely due to his metabolic dysfunction and unlikely seizures. -Acute hypoxemic and hypercapnic respiratory failure -Supratherapeutic INR -History of chronic atrial fibrillation on Coumadin -History of chronic kidney disease -Hypertension -History of recent [place] virus -Bilateral lower extremity edema -History of tobacco use -Anemia -Thrombocytopenia Plan: 1. Patient's mentation has not improved significantly. Repeat EEG in the morning. 2. Continue Vimpat at this point in time 3. Continue supportive respiratory care 4. Continue nephrology care for kidney disease. Renal functions are worsening. Patient may need hemodialysis to improve his mentation. 5. TSH 0.78, B12 1159, ammonia 19, hemoglobin A1c 5.6, all normal. 6. CT head showed age-related changes, with no acute process. 7. Medical management as per IM and other specialties. Discussed with patient's family and nursing staff in detail.
--- NOTE | 2022-09-17 11:17 | P.PN ---
Subjective Patient is seen for follow-up for acute kidney injury. He is currently on the vent Off of sedation . No improvement in mentation. Withdraws to painful stimuli Patient has had good urine output. It is at 60-70 ML per hour Lasix is currently at 40 mg IV daily BUN increased to 152. Serum creatinine at 3.4 Discussed with family regarding renal replacement therapy yesterday. They have been in agreement. We will proceed with vascular surgery consult and we'll plan for first treatment today. Objective - Vital Signs Vital signs: Vital Signs Temp 98.3 F 09/17/22 08:00 Pulse 85 09/17/22 11:00 Resp 32 H 09/17/22 11:00 BP 102/61 09/16/22 01:00 Pulse Ox 100 09/17/22 11:00 FiO2 40 09/17/22 11:00 Intake & Output 09/16/22 09/17/22 09/17/22 18:59 06:59 18:59 Intake Total 893 894 228 Output Total 1600 1490 785 Balance -707 -596 -557 Weight 114.5 kg Intake: IV 389 326 92 Lacosamide IV 50 mg In 50 50 Sodium Chloride 0.9% 50 ml @ 100 mls/hr IVPB BID [facility] Rx#:[id number] Piperacillin-Tazobactam 3 100 .375 gm In Sodium Chloride 0.9% 100 ml @ 25 mls/hr IVPB Q12HR [facility] Rx #:[id number] Pressure Bag 39 36 12 Sodium Chloride 0.9% 1, 200 240 80 000 ml @ 20 mls/hr IV . Q24H [facility] Rx#:[id number] Intake, IV Titration 100 Amount Piperacillin-Tazobactam 3 100 .375 gm In Sodium Chloride 0.9% 100 ml @ 25 mls/hr IVPB Q8HR [facility] Rx# :[id number] Tube Feeding 414 408 136 Other 90 60 Output: Urine 1600 1490 785 Other: Voiding Method Indwelling Catheter Indwelling Catheter # Bowel Movements 1 1 ABP, PAP, CO, CI - Last Documented Arterial Blood Pressure 123/56 - Exam on the vent Off of sedation Examination of the heart S1 and S2 Examination of the lungs shows bilateral breath sounds are heard Abdomen is soft nontender Examination lower extremity shows significant edema in the lower extremities with scrotal edema noted. Both legs are wrapped Withdraws to painful stimuli. - Labs CBC & Chem 7: 09/17/22 03:15 09/17/22 03:15 Labs: Abnormal Lab Results - Last 24 Hours (Table) 09/16/22 09/16/22 09/16/22 Range/Units 11:32 17:28 23:04 RBC (4.30-5.90) m/uL Hgb (13.0-17.5) gm/dL Hct (39.0-53.0) % Plt Count (150-450) k/uL Neutrophils # (1.3-7.7) k/uL Lymphocytes # (1.0-4.8) k/uL PT (9.0-12.0) sec INR (<1.2) ABG pH (7.35-7.45) ABG pCO2 (35-45) mmHg ABG HCO3 (21-25) mmol/L ABG Total CO2 (19-24) mmol/L ABG O2 Saturation (94-97) % Potassium (3.5-5.1) mmol/L Carbon Dioxide (22-30) mmol/L BUN (9-20) mg/dL Creatinine (0.66-1.25) mg/dL Glucose (74-99) mg/dL POC Glucose (mg/dL) 193 H 178 H 195 H (70-110) mg/dL Calcium (8.4-10.2) mg/dL Magnesium (1.6-2.3) mg/dL 09/17/22 09/17/22 09/17/22 Range/Units 03:15 03:15 03:15 RBC 3.51 L (4.30-5.90) m/uL Hgb 10.6 L (13.0-17.5) gm/dL Hct 33.5 L (39.0-53.0) % Plt Count 98 L (150-450) k/uL Neutrophils # 9.8 H (1.3-7.7) k/uL Lymphocytes # 0.1 L (1.0-4.8) k/uL PT 27.9 H (9.0-12.0) sec INR 2.9 H (<1.2) ABG pH (7.35-7.45) ABG pCO2 (35-45) mmHg ABG HCO3 (21-25) mmol/L ABG Total CO2 (19-24) mmol/L ABG O2 Saturation (94-97) % Potassium 3.1 L (3.5-5.1) mmol/L Carbon Dioxide 34 H (22-30) mmol/L BUN 152 H* (9-20) mg/dL Creatinine 3.43 H (0.66-1.25) mg/dL Glucose 156 H (74-99) mg/dL POC Glucose (mg/dL) (70-110) mg/dL Calcium 8.1 L (8.4-10.2) mg/dL Magnesium 2.7 H (1.6-2.3) mg/dL 09/17/22 09/17/22 Range/Units 04:28 06:07 RBC (4.30-5.90) m/uL Hgb (13.0-17.5) gm/dL Hct (39.0-53.0) % Plt Count (150-450) k/uL Neutrophils # (1.3-7.7) k/uL Lymphocytes # (1.0-4.8) k/uL PT (9.0-12.0) sec INR (<1.2) ABG pH 7.46 H (7.35-7.45) ABG pCO2 50 H (35-45) mmHg ABG HCO3 35 H (21-25) mmol/L ABG Total CO2 37 H (19-24) mmol/L ABG O2 Saturation 99.2 H (94-97) % Potassium (3.5-5.1) mmol/L Carbon Dioxide (22-30) mmol/L BUN (9-20) mg/dL Creatinine (0.66-1.25) mg/dL Glucose (74-99) mg/dL POC Glucose (mg/dL) 191 H (70-110) mg/dL Calcium (8.4-10.2) mg/dL Magnesium (1.6-2.3) mg/dL Microbiology - Last 24 Hours (Table) 09/13/22 16:30 Gram Stain - Final Sputum Sputum Culture - Final Assessment and Plan Assessment: 1. Acute kidney injury secondary to ATN secondary to hypotension and cardiorenal syndrome. Urine output significantly improved. Creatinine stable. Elevated BUN partially due to steroids. No hydronephrosis noted on kidney ultrasound. Start renal replacement therapy as BUN is significantly elevated an d there may be possible underlying uremic encephalopathy. 2. Chronic kidney disease stage IIIB with baseline creatinine 1.8-2 secondary to nephrosclerosis and cardiorenal syndrome. 3. Acute hypoxic and hypercapnic respiratory failure. Intubated. On 40% FiO2. 4. Acute on chronic systolic CHF with ejection fraction of 45% with severe tricuspid regurgitation. Status post AICD. 5. Hyperkalemia secondary to acute kidney injury. Resolved. 6. Encephalopathy, possibly uremic. Start HD Plan: Proceed with vascular surgery consult and dialysis catheter placement.. First treatment of hemodialysis today. Repeat hemodialysis in a.m. Increase midodrine Avoid hypotension
[2022-09-17] MEDS: LACOSAMIDE IV 50 MG in SODIUM CHLORIDE 0.9% 50 ML IVPB SCH (11:26)
[2022-09-17 11:32] LABS: Glucose,Whole Blood 169 mg/dL (70-110)
[2022-09-17 12:30] LABS: INR 2.5 (<1.2); Prothrombin Time 24.1 sec (9.0-12.0)
--- NOTE | 2022-09-17 14:40 | P.PN ---
Progress Note - Text Progress Note Date: 09/17/22 Chief Complaint: Short of breath This is a 67-year-old patient, follows with Dr. Ricardo Arnold. Chronic stable medical conditions include atrial fibrillation, hypertension, COPD, permanent pacemaker. Patient seen by me in the ER. Most of the history is obtained by the at the bedside. Patient was admitted for lung infection about a month ago. He didn't improve. Following the patient did have COVID. Patient now presents with worsening short of breath. Especially for 3-4 days. Also becoming bloated. Lower extremity edema. Appetite is poor. No cough. Patient has also underlying chronic kidney disease. Patient does smoke cigars and pipes. Patient is requiring a BiPAP in the ER. Has lower extremity wound being followed by Dr. Leung. Patient has some not able to give much of history.) Short of breath. 09/10/2022: Patient remains or overflow in the ER. On BiPAP. Tired lethargic. IV Lasix. Worsening renal function. We have pneumonia. Start IV ceftriaxone. Bronchodilators. Steroids. Strict I's and O's. 09/11/2022: Patient will lethargic. Remains on BiPAP. 16/02/%. Overnight patient had become hypotensive. I held the Lasix temporarily and given fluid bolus. Lasix resumed today. Remains on IV ceftriaxone, DuoNeb, IV Solu-Medrol. 09/12/2022: ICU: On 4 L nasal cannula. Lethargic but would answer occasional question. at the bedside. Started on midodrine yesterday. Per neurology started IV Vimpat. Remains on IV Lasix. 09/13/2022: ICU. On 5 L nasal cannula. Lethargic. Hypothermic. Temperature 97.2. Rectal. Apolonia hugger started. and [id number] at the bedside. Patient for unequal pupils was seen by neurology. Cause unknown. Patient also had some myoclonic jerks felt to be a metabolic dysfunction. He followed by neurology. Patient is on Vimpat per neurology. Advanced care planning carried out with patient's and [id number] at the bedside. Patient does have advanced directives. Currently full code. Patient has been on and off BiPAP. Abdomen distended. Abdominal x-ray shows gastric distention. We will try temporary NG tube suction. Should help the bleeding also. 09/14/2022: ICU. Yesterday late afternoon patient had an NG tube placed for gastric distention. After he had some emesis into the BiPAP. About 700 mL of maroon-colored aspirate was obtained. Patient denied a 15 beat run of V. tach. Also had some abdominal breathing's. Patient had a bronchoscopy done by Dr. Mendoza. Following that patient's brother Nimbex and propofol drip. Intubated. This morning was taken out and the Bextra. Had his CAT scan demonstrated that showed bilateral pleural effusion. 2 feeding has been started 10 mL an hour. Currently the ventilator with FiO2 40 and a PEEP of 5. On propofol. Discussed with the at the bedside. 09/15/2022: ICU. Remains on the ventilator at 50/5. Small dose of levo. Propofol.. Remains on IV Lasix. Placed on IV Zosyn today. Discussed with at the bedside. Followed by multiple consultants. Ventricle paced rhythm. 09/16/2022: ICU. On the ventilator 40/5. Patient is off levo fed and propofol. Off the ladder for closer 24 hours. IV Lasix. IV Zosyn. 2 feeding at 34 mL an hour. Ventricular paced rhythm. Nephrology is planning to start dialysis tomorrow. Patient not responding otherwise. Encephalopathic 09/17/2022: ICU. On the ventilator 40/5. Remains encephalopathic. Urine output about 60-70 mL an hour. Earlier today had some dark stools and dark aspirate from the NG tube. Decision made to proceed with dialysis. Vitamin K given earlier. We'll give 2 units of FFP prior to dialysis catheter placement. Ventricle paced rhythm/A. fib. Discussed with the at the bedside. Hold tube feeding. Consult GI. Remains on IV Zosyn. IV Lasix. Worsening renal function. Active Medications Albuterol/Ipratropium (Ipratropium-Albuterol 3 Ml Neb) 3 ml INHALATION RT-Q4H [facility] Last Admin: 09/17/22 11:18 Dose: 3 ml Budesonide (Budesonide 1 Mg/2 Ml Nebu) 1 mg INHALATION RT-BID [facility] Last Admin: 09/17/22 08:19 Dose: 1 mg Chlorhexidine Gluconate (Chlorhexidine Gluconate 15 Ml Cup) 15 ml MUCOUS MEM BID [facility] Last Admin: 09/17/22 09:25 Dose: 15 ml Furosemide (Furosemide 10 Mg/Ml 4 Ml Vial) 40 mg IV DAILY [facility] Last Admin: 09/17/22 09:26 Dose: 40 mg Sodium Chloride (Saline 0.9%) 1,000 mls @ 20 mls/hr IV .Q24H [facility] Last Admin: 09/16/22 22:43 Dose: Not Given Lacosamide 50 mg/ Sodium (Chloride) 55 mls @ 100 mls/hr IVPB BID [facility] Last Admin: 09/17/22 11:26 Dose: 100 mls/hr Norepinephrine Bitartrate 8 mg (/ Sodium Chloride) 258 mls @ 51.595 mls/hr IV .Q5H1M [facility]; Protocol Last Admin: 09/17/22 11:25 Dose: Not Given Propofol 1,000 mg/ IV Solution 100 mls @ 10.908 mls/hr IV .Q9H11M [facility]; Protocol Last Admin: 09/17/22 11:25 Dose: Not Given Piperacillin Sod/Tazobactam (Sod 3.375 gm/ Sodium Chloride) 100 mls @ 25 mls/hr IVPB Q8HR [facility]; Protocol Last Admin: 09/17/22 09:26 Dose: 25 mls/hr Insulin Aspart (Insulin Aspart (Novolog) 100 Unit/Ml Vial) 0 unit SQ Q6H [facility]; Protocol Last Admin: 09/17/22 06:09 Dose: 2 unit Midodrine (Midodrine 5 Mg Tab) 10 mg PO AC-TID [facility] Miscellaneous Information (Warfarin Per Pharmacy) 0 each MISCELLANE DIRECTED PRN PRN Reason: PER PROTOCOL Miscellaneous Information (Potassium Replacement Protocol 1 Each Misc) 1 each MISCELLANE DAILY PRN; Protocol PRN Reason: Per Protocol Ondansetron HCl (Ondansetron 4 Mg/2 Ml Vial) 4 mg IVP Q6HR PRN PRN Reason: Nausea And Vomiting Last Admin: 09/13/22 12:48 Dose: 4 mg Pantoprazole Sodium (Pantoprazole 40 Mg/10 Ml Vial) 40 mg IVP DAILY [facility] Last Admin: 09/17/22 09:25 Dose: 40 mg Past medical history to include: Atrial fibrillation, hypertension, CK D, permanent pacemaker, Social history: . 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 Physical examination: VITAL SIGNS: 98.3, 81, 33, 120/52, 100% on the ventilator GENERAL: , Laying in bed, intubated EYES: Pupils equal. Conjunctiva normal. HEENT: [External appearance of nose and ears normal, oral cavity dry mucous membranes. ET tube NECK: JVD unable to assess; masses not palpable. HEART: First and second heart sounds are normal; edema present. LUNGS: Respiratory rate increased; decreased breath sounds. ABDOMEN: Soft, nontender, liver spleen not palpable, no masses palpable. PSYCH: Patient rather lethargic not waking up. MUSCULOSKELETAL:No Clubbing/cyanosis;muscles-grossly intact, OA EXTREMITIES: Wound with dressing on the both plantar INVESTIGATIONS, reviewed in the clinical context: 09/17/2022: WBC 10.60 globin 10.6 platelets 98 progression 3.1 BUN 152 cre atinine 3.43 09/14/2022: WBC 13.1 hemoglobin 11.7 INR 3.5 potassium 4.5 BUN 1:30 creatinine 3.5. ABG: PH 7.55 pCO2 [address] chest abdomen pelvis: Anasarca changes. Lateral pleural effusion right greater than left and right-sided effusion be loculated. Bilateral atelectasis. Abdominal x-ray: Personally reviewed by me. Stomach distended. Some stool retention 09/13/2022: INR 3.3 potassium 5.5 BUN 119 creatinine 3.63 09/12/2022: Potassium 5.1 BUN 111 creatinine 3.09 Digital ultrasound: Suboptimal study. 09/11/2022: Potassium 4.9 BUN 98 creatinine 2.99 procalcitonin 1.02 TSH 0.79 09/10/2022: WBC 7.9 hemoglobin 11.2 platelets 131 INR 3.6 BUN 90 creatinine 2.75 WBC 5.5 hemoglobin 11.9 platelets 138 ABG: PH 7.16 pCO2 107 oxygen saturation 97.8 Sodium 138 potassium 4.8 BUN 8622.19 proBNP 10 EKG tracing personally reviewed by me-electronic atrial pacemaker Chest x-ray film personally reviewed by me-basilar infiltrate versus fluid. Hyperinflation Assessment and plan: -Acute hypoxic hypercapnic respiratory failure secondary to COPD/pulmonary edema/pneumonia: Slow to respond Ventilator support. -Hypotensive shock, multifactorial: Better Currently off levo fed -Bilateral pleural effusion from CHF On IV Lasix -Anisocoria left greater than right Being followed by neurology -Myoclonic jerks On Vimpat. Being followed by neurology. EEG negative for seizures - acute on chronic CHF exacerbation, from systolic dysfunction EF 45% IV Lasix 40 mg daily. -pneumonia suspect gram-negative organism/aspiration pneumonia IV Zosyn. -Acute metabolic encephalopathy from uremia/hypoxic/delirium: Slow to respond -Acute kidney injury secondary to ATN secondary to hypotension/cardiac renal syndrome.: Worsening Follow renal replacement therapy. -Chronic kidney disease stage III B. Likely nephrosclerosis Baseline creatinine 2 from March 2022 -Hypothermia, multifactorial: Better -Normocytic anemia, likely from chronic kidney disease Follow H&H -Hyperkalemia from worsening kidney function.: Better Lokelma -Essential hypertension Hold antihypertensive, currently blood pressure running on the lower side -AICD -Permanent atrial fibrillation [id number] for low blood pressure. Coumadin held. -Coumadin monitoring Vitamin K given to reverse INR. -biLateral plantar lower extremity wound. Follows with Dr. Leung. [facility] -Full code Patient to proceed with dialysis. Dialysis catheter replaced this afternoon. Given vitamin K. Also treated some FFP ordered. Follow H&H. Hold tube feeding. GI consulted. Discussed with at the bedside.
--- NOTE | 2022-09-17 16:00 | P.GSCN ---
History of Present Illness History of present illness: 67-year-old gentleman known to me from the office patient came with the acute and knee injury due to ATN we ran is 152 creatinine is 3.4 hyperkalemia patient is on respirator discussed with the family for placement of a dialysis catheter Patient has been intubated chest has a bilateral crackles Abdomen is soft nontender Femorals are 1+ bilateral plan is placement dialysis catheter risk and complication discussed Past Medical History Past Medical History: Atrial Fibrillation, Hypertension, Renal Disease Additional Past Medical History / Comment(s): SEE DR CHIANG'S HISTORY AND PHYSICAL FOR CARDIAC HISTORY, CHRONIC KIDNEY DISEASE , History of Any Multi-Drug Resistant Organisms: None Reported Past Surgical History: No Surgical Hx Reported Past Anesthesia/Blood Transfusion Reactions: No Reported Reaction Type of Cardiac Device: Permanent Pacemaker Device Placement Date:: 10/2020 Past Psychological History: No Psychological Hx Reported Smoking Status: Former smoker Past Alcohol Use History: None Reported Past Drug Use History: None Reported - Past Family History Mother Family Medical History: Cancer Additional Family Medical History / Comment(s): BREAST CA Medications and Allergies Home Medications Medication Instructions Recorded Confirmed Type Warfarin Sodium 2.5 mg PO SUMOTUTHFRSA@209902/08/19 09/09/22 History Metoprolol Succinate [Toprol XL] 50 mg PO DAILY #90 tab 10/29/20 09/09/22 Rx Cholecalciferol [Vitamin D3 (25 50 mcg PO DAILY 09/09/22 09/09/22 History Mcg = 1000 Iu)] Ferrous Sulfate [Feosol] 325 mg PO DAILY 09/09/22 09/09/22 History Glucosamine Sulfate 500 mg PO HS 09/09/22 09/09/22 History Losartan [Cozaar] 12.5 mg PO DAILY 09/09/22 09/09/22 History Spironolactone [Aldactone] 12.5 mg PO DAILY 09/09/22 09/09/22 History Thiamine [Vitamin B-1] 100 mg PO DAILY 09/09/22 09/09/22 History Torsemide [Demadex] 30 mg PO BID 09/09/22 09/09/22 History Warfarin [Coumadin] 1.25 mg PO WE@209909/09/22 09/09/22 History metOLazone [Zaroxolyn] 2.5 mg PO BID 09/09/22 09/09/22 History Allergies Allergy/AdvReac Type Severity Reaction Status Date / Time aspirin Allergy Unknown Verified 09/09/22 17:18 Surgical - Exam Vital Signs Temp Pulse Resp BP Pulse Ox 98.4 F 55 L 20 97/66 87 L 09/09/22 16:18 09/09/22 16:18 09/09/22 16:18 09/09/22 16:18 09/09/22 16:18 Results - Labs 09/17/22 03:15 09/17/22 11:30 Abnormal Lab Results - Last 24 Hours (Table) 09/16/22 09/16/22 09/17/22 Range/Units 17:28 23:04 03:15 RBC (4.30-5.90) m/uL Hgb (13.0-17.5) gm/dL Hct (39.0-53.0) % Plt Count (150-450) k/uL Neutrophils # (1.3-7.7) k/uL Lymphocytes # (1.0-4.8) k/uL PT (9.0-12.0) sec INR (<1.2) ABG pH (7.35-7.45) ABG pCO2 (35-45) mmHg ABG HCO3 (21-25) mmol/L ABG Total CO2 (19-24) mmol/L ABG O2 Saturation (94-97) % Potassium 3.1 L (3.5-5.1) mmol/L Carbon Dioxide 34 H (22-30) mmol/L BUN 152 H* (9-20) mg/dL Creatinine 3.43 H (0.66-1.25) mg/dL Glucose 156 H (74-99) mg/dL POC Glucose (mg/dL) 178 H 195 H (70-110) mg/dL Calcium 8.1 L (8.4-10.2) mg/dL Magnesium 2.7 H (1.6-2.3) mg/dL 09/17/22 09/17/22 09/17/22 Range/Units 03:15 03:15 04:28 RBC 3.51 L (4.30-5.90) m/uL Hgb 10.6 L (13.0-17.5) gm/dL Hct 33.5 L (39.0-53.0) % Plt Count 98 L (150-450) k/uL Neutrophils # 9.8 H (1.3-7.7) k/uL Lymphocytes # 0.1 L (1.0-4.8) k/uL PT 27.9 H (9.0-12.0) sec INR 2.9 H (<1.2) ABG pH 7.46 H (7.35-7.45) ABG pCO2 50 H (35-45) mmHg ABG HCO3 35 H (21-25) mmol/L ABG Total CO2 37 H (19-24) mmol/L ABG O2 Saturation 99.2 H (94-97) % Potassium (3.5-5.1) mmol/L Carbon Dioxide (22-30) mmol/L BUN (9-20) mg/dL Creatinine (0.66-1.25) mg/dL Glucose (74-99) mg/dL POC Glucose (mg/dL) (70-110) mg/dL Calcium (8.4-10.2) mg/dL Magnesium (1.6-2.3) mg/dL 09/17/22 09/17/22 09/17/22 Range/Units 06:07 11:30 11:30 RBC (4.30-5.90) m/uL Hgb (13.0-17.5) gm/dL Hct (39.0-53.0) % Plt Count (150-450) k/uL Neutrophils # (1.3-7.7) k/uL Lymphocytes # (1.0-4.8) k/uL PT 24.1 H (9.0-12.0) sec INR 2.5 H (<1.2) ABG pH (7.35-7.45) ABG pCO2 (35-45) mmHg ABG HCO3 (21-25) mmol/L ABG Total CO2 (19-24) mmol/L ABG O2 Saturation (94-97) % Potassium 3.3 L (3.5-5.1) mmol/L Carbon Dioxide (22-30) mmol/L BUN (9-20) mg/dL Creatinine (0.66-1.25) mg/dL Glucose (74-99) mg/dL POC Glucose (mg/dL) 191 H (70-110) mg/dL Calcium (8.4-10.2) mg/dL Magnesium (1.6-2.3) mg/dL 09/17/22 Range/Units 11:30 RBC (4.30-5.90) m/uL Hgb (13.0-17.5) gm/dL Hct (39.0-53.0) % Plt Count (150-450) k/uL Neutrophils # (1.3-7.7) k/uL Lymphocytes # (1.0-4.8) k/uL PT (9.0-12.0) sec INR (<1.2) ABG pH (7.35-7.45) ABG pCO2 (35-45) mmHg ABG HCO3 (21-25) mmol/L ABG Total CO2 (19-24) mmol/L ABG O2 Saturation (94-97) % Potassium (3.5-5.1) mmol/L Carbon Dioxide (22-30) mmol/L BUN (9-20) mg/dL Creatinine (0.66-1.25) mg/dL Glucose (74-99) mg/dL POC Glucose (mg/dL) 169 H (70-110) mg/dL Calcium (8.4-10.2) mg/dL Magnesium (1.6-2.3) mg/dL Microbiology - Last 24 Hours (Table) 09/13/22 16:30 Gram Stain - Final Sputum Sputum Culture - Final Diabetes panel 09/17/22 09/17/22 Range/Units 03:15 11:30 Sodium 144 (137-145) mmol/L Potassium 3.1 L 3.3 L (3.5-5.1) mmol/L Chloride 101 (98-107) mmol/L Carbon Dioxide 34 H (22-30) mmol/L BUN 152 H* (9-20) mg/dL Creatinine 3.43 H (0.66-1.25) mg/dL Glucose 156 H (74-99) mg/dL Calcium 8.1 L (8.4-10.2) mg/dL Calcium panel 09/17/22 Range/Units 03:15 Calcium 8.1 L (8.4-10.2) mg/dL Pituitary panel 09/17/22 09/17/22 Range/Units 03:15 11:30 Sodium 144 (137-145) mmol/L Potassium 3.1 L 3.3 L (3.5-5.1) mmol/L Chloride 101 (98-107) mmol/L Carbon Dioxide 34 H (22-30) mmol/L BUN 152 H* (9-20) mg/dL Creatinine 3.43 H (0.66-1.25) mg/dL Glucose 156 H (74-99) mg/dL Calcium 8.1 L (8.4-10.2) mg/dL Adrenal panel 09/17/22 09/17/22 Range/Units 03:15 11:30 Sodium 144 (137-145) mmol/L Potassium 3.1 L 3.3 L (3.5-5.1) mmol/L Chloride 101 (98-107) mmol/L Carbon Dioxide 34 H (22-30) mmol/L BUN 152 H* (9-20) mg/dL Creatinine 3.43 H (0.66-1.25) mg/dL Glucose 156 H (74-99) mg/dL Calcium 8.1 L (8.4-10.2) mg/dL
--- NOTE | 2022-09-17 16:01 | P.PCN ---
Description of Procedure: Preop diagnoses is acute kidney injury secondary to ATN hyperkalemia Postop same Procedure right groin was prepped and draped applied sterile manner. Ultrasound-guided micropuncture introduced to right femoral vein and micropuncture guidewire was passed under local anesthesia of for that we passed a 4-Nigerian dilator top the guidewire then replaced a 4-Nigerian sheath on the top of the guidewire through the sheath we did use guidewire then we advanced dilator and then we placed a dialysis catheter flushed with heparin saline and Hep-Lock secured with 3-0 nylon dressing applied patient tolerated the procedure well
[2022-09-17] MEDS ORDERED: WARFARIN 1 MG TAB PO ONE (18:00)
[2022-09-17 19:15] LABS: Glucose,Whole Blood 124 mg/dL (70-110)
[2022-09-17] MEDS: levETIRAcetam IV 500 MG in SODIUM CHLORIDE 0.9% 100 ML IVPB SCH (20:52)
[2022-09-17 21:25] LABS: HCT 31.6 % (39.0-53.0); HGB 10.2 gm/dL (13.0-17.5); Hypochromasia Slight; MCH 30.7 pg (25.0-35.0); MCHC 32.4 g/dL (31.0-37.0); MCV 94.9 fL (80.0-100.0); Mean Platelet Volume 10.1; Platelet Count 102 k/uL (150-450); RBC 3.33 m/uL (4.30-5.90); RDW 15.1 % (11.5-15.5)
--- NOTE | 2022-09-17 22:56 | EEG ---
ELECTROENCEPHALOGRAM REPORT PREAMBLE: This is a 67-year-old male with persistent altered mental status. This study is performed to evaluate for any epileptiform activity. EEG FINDINGS: This is a 21-channel digital EEG recorded with video component, utilizing 10/20 international system with referential and bipolar montages. Background consists of disorganized, poorly regulated, diffuse 2 to 3 hertz delta slowing intermixed with some generalized suppression. Intermittent higher amplitude slightly frontally predominant triphasic type waves were seen frequently during this study. Sometimes, some phase reversal was also noticed. Significant myogenic activity was noted in the frontal region. Different stages of sleep were not seen. Photic driving response was not seen. EKG channel showed significant arrhythmia. IMPRESSION: This is an abnormal EEG due to: 1. Background slowing of [id number] degree. This is suggestive of generalized cerebral dysfunction as can be seen with toxic metabolic encephalopathy or due to diffuse structural brain abnormality. 2. Presence of higher amplitude, slightly frontally or occipitally predominant triphasic type waves, which at times have more generalized distribution with occasional phase reversal. This may suggest underlying cortical irritability. When compared to the EEG from 09/14/2022, the background has become more slow, and new appearance of this higher amplitude triphasic vs sharp appearing waves. Clinical correlation is strongly recommended. MMODL / IJN: [id number] / [facility]
[2022-09-17] MEDS: SODIUM CHLORIDE 0.9% 1,000 ML IV SCH (23:24)
[2022-09-17 23:27] LABS: Glucose,Whole Blood 152 mg/dL (70-110)
[2022-09-18] MEDS: NOREPINEPHRINE 8 MG in SODIUM CHLORIDE 0.9% 250 ML IV SCH ×3 (01:57→18:54)
[2022-09-18] MEDS: IPRATROPIUM-ALBUTEROL 3 ML NEB INHALATION SCH ×6 (03:22→23:57)
[2022-09-18 05:40] LABS: ABG Base Excess 10.3 mmol/L; ABG HCO3 34 mmol/L (21-25); ABG Oxygen Saturation 99.1 % (94-97); ABG PCO2 45 mmHg (35-45); ABG PH 7.48 (7.35-7.45); ABG PO2 108 mmHg (83-108); ABG TCO2 35 mmol/L (19-24); Allen Test Performed? Yes
[2022-09-18] MEDS: INSULIN ASPART (NovoLOG) 100 UNIT/ML VIAL SQ SCH ×3 (05:55→18:54)
[2022-09-18 05:56] LABS: Glucose,Whole Blood 106 mg/dL (70-110)
[2022-09-18] MEDS: MIDODRINE 5 MG TAB PO SCH ×3 (07:02→18:58)
[2022-09-18] MEDS: BUDESONIDE 1 MG/2 ML NEBU INHALATION SCH ×2 (07:21→20:02)
[2022-09-18 07:34] LABS: HCT 31.7 % (39.0-53.0); HGB 10.4 gm/dL (13.0-17.5); Hypochromasia Moderate; MCH 31.7 pg (25.0-35.0); MCV 96.2 fL (80.0-100.0); Mean Platelet Volume 10.2; Platelet Count 106 k/uL (150-450); RBC 3.29 m/uL (4.30-5.90); RDW 14.9 % (11.5-15.5); WBC 10.1 k/uL (3.8-10.6)
[2022-09-18 07:43] LABS: INR 1.4 (<1.2); Prothrombin Time 14.1 sec (9.0-12.0)
[2022-09-18 08:10] LABS: Albumin 2.8 g/dL (3.5-5.0); Calcium 7.9 mg/dL (8.4-10.2); Potassium 3.1 mmol/L (3.5-5.1); Total Bilirubin 1.4 mg/dL (0.2-1.3); Total Protein 5.4 g/dL (6.3-8.2)
--- NOTE | 2022-09-18 08:15 | P.PN ---
Subjective Progress Note Date: 09/18/22 PROGRESS NOTE The patient is a 67-year-old male who presented with symptoms of progressive dyspnea and CHF requiring chemical ventilation. He is intubated and sedated. Hemodynamically he is stable. He is having good urinary output. She has chronic atrial fibrillation and his ventricular response is controlled. He has been paced. There is no evidence of ventricular ectopic activity. He had recent Covid infection. He has renal failure and a history of chronic kidney disease. He was intubated yesterday. He has a pacemaker with normal sensing and pacing. His echocardiogram in July showed an ejection fraction of 45% with mild mitral and severe tricuspid regurgitation. He underwent cardiac catheterization in 2019 that showed mild obstructive disease. He is followed on a regular basis by Dr. Fletcher. He has a biventricular pacer placed in October 2020. He has a prior history of ventricular tachycardia. September 15: The patient remains intubated and sedated, he has good urinary output. He is ventricularly paced with no evidence of ventricular tachycardia. He continues to be on norepinephrine at the lower dose. Hemodynamically there is no significant changes. He has been followed by the neurology service for the metabolic encephalopathy and the myoclonic jerks that was thought to be related to metabolic abnormalities. September 16: The patient remains intubated, he is on no sedation. He remains unresponsive. His blood pressure is stable. His echocardiogram showed an ejection fraction of 50% with mild aortic stenosis and mild to moderate mitral and moderate to severe tricuspid regurgitation. His chest x-ray showed diffuse changes with pleural effusion. No evidence of recurrent ventricular tachycardia. September 17: The patient remains intubated, unresponsive, not sedated. He has no evidence of ventricular ectopic activity or pacemaker malfunction. His urine output has been stable. Hemodynamically he has been stable. He is undergoing an EEG to further evaluate his neurological status. His head CT yesterday showed no significant changes. September 18: He remains intubated, he had dialysis yesterday, his blood pressure dropped at the end of dialysis with removal of 800 mL. He appears to be more awake today, opening his eyes to command and following orders. He has no evidence of ventricular ectopic activity. He is scheduled to undergo repeat dialysis today. His blood pressure is stable this morning. His urine output has been good. He had evidence of GI bleeding and was evaluated by the GI service today, awaiting further input. If he has further reading he may require colonoscopy. Medications: Lasix 40 mg IV daily, midodrine 10 mg 3 times a day, Solu-Medrol, Coumadin, norepinephrine PHYSICAL EXAMINATION: Blood pressure 108/60 heart rate 60, intubated, following verbal commands LUNGS: Clear to auscultation anteriorly HEART: Regular rate and rhythm, S1, S2. No S3. Holosystolic murmur at the apex, 3/6 ABDOMEN: Soft, positive bowel sounds, no organomegaly EXTREMETIES: +1 edema, Red wrap LAB: Hemoglobin 10.4, INR 1.4, pH 7.48, heme-positive stool. 1. Respiratory failure with CHF and possible aspiration. He had a mildly impai red systolic function in the past 2. Worsening renal failure with acute renal injury, non-oliguric, underwent dialysis yesterday 3. Atrial fibrillation, anticoagulated, anticoagulation on hold because of recent GI bleeding 4. Post biventricular pacing 5. Recent COVID infection 7. Obesity 8. Unresponsiveness rule out neurological event, rule out metabolic encephalopathy with uremic encephalopathy, improving after dialysis PLAN: 1. Continue dialysis as scheduled 2. Follow neurological status 3. Follow hemoglobin to make a decision regarding anticoagulation 4. Depending on his progress further recommendations will be made Objective - Vital Signs Vital signs: Vital Signs Temp 98.7 F 09/18/22 04:00 Pulse 59 L 09/18/22 07:37 Resp 32 H 09/18/22 07:00 BP 104/54 09/17/22 19:09 Pulse Ox 97 09/18/22 07:00 FiO2 40 09/18/22 07:20 Intake & Output 09/17/22 09/18/22 09/18/22 18:59 06:59 18:59 Intake Total 946 507.893 23 Output Total 1675 1285 100 Balance -729 -777.107 -77 Weight 114.8 kg Intake: IV 303 276 23 Lacosamide IV 50 mg In 50 Sodium Chloride 0.9% 50 ml @ 100 mls/hr IVPB BID [facility] Rx#:[id number] Pressure Bag 33 36 3 Sodium Chloride 0.9% 1, 220 240 20 000 ml @ 20 mls/hr IV . Q24H [facility] Rx#:[id number] Intake, IV Titration 231.893 Amount Norepinephrine 8 mg In 31.893 Sodium Chloride 0.9% 250 ml @ 0.22 MCG/KG/MIN 51. 595 mls/hr IV .Q5H1M [facility] Rx#:[id number] Piperacillin-Tazobactam 3 100 .375 gm In Sodium Chloride 0.9% 100 ml @ 25 mls/hr IVPB Q8HR [facility] Rx# :[id number] levETIRAcetam IV 500 mg 100 In Sodium Chloride 0.9% 100 ml @ 400 mls/hr IVPB Q12HR [facility] Rx#:[id number] Tube Feeding 204 Blood Product 439 Ffp 24 Pher Acda Unit 217 [id number] Ffp 24 Pher Acda Cnt1 222 Unit [id number] Output: Gastric Drainage 200 Urine 1675 1085 100 Other: Voiding Method Indwelling Catheter Indwelling Catheter # Bowel Movements 1 1 ABP, PAP, CO, CI - Last Documented Arterial Blood Pressure 108/52 - Labs CBC & Chem 7: 09/18/22 04:20 09/17/22 11:30 Labs: Abnormal Lab Results - Last 24 Hours (Table) 09/17/22 09/17/22 09/17/22 Range/Units 11:30 11:30 11:30 RBC (4.30-5.90) m/uL Hgb (13.0-17.5) gm/dL Hct (39.0-53.0) % Plt Count (150-450) k/uL PT 24.1 H (9.0-12.0) sec INR 2.5 H (<1.2) ABG pH (7.35-7.45) ABG HCO3 (21-25) mmol/L ABG Total CO2 (19-24) mmol/L ABG O2 Saturation (94-97) % Potassium 3.3 L (3.5-5.1) mmol/L POC Glucose (mg/dL) 169 H (70-110) mg/dL 09/17/22 09/17/22 09/17/22 Range/Units 19:14 20:42 23:25 RBC 3.33 L (4.30-5.90) m/uL Hgb 10.2 L (13.0-17.5) gm/dL Hct 31.6 L (39.0-53.0) % Plt Count 102 L (150-450) k/uL PT (9.0-12.0) sec INR (<1.2) ABG pH (7.35-7.45) ABG HCO3 (21-25) mmol/L ABG Total CO2 (19-24) mmol/L ABG O2 Saturation (94-97) % Potassium (3.5-5.1) mmol/L POC Glucose (mg/dL) 124 H 152 H (70-110) mg/dL 09/18/22 09/18/22 09/18/22 Range/Units 04:20 04:20 05:35 RBC 3.29 L (4.30-5.90) m/uL Hgb 10.4 L (13.0-17.5) gm/dL Hct 31.7 L (39.0-53.0) % Plt Count 106 L (150-450) k/uL PT 14.1 H (9.0-12.0) sec INR 1.4 H (<1.2) ABG pH 7.48 H (7.35-7.45) ABG HCO3 34 H (21-25) mmol/L ABG Total CO2 35 H (19-24) mmol/L ABG O2 Saturation 99.1 H (94-97) % Potassium (3.5-5.1) mmol/L POC Glucose (mg/dL) (70-110) mg/dL
--- NOTE | 2022-09-18 08:50 | XR ---
EXAMINATION TYPE: XR chest 1V portable DATE OF EXAM: 09/18/2022 COMPARISON: 09/17/2022 HISTORY: Tube placement TECHNIQUE: Single frontal view of the chest is obtained. FINDINGS: ET and NG tube stable. Cardiac device noted. Cardiomegaly with bilateral pleural effusion and infiltrate noted. Diffuse interstitial pattern. No pneumothorax. Left-sided central line stable. A pleural fluid on the right could be loculated stable from previous exam. IMPRESSION: Stable bilateral pleural effusion and consolidation unchanged from prior exam. Degree of underlying CHF in the differential diagnosis.
--- NOTE | 2022-09-18 09:13 | P.PN ---
Subjective Progress Note Date: 09/17/22 09/17/2022: Patient's was present today. He then apparently has developed GI bleed. Patient's renal functions continue to get worse. Hemodialysis was attempted, but he could not tolerate as his blood pressure started dropping. No seizure-like activity noticed. 09/16/2022: Patient was seen for follow-up. Patient's and patient's [id number] visiting from [place] were present today. Patient is off sedation. He is not showing significant improvement. Continues to be very encephalopathic, keeps his eyes closed. No seizure-like activity witnessed. 09/15/2022: Patient was seen for a follow-up. Patient is off sedation and pressors since 10:30 AM today. He still very encephalopathic. Patient's nurse has noticed that he moves all extremities. He does not follow some commands. He is still somnolent. No seizure-like activity. 09/14/2022: Patient was seen for a follow-up. Patient initially seen by Dr. Jayesh Mendoza. Please refer to his note for details. Patient is a 67-year-old male with anisocoria, left more than right, but reactive to light. He has altered mental status due to metabolic/hypercapnic, kidney insufficiency. Patient had an EEG for myoclonic jerks and no seizures were seen. MRI of the brain and MRA were recommended. Repeat EEG was performed today. Spoke to patient's nurse as well as patient's . Patient is currently on propofol 50 g per program per minute. He was also on Nimbex, which has been discontinued as of 6 AM today. Patient's pupils are now equal round and reacting. Objective - Vital Signs Vital signs: Vital Signs Temp 97.6 F 09/17/22 19:09 Pulse 66 09/17/22 19:09 Resp 24 09/17/22 19:09 BP 104/54 09/17/22 19:09 Pulse Ox 100 09/17/22 19:00 FiO2 40 09/17/22 16:00 Intake & Output 09/17/22 09/17/22 09/18/22 06:59 18:59 06:59 Intake Total 894 946 23 Output Total 0851 8255 40 Balance -596 -729 -17 Weight 114.5 kg Intake: IV 326 303 23 Lacosamide IV 50 mg In 50 50 Sodium Chloride 0.9% 50 ml @ 100 mls/hr IVPB BID [facility] Rx#:[id number] Pressure Bag 36 33 3 Sodium Chloride 0.9% 1, 240 220 20 000 ml @ 20 mls/hr IV . Q24H [facility] Rx#:[id number] Intake, IV Titration 100 0 Amount Norepinephrine 8 mg In 0 Sodium Chloride 0.9% 250 ml @ 0.22 MCG/KG/MIN 51. 595 mls/hr IV .Q5H1M [facility] Rx#:[id number] Piperacillin-Tazobactam 3 100 .375 gm In Sodium Chloride 0.9% 100 ml @ 25 mls/hr IVPB Q8HR [facility] Rx# :[id number] Tube Feeding 408 204 Blood Product 439 Ffp 24 Pher Acda Unit 217 [id number] Ffp 24 Pher Acda Cnt1 222 Unit [id number] Other 60 Output: Urine 1490 1675 40 Other: Voiding Method Indwelling Catheter Indwelling Catheter # Bowel Movements 1 1 ABP, PAP, CO, CI - Last Documented Arterial Blood Pressure 109/55 - Exam Patient is intubated, off sedation since 10:30 AM 09/15/2022. Patient's pupils are equal, round and briskly reacting. Oculocephalics are present. Corneals present. Patient has slightly less prominent facial grimacing on painful stimuli on either upper and lower extremities as compared to yesterday. Patient moves lower extremities much better with painful stimuli. - Labs CBC & Chem 7: 09/18/22 04:20 09/18/22 04:20 Labs: Abnormal Lab Results - Last 24 Hours (Table) 09/16/22 09/17/22 09/17/22 Range/Units 23:04 03:15 03:15 RBC 3.51 L (4.30-5.90) m/uL Hgb 10.6 L (13.0-17.5) gm/dL Hct 33.5 L (39.0-53.0) % Plt Count 98 L (150-450) k/uL Neutrophils # 9.8 H (1.3-7.7) k/uL Lymphocytes # 0.1 L (1.0-4.8) k/uL PT (9.0-12.0) sec INR (<1.2) ABG pH (7.35-7.45) ABG pCO2 (35-45) mmHg ABG HCO3 (21-25) mmol/L ABG Total CO2 (19-24) mmol/L ABG O2 Saturation (94-97) % Potassium 3.1 L (3.5-5.1) mmol/L Carbon Dioxide 34 H (22-30) mmol/L BUN 152 H* (9-20) mg/dL Creatinine 3.43 H (0.66-1.25) mg/dL Glucose 156 H (74-99) mg/dL POC Glucose (mg/dL) 195 H (70-110) mg/dL Calcium 8.1 L (8.4-10.2) mg/dL Magnesium 2.7 H (1.6-2.3) mg/dL 09/17/22 09/17/22 09/17/22 Range/Units 03:15 04:28 06:07 RBC (4.30-5.90) m/uL Hgb (13.0-17.5) gm/dL Hct (39.0-53.0) % Plt Count (150-450) k/uL Neutrophils # (1.3-7.7) k/uL Lymphocytes # (1.0-4.8) k/uL PT 27.9 H (9.0-12.0) sec INR 2.9 H (<1.2) ABG pH 7.46 H (7.35-7.45) ABG pCO2 50 H (35-45) mmHg ABG HCO3 35 H (21-25) mmol/L ABG Total CO2 37 H (19-24) mmol/L ABG O2 Saturation 99.2 H (94-97) % Potassium (3.5-5.1) mmol/L Carbon Dioxide (22-30) mmol/L BUN (9-20) mg/dL Creatinine (0.66-1.25) mg/dL Glucose (74-99) mg/dL POC Glucose (mg/dL) 191 H (70-110) mg/dL Calcium (8.4-10.2) mg/dL Magnesium (1.6-2.3) mg/dL 09/17/22 09/17/22 09/17/22 Range/Units 11:30 11:30 11:30 RBC (4.30-5.90) m/uL Hgb (13.0-17.5) gm/dL Hct (39.0-53.0) % Plt Count (150-450) k/uL Neutrophils # (1.3-7.7) k/uL Lymphocytes # (1.0-4.8) k/uL PT 24.1 H (9.0-12.0) sec INR 2.5 H (<1.2) ABG pH (7.35-7.45) ABG pCO2 (35-45) mmHg ABG HCO3 (21-25) mmol/L ABG Total CO2 (19-24) mmol/L ABG O2 Saturation (94-97) % Potassium 3.3 L (3.5-5.1) mmol/L Carbon Dioxide (22-30) mmol/L BUN (9-20) mg/dL Creatinine (0.66-1.25) mg/dL Glucose (74-99) mg/dL POC Glucose (mg/dL) 169 H (70-110) mg/dL Calcium (8.4-10.2) mg/dL Magnesium (1.6-2.3) mg/dL 09/17/22 Range/Units 19:14 RBC (4.30-5.90) m/uL Hgb (13.0-17.5) gm/dL Hct (39.0-53.0) % Plt Count (150-450) k/uL Neutrophils # (1.3-7.7) k/uL Lymphocytes # (1.0-4.8) k/uL PT (9.0-12.0) sec INR (<1.2) ABG pH (7.35-7.45) ABG pCO2 (35-45) mmHg ABG HCO3 (21-25) mmol/L ABG Total CO2 (19-24) mmol/L ABG O2 Saturation (94-97) % Potassium (3.5-5.1) mmol/L Carbon Dioxide (22-30) mmol/L BUN (9-20) mg/dL Creatinine (0.66-1.25) mg/dL Glucose (74-99) mg/dL POC Glucose (mg/dL) 124 H (70-110) mg/dL Calcium (8.4-10.2) mg/dL Magnesium (1.6-2.3) mg/dL Assessment and Plan Assessment: -Altered mental status due to Metabolic encephalopathy, probably multifactorial. Patient has hypercapnia with acute renal failure. (worsening) -Anisocoria, now resolved. Perhaps related to medication effect. -Myoclonic jerks and I feel it's most likely due to his metabolic dysfunction and unlikely seizures. -Acute hypoxemic and hypercapnic respiratory failure -Supratherapeutic INR -History of chronic atrial fibrillation on Coumadin -History of chronic kidney disease -Hypertension -History of recent [place] virus -Bilateral lower extremity edema -History of tobacco use -Anemia -Thrombocytopenia Plan: 1. Patient's mentation has not improved significantly. Repeat EEG from today showed background slowing of moderate to severe degree consistent with encephalopathy. Presence of higher amplitude slightly frontally predominant triphasic-type waves, which at times have more generalized distribution with occasional phase reversal. This may suggest underlying cortical irritability. When compared to the EEG from 09/14/2022, the background has become more slow and new appearance of this high amplitude triphasic Waves. Clinical correlation is strongly recommended.. 2. Discontinue Vimpat because of concern about generalized sharp-appearing waves. We will start Keppra 500 mg twice a day. 3. Continue supportive respiratory care 4. Continue nephrology care for kidney disease. Renal functions are worsening. Patient may need hemodialysis to improve his mentation. 5. TSH 0.78, B12 1159, ammonia 19, hemoglobin A1c 5.6, all normal. 6. CT head showed age-related changes, with no acute process. 7. Medical management as per IM and other specialties. Discussed with patient's and nursing staff in detail.
[2022-09-18 09:52] VITALS: BMI 32.5
[2022-09-18] MEDS: CHLORHEXIDINE GLUCONATE 15 ML CUP MUCOUS MEM SCH ×2 (10:18→20:58)
[2022-09-18] MEDS: FUROSEMIDE 10 MG/ML 4 ML VIAL IV SCH (10:18)
[2022-09-18] MEDS: PIPERACILLIN-TAZOBACTAM 3.375 GM in SODIUM CHLORIDE 0.9% 100 ML IVPB SCH ×2 (10:18→18:58)
[2022-09-18] MEDS: PANTOPRAZOLE 40 MG/10 ML VIAL IVP SCH (10:18)
[2022-09-18] MEDS: levETIRAcetam IV 500 MG in SODIUM CHLORIDE 0.9% 100 ML IVPB SCH ×2 (10:37→20:58)
--- NOTE | 2022-09-18 10:37 | P.PN ---
Subjective Patient is seen for follow-up for acute kidney injury. He is currently on the vent At 2.46. Patient continues to have good urine output at about 100 ML per hour. Patient's BUN had increased to 152 yesterday with no improvement in mentation therefore he was started on hemodialysis. This morning patient is following commands. Labs show BUN down to 105 and creatinine. Patient is seen on hemodialysis. He is tolerating his treatment well. Objective - Vital Signs Vital signs: Vital Signs Temp 97.7 F 09/18/22 08:00 Pulse 63 09/18/22 10:00 Resp 32 H 09/18/22 07:00 BP 104/54 09/17/22 19:09 Pulse Ox 98 09/18/22 10:00 FiO2 40 09/18/22 10:00 Intake & Output 09/17/22 09/18/22 09/18/22 18:59 06:59 18:59 Intake Total 946 507.893 92 Output Total 1675 1285 425 Balance -729 -777.107 -333 Weight 114.8 kg 114.8 kg Intake: IV 303 276 92 Lacosamide IV 50 mg In 50 Sodium Chloride 0.9% 50 ml @ 100 mls/hr IVPB BID YULY Rx#:[id number] Pressure Bag 33 36 12 Sodium Chloride 0.9% 1, 220 240 80 000 ml @ 20 mls/hr IV . Q24H Y[facility]Y Rx#:[id number] Intake, IV Titration 231.893 Amount Norepinephrine 8 mg In 31.893 Sodium Chloride 0.9% 250 ml @ 0.22 MCG/KG/MIN 51. 595 mls/hr IV .Q5H1M Y[facility]Y Rx#:[id number] Piperacillin-Tazobactam 3 100 .375 gm In Sodium Chloride 0.9% 100 ml @ 25 mls/hr IVPB Q8HR Y[facility]Y Rx# :[id number] levETIRAcetam IV 500 mg 100 In Sodium Chloride 0.9% 100 ml @ 400 mls/hr IVPB Q12HR Y[facility]Y Rx#:[id number] Tube Feeding 204 Blood Product 439 Ffp 24 Pher Acda Unit 217 [id number] Ffp 24 Pher Acda Cnt1 222 Unit [id number] Output: Gastric Drainage 200 Urine 1675 1085 425 Other: Voiding Method Indwelling Catheter Indwelling Catheter # Bowel Movements 1 1 ABP, PAP, CO, CI - Last Documented Arterial Blood Pressure 118/53 - Exam on the vent Off of sedation Examination of the heart S1 and S2 Examination of the lungs shows bilateral breath sounds are heard Abdomen is soft nontender Examination lower extremity shows significant edema in the lower extremities with scrotal edema noted. Both legs are wrapped Withdraws to painful stimuli and also following commands today. - Labs CBC & Chem 7: 09/18/22 04:20 09/18/22 04:20 Labs: Abnormal Lab Results - Last 24 Hours (Table) 09/17/22 09/17/22 09/17/22 Range/Units 11:30 11:30 11:30 RBC (4.30-5.90) m/uL Hgb (13.0-17.5) gm/dL Hct (39.0-53.0) % Plt Count (150-450) k/uL PT 24.1 H (9.0-12.0) sec INR 2.5 H (<1.2) ABG pH (7.35-7.45) ABG HCO3 (21-25) mmol/L ABG Total CO2 (19-24) mmol/L ABG O2 Saturation (94-97) % Sodium (137-145) mmol/L Potassium 3.3 L (3.5-5.1) mmol/L Carbon Dioxide (22-30) mmol/L BUN (9-20) mg/dL Creatinine (0.66-1.25) mg/dL Glucose (74-99) mg/dL POC Glucose (mg/dL) 169 H (70-110) mg/dL Calcium (8.4-10.2) mg/dL Total Bilirubin (0.2-1.3) mg/dL Total Protein (6.3-8.2) g/dL Albumin (3.5-5.0) g/dL 09/17/22 09/17/22 09/17/22 Range/Units 19:14 20:42 23:25 RBC 3.33 L (4.30-5.90) m/uL Hgb 10.2 L (13.0-17.5) gm/dL Hct 31.6 L (39.0-53.0) % Plt Count 102 L (150-450) k/uL PT (9.0-12.0) sec INR (<1.2) ABG pH (7.35-7.45) ABG HCO3 (21-25) mmol/L ABG Total CO2 (19-24) mmol/L ABG O2 Saturation (94-97) % Sodium (137-145) mmol/L Potassium (3.5-5.1) mmol/L Carbon Dioxide (22-30) mmol/L BUN (9-20) mg/dL Creatinine (0.66-1.25) mg/dL Glucose (74-99) mg/dL POC Glucose (mg/dL) 124 H 152 H (70-110) mg/dL Calcium (8.4-10.2) mg/dL Total Bilirubin (0.2-1.3) mg/dL Total Protein (6.3-8.2) g/dL Albumin (3.5-5.0) g/dL 09/18/22 09/18/22 09/18/22 Range/Units 04:20 04:20 04:20 RBC 3.29 L (4.30-5.90) m/uL Hgb 10.4 L (13.0-17.5) gm/dL Hct 31.7 L (39.0-53.0) % Plt Count 106 L (150-450) k/uL PT 14.1 H (9.0-12.0) sec INR 1.4 H (<1.2) ABG pH (7.35-7.45) ABG HCO3 (21-25) mmol/L ABG Total CO2 (19-24) mmol/L ABG O2 Saturation (94-97) % Sodium 147 H (137-145) mmol/L Potassium 3.1 L (3.5-5.1) mmol/L Carbon Dioxide 33 H (22-30) mmol/L BUN 105 H* (9-20) mg/dL Creatinine 2.46 H (0.66-1.25) mg/dL Glucose 100 H (74-99) mg/dL POC Glucose (mg/dL) (70-110) mg/dL Calcium 7.9 L (8.4-10.2) mg/dL Total Bilirubin 1.4 H (0.2-1.3) mg/dL Total Protein 5.4 L (6.3-8.2) g/dL Albumin 2.8 L (3.5-5.0) g/dL 09/18/22 Range/Units 05:35 RBC (4.30-5.90) m/uL Hgb (13.0-17.5) gm/dL Hct (39.0-53.0) % Plt Count (150-450) k/uL PT (9.0-12.0) sec INR (<1.2) ABG pH 7.48 H (7.35-7.45) ABG HCO3 34 H (21-25) mmol/L ABG Total CO2 35 H (19-24) mmol/L ABG O2 Saturation 99.1 H (94-97) % Sodium (137-145) mmol/L Potassium (3.5-5.1) mmol/L Carbon Dioxide (22-30) mmol/L BUN (9-20) mg/dL Creatinine (0.66-1.25) mg/dL Glucose (74-99) mg/dL POC Glucose (mg/dL) (70-110) mg/dL Calcium (8.4-10.2) mg/dL Total Bilirubin (0.2-1.3) mg/dL Total Protein (6.3-8.2) g/dL Albumin (3.5-5.0) g/dL Assessment and Plan Assessment: 1. Acute kidney injury secondary to ATN secondary to hypotension and cardiorenal syndrome. Urine output significantly improved. Creatinine stable. Elevated BUN partially due to steroids. No hydronephrosis noted on kidney ultrasound. Start renal replacement therapy as BUN is significantly elevated and there may be possible underlying uremic encephalopathy. Hemodialysis started on 09/17/2022. Patient continues to have good urine output. Mentation has improved. 2. Chronic kidney disease stage IIIB with baseline creatinine 1.8-2 secondary to nephrosclerosis and cardiorenal syndrome. 3. Acute hypoxic and hypercapnic respiratory failure. Intubated. On 40% FiO2. 4. Acute on chronic systolic CHF with ejection fraction of 45% with severe tricuspid regurgitation. Status post AICD. 5. Hyperkalemia secondary to acute kidney injury. Resolved. 6. Encephalopathy, possibly uremic. Start HD. Mentation has improved 7. Hyponatremia 8. Hypokalemia we will replace with hemodialysis Plan: Replace potassium with hemodialysis Increase free water down the feeding tube Repeat hemodialysis in a.m. Hold Lasix
--- NOTE | 2022-09-18 10:40 | P.CONS ---
History of Present Illness - Reason for Consult Consult date: 09/18/22 Possible GI bleed Requesting physician: John Montesinos - Chief Complaint Shortness of breath - History of Present Illness This is a 67-year-old male patient who is admitted in the ICU. Patient initially came in on 09/09/2022 with complaints of shortness of breath. Appare ntly prior to that he had been hospitalized at [facility] was discharged home for about a week and had increased shortness of breath and came back for evaluation. On 09/13/2022 the patient was intubated and sedated. He has NG tube with tube feedings apparently when the patient had his NG tube placed he had had some fresh blood at that time but hemoglobin was stable and no further bleeding. Patient is on Coumadin for history of atrial fibrillation, he also has COPD and a permanent pacemaker. Patient is Coumadin has been on hold since 09/16/2022 for acute kidney injury and need for temporary hemodialysis catheter. Apparently yesterday patient had initially some fresh blood from the NG tube when checking residuals and then later had seen him dark stools. Vitamin K 10 mg was given as well as 2 units of FFP. INR yesterday following was 2.5 with a repeat today of 1.4. Patient has not had any further fresh blood noted from the NG tube and his last dark stool was at 3:30 in the morning. Hemoglobin is stable this morning at 10.4. Gastroenterology was consulted for evaluation of possible upper GI bleed. Labs WBC 10.1 hemoglobin 10.4 hematocrit 31 platelet count 106,000 INR 1.4 sodium 147 potassium 3.1 BUN 105 creatinine 2.4 glucose 100 total bili Donald 1.4 AST 23 ALT 19 alkaline phosphatase 64 patient had a positive gastric occult blood as well as stool occult blood. Review of Systems ROS unobtainable: due to endotracheal tube Past Medical History Past Medical History: Atrial Fibrillation, Hypertension, Renal Disease Additional Past Medical History / Comment(s): SEE DR CHIANG'S HISTORY AND PHYSICAL FOR CARDIAC HISTORY, CHRONIC KIDNEY DISEASE , History of Any Multi-Drug Resistant Organisms: None Reported Past Surgical History: No Surgical Hx Reported Past Anesthesia/Blood Transfusion Reactions: No Reported Reaction Type of Cardiac Device: Permanent Pacemaker Device Placement Date:: 10/2020 Past Psychological History: No Psychological Hx Reported Smoking Status: Former smoker Past Alcohol Use History: None Reported Past Drug Use History: None Reported - Past Family History Mother Family Medical History: Cancer Additional Family Medical History / Comment(s): BREAST CA Medications and Allergies Home Medications Medication Instructions Recorded Confirmed Type Warfarin Sodium 2.5 mg PO YASMINSA@2100 02/08/19 09/09/22 History Metoprolol Succinate [Toprol XL] 50 mg PO DAILY #90 tab 10/29/20 09/09/22 Rx Cholecalciferol [Vitamin D3 (25 50 mcg PO DAILY 09/09/22 09/09/22 History Mcg = 1000 Iu)] Ferrous Sulfate [Feosol] 325 mg PO DAILY 09/09/22 09/09/22 History Glucosamine Sulfate 500 mg PO HS 09/09/22 09/09/22 History Losartan [Cozaar] 12.5 mg PO DAILY 09/09/22 09/09/22 History Spironolactone [Aldactone] 12.5 mg PO DAILY 09/09/22 09/09/22 History Thiamine [Vitamin B-1] 100 mg PO DAILY 09/09/22 09/09/22 History Torsemide [Demadex] 30 mg PO BID 09/09/22 09/09/22 History Warfarin [Coumadin] 1.25 mg PO WE@209909/09/22 09/09/22 History metOLazone [Zaroxolyn] 2.5 mg PO BID 09/09/22 09/09/22 History Allergies Allergy/AdvReac Type Severity Reaction Status Date / Time aspirin Allergy Unknown Verified 09/09/22 17:18 Physical Exam Vitals: Vital Signs Temp Pulse Pulse Resp BP BP Pulse Ox 09/18/22 06:00 69 32 H 96 09/18/22 05:30 78 32 H 98 09/18/22 05:00 71 32 H 100 09/18/22 04:30 64 32 H 98 09/18/22 04:00 98.7 F 60 32 H 99 09/18/22 03:37 62 09/18/22 03:30 80 32 H 99 09/18/22 03:22 76 09/18/22 03:18 09/18/22 03:00 67 32 H 98 09/18/22 02:30 77 32 H 99 09/18/22 02:00 60 32 H 100 09/18/22 01:30 65 32 H 99 09/18/22 01:00 61 32 H 98 09/18/22 00:30 72 32 H 96 09/18/22 00:05 63 32 H 100 09/18/22 00:00 97.8 F 65 32 H 100 09/17/22 23:48 60 09/17/22 23:39 59 L 09/17/22 23:34 09/17/22 23:30 75 32 H 96 09/17/22 23:00 64 32 H 97 09/17/22 22:00 61 32 H 91 L 09/17/22 21:21 77 09/17/22 21:01 65 09/17/22 21:00 61 32 H 100 09/17/22 20:57 09/17/22 20:00 98.2 F 60 32 H 100 09/17/22 19:09 97.6 F 66 24 104/54 09/17/22 19:00 69 100 09/17/22 18:38 97.6 F 61 32 H 99/49 09/17/22 18:00 60 100 09/17/22 17:42 97.4 F L 66 32 H 116/51 100 09/17/22 17:22 97.7 F 67 32 H 110/53 100 09/17/22 17:13 97.8 F 67 32 H 113/55 100 09/17/22 17:00 97.8 F 60 32 H 119/56 100 09/17/22 16:02 60 09/17/22 16:00 97.9 F 59 L 32 H 100 09/17/22 15:51 97.8 F 65 32 H 109/47 96 09/17/22 15:50 60 09/17/22 15:31 97.9 F 68 32 H 116/52 100 09/17/22 15:23 97.7 F 65 32 H 106/45 99 09/17/22 15:12 09/17/22 15:00 72 32 H 99 09/17/22 14:00 84 32 H 100 09/17/22 13:00 82 32 H 100 09/17/22 12:00 98.2 F 80 32 H 100 09/17/22 11:28 82 09/17/22 11:18 81 09/17/22 11:15 09/17/22 11:00 85 32 H 100 09/17/22 10:00 78 32 H 100 09/17/22 09:00 81 33 H 100 09/17/22 08:30 80 09/17/22 08:19 78 09/17/22 08:00 98.3 F 82 32 H 99 09/17/22 07:29 09/17/22 07:00 89 32 H 100 FiO2 09/18/22 06:00 09/18/22 05:30 09/18/22 05:00 09/18/22 04:30 09/18/22 04:00 40 09/18/22 03:37 09/18/22 03:30 09/18/22 03:22 09/18/22 03:18 40 09/18/22 03:00 09/18/22 02:30 09/18/22 02:00 09/18/22 01:30 09/18/22 01:00 09/18/22 00:30 09/18/22 00:05 09/18/22 00:00 40 09/17/22 23:48 09/17/22 23:39 09/17/22 23:34 40 09/17/22 23:30 09/17/22 23:00 09/17/22 22:00 09/17/22 21:21 09/17/22 21:01 09/17/22 21:00 09/17/22 20:57 40 09/17/22 20:00 40 09/17/22 19:09 09/17/22 19:00 09/17/22 18:38 09/17/22 18:00 09/17/22 17:42 09/17/22 17:22 09/17/22 17:13 09/17/22 17:00 09/17/22 16:02 09/17/22 16:00 40 09/17/22 15:51 09/17/22 15:50 09/17/22 15:31 09/17/22 15:23 09/17/22 15:12 40 09/17/22 15:00 09/17/22 14:00 09/17/22 13:00 09/17/22 12:00 40 09/17/22 11:28 09/17/22 11:18 09/17/22 11:15 40 09/17/22 11:00 40 09/17/22 10:00 40 09/17/22 09:00 40 09/17/22 08:30 09/17/22 08:19 09/17/22 08:00 40 09/17/22 07:29 40 09/17/22 07:00 Intake and Output 09/17/22 09/17/22 09/18/22 14:59 22:59 06:59 Intake Total 415 728.276 310.617 Output Total 1235 740 985 Balance -820 -11.724 -674.383 Intake: IV 211 184 184 Lacosamide IV 50 mg In 50 Sodium Chloride 0.9% 50 ml @ 100 mls/hr IVPB BID YULY Rx#:[id number] Pressure Bag 21 24 24 Sodium Chloride 0.9% 1, 140 160 160 000 ml @ 20 mls/hr IV . Q24H YULY Rx#:[id number] Intake, IV Titration 105.276 126.617 Amount Norepinephrine 8 mg In 5.276 26.617 Sodium Chloride 0.9% 250 ml @ 0.22 MCG/KG/MIN 51. 595 mls/hr IV .Q5H1M Y[facility]Y Rx#:[id number] Piperacillin-Tazobactam 3 100 .375 gm In Sodium Chloride 0.9% 100 ml @ 25 mls/hr IVPB Q8HR Y[facility]Y Rx# :[id number] levETIRAcetam IV 500 mg 100 In Sodium Chloride 0.9% 100 ml @ 400 mls/hr IVPB Q12HR Y[facility]Y Rx#:[id number] Tube Feeding 204 Blood Product 439 Ffp 24 Pher Acda Unit 217 [id number] Ffp 24 Pher Acda Cnt1 222 Unit [id number] Output: Gastric Drainage 200 Urine 1235 740 785 Other: Voiding Method Indwelling Catheter Indwelling Catheter Indwelling Catheter # Bowel Movements 1 1 Weight 114.8 kg ABP, PAP, CO, CI - Last 8 Hours Arterial Blood Pressure 115/51 Arterial Blood Pressure 119/51 Arterial Blood Pressure 119/51 Arterial Blood Pressure 122/54 Arterial Blood Pressure 110/46 Arterial Blood Pressure 128/55 Arterial Blood Pressure 124/51 Arterial Blood Pressure 136/58 Arterial Blood Pressure 111/47 Arterial Blood Pressure 117/51 Arterial Blood Pressure 113/46 Arterial Blood Pressure 114/49 Arterial Blood Pressure 126/52 Arterial Blood Pressure 115/50 Arterial Blood Pressure 126/57 Arterial Blood Pressure 112/49 General appearance: The patient is sedated and intubated on mechanical ventilation. HET: Head is normocephalic and atraumatic. Conjunctiva pink. Sclera anicteric. Neck: Supple without lymphadenopathy. Trachea midline. Heart: S1 S2. Regular rate and rhythm. Lungs: Clear to auscultation. Abdomen: Soft, nondistended with bowel sounds. No guarding or rigidity. Skin: No rashes. No jaundice. Extremities: Normal skin color and turgor. No pedal edema. Neurological: Sedated, intubated on mechanical ventilation. Results CBC & Chem 7: 09/18/22 04:20 09/18/22 04:20 Labs: Abnormal Lab Results - Last 24 Hours (Table) 09/17/22 09/17/22 09/17/22 Range/Units 11:30 11:30 11:30 RBC (4.30-5.90) m/uL Hgb (13.0-17.5) gm/dL Hct (39.0-53.0) % Plt Count (150-450) k/uL PT 24.1 H (9.0-12.0) sec INR 2.5 H (<1.2) ABG pH (7.35-7.45) ABG HCO3 (21-25) mmol/L ABG Total CO2 (19-24) mmol/L ABG O2 Saturation (94-97) % Potassium 3.3 L (3.5-5.1) mmol/L POC Glucose (mg/dL) 169 H (70-110) mg/dL 09/17/22 09/17/22 09/17/22 Range/Units 19:14 20:42 23:25 RBC 3.33 L (4.30-5.90) m/uL Hgb 10.2 L (13.0-17.5) gm/dL Hct 31.6 L (39.0-53.0) % Plt Count 102 L (150-450) k/uL PT (9.0-12.0) sec INR (<1.2) ABG pH (7.35-7.45) ABG HCO3 (21-25) mmol/L ABG Total CO2 (19-24) mmol/L ABG O2 Saturation (94-97) % Potassium (3.5-5.1) mmol/L POC Glucose (mg/dL) 124 H 152 H (70-110) mg/dL 09/18/22 Range/Units 05:35 RBC (4.30-5.90) m/uL Hgb (13.0-17.5) gm/dL Hct (39.0-53.0) % Plt Count (150-450) k/uL PT (9.0-12.0) sec INR (<1.2) ABG pH 7.48 H (7.35-7.45) ABG HCO3 34 H (21-25) mmol/L ABG Total CO2 35 H (19-24) mmol/L ABG O2 Saturation 99.1 H (94-97) % Potassium (3.5-5.1) mmol/L POC Glucose (mg/dL) (70-110) mg/dL Assessment and Plan (1) GI bleed Narrative/Plan: 67-year-old who is currently intubated sedated on mechanical ventilation came in with shortness of breath. He required intubation on 09/13/2022 remains in the ICU. Apparently when the NG tube was initially placed nursing as stated that there was some kathy red blood noted at that time but none further. Apparently yesterday patient was having residual check from his tube feedings and it was noted that he had some kathy red blood and then later in the day he had some black stools. Patient was on Coumadin however it was held yesterday due to patient requiring temporary HD catheter placement. He was noted to have an INR yesterday of 2.5 and was given vitamin K and 2 units of FFP. Coumadin remains on hold. He's not had any further bleeding noted since 3:30 in the morning. Hemoglobin is stabilized at 10.4. Likelihood is this patient has gastritis related to comorbidities and current illness. Continue to hold Coumadin for another day or 2. Continue to trend hemoglobin. If patient does not have any further active bleeding we'll hold off on endoscopic evaluation. This was discussed with his nurse. Current Visit: Yes Status: Acute Code(s): K92.2 - GASTROINTESTINAL HEMORRHAGE, UNSPECIFIED SNOMED Code(s): 04521978 (2) Acute on chronic renal failure Current Visit: Yes Status: Acute Code(s): N17.9 - ACUTE KIDNEY FAILURE, UNSPECIFIED; N18.9 - CHRONIC KIDNEY DISEASE, UNSPECIFIED SNOMED Code(s): 807592804 (3) Acute respiratory failure Current Visit: Yes Status: Acute Code(s): J96.00 - ACUTE RESPIRATORY FAILURE, UNSP W HYPOXIA OR HYPERCAPNIA SNOMED Code(s): 56291704 Plan: 1. Continue symptomatic and supportive care 2. Continue ICU management 3. Continue to hold Coumadin for 1-2 more days 4. Hold tube feedings for now, may resume this afternoon if patient has no active bleeding 5. If patient has further active bleeding will recommend EGD later today otherwise of no active bleeding will defer endoscopic evaluation at this time. Thank you for allowing us to participate in the care of the patient, the GI service will sign off, gastroenterology will not be available at the hospital this weekend and through next week. If further evaluation by gastroenterology is required the patient will need transfer as per the primary team's discretion. Dr. Russ García I agree with the dictator's note, documented as a scribe by Shanice Tello.
[2022-09-18 11:16] LABS: Calcium 8.1 mg/dL (8.4-10.2); Potassium 3.4 mmol/L (3.5-5.1)
[2022-09-18] MEDS ORDERED: DEXTROSE 5% IN WATER 1,000 ML IV ONE (12:13)
[2022-09-18 12:42] LABS: Glucose,Whole Blood 117 mg/dL (70-110)
--- NOTE | 2022-09-18 12:45 | P.PN ---
Subjective Progress Note Date: 09/18/22 On 09/14/2022, the patient is intubated on a mechanical ventilator. The patient has history of COPD, hypertension, chronic atrial fibrillation and the patient has a permanent pacemaker in place, chronic kidney disease and is a chronic smoker. The patient presented to the hospital because of worsening shortness of breath. Yesterday evening, the patient acutely became unresponsive, and he would to be intubated and placed on a mechanical ventilator. It is not clear to me whether the patient was having any seizure activity. It is possible the patient could've aspirated. However, those events overnight clear to me. This morning the patient is on propofol which is running at 50 mcg/kg/m. The patient is also on Nimbex for paralysis. IV fluids are currently at KVO. Patient is on norepinephrine which is running at 0.11 mg/kg/m. Overall fluid balance is +2.7 L over the past 24 hours. NG tube is in place and output from the NG tube inserted is in order of 700 mL. The patient is currently on a mechanical ventilator assist control mode at a rate of 32, tidal volume of 350, FiO2 of 40% with a PEEP of 5. Blood gas showed a pH of 7.55 with a pCO2 of 38 and pO2 of 82. The peak airway pressure is at 23 The chest x-ray from today showing diffuse parenchymal changes and cardiomegaly and bilateral pleural effusions more consistent with CHF. The blood work shows a white cell count 15.1 with a hemoglobin of 11.7 and a platelet count of 168. The patient's INR is at 3.5 with a PT of 35 and the patient's cardiac rhythm is currently paced at this point in time. The blood work shows a sodium level of 135, potassium level is 4.5, chloride is 96 with a bicarb of 29, sodium is at 130 with a potassium level of 3.5. Glucose at 159. The patient is afebrile. Bedside EEG was done and it showed no evidence of any acute seizure activity. Neurologically, the patient is grimacing to painful condition of 4 extremities. He is withdrawing to painful stimulation. No focal neurological deficits. On 09/15/2022, the patient is being seen for a follow-up. This morning, the patient is still sedated on propofol is running at 45 mcg/kg/m. The patient is on a mechanical ventilator on assist control mode with a rate of 32, tidal volume of 350 with an FiO2 of 40% and a PEEP of 5. The blood gases from today is showing a pH of 7.54 with episodes of 40 and pO2 of 74 and this was an apparent of 40%. Chest x-ray essentially unchanged. His cardiomegaly. There is also evidence of a stable pleural parenchymal changes with a loculated chronic right-sided pleural effusion. As part of further investigation, I the day CAT scan of the chest yesterday in addition to a CAT scan of the abdomen and a CAT scan showed anasarca changes with bilateral pleural effusions right more than left and right-sided pleural effusion seemed to be chronic and loculated and was well demarcated with some calcification along the pleural lining. There was also small volume of intra-abdominal/pelvic ascites. There was evidence of bibasilar atelectasis without definite consolidation. There was cardiomegaly. CAT scan of the brain was essentially negative for any acute abnormalities. The patient was being diuresed with IV Lasix. The patient is a negative fluid balance of 1.4 L over the past 24 hours. On today's evaluation, the patient is on norepinephrine which is running at a dose of 0.08 microvascular kilogram per minutes. His white cell count is at 3.4 with a hemoglobin of 11.1 and an INR of 2.3. Sodium is at 139, potassium is at 3.6, bicarb is 32, BUN is at 134 with a creatinine of 3.3. The patient has a paced cardiac rhythm at this point in time. Echocardiogram was also done presented on the function with dilated RV, dilated atria bilaterally right and left and [id number] mitral regurgitation and mitral aortic stenosis with moderate to severe tricuspid regurgitation. EEG was completed and showed no evidence of any seizure activity and the patient remains on Vimpat. 09/16/2022, the patient remains off sedation and the patient has been off propofol for the past 24 hours. Unfortunately, is not following commands. He grimaces to painful stimulation. He is fasting. All 4 extremities and occasionally withdraws. No seizure activity has been noted. The patient has positive brainstem reflexes including reading to flex, cough and gag reflex. He also has spontaneous eye opening and the patient blinks and looks around. Nevertheless, is not following any commands. This is obviously concerning. At the same time, the patient remains on a mechanical ventilator. Today, the patient is on assist control mode at a rate of 32, tidal volume of 350, FiO2 of 40% with a PEEP of 5. Blood gas shows a pH of 7.47 with a pCO2 of 47 and pO2 of 85. The patient remains on IV Lasix. Overall fluid balance is -680 mL over the past 24 hours. The patient has a paced cardiac rhythm. The patient has a sodium level of 141 with a potassium level of 3.6, sodium level is 141, BUN is 141 with a creatinine of 3.5. the patientthe patient also has a hemoglobin of 10.8 with a platelet count of 103 and a white cell count of 9.0.CULTURES are negative. Chest x-ray findings of essentially unchanged and the patient is about the pleural effusion and the patient has a loculated right-sided pleural effusion. She was in a good location. The patient is currently off pressors for now. Echo of the heart showed dilated RV, [id number] mitral regurgitation, mild aortic stenosis and moderate degree of tricuspid regurgitation. 09/17/2022, the patient is still off sedation. The patient has been off propofol for the past 48 hours. Unfortunately, is not following any commands. He keeps his eyes closed. At times he opens his eyes spontaneously. Does not track. Does not indicate that he is comprehending and the patient has been withdrawing only to painful stimulation. He does grimace when stimulated and we have noticed this for the past 24-48 hours. Another E is in progress today. Note that the repeat CAT scan of the brain showed no acute abnormalities. No seizure activity clinically has been noted. He is afebrile. He is hemodynamically stable. He is on a mechanical ventilator at this point in time. He is on assist-control mode and is able to tolerate that well while being Sedation. He Is Active 32 with a Tidal Volume of 350 and FiO2 of 40% with a PEEP of 5. A blood gas that was done this morning showed a pH of 7.46 with a pCO2 of 50 and pO2 of 106. A repeat chest x-ray was done today that shows cardiomegaly and there is evidence of bilateral pleural effusion which is essentially unchanged. The right-sided pleural effusion is loculated. There is also evidence also of cardiomegaly and pulmonary edema and increased pulmonary vascular markings bilaterally with cephalization. His ET tube is in a good location. He also has a left IJ triple lumen catheter in place. He continues to have third spacing and edema both in his upper and lower extremities and he also has scrotal edema. His urine output is in order of 2.2 L over the past 24 hours and the patient is still diuresing. He remains on Lasix 40 mg IV every 24 hours. On his blood work, the patient's creatinine today is at 3.43 with this BUN of 152 and his sodium level is at 144. Potassium levels at 3.1 and needs to be replaced. The white cell cause of 10.6 with a hemoglobin of 10.6 and a platelet count of 98. The INR today's of 2.9. The patient's cardiac rhythm. He remains on warfarin for long-term anticoagulation. I think the plan is to consider dialysis on this patient. There is a concern that he may have encephalopathy due to his chronic kidney disease and nephrology once dialyze him to optimize his volume status and the same time monitor his mental status while on dialysis. 09/18/2022, the patient is still intubated on mechanical ventilator. Noted the patient is still off sedation and the patient has been off propofol for the past 72 hours. The patient seems to be slightly more awake and the patient was able to follow some simple commands on today's evaluation. He remains profoundly weak. As such, there is some recovery in his neurologic status. Noted the patient was started hemodialysis yesterday. A hemodialysis catheter was inserted and the patient was started on dialysis with a total of 800 mL of fluid was also infiltrated and another session of hemodialysis being given this morning. Meanwhile, the patient remains on a mechanical ventilator. Today he has an assist-control mode at the rate of 32 with an FiO2 of 40% and PEEP of 5 a nd a tidal volume of 350. The chest x-ray findings are essentially stable with bilateral pleural effusions. The pleural effusion on the right is loculated. The blood gas shows a pH of 7.48 with episodes of 45 and pO2 of 108. The patient remains on enteral feeding for nutritional support and the patient is currently on vital high-protein which is being administered rate of 34 mL an hour. The white cell cause of 10.0 with a hemoglobin of 10.4 and a platelet count of 106. Sodium is at 147 and a BUN is 105 with a creatinine of 2.4. The patient's coagulopathy was reversed and the patient is back on Coumadin today and a dose of 1 mg will be given to him today. INR today is at 1.4. Note that his cardiac rhythm is still paced. I'll importance is some neurologic recovery. Encountered on today's evaluation. EEG showed diffuse slowing consistent with metabolic encephalopathy and there is no evidence of any seizure activity noted. Objective - Vital Signs Vital signs: Vital Signs Temp 97.5 F L 09/18/22 12:02 Pulse 104 H 09/18/22 12:02 Resp 18 09/18/22 12:02 BP 102/58 09/18/22 12:02 Pulse Ox 94 L 09/18/22 11:00 FiO2 40 09/18/22 12:00 Intake & Output 09/17/22 09/18/22 09/18/22 18:59 06:59 18:59 Intake Total 946 507.893 538 Output Total [address] [facility] -196 -337.316 -6550 Weight 114.8 kg 114.8 kg Intake: IV 303 276 138 Lacosamide IV 50 mg In 50 Sodium Chloride 0.9% 50 ml @ 100 mls/hr IVPB BID YULY Rx#:[id number] Pressure Bag 33 36 18 Sodium Chloride 0.9% 1, 220 240 120 000 ml @ 20 mls/hr IV . Q24H YULY Rx#:[id number] Intake, IV Titration 231.893 Amount Norepinephrine 8 mg In 31.893 Sodium Chloride 0.9% 250 ml @ 0.22 MCG/KG/MIN 51. 595 mls/hr IV .Q5H1M YULY Rx#:[id number] Piperacillin-Tazobactam 3 100 .375 gm In Sodium Chloride 0.9% 100 ml @ 25 mls/hr IVPB Q8HR YULY Rx# :[id number] levETIRAcetam IV 500 mg 100 In Sodium Chloride 0.9% 100 ml @ 400 mls/hr IVPB Q12HR YULY Rx#:[id number] Tube Feeding 204 Blood Product 439 Ffp 24 Pher Acda Unit 217 [id number] Ffp 24 Pher Acda Cnt1 222 Unit [id number] Hemodialysis 400 Output: Gastric Drainage 200 Urine 1675 1085 485 Hemodialysis 2400 Other: Voiding Method Indwelling Catheter Indwelling Catheter Indwelling Catheter # Bowel Movements 1 1 ABP, PAP, CO, CI - Last Documented Arterial Blood Pressure 116/51 - Exam Gen. appearance the patient is calm and comfortable not acute distress. Intubated on mechanical ventilator. the patient is off sedation. Head exam was generally normal. There was no scleral icterus or corneal arcus. Mucous membranes were moist. Neck was supple and without jugular venous distension, thyromegaly, or carotid bruits. Carotids were easily palpable bilaterally. There was no adenopathy. The patient has an orogastric and orotracheal tube water enema in place Lungs were clear to auscultation and percussion, and with normal diaphragmatic excursion. No wheezes or rales were noted. Cardiac exam revealed the PMI to be normally situated and sized. The rhythm was regular and no extrasystoles were noted during several minutes of auscultation. The first and second heart sounds were normal and physiologic splitting of the second heart sound was noted. There were no murmurs, rubs, clicks, or gallops. Abdominal exam revealed normal bowel sounds. The abdomen was soft, non-tender, and without masses, organomegaly, or appreciable enlargement of the abdominal aorta. Examination of the extremities revealed easily palpable radial, femoral and pedal pulses. There was no cyanosis, clubbing and the patient continues to have significant amount of edema in his lower extremities and is scrotal area. There is also some abdominal wall edema. Examination of the skin revealed no evidence of significant rashes, suspicious appearing nevi or other concerning lesions. Neurologically, the patient remains off sedation the patient was able to follow some simple commands. Nevertheless, he remains profoundly sleepy and lethargic and is mobile generalized weakness in all 4 extremities. He is withdrawing to painful stimulation in all 4 extremities and he grimaces to painful stimuli. Pupils are equal and reactive to light. - Labs CBC & Chem 7: 09/18/22 04:20 09/18/22 10:20 Labs: Abnormal Lab Results - Last 24 Hours (Table) 09/17/22 09/17/22 09/17/22 Range/Units 19:14 20:42 23:25 RBC 3.33 L (4.30-5.90) m/uL Hgb 10.2 L (13.0-17.5) gm/dL Hct 31.6 L (39.0-53.0) % Plt Count 102 L (150-450) k/uL PT (9.0-12.0) sec INR (<1.2) ABG pH (7.35-7.45) ABG HCO3 (21-25) mmol/L ABG Total CO2 (19-24) mmol/L ABG O2 Saturation (94-97) % Sodium (137-145) mmol/L Potassium (3.5-5.1) mmol/L Carbon Dioxide (22-30) mmol/L BUN (9-20) mg/dL Creatinine (0.66-1.25) mg/dL Glucose (74-99) mg/dL POC Glucose (mg/dL) 124 H 152 H (70-110) mg/dL Calcium (8.4-10.2) mg/dL Total Bilirubin (0.2-1.3) mg/dL Total Protein (6.3-8.2) g/dL Albumin (3.5-5.0) g/dL 09/18/22 09/18/22 09/18/22 Range/Units 04:20 04:20 04:20 RBC 3.29 L (4.30-5.90) m/uL Hgb 10.4 L (13.0-17.5) gm/dL Hct 31.7 L (39.0-53.0) % Plt Count 106 L (150-450) k/uL PT 14.1 H (9.0-12.0) sec INR 1.4 H (<1.2) ABG pH (7.35-7.45) ABG HCO3 (21-25) mmol/L ABG Total CO2 (19-24) mmol/L ABG O2 Saturation (94-97) % Sodium 147 H (137-145) mmol/L Potassium 3.1 L (3.5-5.1) mmol/L Carbon Dioxide 33 H (22-30) mmol/L BUN 105 H* (9-20) mg/dL Creatinine 2.46 H (0.66-1.25) mg/dL Glucose 100 H (74-99) mg/dL POC Glucose (mg/dL) (70-110) mg/dL Calcium 7.9 L (8.4-10.2) mg/dL Total Bilirubin 1.4 H (0.2-1.3) mg/dL Total Protein 5.4 L (6.3-8.2) g/dL Albumin 2.8 L (3.5-5.0) g/dL 09/18/22 09/18/22 Range/Units 05:35 10:20 RBC (4.30-5.90) m/uL Hgb (13.0-17.5) gm/dL Hct (39.0-53.0) % Plt Count (150-450) k/uL PT (9.0-12.0) sec INR (<1.2) ABG pH 7.48 H (7.35-7.45) ABG HCO3 34 H (21-25) mmol/L ABG Total CO2 35 H (19-24) mmol/L ABG O2 Saturation 99.1 H (94-97) % Sodium 146 H (137-145) mmol/L Potassium 3.4 L (3.5-5.1) mmol/L Carbon Dioxide 33 H (22-30) mmol/L BUN 80 H (9-20) mg/dL Creatinine 1.92 H (0.66-1.25) mg/dL Glucose 118 H (74-99) mg/dL POC Glucose (mg/dL) (70-110) mg/dL Calcium 8.1 L (8.4-10.2) mg/dL Total Bilirubin (0.2-1.3) mg/dL Total Protein (6.3-8.2) g/dL Albumin (3.5-5.0) g/dL Assessment and Plan Plan: Acute hypoxemic and hypercapnic respiratory failure, secondary to CHF/aspira tion. Exact circumstances of the respiratory failure is not clear. The patient was found to be unresponsive. It is possible that the patient also had a acute neurologic event/CVA/seizure which led into further decompensation and respiratory failure. Possibility of aspiration cannot be completely ruled out. EEG is not showing any acute or ongoing seizure activity. The patient remains on a mechanical ventilator for now. I'll concern is the ongoing impairment in his neurologic function and and level of alertness. This is gradually improving. This may be a metabolic encephalopathy or uremic encephalopathy. Noted the patient was started hemodialysis in his mentation has been gradually i mproving and impaired mental status has been one of the main issue is preventing this patient for further weaning. Occupation stable for now. Chest x-ray findings are stable. Altered mental status and the patient remains unresponsive despite being off sedation for the past 48 hours. Consider encephalopathy/metabolic/drug induced in a setting of chronic kidney disease. Consider CVA. The patient has not showing any signs of adequate neurological recovery over the past 72 hours while being off sedation. A repeat EEG was consistent with metabolic encephalopathy. The patient was started on hemodialysis. First session of hemodialysis was given to him yesterday. Acute hypotension, recovered and the patient is currently off pressors There is ongoing edema in his lower extremities in the scrotal area. The patient currently is on no pressors. The patient is undergoing hemodialysis the patient is also still on diuretics and the patient was taken off Lasix by nephrology. History of recent coronavirus infection. History of chronic atrial fibrillation, rate is controlled for now. The patient had his coagulation profile reversed for dialysis catheter insertion. At evaluation was restarted. Chronic systolic heart failure with previous ejection fraction from July 2022 showing an EF of around 45% along with mild MR, severe tricuspid regurgitation Coronary artery disease with mild nonobstructive disease based on an cardiac catheterization that was done in 2019 Previous history of ventricular tachycardia History of hypertension. Chronic lower extremity edema Acute on chronic kidney disease with KEYANA, nonoliguric at this point in time and nephrology is also on the case, the patient was started on hemodialysis Obesity. Prior history of tobacco use. Plan Monitor mental status and this seems to be gradually improving Another session of hemodialysis with ultrafiltration will be offered to this patient today Continue ventilator support and the patient is not ready for further weaning as the patient has poor weaning parameters Keep the patient IV fluids at KVO Hold diuretics for now Echo was noted Restart undergone ablation with Coumadin Cardiac rhythm Monitor PT/INR Not ready for extubation yet Off concern is ongoing encephalopathy and Toprol and generalized weakness Continue enteral feeding for nutritional support and the patient remains on vital high-protein we'll continue to follow make further recommendations based on his progress. Long-term prognosis remains obviously poor. Family has been updated. Condition is critical and this is a critical care evaluation that was done in more than 30 minutes. Time with Patient: Greater than 30
--- NOTE | 2022-09-18 13:41 | P.PN ---
Progress Note - Text Progress Note Date: 09/18/22 Chief Complaint: Short of breath This is a 67-year-old patient, follows with Dr. Ricardo Arnold. Chronic stable medical conditions include atrial fibrillation, hypertension, COPD, permanent pacemaker. Patient seen by me in the ER. Most of the history is obtained by the at the bedside. Patient was admitted for lung infection about a month ago. He didn't improve. Following the patient did have COVID. Patient now presents with worsening short of breath. Especially for 3-4 days. Also becoming bloated. Lower extremity edema. Appetite is poor. No cough. Patient has also underlying chronic kidney disease. Patient does smoke cigars and pipes. Patient is requiring a BiPAP in the ER. Has lower extremity wound being followed by Dr. Leung. Patient has some not able to give much of history.) Short of breath. 09/10/2022: Patient remains or overflow in the ER. On BiPAP. Tired lethargic. IV Lasix. Worsening renal function. We have pneumonia. Start IV ceftriaxone. Bronchodilators. Steroids. Strict I's and O's. 09/11/2022: Patient will lethargic. Remains on BiPAP. 16/02/%. Overnight patient had become hypotensive. I held the Lasix temporarily and given fluid bolus. Lasix resumed today. Remains on IV ceftriaxone, DuoNeb, IV Solu-Medrol. 09/12/2022: ICU: On 4 L nasal cannula. Lethargic but would answer occasional question. at the bedside. Started on midodrine yesterday. Per neurology started IV Vimpat. Remains on IV Lasix. 09/13/2022: ICU. On 5 L nasal cannula. Lethargic. Hypothermic. Temperature 97.2. Rectal. Apolonia hugger started. and [id number] at the bedside. Patient for unequal pupils was seen by neurology. Cause unknown. Patient also had some myoclonic jerks felt to be a metabolic dysfunction. He followed by neurology. Patient is on Vimpat per neurology. Advanced care planning carried out with patient's and [id number] at the bedside. Patient does have advanced directives. Currently full code. Patient has been on and off BiPAP. Abdomen distended. Abdominal x-ray shows gastric distention. We will try temporary NG tube suction. Should help the bleeding also. 09/14/2022: ICU. Yesterday late afternoon patient had an NG tube placed for gastric distention. After he had some emesis into the BiPAP. About 700 mL of maroon-colored aspirate was obtained. Patient denied a 15 beat run of V. tach. Also had some abdominal breathing's. Patient had a bronchoscopy done by Dr. Mendoza. Following that patient's brother Nimbex and propofol drip. Intubated. This morning was taken out and the Bextra. Had his CAT scan demonstrated that showed bilateral pleural effusion. 2 feeding has been started 10 mL an hour. Currently the ventilator with FiO2 40 and a PEEP of 5. On propofol. Discussed with the at the bedside. 09/15/2022: ICU. Remains on the ventilator at 50/5. Small dose of levo. Propofol.. Remains on IV Lasix. Placed on IV Zosyn today. Discussed with at the bedside. Followed by multiple consultants. Ventricle paced rhythm. 09/16/2022: ICU. On the ventilator 40/5. Patient is off levo fed and propofol. Off the ladder for closer 24 hours. IV Lasix. IV Zosyn. 2 feeding at 34 mL an hour. Ventricular paced rhythm. Nephrology is planning to start dialysis tomorrow. Patient not responding otherwise. Encephalopathic 09/17/2022: ICU. On the ventilator 40/5. Remains encephalopathic. Urine output about 60-70 mL an hour. Earlier today had some dark stools and dark aspirate from the NG tube. Decision made to proceed with dialysis. Vitamin K given earlier. We'll give 2 units of FFP prior to dialysis catheter placement. Ventricle paced rhythm/A. fib. Discussed with the at the bedside. Hold tube feeding. Consult GI. Remains on IV Zosyn. IV Lasix. Worsening renal function. 09/18/2022: ICU. On the ventilator 40/5. Right groin dialysis catheter placed by Dr. Leung yesterday. 800 mL removed yesterday. Getting dialysis today. About 1000 mL to be removed. Opening eyes. Off any IVs. Making fairly urine. Telemetry shows V paced/A. fib. On IV Keppra and IV Zosyn. Seen by GI Dr. Russ García today. Hold EGD for now. If further bleeding then to proceed with endoscopy. Coumadin currently held. Active Medications Albuterol/Ipratropium (Ipratropium-Albuterol 3 Ml Neb) 3 ml INHALATION RT-Q4H YULY Last Admin: 09/18/22 11:13 Dose: 3 ml Budesonide (Budesonide 1 Mg/2 Ml Nebu) 1 mg INHALATION RT-BID YULY Last Admin: 09/18/22 07:21 Dose: 1 mg Chlorhexidine Gluconate (Chlorhexidine Gluconate 15 Ml Cup) 15 ml MUCOUS MEM BID YULY Last Admin: 09/18/22 10:18 Dose: 15 ml Sodium Chloride (Saline 0.9%) 1,000 mls @ 20 mls/hr IV .Q24H YULY Last Admin: 09/17/22 23:24 Dose: Not Given Norepinephrine Bitartrate 8 mg (/ Sodium Chloride) 258 mls @ 51.595 mls/hr IV .Q5H1M YULY; Protocol Last Titration: 09/18/22 04:00 Dose: 0 mcg/kg/min, 0 mls/hr Propofol 1,000 mg/ IV Solution 100 mls @ 10.908 mls/hr IV .Q9H11M YULY; Protocol Last Admin: 09/18/22 07:02 Dose: Not Given Piperacillin Sod/Tazobactam (Sod 3.375 gm/ Sodium Chloride) 100 mls @ 25 mls/hr IVPB Q8HR YULY; Protocol Last Admin: 09/18/22 10:18 Dose: 25 mls/hr Levetiracetam 500 mg/ Sodium (Chloride) 105 mls @ 400 mls/hr IVPB Q12HR YULY Last Admin: 09/18/22 10:37 Dose: 400 mls/hr Dextrose/Water (Dextrose 5%-Water Iv Soln) 1,000 mls @ 50 mls/hr IV .Q20H ONE Stop: 09/19/22 08:12 Last Admin: 09/18/22 12:33 Dose: 50 mls/hr Insulin Aspart (Insulin Aspart (Novolog) 100 Unit/Ml Vial) 0 unit SQ Q6H YULY; Protocol Last Admin: 09/18/22 12:41 Dose: Not Given Midodrine (Midodrine 5 Mg Tab) 10 mg PO AC-TID YULY Last Admin: 09/18/22 12:33 Dose: 10 mg Miscellaneous Information (Warfarin Per Pharmacy) 0 each MISCELLANE DIRECTED PRN PRN Reason: PER PROTOCOL Miscellaneous Information (Potassium Replacement Protocol 1 Each Misc) 1 each MISCELLANE DAILY PRN; Protocol PRN Reason: Per Protocol Ondansetron HCl (Ondansetron 4 Mg/2 Ml Vial) 4 mg IVP Q6HR PRN PRN Reason: Nausea And Vomiting Last Admin: 09/13/22 12:48 Dose: 4 mg Pantoprazole Sodium (Pantoprazole 40 Mg/10 Ml Vial) 40 mg IVP DAILY YULY Last Admin: 09/18/22 10:18 Dose: 40 mg Warfarin Sodium (Warfarin 1 Mg Tab) 1 mg PO ONCE@1800 ONE Stop: 09/18/22 18:01 Past medical history to include: Atrial fibrillation, hypertension, CK D, permanent pacemaker, Social history: . 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 Physical examination: VITAL SIGNS: 97.5, 104, 18, 102/58, 92% on the ventilator GENERAL: , Laying in bed, intubated EYES: Pupils equal. Conjunctiva normal. HEENT: [External appearance of nose and ears normal, oral cavity dry mucous membranes. ET tube NECK: JVD unable to assess; masses not palpable. HEART: First and second heart sounds are normal; edema present. LUNGS: Respiratory rate increased; decreased breath sounds. ABDOMEN: Soft, nontender, liver spleen not palpable, no masses palpable. PSYCH: Not really answering questions. NEUROLOGICAL: Eyes open. Attempting to respond. MUSCULOSKELETAL:No Clubbing/cyanosis;muscles-grossly intact, OA EXTREMITIES: Wound with dressing on the both plantar INVESTIGATIONS, reviewed in the clinical context: 09/18/2022: WBC 10.1 hemoglobin 10.4 sodium 146 potassium 3.4 BUN 80 creatinine 1.9 to 09/17/2022: WBC 10.60 globin 10.6 platelets 98 progression 3.1 BUN 152 creatinine 3.43 09/14/2022: WBC 13.1 hemoglobin 11.7 INR 3.5 potassium 4.5 BUN 1:30 creatinine 3.5. ABG: PH 7.55 pCO2 [address] chest abdomen pelvis: Anasarca changes. Lateral pleural effusion right greater than left and right-sided effusion be loculated. Bilateral atelectasis. Abdominal x-ray: Personally reviewed by me. Stomach distended. Some stool retention 09/13/2022: INR 3.3 potassium 5.5 BUN 119 creatinine 3.63 09/12/2022: Potassium 5.1 BUN 111 creatinine 3.09 Digital ultrasound: Suboptimal study. 09/11/2022: Potassium 4.9 BUN 98 creatinine 2.99 procalcitonin 1.02 TSH 0.79 09/10/2022: WBC 7.9 hemoglobin 11.2 platelets 131 INR 3.6 BUN 90 creatinine 2.75 WBC 5.5 hemoglobin 11.9 platelets 138 ABG: PH 7.16 pCO2 107 oxygen saturation 97.8 Sodium 138 potassium 4.8 BUN 8622.19 proBNP 10 EKG tracing personally reviewed by me-electronic atrial pacemaker Chest x-ray film personally reviewed by me-basilar infiltrate versus fluid. Hyperinflation Assessment and plan: -Acute hypoxic hypercapnic respiratory failure secondary to COPD/pulmonary edema/pneumonia: Slow to respond Ventilator support. -Hypotensive shock, multifactorial: Better Currently off levo fed -Bilateral pleural effusion from CHF On IV Lasix -Anisocoria left greater than right Being followed by neurology -Myoclonic jerks On Vimpat-changed to Keppra. Being followed by neurology. EEG negative for seizures - acute on chronic CHF exacerbation, from systolic dysfunction EF 45% IV Lasix 40 mg daily-now held. -Acute GI bleed. Coumadin held. Vitamin K given. Seen by Dr. Russ García. EGD. If repeat bleeding occurs. -pneumonia suspect gram-negative organism/aspiration pneumonia IV Zosyn. -Acute metabolic encephalopathy from uremia/hypoxic/delirium: Slow to respond -Acute kidney injury secondary to ATN secondary to hypotension/cardiac renal syndrome.: Slow to respond Dialysis started 09/17/2022: -Chronic kidney disease stage III B. Likely nephrosclerosis Baseline creatinine 2 from March 2022 -Hypothermia, multifactorial: Better -Normocytic anemia, likely from chronic kidney disease Follow H&H -Hyperkalemia from worsening kidney function.: Better Lokelma -Essential hypertension Hold antihypertensive, currently blood pressure running on the lower side -AICD -Permanent atrial fibrillation [id number] for low blood pressure. Coumadin held. -Coumadin monitoring: Held for now Vitamin K given to reverse INR. -biLateral plantar lower extremity wound. Follows with Dr. Leung. Local [facility] -Full code Coumadin has been held for now. Seen by GI. Hold EGD till if bleeding occurs. 2 feeding at been temporarily held. Secondary of hemodialysis today. IV Vimpat changed over to Keppra per neurology.
[2022-09-18 15:30] LABS: Hepatitis B Surface AB- Quant 3.5 mIU/mL; Hepatitis B Surface Antibody Nonreactive (Nonreactive)
[2022-09-18] MEDS ORDERED: WARFARIN 1 MG TAB PO ONE (18:00)
[2022-09-18 18:28] LABS: Glucose,Whole Blood 138 mg/dL (70-110)
--- NOTE | 2022-09-18 19:22 | P.PN ---
Subjective Progress Note Date: 09/18/22 09/18/2022: Patient was seen for a follow-up. Family members were not present today. Patient apparently showing significant clinical improvement. Patient is opening his eyes. He denies any headache very clearly with nodding his head [id number]. Patient following directions as per examination. Patient is getting hemodialysis at this time. 09/17/2022: Patient's was present today. He then apparently has developed GI bleed. Patient's renal functions continue to get worse. Hemodialysis was attempted, but he could not tolerate as his blood pressure started dropping. No seizure-like activity noticed. 09/16/2022: Patient was seen for follow-up. Patient's and patient's [id number] visiting from [place] were present today. Patient is off sedation. He is not showing significant improvement. Continues to be very encephalopathic, keeps his eyes closed. No seizure-like activity witnessed. 09/15/2022: Patient was seen for a follow-up. Patient is off sedation and pressors since 10:30 AM today. He still very encephalopathic. Patient's nurse has noticed that he moves all extremities. He does not follow some commands. He is still somnolent. No seizure-like activity. 09/14/2022: Patient was seen for a follow-up. Patient initially seen by Dr. Jayesh Mendoza. Please refer to his note for details. Patient is a 67-year-old male with anisocoria, left more than right, but reactive to light. He has altered mental status due to metabolic/hypercapnic, kidney insufficiency. Patient had an EEG for myoclonic jerks and no seizures were seen. MRI of the brain and MRA were recommended. Repeat EEG was performed today. Spoke to patient's nurse as well as patient's . Patient is currently on propofol 50 g per program per minute. He was also on Nimbex, which has been discontinued as of 6 AM today. Patient's pupils are now equal round and reacting. Objective - Vital Signs Vital signs: Vital Signs Temp 97.9 F 09/18/22 16:00 Pulse 79 09/18/22 18:00 Resp 32 H 09/18/22 15:00 BP 102/58 09/18/22 12:02 Pulse Ox 100 09/18/22 18:00 FiO2 40 09/18/22 18:00 Intake & Output 09/18/22 09/18/22 09/19/22 06:59 18:59 06:59 Intake Total 507.893 886 Output Total 1285 3170 Balance -777.107 -2284 Weight 114.8 kg 114.8 kg Intake: IV 276 186 Pressure Bag 36 36 Sodium Chloride 0.9% 1, 240 150 000 ml @ 20 mls/hr IV . Q24H [facility] Rx#:[id number] Intake, IV Titration 231.893 300 Amount Dextrose 5% in Water 1, 300 000 ml @ 50 mls/hr IV . Q20H ONE Rx#:[id number] Norepinephrine 8 mg In 31.893 Sodium Chloride 0.9% 250 ml @ 0.22 MCG/KG/MIN 51. 595 mls/hr IV .Q5H1M [facility] Rx#:[id number] Piperacillin-Tazobactam 3 100 .375 gm In Sodium Chloride 0.9% 100 ml @ 25 mls/hr IVPB Q8HR [facility] Rx# :[id number] levETIRAcetam IV 500 mg 100 In Sodium Chloride 0.9% 100 ml @ 400 mls/hr IVPB Q12HR [facility] Rx#:[id number] Hemodialysis 400 Output: Gastric Drainage 200 Urine 1085 770 Hemodialysis 2400 Other: Voiding Method Indwelling Catheter Indwelling Catheter # Bowel Movements 1 ABP, PAP, CO, CI - Last Documented Arterial Blood Pressure 118/55 - Exam Patient is intubated, off sedation since 10:30 AM 09/15/2022. Patient has woken up. Patient still groggy, encephalopathic. However he nodding his head appropriately. He is opening his eyes, turning his head to the right, and to the left on calling his name from either side. Patient slightly squeezed hand, and wiggle his feet. Very appropriate responses. Patient's pupils are equal, round and briskly reacting. - Labs CBC & Chem 7: 09/18/22 04:20 09/18/22 10:20 Labs: Abnormal Lab Results - Last 24 Hours (Table) 09/17/22 09/17/22 09/17/22 Range/Units 19:14 20:42 23:25 RBC 3.33 L (4.30-5.90) m/uL Hgb 10.2 L (13.0-17.5) gm/dL Hct 31.6 L (39.0-53.0) % Plt Count 102 L (150-450) k/uL PT (9.0-12.0) sec INR (<1.2) ABG pH (7.35-7.45) ABG HCO3 (21-25) mmol/L ABG Total CO2 (19-24) mmol/L ABG O2 Saturation (94-97) % Sodium (137-145) mmol/L Potassium (3.5-5.1) mmol/L Carbon Dioxide (22-30) mmol/L BUN (9-20) mg/dL Creatinine (0.66-1.25) mg/dL Glucose (74-99) mg/dL POC Glucose (mg/dL) 124 H 152 H (70-110) mg/dL Calcium (8.4-10.2) mg/dL Total Bilirubin (0.2-1.3) mg/dL Total Protein (6.3-8.2) g/dL Albumin (3.5-5.0) g/dL 09/18/22 09/18/22 09/18/22 Range/Units 04:20 04:20 04:20 RBC 3.29 L (4.30-5.90) m/uL Hgb 10.4 L (13.0-17.5) gm/dL Hct 31.7 L (39.0-53.0) % Plt Count 106 L (150-450) k/uL PT 14.1 H (9.0-12.0) sec INR 1.4 H (<1.2) ABG pH (7.35-7.45) ABG HCO3 (21-25) mmol/L ABG Total CO2 (19-24) mmol/L ABG O2 Saturation (94-97) % Sodium 147 H (137-145) mmol/L Potassium 3.1 L (3.5-5.1) mmol/L Carbon Dioxide 33 H (22-30) mmol/L BUN 105 H* (9-20) mg/dL Creatinine 2.46 H (0.66-1.25) mg/dL Glucose 100 H (74-99) mg/dL POC Glucose (mg/dL) (70-110) mg/dL Calcium 7.9 L (8.4-10.2) mg/dL Total Bilirubin 1.4 H (0.2-1.3) mg/dL Total Protein 5.4 L (6.3-8.2) g/dL Albumin 2.8 L (3.5-5.0) g/dL 09/18/22 09/18/22 09/18/22 Range/Units 05:35 10:20 12:40 RBC (4.30-5.90) m/uL Hgb (13.0-17.5) gm/dL Hct (39.0-53.0) % Plt Count (150-450) k/uL PT (9.0-12.0) sec INR (<1.2) ABG pH 7.48 H (7.35-7.45) ABG HCO3 34 H (21-25) mmol/L ABG Total CO2 35 H (19-24) mmol/L ABG O2 Saturation 99.1 H (94-97) % Sodium 146 H (137-145) mmol/L Potassium 3.4 L (3.5-5.1) mmol/L Carbon Dioxide 33 H (22-30) mmol/L BUN 80 H (9-20) mg/dL Creatinine 1.92 H (0.66-1.25) mg/dL Glucose 118 H (74-99) mg/dL POC Glucose (mg/dL) 117 H (70-110) mg/dL Calcium 8.1 L (8.4-10.2) mg/dL Total Bilirubin (0.2-1.3) mg/dL Total Protein (6.3-8.2) g/dL Albumin (3.5-5.0) g/dL 09/18/22 Range/Units 18:26 RBC (4.30-5.90) m/uL Hgb (13.0-17.5) gm/dL Hct (39.0-53.0) % Plt Count (150-450) k/uL PT (9.0-12.0) sec INR (<1.2) ABG pH (7.35-7.45) ABG HCO3 (21-25) mmol/L ABG Total CO2 (19-24) mmol/L ABG O2 Saturation (94-97) % Sodium (137-145) mmol/L Potassium (3.5-5.1) mmol/L Carbon Dioxide (22-30) mmol/L BUN (9-20) mg/dL Creatinine (0.66-1.25) mg/dL Glucose (74-99) mg/dL POC Glucose (mg/dL) 138 H (70-110) mg/dL Calcium (8.4-10.2) mg/dL Total Bilirubin (0.2-1.3) mg/dL Total Protein (6.3-8.2) g/dL Albumin (3.5-5.0) g/dL Assessment and Plan Assessment: -Altered mental status due to Metabolic encephalopathy, probably multifactorial. Patient has hypercapnia with acute renal failure. (worsening) -Abnormal EEG with possible epileptiform activity (? generalized), with some triphasic waves. -Anisocoria, now resolved. Perhaps related to medication effect. -Myoclonic jerks probably due to metabolic dysfunction, cannot rule out seizure because of abnormal EEG. -Acute hypoxemic and hypercapnic respiratory failure -Supratherapeutic INR -History of chronic atrial fibrillation on Coumadin -History of chronic kidney disease -Hypertension -History of recent [place] virus -Bilateral lower extremity edema -History of tobacco use -Anemia -Thrombocytopenia Plan: 1. Patient's mentation has not improved significantly. Repeat EEG from 09/17/2022 showed background slowing of moderate to severe degree consistent with encephalopathy. Presence of higher amplitude slightly frontally predominant triphasic-type waves, which at times have more generalized distribution with occasional phase reversal. This may suggest underlying cortical irritability. When compared to the EEG from 09/14/2022, the background has become more slow and new appearance of this high amplitude triphasic Waves. Clinical correlation is strongly recommended.. 2. Discontinue Vimpat because of concern about generalized sharp-appearing waves. Patient started Keppra 500 mg twice a day 09/17/2022 in the evening. T his morning patient is showing remarkable clinical improvement, which uncertain related to initiation of hemodialysis, or related to Keppra. Prolonged 2.5 hours EEG was considered today, but due to ongoing hemodialysis, and due to remarkable clinical improvement, we'll hold off on it. 3. Continue supportive respiratory care 4. Continue nephrology care for kidney disease. Patient started on hemodialysis.. 5. TSH 0.78, B12 1159, ammonia 19, hemoglobin A1c 5.6, all normal. 6. CT head showed age-related changes, with no acute process. 7. Medical management as per IM and other specialties. Discussed with patient's and nursing staff in detail. 8. Dr. Jayesh Mendoza Will resume neurology service in the morning.
[2022-09-19] MEDS: PIPERACILLIN-TAZOBACTAM 3.375 GM in SODIUM CHLORIDE 0.9% 100 ML IVPB SCH ×3 (00:38→17:33)
[2022-09-19 00:43] LABS: Glucose,Whole Blood 130 mg/dL (70-110)
[2022-09-19] MEDS: SODIUM CHLORIDE 0.9% 1,000 ML IV SCH (00:43)
[2022-09-19] MEDS: NOREPINEPHRINE 8 MG in SODIUM CHLORIDE 0.9% 250 ML IV SCH ×5 (00:43→19:53)
[2022-09-19] MEDS: INSULIN ASPART (NovoLOG) 100 UNIT/ML VIAL SQ SCH ×4 (00:44→18:31)
[2022-09-19] MEDS: IPRATROPIUM-ALBUTEROL 3 ML NEB INHALATION SCH ×5 (03:50→19:34)
[2022-09-19 05:39] LABS: ABG Base Excess 7.3 mmol/L; ABG HCO3 31 mmol/L (21-25); ABG Oxygen Saturation 99.4 % (94-97); ABG PCO2 44 mmHg (35-45); ABG PH 7.46 (7.35-7.45); ABG PO2 117 mmHg (83-108); ABG TCO2 32 mmol/L (19-24); Allen Test Performed? Yes
[2022-09-19 06:13] LABS: Glucose,Whole Blood 131 mg/dL (70-110)
[2022-09-19 06:41] LABS: HCT 30.4 % (39.0-53.0); HGB 9.8 gm/dL (13.0-17.5); Hypochromasia Moderate; MCH 31.1 pg (25.0-35.0); MCHC 32.3 g/dL (31.0-37.0); MCV 96.3 fL (80.0-100.0); Mean Platelet Volume 10.2; Platelet Count 106 k/uL (150-450); RBC 3.16 m/uL (4.30-5.90); RDW 15.1 % (11.5-15.5); WBC 7.6 k/uL (3.8-10.6)
[2022-09-19 06:57] LABS: INR 1.2 (<1.2); Prothrombin Time 12.6 sec (9.0-12.0)
[2022-09-19 06:59] LABS: Calcium 7.7 mg/dL (8.4-10.2); Potassium 3.2 mmol/L (3.5-5.1)
[2022-09-19] MEDS: BUDESONIDE 1 MG/2 ML NEBU INHALATION SCH ×2 (08:12→19:34)
--- NOTE | 2022-09-19 08:12 | XR ---
EXAMINATION TYPE: XR chest 1V portable DATE OF EXAM: 09/19/2022 5:53 AM COMPARISON: Chest radiograph from one day prior. TECHNIQUE: XR chest 1V portable Portable AP radiograph of the chest. CLINICAL INDICATION:Male, 67 years old with history of Tube placement; FINDINGS: Lungs/Pleura: Blunting of the right costophrenic angle. No evidence of pneumothorax. Pulmonary vascularity: Unremarkable. Heart/mediastinum: Cardiomediastinal silhouette is enlarged and stable. Three lead cardiac conduction device overlying the left hemithorax with lead tips projecting over the right ventricle, right atriu m and coronary sinus. Musculoskeletal: No acute osseous pathology. Other findings: None Lines/Tubes: Endotracheal tube with distal tip 5.6 cm above the vivienne Nasogastric tube with its distal tip and side-port projecting under the diaphragm. Left central venous catheter with distal tip at the cavoatrial junction. IMPRESSION: Right pleural effusion with associated atelectasis. Underlying right lower lobe airspace disease not excluded.
[2022-09-19] MEDS: MIDODRINE 5 MG TAB PO SCH ×3 (09:28→17:33)
[2022-09-19] MEDS: PANTOPRAZOLE 40 MG/10 ML VIAL IVP SCH (09:28)
[2022-09-19] MEDS: CHLORHEXIDINE GLUCONATE 15 ML CUP MUCOUS MEM SCH ×2 (09:28→21:37)
--- NOTE | 2022-09-19 10:05 | P.PN ---
Subjective Progress Note Date: 09/19/22 PROGRESS NOTE The patient is a 67-year-old male who presented with symptoms of progressive dyspnea and CHF requiring chemical ventilation. He is intubated and sedated. Hemodynamically he is stable. He is having good urinary output. She has chronic atrial fibrillation and his ventricular response is controlled. He has been paced. There is no evidence of ventricular ectopic activity. He had recent Covid infection. He has renal failure and a history of chronic kidney disease. He was intubated yesterday. He has a pacemaker with normal sensing and pacing. His echocardiogram in July showed an ejection fraction of 45% with mild mitral and severe tricuspid regurgitation. He underwent cardiac catheterization in 2019 that showed mild obstructive disease. He is followed on a regular basis by Dr. Fletcher. He has a biventricular pacer placed in October 2020. He has a prior history of ventricular tachycardia. September 15: The patient remains intubated and sedated, he has good urinary output. He is ventricularly paced with no evidence of ventricular tachycardia. He continues to be on norepinephrine at the lower dose. Hemodynamically there is no significant changes. He has been followed by the neurology service for the metabolic encephalopathy and the myoclonic jerks that was thought to be related to metabolic abnormalities. September 16: The patient remains intubated, he is on no sedation. He remains unresponsive. His blood pressure is stable. His echocardiogram showed an ejection fraction of 50% with mild aortic stenosis and mild to moderate mitral and moderate to severe tricuspid regurgitation. His chest x-ray showed diffuse changes with pleural effusion. No evidence of recurrent ventricular tachycardia. September 17: The patient remains intubated, unresponsive, not sedated. He has no evidence of ventricular ectopic activity or pacemaker malfunction. His urine output has been stable. Hemodynamically he has been stable. He is undergoing an EEG to further evaluate his neurological status. His head CT yesterday showed no significant changes. September 18: He remains intubated, he had dialysis yesterday, his blood pressure dropped at the end of dialysis with removal of 800 mL. He appears to be more awake today, opening his eyes to command and following orders. He has no evidence of ventricular ectopic activity. He is scheduled to undergo repeat dialysis today. His blood pressure is stable this morning. His urine output has been good. He had evidence of GI bleeding and was evaluated by the GI service today, awaiting further input. If he has further reading he may require colonoscopy. September 19: The patient remains intubated, more awake and alert. Following command. He continues to be paced and his blood pressure is stable. He has received dialysis. He continues to be off anticoagulation because of GI bleeding. There is no evidence of ventricular ectopic activity. He has an underlying atrial fibrillation. Medications: midodrine 10 mg 3 times a day, Keppra PHYSICAL EXAMINATION: Blood pressure 116/53 heart rate 64, intubated, following verbal commands LUNGS: Clear to auscultation anteriorly HEART: Regular rate and rhythm, S1, S2. No S3. Holosystolic murmur at the apex, 12/07 ABDOMEN: Soft, positive bowel sounds, no organomegaly EXTREMETIES: +1 edema, Red wrap LAB: Hemoglobin 9.8, potassium 3.2, BUN 79, creatinine 2.12 1. Respiratory failure with CHF and possible aspiration. He had a mildly impaired systolic function in the past 2. Worsening renal failure with acute renal injury, non-oliguric, underwent dialysis 3. Atrial fibrillation, anticoagulated, anticoagulation on hold because of recent GI bleeding 4. Post biventricular pacing 5. Recent COVID infection 7. Obesity 8. Unresponsiveness rule out neurological event, rule out metabolic encephalopathy with uremic encephalopathy, improving after dialysis, continues to improve PLAN: 1. Continue present therapy 2. Await recommendations from GI regarding anticoagulation 3. Wean and extubate for pulmonary service 4. Depending on his progress further recommendations will be made. Objective - Vital Signs Vital signs: Vital Signs Temp 98.6 F 09/19/22 08:00 Pulse 64 09/19/22 09:00 Resp 32 H 09/19/22 09:00 BP 102/58 09/18/22 12:02 Pulse Ox 100 09/19/22 09:00 FiO2 40 09/19/22 09:00 Intake & Output 09/18/22 09/19/22 09/19/22 18:59 06:59 18:59 Intake Total 886 839 106 Output Total 8570 775 175 Balance -2284 64 -69 Weight 114.8 kg 112.9 kg Intake: IV 186 189 6 Piperacillin-Tazobactam 3 100 .375 gm In Sodium Chloride 0.9% 100 ml @ 25 mls/hr IVPB Q8HR [facility] Rx# :[id number] Pressure Bag 36 39 6 Sodium Chloride 0.9% 1, 150 50 000 ml @ 20 mls/hr IV . Q24H [facility] Rx#:[id number] Intake, IV Titration 300 650 100 Amount Dextrose 5% in Water 1, 300 650 100 000 ml @ 50 mls/hr IV . Q20H [facility] Rx#:[id number] Hemodialysis 400 Output: Urine 770 775 175 Hemodialysis 2400 Other: Voiding Method Indwelling Catheter Indwelling Catheter Indwelling Catheter ABP, PAP, CO, CI - Last Documented Arterial Blood Pressure 116/53 - Labs CBC & Chem 7: 09/19/22 06:18 09/19/22 06:18 Labs: Abnormal Lab Results - Last 24 Hours (Table) 09/18/22 09/18/22 09/18/22 Range/Units 10:20 12:40 18:26 RBC (4.30-5.90) m/uL Hgb (13.0-17.5) gm/dL Hct (39.0-53.0) % Plt Count (150-450) k/uL PT (9.0-12.0) sec INR (<1.2) ABG pH (7.35-7.45) ABG pO2 (83-108) mmHg ABG HCO3 (21-25) mmol/L ABG Total CO2 (19-24) mmol/L ABG O2 Saturation (94-97) % Sodium 146 H (137-145) mmol/L Potassium 3.4 L (3.5-5.1) mmol/L Carbon Dioxide 33 H (22-30) mmol/L BUN 80 H (9-20) mg/dL Creatinine 1.92 H (0.66-1.25) mg/dL Glucose 118 H (74-99) mg/dL POC Glucose (mg/dL) 117 H 138 H (70-110) mg/dL Calcium 8.1 L (8.4-10.2) mg/dL 09/19/22 09/19/22 09/19/22 Range/Units 00:42 05:34 06:12 RBC (4.30-5.90) m/uL Hgb (13.0-17.5) gm/dL Hct (39.0-53.0) % Plt Count (150-450) k/uL PT (9.0-12.0) sec INR (<1.2) ABG pH 7.46 H (7.35-7.45) ABG pO2 117 H (83-108) mmHg ABG HCO3 31 H (21-25) mmol/L ABG Total CO2 32 H (19-24) mmol/L ABG O2 Saturation 99.4 H (94-97) % Sodium (137-145) mmol/L Potassium (3.5-5.1) mmol/L Carbon Dioxide (22-30) mmol/L BUN (9-20) mg/dL Creatinine (0.66-1.25) mg/dL Glucose (74-99) mg/dL POC Glucose (mg/dL) 130 H 131 H (70-110) mg/dL Calcium (8.4-10.2) mg/dL 09/19/22 09/19/22 09/19/22 Range/Units 06:18 06:18 06:18 RBC 3.16 L (4.30-5.90) m/uL Hgb 9.8 L (13.0-17.5) gm/dL Hct 30.4 L (39.0-53.0) % Plt Count 106 L (150-450) k/uL PT 12.6 H (9.0-12.0) sec INR 1.2 H (<1.2) ABG pH (7.35-7.45) ABG pO2 (83-108) mmHg ABG HCO3 (21-25) mmol/L ABG Total CO2 (19-24) mmol/L ABG O2 Saturation (94-97) % Sodium (137-145) mmol/L Potassium 3.2 L (3.5-5.1) mmol/L Carbon Dioxide (22-30) mmol/L BUN 79 H (9-20) mg/dL Creatinine 2.12 H (0.66-1.25) mg/dL Glucose 133 H (74-99) mg/dL POC Glucose (mg/dL) (70-110) mg/dL Calcium 7.7 L (8.4-10.2) mg/dL
[2022-09-19] MEDS ORDERED: Potassium Replacement Protocol 1 EACH MISC MISCELLANE PRN (10:19)
--- NOTE | 2022-09-19 10:37 | P.PN ---
Subjective Patient is seen for follow-up for acute kidney injury. He is currently on the vent Patient continues to have good urine output at about 50-100 ML per hour. Patient's BUN had increased to 152, , serum creatinine 3.5 with no improvement in mentation therefore he was started on hemodialysis on 09/17/2022. Patient tolerated his treatment well yesterday with UF of about 2 L. Mentation has improved post dialysis with BUN down to 79 today and creatinine 2.1. Patient continues to have good urine output This morning patient has been following commands. Possible CPAP trial today. Patient will be dialyzed again today. Objective - Vital Signs Vital signs: Vital Signs Temp 98.6 F 09/19/22 08:00 Pulse 64 09/19/22 10:00 Resp 32 H 09/19/22 10:00 BP 102/58 09/18/22 12:02 Pulse Ox 100 09/19/22 10:00 FiO2 40 09/19/22 10:00 Intake & Output 09/18/22 09/19/22 09/19/22 18:59 06:59 18:59 Intake Total 886 839 106 Output Total 3170 775 175 Balance -2284 64 -69 Weight 114.8 kg 112.9 kg Intake: IV 186 189 6 Piperacillin-Tazobactam 3 100 .375 gm In Sodium Chloride 0.9% 100 ml @ 25 mls/hr IVPB Q8HR [facility] Rx# :[id number] Pressure Bag 36 39 6 Sodium Chloride 0.9% 1, 150 50 000 ml @ 20 mls/hr IV . Q24H [facility] Rx#:[id number] Intake, IV Titration 300 650 100 Amount Dextrose 5% in Water 1, 300 650 100 000 ml @ 50 mls/hr IV . Q20H [facility] Rx#:[id number] Hemodialysis 400 Output: Urine 770 775 175 Hemodialysis 2400 Other: Voiding Method Indwelling Catheter Indwelling Catheter Indwelling Catheter ABP, PAP, CO, CI - Last Documented Arterial Blood Pressure 113/51 - Exam on the vent Off of sedation Examination of the heart S1 and S2 Examination of the lungs shows bilateral breath sounds are heard Abdomen is soft nontender Examination lower extremity shows significant edema in the lower extremities with scrotal edema noted. Both legs are wrapped Withdraws to painful stimuli and also following commands today. - Labs CBC & Chem 7: 09/19/22 06:18 09/19/22 06:18 Labs: Abnormal Lab Results - Last 24 Hours (Table) 09/18/22 09/18/22 09/18/22 Range/Units 10:20 12:40 18:26 RBC (4.30-5.90) m/uL Hgb (13.0-17.5) gm/dL Hct (39.0-53.0) % Plt Count (150-450) k/uL PT (9.0-12.0) sec INR (<1.2) ABG pH (7.35-7.45) ABG pO2 (83-108) mmHg ABG HCO3 (21-25) mmol/L ABG Total CO2 (19-24) mmol/L ABG O2 Saturation (94-97) % Sodium 146 H (137-145) mmol/L Potassium 3.4 L (3.5-5.1) mmol/L Carbon Dioxide 33 H (22-30) mmol/L BUN 80 H (9-20) mg/dL Creatinine 1.92 H (0.66-1.25) mg/dL Glucose 118 H (74-99) mg/dL POC Glucose (mg/dL) 117 H 138 H (70-110) mg/dL Calcium 8.1 L (8.4-10.2) mg/dL 09/19/22 09/19/22 09/19/22 Range/Units 00:42 05:34 06:12 RBC (4.30-5.90) m/uL Hgb (13.0-17.5) gm/dL Hct (39.0-53.0) % Plt Count (150-450) k/uL PT (9.0-12.0) sec INR (<1.2) ABG pH 7.46 H (7.35-7.45) ABG pO2 117 H (83-108) mmHg ABG HCO3 31 H (21-25) mmol/L ABG Total CO2 32 H (19-24) mmol/L ABG O2 Saturation 99.4 H (94-97) % Sodium (137-145) mmol/L Potassium (3.5-5.1) mmol/L Carbon Dioxide (22-30) mmol/L BUN (9-20) mg/dL Creatinine (0.66-1.25) mg/dL Glucose (74-99) mg/dL POC Glucose (mg/dL) 130 H 131 H (70-110) mg/dL Calcium (8.4-10.2) mg/dL 09/19/22 09/19/22 09/19/22 Range/Units 06:18 06:18 06:18 RBC 3.16 L (4.30-5.90) m/uL Hgb 9.8 L (13.0-17.5) gm/dL Hct 30.4 L (39.0-53.0) % Plt Count 106 L (150-450) k/uL PT 12.6 H (9.0-12.0) sec INR 1.2 H (<1.2) ABG pH (7.35-7.45) ABG pO2 (83-108) mmHg ABG HCO3 (21-25) mmol/L ABG Total CO2 (19-24) mmol/L ABG O2 Saturation (94-97) % Sodium (137-145) mmol/L Potassium 3.2 L (3.5-5.1) mmol/L Carbon Dioxide (22-30) mmol/L BUN 79 H (9-20) mg/dL Creatinine 2.12 H (0.66-1.25) mg/dL Glucose 133 H (74-99) mg/dL POC Glucose (mg/dL) (70-110) mg/dL Calcium 7.7 L (8.4-10.2) mg/dL Assessment and Plan Assessment: 1. Acute kidney injury secondary to ATN secondary to hypotension and cardiorenal syndrome. Urine output at about 50-100 mL per hour. Elevated BUN partially due to steroids. No hydronephrosis noted on kidney ultrasound. Started renal replacement therapy as BUN is significantly elevated and possible underlying uremic encephalopathy. Hemodialysis started on 09/17/2022. Patient continues to have good urine output. Mentation has improved significantly. 2. Chronic kidney disease stage IIIB with baseline creatinine 1.8-2 secondary to nephrosclerosis and cardiorenal syndrome. 3. Acute hypoxic and hypercapnic respiratory failure. Intubated. On 40% FiO2. 4. Acute on chronic systolic CHF with ejection fraction of 45% with severe tricuspid regurgitation. Status post AICD. 5. Hyperkalemia secondary to acute kidney injury. Resolved. 6. Encephalopathy, possibly uremic. Improved significantly with hemodialysis 7. Hyponatremia 8. Hypokalemia we will replace with hemodialysis Plan: Replace potassium with Increase free water down the feeding tube Repeat hemodialysis today Hold Lasix
[2022-09-19] MEDS: levETIRAcetam IV 500 MG in SODIUM CHLORIDE 0.9% 100 ML IVPB SCH ×2 (11:02→21:38)
[2022-09-19] MEDS: POTASSIUM CHLORIDE 20 MEQ in WATER FOR INJECTION 1 100ML.BAG IVPB SCH ×2 (11:03→12:46)
[2022-09-19 12:11] LABS: Glucose,Whole Blood 155 mg/dL (70-110)
--- NOTE | 2022-09-19 13:14 | P.PN ---
Subjective Progress Note Date: 09/19/22 I am seeing the patient for the first time during this admission. He has altered metal status and felt more metabolic. Patient also has possible epileptiform activity (?generalized) that is reported and is on Keppra. According to the nurse he is following few simple commands to her (opening and closing eyes, wiggling toes) and is doing better the last two days. He has been off sedation for past 4 days and is lethargic. Please refer to Dr. Herrera's notes for further details. Objective - Vital Signs Vital signs: Vital Signs Temp 98.6 F 09/19/22 08:00 Pulse 65 09/19/22 11:58 Resp 34 H 09/19/22 11:00 BP 102/58 09/18/22 12:02 Pulse Ox 100 09/19/22 11:00 FiO2 40 09/19/22 12:00 Intake & Output 09/18/22 09/19/22 09/19/22 18:59 06:59 18:59 Intake Total 886 839 265 Output Total 3170 775 320 Balance -2284 64 -55 Weight 114.8 kg 112.9 kg Intake: IV 186 189 15 Piperacillin-Tazobactam 3 100 .375 gm In Sodium Chloride 0.9% 100 ml @ 25 mls/hr IVPB Q8HR [facility] Rx# :[id number] Pressure Bag 36 39 15 Sodium Chloride 0.9% 1, 150 50 000 ml @ 20 mls/hr IV . Q24H [facility] Rx#:[id number] Intake, IV Titration 300 650 250 Amount Dextrose 5% in Water 1, 300 650 250 000 ml @ 50 mls/hr IV . Q20H [facility] Rx#:[id number] Hemodialysis 400 Output: Urine 770 775 320 Hemodialysis 2400 Other: Voiding Method Indwelling Catheter Indwelling Catheter Indwelling Catheter ABP, PAP, CO, CI - Last Documented Arterial Blood Pressure 117/54 - Exam GENERAL: The patient is laying in bed and does not appear in acute distress. NEUROLOGICAL: Higher mental function: The patient is moderately to severely drowsy and is awakeable to voice. He is not following commands. . Cranial nerves: The pupils are round, equal and reactive to light. Primary gaze is midline. No facial weakness. Is intubated and has weak cough Motor: The strength is hard to assess but is able to have some movement of bilateral uppers. Cerebellum: Unable to assess. Sensation: Unable to assess. - Labs CBC & Chem 7: 09/19/22 06:18 09/19/22 06:18 Labs: Abnormal Lab Results - Last 24 Hours (Table) 09/18/22 09/19/22 09/19/22 Range/Units 18:26 00:42 05:34 RBC (4.30-5.90) m/uL Hgb (13.0-17.5) gm/dL Hct (39.0-53.0) % Plt Count (150-450) k/uL PT (9.0-12.0) sec INR (<1.2) ABG pH 7.46 H (7.35-7.45) ABG pO2 117 H (83-108) mmHg ABG HCO3 31 H (21-25) mmol/L ABG Total CO2 32 H (19-24) mmol/L ABG O2 Saturation 99.4 H (94-97) % Potassium (3.5-5.1) mmol/L BUN (9-20) mg/dL Creatinine (0.66-1.25) mg/dL Glucose (74-99) mg/dL POC Glucose (mg/dL) 138 H 130 H (70-110) mg/dL Calcium (8.4-10.2) mg/dL 09/19/22 09/19/22 09/19/22 Range/Units 06:12 06:18 06:18 RBC (4.30-5.90) m/uL Hgb (13.0-17.5) gm/dL Hct (39.0-53.0) % Plt Count (150-450) k/uL PT 12.6 H (9.0-12.0) sec INR 1.2 H (<1.2) ABG pH (7.35-7.45) ABG pO2 (83-108) mmHg ABG HCO3 (21-25) mmol/L ABG Total CO2 (19-24) mmol/L ABG O2 Saturation (94-97) % Potassium 3.2 L (3.5-5.1) mmol/L BUN 79 H (9-20) mg/dL Creatinine 2.12 H (0.66-1.25) mg/dL Glucose 133 H (74-99) mg/dL POC Glucose (mg/dL) 131 H (70-110) mg/dL Calcium 7.7 L (8.4-10.2) mg/dL 09/19/22 09/19/22 Range/Units 06:18 12:09 RBC 3.16 L (4.30-5.90) m/uL Hgb 9.8 L (13.0-17.5) gm/dL Hct 30.4 L (39.0-53.0) % Plt Count 106 L (150-450) k/uL PT (9.0-12.0) sec INR (<1.2) ABG pH (7.35-7.45) ABG pO2 (83-108) mmHg ABG HCO3 (21-25) mmol/L ABG Total CO2 (19-24) mmol/L ABG O2 Saturation (94-97) % Potassium (3.5-5.1) mmol/L BUN (9-20) mg/dL Creatinine (0.66-1.25) mg/dL Glucose (74-99) mg/dL POC Glucose (mg/dL) 155 H (70-110) mg/dL Calcium (8.4-10.2) mg/dL Assessment and Plan Assessment: -Altered mental status due to Metabolic encephalopathy, probably multifactorial. Patient has hypercapnia with acute renal failure. (worsening) -Abnormal EEG with possible epileptiform activity (? generalized), with some triphasic waves. -Anisocoria, now resolved. Perhaps related to medication effect. -Myoclonic jerks probably due to metabolic dysfunction, cannot rule out seizure because of abnormal EEG. -Acute hypoxemic and hypercapnic respiratory failure -Supratherapeutic INR -History of chronic atrial fibrillation on Coumadin -History of chronic kidney disease -Hypertension -History of recent [place] virus -Bilateral lower extremity edema -History of tobacco use -Anemia -Thrombocytopenia Plan: 1. Repeat EEG from 09/17/2022 showed background slowing of moderate to severe degree consistent with encephalopathy. Presence of higher amplitude slightly frontally predominant triphasic-type waves, which at times have more generalized distribution with occasional phase reversal. This may suggest underlying cortical irritability. When compared to the EEG from 09/14/2022, the background has become more slow and new appearance of this high amplitude triphasic Waves. Clinical correlation is strongly recommended.. 2. Dr. Herrera discontinue Vimpat because of concern about generalized sharp- appearing waves. Patient started Keppra 500 mg twice a day 09/17/2022 in the evening. Then felt clinical improvement, which uncertain related to initiation of hemodialysis, or related to Keppra. Prolonged 2.5 hours EEG was considered yesterday, but due to ongoing hemodialysis, and due to remarkable clinical improvement, we'll hold off on it. 3. Continue supportive respiratory care 4. Continue nephrology care for kidney disease. Patient started on hemodialysis.. 5. TSH 0.78, B12 1159, ammonia 19, hemoglobin A1c 5.6, all normal. 6. CT head showed age-related changes, with no acute process. 7. Will defer the rest of medical management to primary team. The plan is discussed with the nurse. Will continue to follow. Time with Patient: Less than 30
--- NOTE | 2022-09-19 16:37 | P.PN ---
Subjective Progress Note Date: 09/19/22 On 09/14/2022, the patient is intubated on a mechanical ventilator. The patient has history of COPD, hypertension, chronic atrial fibrillation and the patient has a permanent pacemaker in place, chronic kidney disease and is a chronic smoker. The patient presented to the hospital because of worsening shortness of breath. Yesterday evening, the patient acutely became unresponsive, and he would to be intubated and placed on a mechanical ventilator. It is not clear to me whether the patient was having any seizure activity. It is possible the patient could've aspirated. However, those events overnight clear to me. This morning the patient is on propofol which is running at 50 mcg/kg/m. The patient is also on Nimbex for paralysis. IV fluids are currently at KVO. Patient is on norepinephrine which is running at 0.11 mg/kg/m. Overall fluid balance is +2.7 L over the past 24 hours. NG tube is in place and output from the NG tube inserted is in order of 700 mL. The patient is currently on a mechanical ventilator assist control mode at a rate of 32, tidal volume of 350, FiO2 of 40% with a PEEP of 5. Blood gas showed a pH of 7.55 with a pCO2 of 38 and pO2 of 82. The peak airway pressure is at 23 The chest x-ray from today showing diffuse parenchymal changes and cardiomegaly and bilateral pleural effusions more consistent with CHF. The blood work shows a white cell count 15.1 with a hemoglobin of 11.7 and a platelet count of 168. The patient's INR is at 3.5 with a PT of 35 and the patient's cardiac rhythm is currently paced at this point in time. The blood work shows a sodium level of 135, potassium level is 4.5, chloride is 96 with a bicarb of 29, sodium is at 130 with a potassium level of 3.5. Glucose at 159. The patient is afebrile. Bedside EEG was done and it showed no evidence of any acute seizure activity. Neurologically, the patient is grimacing to painful condition of 4 extremities. He is withdrawing to painful stimulation. No focal neurological deficits. On 09/15/2022, the patient is being seen for a follow-up. This morning, the patient is still sedated on propofol is running at 45 mcg/kg/m. The patient is on a mechanical ventilator on assist control mode with a rate of 32, tidal volume of 350 with an FiO2 of 40% and a PEEP of 5. The blood gases from today is showing a pH of 7.54 with episodes of 40 and pO2 of 74 and this was an apparent of 40%. Chest x-ray essentially unchanged. His cardiomegaly. There is also evidence of a stable pleural parenchymal changes with a loculated chronic right-sided pleural effusion. As part of further investigation, I the day CAT scan of the chest yesterday in addition to a CAT scan of the abdomen and a CAT scan showed anasarca changes with bilateral pleural effusions right more than left and right-sided pleural effusion seemed to be chronic and loculated and was well demarcated with some calcification along the pleural lining. There was also small volume of intra-abdominal/pelvic ascites. There was evidence of bibasilar atelectasis without definite consolidation. There was cardiomegaly. CAT scan of the brain was essentially negative for any acute abnormalities. The patient was being diuresed with IV Lasix. The patient is a negative fluid balance of 1.4 L over the past 24 hours. On today's evaluation, the patient is on norepinephrine which is running at a dose of 0.08 microvascular kilogram per minutes. His white cell count is at 3.4 with a hemoglobin of 11.1 and an INR of 2.3. Sodium is at 139, potassium is at 3.6, bicarb is 32, BUN is at 134 with a creatinine of 3.3. The patient has a paced cardiac rhythm at this point in time. Echocardiogram was also done presented on the function with dilated RV, dilated atria bilaterally right and left and [id number] mitral regurgitation and mitral aortic stenosis with moderate to severe tricuspid regurgitation. EEG was completed and showed no evidence of any seizure activity and the patient remains on Vimpat. 09/16/2022, the patient remains off sedation and the patient has been off propofol for the past 24 hours. Unfortunately, is not following commands. He grimaces to painful stimulation. He is fasting. All 4 extremities and occasionally withdraws. No seizure activity has been noted. The patient has positive brainstem reflexes including reading to flex, cough and gag reflex. He also has spontaneous eye opening and the patient blinks and looks around. Nevertheless, is not following any commands. This is obviously concerning. At the same time, the patient remains on a mechanical ventilator. Today, the patient is on assist control mode at a rate of 32, tidal volume of 350, FiO2 of 40% with a PEEP of 5. Blood gas shows a pH of 7.47 with a pCO2 of 47 and pO2 of 85. The patient remains on IV Lasix. Overall fluid balance is -680 mL over the past 24 hours. The patient has a paced cardiac rhythm. The patient has a sodium level of 141 with a potassium level of 3.6, sodium level is 141, BUN is 141 with a creatinine of 3.5. the patientthe patient also has a hemoglobin of 10.8 with a platelet count of 103 and a white cell count of 9.0.CULTURES are negative. Chest x-ray findings of essentially unchanged and the patient is about the pleural effusion and the patient has a loculated right-sided pleural effusion. She was in a good location. The patient is currently off pressors for now. Echo of the heart showed dilated RV, kyqp-[id number] mitral regurgitation, mild aortic stenosis and moderate degree of tricuspid regurgitation. 09/17/2022, the patient is still off sedation. The patient has been off propofol for the past 48 hours. Unfortunately, is not following any commands. He keeps his eyes closed. At times he opens his eyes spontaneously. Does not track. Does not indicate that he is comprehending and the patient has been withdrawing only to painful stimulation. He does grimace when stimulated and we have noticed this for the past 24-48 hours. Another E is in progress today. Note that the repeat CAT scan of the brain showed no acute abnormalities. No seizure activity clinically has been noted. He is afebrile. He is hemodynamically stable. He is on a mechanical ventilator at this point in time. He is on assist-control mode and is able to tolerate that well while being Sedation. He Is Active 32 with a Tidal Volume of 350 and FiO2 of 40% with a PEEP of 5. A blood gas that was done this morning showed a pH of 7.46 with a pCO2 of 50 and pO2 of 106. A repeat chest x-ray was done today that shows cardiomegaly and there is evidence of bilateral pleural effusion which is essentially unchanged. The right-sided pleural effusion is loculated. There is also evidence also of cardiomegaly and pulmonary edema and increased pulmonary vascular markings bilaterally with cephalization. His ET tube is in a good location. He also has a left IJ triple lumen catheter in place. He continues to have third spacing and edema both in his upper and lower extremities and he also has scrotal edema. His urine output is in order of 2.2 L over the past 24 hours and the patient is still diuresing. He remains on Lasix 40 mg IV every 24 hours. On his blood work, the patient's creatinine today is at 3.43 with this BUN of 152 and his sodium level is at 144. Potassium levels at 3.1 and needs to be replaced. The white cell cause of 10.6 with a hemoglobin of 10.6 and a platelet count of 98. The INR today's of 2.9. The patient's cardiac rhythm. He remains on warfarin for long-term anticoagulation. I think the plan is to consider dialysis on this patient. There is a concern that he may have encephalopathy due to his chronic kidney disease and nephrology once dialyze him to optimize his volume status and the same time monitor his mental status while on dialysis. 09/18/2022, the patient is still intubated on mechanical ventilator. Noted the patient is still off sedation and the patient has been off propofol for the past 72 hours. The patient seems to be slightly more awake and the patient was able to follow some simple commands on today's evaluation. He remains profoundly weak. As such, there is some recovery in his neurologic status. Noted the patient was started hemodialysis yesterday. A hemodialysis catheter was inserted and the patient was started on dialysis with a total of 800 mL of fluid was also infiltrated and another session of hemodialysis being given this morning. Meanwhile, the patient remains on a mechanical ventilator. Today he has an assist-control mode at the rate of 32 with an FiO2 of 40% and PEEP of 5 a nd a tidal volume of 350. The chest x-ray findings are essentially stable with bilateral pleural effusions. The pleural effusion on the right is loculated. The blood gas shows a pH of 7.48 with episodes of 45 and pO2 of 108. The patient remains on enteral feeding for nutritional support and the patient is currently on vital high-protein which is being administered rate of 34 mL an hour. The white cell cause of 10.0 with a hemoglobin of 10.4 and a platelet count of 106. Sodium is at 147 and a BUN is 105 with a creatinine of 2.4. The patient's coagulopathy was reversed and the patient is back on Coumadin today and a dose of 1 mg will be given to him today. INR today is at 1.4. Note that his cardiac rhythm is still paced. I'll importance is some neurologic recovery. Encountered on today's evaluation. EEG showed diffuse slowing consistent with metabolic encephalopathy and there is no evidence of any seizure activity noted. 09/19/2022, the patient is being seen for a follow-up. Remains intubated on a mechanical ventilator. There is obvious improvement in his mentation as the patient is following commands. He remains profoundly weak. He is weaning parameters are extremely poor. He remains extremely weak and the patient is not ready for any further weaning off the mechanical ventilator. Meanwhile, the patient remains off sedation his been off alcohol for the past 4 days. He has undergone 2 sessions of hemodialysis in yesterday the patient a total of 2 L of ultrafiltration. Remains on a mechanical ventilator on assist control mode with a rate of 32, tidal volume of 350, FiO2 of 40% with a PEEP of 5. Blood gas showed a pH of 7.46 with a pCO2 of 44 and pO2 of 117. The INR is at 1.2. Sodium is at 144 with a potassium level of 3.2 and a BUN of 79 with a creatinine of 2.12. The patient is on enteral feeding for nutritional support.. The patient is afebrile. His cardiac rhythm is sinus. INR is at 1.2. He is white cell count at 7.6 with a hemoglobin 9.8 and a platelet count of 106. Sodium is at 144 with a potassium level of 3.2, BUN 79 with a creatinine of 2.12. Objective - Vital Signs Vital signs: Vital Signs Temp 97.9 F 09/19/22 12:00 Pulse 74 09/19/22 16:15 Resp 18 09/19/22 15:00 BP 95/79 09/19/22 15:00 Pulse Ox 100 09/19/22 15:00 FiO2 40 09/19/22 15:54 Intake & Output 09/18/22 09/19/22 09/19/22 18:59 06:59 18:59 Intake Total 886 839 452 Output Total 3170 775 380 Balance -2284 64 72 Weight 114.8 kg 112.9 kg Intake: IV 186 189 18 Piperacillin-Tazobactam 3 100 .375 gm In Sodium Chloride 0.9% 100 ml @ 25 mls/hr IVPB Q8HR [facility] Rx# :[id number] Pressure Bag 36 39 18 Sodium Chloride 0.9% 1, 150 50 000 ml @ 20 mls/hr IV . Q24H [facility] Rx#:[id number] Intake, IV Titration 300 650 300 Amount Dextrose 5% in Water 1, 300 650 300 000 ml @ 50 mls/hr IV . Q20H [facility] Rx#:[id number] Tube Feeding 34 Hemodialysis 400 Other 100 Output: Urine 770 775 380 Hemodialysis 2400 Other: Voiding Method Indwelling Catheter Indwelling Catheter Indwelling Catheter ABP, PAP, CO, CI - Last Documented Arterial Blood Pressure 113/57 - Exam Gen. appearance the patient is calm and comfortable not acute distress. Intubated on mechanical ventilator. the patient is off sedation. Head exam was generally normal. There was no scleral icterus or corneal arcus. Mucous membranes were moist. Neck was supple and without jugular venous distension, thyromegaly, or carotid bruits. Carotids were easily palpable bilaterally. There was no adenopathy. The patient has an orogastric and orotracheal tube water enema in place Lungs were clear to auscultation and percussion, and with normal diaphragmatic excursion. No wheezes or rales were noted. Cardiac exam revealed the PMI to be normally situated and sized. The rhythm was regular and no extrasystoles were noted during several minutes of auscultation. The first and second heart sounds were normal and physiologic splitting of the second heart sound was noted. There were no murmurs, rubs, clicks, or gallops. Abdominal exam revealed normal bowel sounds. The abdomen was soft, non-tender, and without masses, organomegaly, or appreciable enlargement of the abdominal aorta. Examination of the extremities revealed easily palpable radial, femoral and pedal pulses. There was no cyanosis, clubbing and the patient continues to have significant amount of edema in his lower extremities and is scrotal area. There is also some abdominal wall edema. Examination of the skin revealed no evidence of significant rashes, suspicious appearing nevi or other concerning lesions. Neurologically, the patient remains off sedation the patient was able to follow some simple commands. Nevertheless, he remains profoundly sleepy and lethargic and is mobile generalized weakness in all 4 extremities. He is withdrawing to painful stimulation in all 4 extremities and he grimaces to painful stimuli. Pupils are equal and reactive to light.neurologically, much more responsive. - Labs CBC & Chem 7: 09/19/22 06:18 09/19/22 06:18 Labs: Abnormal Lab Results - Last 24 Hours (Table) 09/18/22 09/19/22 09/19/22 Range/Units 18:26 00:42 05:34 RBC (4.30-5.90) m/uL Hgb (13.0-17.5) gm/dL Hct (39.0-53.0) % Plt Count (150-450) k/uL PT (9.0-12.0) sec INR (<1.2) ABG pH 7.46 H (7.35-7.45) ABG pO2 117 H (83-108) mmHg ABG HCO3 31 H (21-25) mmol/L ABG Total CO2 32 H (19-24) mmol/L ABG O2 Saturation 99.4 H (94-97) % Potassium (3.5-5.1) mmol/L BUN (9-20) mg/dL Creatinine (0.66-1.25) mg/dL Glucose (74-99) mg/dL POC Glucose (mg/dL) 138 H 130 H (70-110) mg/dL Calcium (8.4-10.2) mg/dL 09/19/22 09/19/22 09/19/22 Range/Units 06:12 06:18 06:18 RBC (4.30-5.90) m/uL Hgb (13.0-17.5) gm/dL Hct (39.0-53.0) % Plt Count (150-450) k/uL PT 12.6 H (9.0-12.0) sec INR 1.2 H (<1.2) ABG pH (7.35-7.45) ABG pO2 (83-108) mmHg ABG HCO3 (21-25) mmol/L ABG Total CO2 (19-24) mmol/L ABG O2 Saturation (94-97) % Potassium 3.2 L (3.5-5.1) mmol/L BUN 79 H (9-20) mg/dL Creatinine 2.12 H (0.66-1.25) mg/dL Glucose 133 H (74-99) mg/dL POC Glucose (mg/dL) 131 H (70-110) mg/dL Calcium 7.7 L (8.4-10.2) mg/dL 09/19/22 09/19/22 Range/Units 06:18 12:09 RBC 3.16 L (4.30-5.90) m/uL Hgb 9.8 L (13.0-17.5) gm/dL Hct 30.4 L (39.0-53.0) % Plt Count 106 L (150-450) k/uL PT (9.0-12.0) sec INR (<1.2) ABG pH (7.35-7.45) ABG pO2 (83-108) mmHg ABG HCO3 (21-25) mmol/L ABG Total CO2 (19-24) mmol/L ABG O2 Saturation (94-97) % Potassium (3.5-5.1) mmol/L BUN (9-20) mg/dL Creatinine (0.66-1.25) mg/dL Glucose (74-99) mg/dL POC Glucose (mg/dL) 155 H (70-110) mg/dL Calcium (8.4-10.2) mg/dL Assessment and Plan Plan: Acute hypoxemic and hypercapnic respiratory failure, secondary to CHF/aspiration. Exact circumstances of the respiratory failure is not clear. The patient was found to be unresponsive. patient remains encephalopathic and encephalopathy improved slowly with hemodialysis. Weaning parameters are extremely weak and not ready for any weaning trials for now. Chest x-ray was noted and the chest x-ray findings are stable. Blood gases was also noted. Altered mental status and the patient remains unresponsive despite being off sedation for the past 48 hours. Consider encephalopathy/metabolic/drug induced in a setting of chronic kidney disease. Consider CVA. The patient has not show ing any signs of adequate neurological recovery over the past 4 days while being off sedation. the patient has undergone 2 sessions of hemodialysis, limited improvement in the mentation has been noted. Acute hypotension, recovered and the patient is currently off pressors History of recent coronavirus infection. History of chronic atrial fibrillation, rate is controlled for now. The patient had his coagulation profile reversed for dialysis catheter insertion. INR is subtherapeutic and the patient is being aggravated with warfarin Chronic systolic heart failure with previous ejection fraction from July 2022 showing an EF of around 45% along with mild MR, severe tricuspid regurgitation Coronary artery disease with mild nonobstructive disease based on an cardiac catheterization that was done in 2019 Previous history of ventricular tachycardia History of hypertension. Chronic lower extremity edema Acute on chronic kidney disease with KEYANA, nonoliguric at this point in time and nephrology is also on the case, the patient was started on hemodialysis Obesity. Prior history of tobacco use. Plan continue ventilator support and this is a ventilator changes were done. Decrease respiratory rate down to 16 and increase the tidal volume of to 400. Monitor the blood gases. Monitor mental status and this seems to be gradually improving not ready for weaning Hemodialysis per nephrology Continue checking daily weaning parameters anticoagulation with Coumadin Monitor PT/INR Not ready for extubation yet Continue enteral feeding for nutritional support and the patient remains on vital high-protein we'll continue to follow make further recommendations based on his progress. Long-term prognosis remains obviously poor. Family has been updated. Condition is critical and this is a critical care evaluation that was done in more than 30 minutes.
[2022-09-19 17:54] LABS: Glucose,Whole Blood 107 mg/dL (70-110)
[2022-09-19] MEDS ORDERED: WARFARIN 1 MG TAB PO ONE (18:00)
--- NOTE | 2022-09-19 19:31 | P.PN ---
Subjective from records This is a 67-year-old patient, follows with Dr. Ricardo Arnold. Chronic stable medical conditions include atrial fibrillation, hypertension, COPD, permanent pacemaker. Patient seen by me in the ER. Most of the history is obtained by the at the bedside. Patient was admitted for lung infection about a month ago. He didn't improve. Following the patient did have COVID. Patient now presents with worsening short of breath. Especially for 3-4 days. Also becoming bloated. Lower extremity edema. Appetite is poor. No cough. Patient has also underlying chronic kidney disease. Patient does smoke cigars and pipes. Patient is requiring a BiPAP in the ER. Has lower extremity wound being followed by Dr. Leung. Patient has some not able to give much of history.) Short of breath. 09/10/2022: Patient remains or overflow in the ER. On BiPAP. Tired lethargic. IV Lasix. Worsening renal function. We have pneumonia. Start IV ceftriaxone. Bronchodilators. Steroids. Strict I's and O's. 09/11/2022: Patient will lethargic. Remains on BiPAP. 16/28%. Overnight patient had become hypotensive. I held the Lasix temporarily and given fluid bolus. Lasix resumed today. Remains on IV ceftriaxone, DuoNeb, IV Solu-Medrol. 09/12/2022: ICU: On 4 L nasal cannula. Lethargic but would answer occasional question. at the bedside. Started on midodrine yesterday. Per neurology started IV Vimpat. Remains on IV Lasix. 09/13/2022: ICU. On 5 L nasal cannula. Lethargic. Hypothermic. Temperature 97.2. Rectal. Apolonia hugger started. and [id number] at the bedside. Patient for unequal pupils was seen by neurology. Cause unknown. Patient also had some myoclonic jerks felt to be a metabolic dysfunction. He followed by neurology. Patient is on Vimpat per neurology. Advanced care planning carried out with patient's and [id number] at the bedside. Patient does have advanced directives. Currently full code. Patient has been on and off BiPAP. Abdomen distended. Abdominal x-ray shows gastric distention. We will try temporary NG tube suction. Should help the bleeding also. 09/14/2022: ICU. Yesterday late afternoon patient had an NG tube placed for gastric distention. After he had some emesis into the BiPAP. About 700 mL of maroon-colored aspirate was obtained. Patient denied a 15 beat run of V. tach. Also had some abdominal breathing's. Patient had a bronchoscopy done by Dr. Mendoza. Following that patient's brother Nimbex and propofol drip. Intubated. This morning was taken out and the Bextra. Had his CAT scan demonstrated that showed bilateral pleural effusion. 2 feeding has been started 10 mL an hour. Currently the ventilator with FiO2 40 and a PEEP of 5. On propofol. Discussed with the at the bedside. 09/15/2022: ICU. Remains on the ventilator at 50/5. Small dose of levo. Propofol.. Remains on IV Lasix. Placed on IV Zosyn today. Discussed with at the bedside. Followed by multiple consultants. Ventricle paced rhythm. 09/16/2022: ICU. On the ventilator 40/5. Patient is off levo fed and propofol. Off the ladder for closer 24 hours. IV Lasix. IV Zosyn. 2 feeding at 34 mL an hour. Ventricular paced rhythm. Nephrology is planning to start dialysis tomorrow. Patient not responding otherwise. Encephalopathic 09/17/2022: ICU. On the ventilator 40/5. Remains encephalopathic. Urine output about 60-70 mL an hour. Earlier today had some dark stools and dark aspirate from the NG tube. Decision made to proceed with dialysis. Vitamin K given earlier. We'll give 2 units of FFP prior to dialysis catheter placement. Ventricle paced rhythm/A. fib. Discussed with the at the bedside. Hold tube feeding. Consult GI. Remains on IV Zosyn. IV Lasix. Worsening renal function. 09/18/2022: ICU. On the ventilator 40/5. Right groin dialysis catheter placed by Dr. Leung yesterday. 800 mL removed yesterday. Getting dialysis today. About 1000 mL to be removed. Opening eyes. Off any IVs. Making fairly urine. Telemetry shows V paced/A. fib. On IV Keppra and IV Zosyn. Seen by GI Dr. Russ García today. Hold EGD for now. If further bleeding then to proceed with endoscopy. Coumadin currently held. i am resuming the care of the pt today on 09/19/22 This is a pleasant 67 years old male with multiple medical problems admitted with acute hypoxic hypercapnic respiratory failure secondary to acute CHF exa cerbation, he is currently kept in the ICU intubated and sedated, also patient with evidence of encephalopathy as he is not waking up despite being off sedative for more than 48 hours but there is some improvement and has mentation, there is a concern of stroke and therefore neurologist recommended MRI/MRA of the brain which is pending now, he was started on Keppra and a state of implant because of abnormal EEG, no active seizures suspected. But there was biphasic wave so it was checked per neurologist. News Production Assistant also on the case, Lasix is on hold because of free water losses and kept on D5W, he's undergoing hemodialysis, watch leader following him closely Physical warfarin for his A. fib, INR 1.2, was restarted after GI team were consulted for positive occult blood in stool, hemoglobin 9.8 today compared to 11.9 on admission No active bleeding. Blood pressure is low normal but off pressors Patient currently continued on D5W at 50 L/h, Zosyn and warfarin Active Medications Generic Name Dose Route Start Last Admin Trade Name Freq PRN Reason Stop Dose Admin Albuterol/Ipratropium 3 ml 09/13/22 20:00 09/19/22 16:01 Ipratropium-Albuterol 3 Ml Neb INHALATION 3 ml RT-Q4H YULY Administration Budesonide 1 mg 09/10/22 14:50 09/19/22 08:12 Budesonide 1 Mg/2 Ml Nebu INHALATION 1 mg RT-BID YULY Administration Chlorhexidine Gluconate 15 ml 09/13/22 21:00 09/19/22 09:28 Chlorhexidine Gluconate 15 Ml Cup MUCOUS MEM 15 ml BID YULY Administration Sodium Chloride 1,000 mls @ 20 mls/hr 09/09/22 22:15 09/19/22 00:43 Saline 0.9% IV Not Given .Q24H YULY Norepinephrine Bitartrate 8 mg 258 mls @ 51.595 mls/hr 09/13/22 17:45 09/19/22 17:22 / Sodium Chloride IV Not Given .Q5H1M YULY Protocol 0.22 MCG/KG/MIN Propofol 1,000 mg/ IV Solution 100 mls @ 10.908 mls/hr 09/13/22 16:30 09/19/22 10:19 IV Not Given .Q9H11M YULY Protocol 15 MCG/KG/MIN Piperacillin Sod/Tazobactam 100 mls @ 25 mls/hr 09/15/22 16:00 09/19/22 17:33 Sod 3.375 gm/ Sodium Chloride IVPB 25 mls/hr Q8HR YULY Administration Protocol Levetiracetam 500 mg/ Sodium 105 mls @ 400 mls/hr 09/17/22 21:00 09/19/22 11:02 Chloride IVPB 400 mls/hr Q12HR YULY Administration Insulin Aspart 0 unit 09/14/22 00:00 09/19/22 18:31 Insulin Aspart (Novolog) 100 Unit/Ml Vial SQ Not Given Q6H [facility] Protocol Midodrine 10 mg 09/17/22 12:30 09/19/22 17:33 Midodrine 5 Mg Tab PO 10 mg AC-TID YULY Administration Miscellaneous Information 0 each 09/10/22 08:23 Warfarin Per Pharmacy MISCELLANE DIRECTED PRN PER PROTOCOL Miscellaneous Information 1 each 09/19/22 10:19 Potassium Replacement Protocol 1 Each Misc MISCELLANE DAILY PRN Per Protocol Protocol Ondansetron HCl 4 mg 09/13/22 12:43 09/13/22 12:48 Ondansetron 4 Mg/2 Ml Vial IVP 4 mg Q6HR PRN Administration Nausea And Vomiting Pantoprazole Sodium 40 mg 09/14/22 10:45 09/19/22 09:28 Pantoprazole 40 Mg/10 Ml Vial IVP 40 mg DAILY YULY Administration Objective - Vital Signs Vital signs: Vital Signs Temp 98.6 F 09/19/22 08:00 Pulse 64 09/19/22 10:00 Resp 32 H 09/19/22 10:00 BP 102/58 09/18/22 12:02 Pulse Ox 100 09/19/22 10:00 FiO2 40 09/19/22 10:00 Intake & Output 09/18/22 09/19/22 09/19/22 18:59 06:59 18:59 Intake Total 886 839 106 Output Total 3170 775 175 Balance -2284 64 -69 Weight 114.8 kg 112.9 kg Intake: IV 186 189 6 Piperacillin-Tazobactam 3 100 .375 gm In Sodium Chloride 0.9% 100 ml @ 25 mls/hr IVPB Q8HR [facility] Rx# :[id number] Pressure Bag 36 39 6 Sodium Chloride 0.9% 1, 150 50 000 ml @ 20 mls/hr IV . Q24H [facility] Rx#:[id number] Intake, IV Titration 300 650 100 Amount Dextrose 5% in Water 1, 300 650 100 000 ml @ 50 mls/hr IV . Q20H [facility] Rx#:[id number] Hemodialysis 400 Output: Urine 770 775 175 Hemodialysis 2400 Other: Voiding Method Indwelling Catheter Indwelling Catheter Indwelling Catheter ABP, PAP, CO, CI - Last Documented Arterial Blood Pressure 113/51 - Exam -GENERAL: The patient is intubated and sedated HEENT: Pupils are round and equally reacting to light. EOMI. No scleral icterus. No conjunctival pallor. Normocephalic, atraumatic. No pharyngeal erythema. No thyromegaly. CARDIOVASCULAR: S1 and S2 present. No murmurs, rubs, or gallops. -PULMONARY: Chest is clear to auscultation, no wheezing, Mild distal crepitation ABDOMEN: Soft, nontender, nondistended, normoactive bowel sounds. No palpable organomegaly. MUSCULOSKELETAL: No joint swelling or deformity. -EXTREMITIES: No cyanosis, clubbing, . Bilateral pitting leg edema, mild. NEUROLOGICAL: Gross neurological examination did not reveal any focal deficits. SKIN: No rashes. no petechiae. - Labs CBC & Chem 7: 09/19/22 06:18 09/19/22 06:18 Labs: Abnormal Lab Results - Last 24 Hours (Table) 09/18/22 09/18/22 09/18/22 Range/Units 10:20 12:40 18:26 RBC (4.30-5.90) m/uL Hgb (13.0-17.5) gm/dL Hct (39.0-53.0) % Plt Count (150-450) k/uL PT (9.0-12.0) sec INR (<1.2) ABG pH (7.35-7.45) ABG pO2 (83-108) mmHg ABG HCO3 (21-25) mmol/L ABG Total CO2 (19-24) mmol/L ABG O2 Saturation (94-97) % Sodium 146 H (137-145) mmol/L Potassium 3.4 L (3.5-5.1) mmol/L Carbon Dioxide 33 H (22-30) mmol/L BUN 80 H (9-20) mg/dL Creatinine 1.92 H (0.66-1.25) mg/dL Glucose 118 H (74-99) mg/dL POC Glucose (mg/dL) 117 H 138 H (70-110) mg/dL Calcium 8.1 L (8.4-10.2) mg/dL 09/19/22 09/19/22 09/19/22 Range/Units 00:42 05:34 06:12 RBC (4.30-5.90) m/uL Hgb (13.0-17.5) gm/dL Hct (39.0-53.0) % Plt Count (150-450) k/uL PT (9.0-12.0) sec INR (<1.2) ABG pH 7.46 H (7.35-7.45) ABG pO2 117 H (83-108) mmHg ABG HCO3 31 H (21-25) mmol/L ABG Total CO2 32 H (19-24) mmol/L ABG O2 Saturation 99.4 H (94-97) % Sodium (137-145) mmol/L Potassium (3.5-5.1) mmol/L Carbon Dioxide (22-30) mmol/L BUN (9-20) mg/dL Creatinine (0.66-1.25) mg/dL Glucose (74-99) mg/dL POC Glucose (mg/dL) 130 H 131 H (70-110) mg/dL Calcium (8.4-10.2) mg/dL 09/19/22 09/19/22 09/19/22 Range/Units 06:18 06:18 06:18 RBC 3.16 L (4.30-5.90) m/uL Hgb 9.8 L (13.0-17.5) gm/dL Hct 30.4 L (39.0-53.0) % Plt Count 106 L (150-450) k/uL PT 12.6 H (9.0-12.0) sec INR 1.2 H (<1.2) ABG pH (7.35-7.45) ABG pO2 (83-108) mmHg ABG HCO3 (21-25) mmol/L ABG Total CO2 (19-24) mmol/L ABG O2 Saturation (94-97) % Sodium (137-145) mmol/L Potassium 3.2 L (3.5-5.1) mmol/L Carbon Dioxide (22-30) mmol/L BUN 79 H (9-20) mg/dL Creatinine 2.12 H (0.66-1.25) mg/dL Glucose 133 H (74-99) mg/dL POC Glucose (mg/dL) (70-110) mg/dL Calcium 7.7 L (8.4-10.2) mg/dL Assessment and Plan Assessment: Acute hypoxic hypercapnic respiratory failure status post intubation Right pleural effusion with atelectasis, also with possible elements of pneumonia Encephalopathy, rule out stroke Acute on chronic diastolic CHF with ejection fraction of 50% Possible UTI Acute kidney injury on chronic kidney disease stage III, started on hemodialysis, Positive occult blood in his stool, rule out GI bleed Mild to moderate mitral regurgitation and moderate to severe tricuspid r egurgitation with elevated right ventricle Chronic atrial fibrillation on A. fib Plan: Continue with D5W, hold Lasix Continue with Zosyn Continue with warfarin and monitor INR Several consultants on the case including cardiology, critical care team and pulmonary, watch leader, neurologist and GI team Labs and medication were reviewed.. Continue same treatment. Continue with symptomatic treatment. Resume home medication. Monitor lytes and vitals. DVT and GI prophylaxis. Further recommendations as per clinical course of the patient DVT prophylaxis: Warfarin GI Prophylaxis: Protonix Prognosis is guarded
[2022-09-20] MEDS: PIPERACILLIN-TAZOBACTAM 3.375 GM in SODIUM CHLORIDE 0.9% 100 ML IVPB SCH ×2 (00:22→08:46)
[2022-09-20] MEDS: SODIUM CHLORIDE 0.9% 1,000 ML IV SCH (00:23)
[2022-09-20 00:24] LABS: Glucose,Whole Blood 127 mg/dL (70-110)
[2022-09-20] MEDS: INSULIN ASPART (NovoLOG) 100 UNIT/ML VIAL SQ SCH ×3 (00:24→12:25)
[2022-09-20] MEDS: IPRATROPIUM-ALBUTEROL 3 ML NEB INHALATION SCH ×5 (00:29→16:27)
[2022-09-20 05:46] LABS: ABG Base Excess 4.3 mmol/L; ABG HCO3 29 mmol/L (21-25); ABG Oxygen Saturation 98.1 % (94-97); ABG PCO2 45 mmHg (35-45); ABG PH 7.42 (7.35-7.45); ABG PO2 86 mmHg (83-108); ABG TCO2 30 mmol/L (19-24); Allen Test Performed? Yes
[2022-09-20 06:38] LABS: Glucose,Whole Blood 117 mg/dL (70-110)
[2022-09-20] MEDS: NOREPINEPHRINE 8 MG in SODIUM CHLORIDE 0.9% 250 ML IV SCH ×3 (06:40→15:33)
[2022-09-20 07:45] LABS: Albumin 2.8 g/dL (3.5-5.0); Calcium 7.7 mg/dL (8.4-10.2); Potassium 3.7 mmol/L (3.5-5.1); Total Bilirubin 1.8 mg/dL (0.2-1.3); Total Protein 5.5 g/dL (6.3-8.2)
[2022-09-20 07:49] LABS: HCT 32.4 % (39.0-53.0); HGB 9.8 gm/dL (13.0-17.5); Hypochromasia Marked; MCH 30.4 pg (25.0-35.0); MCHC 30.2 g/dL (31.0-37.0); MCV 100.5 fL (80.0-100.0); Macrocytosis Slight; Mean Platelet Volume 11.3; Platelet Count 101 k/uL (150-450); RBC 3.22 m/uL (4.30-5.90); RDW 15.3 % (11.5-15.5); WBC 10.7 k/uL (3.8-10.6)
[2022-09-20 07:58] LABS: INR 1.2 (<1.2); Prothrombin Time 12.3 sec (9.0-12.0)
[2022-09-20] MEDS: BUDESONIDE 1 MG/2 ML NEBU INHALATION SCH (08:24)
[2022-09-20] MEDS: MIDODRINE 5 MG TAB PO SCH ×2 (08:46→13:34)
[2022-09-20] MEDS: levETIRAcetam IV 500 MG in SODIUM CHLORIDE 0.9% 100 ML IVPB SCH (08:46)
[2022-09-20] MEDS: PANTOPRAZOLE 40 MG/10 ML VIAL IVP SCH (08:46)
[2022-09-20] MEDS: CHLORHEXIDINE GLUCONATE 15 ML CUP MUCOUS MEM SCH (08:46)
--- NOTE | 2022-09-20 09:02 | P.PN ---
Subjective Patient is seen for follow-up for acute kidney injury. He is currently on the vent Patient continues to have good urine output at about 50-70 ML per hour. Patient's BUN had increased to 152, , serum creatinine 3.5 with no improvement in mentation therefore he was started on hemodialysis on 09/17/2022. Patient tolerated his treatment well yesterday with UF of about 1.5 L. he has had 3 treatments thus far Mentation has improved post dialysis with BUN down to 49 today . Patient continues to have good urine output This morning patient has been following commands. Possible repeat CPAP trial today. He did not do well yesterday with CPAP and had poor volumes. Currently off of D5W and maintained on free water flushes down the feeding tube. Objective - Vital Signs Vital signs: Vital Signs Temp 96.9 F L 09/20/22 04:00 Pulse 80 09/20/22 08:37 Resp 18 09/20/22 07:00 BP 90/57 09/20/22 07:00 Pulse Ox 99 09/20/22 07:00 FiO2 40 09/20/22 08:02 Intake & Output 09/19/22 09/20/22 09/20/22 18:59 06:59 18:59 Intake Total 1337 912 Output Total 2070 550 Balance -733 362 Weight 111.6 kg Intake: IV 133 390 Pressure Bag 33 30 Sodium Chloride 0.9% 1, 100 260 000 ml @ 20 mls/hr IV . Q24H [facility] Rx#:[id number] levETIRAcetam IV 500 mg 100 In Sodium Chloride 0.9% 100 ml @ 400 mls/hr IVPB Q12HR [facility] Rx#:[id number] Intake, IV Titration 300 Amount Dextrose 5% in Water 1, 300 000 ml @ 50 mls/hr IV . Q20H [facility] Rx#:[id number] Tube Feeding 204 522 Hemodialysis 500 Other 200 Output: Urine 570 550 Hemodialysis 1500 Other: Voiding Method Indwelling Catheter Indwelling Catheter # Bowel Movements 1 ABP, PAP, CO, CI - Last Documented Arterial Blood Pressure 106/55 - Exam on the vent Off of sedation Examination of the heart S1 and S2 Examination of the lungs shows bilateral breath sounds are heard Abdomen is soft nontender Examination lower extremity shows significant edema in the lower extremities with scrotal edema noted. This is improved Both legs are wrapped Withdraws to painful stimuli and also following commands. - Labs CBC & Chem 7: 09/20/22 06:42 09/20/22 06:42 Labs: Abnormal Lab Results - Last 24 Hours (Table) 09/19/22 09/20/22 09/20/22 Range/Units 12:09 00:22 05:43 WBC (3.8-10.6) k/uL RBC (4.30-5.90) m/uL Hgb (13.0-17.5) gm/dL Hct (39.0-53.0) % MCV (80.0-100.0) fL MCHC (31.0-37.0) g/dL Plt Count (150-450) k/uL PT (9.0-12.0) sec INR (<1.2) ABG HCO3 29 H (21-25) mmol/L ABG Total CO2 30 H (19-24) mmol/L ABG O2 Saturation 98.1 H (94-97) % BUN (9-20) mg/dL Creatinine (0.66-1.25) mg/dL Glucose (74-99) mg/dL POC Glucose (mg/dL) 155 H 127 H (70-110) mg/dL Calcium (8.4-10.2) mg/dL Total Bilirubin (0.2-1.3) mg/dL Total Protein (6.3-8.2) g/dL Albumin (3.5-5.0) g/dL 09/20/22 09/20/22 09/20/22 Range/Units 06:37 06:42 06:42 WBC 10.7 H (3.8-10.6) k/uL RBC 3.22 L (4.30-5.90) m/uL Hgb 9.8 L (13.0-17.5) gm/dL Hct 32.4 L (39.0-53.0) % MCV 100.5 H (80.0-100.0) fL MCHC 30.2 L (31.0-37.0) g/dL Plt Count 101 L (150-450) k/uL PT 12.3 H (9.0-12.0) sec INR 1.2 H (<1.2) ABG HCO3 (21-25) mmol/L ABG Total CO2 (19-24) mmol/L ABG O2 Saturation (94-97) % BUN (9-20) mg/dL Creatinine (0.66-1.25) mg/dL Glucose (74-99) mg/dL POC Glucose (mg/dL) 117 H (70-110) mg/dL Calcium (8.4-10.2) mg/dL Total Bilirubin (0.2-1.3) mg/dL Total Protein (6.3-8.2) g/dL Albumin (3.5-5.0) g/dL 09/20/22 Range/Units 06:42 WBC (3.8-10.6) k/uL RBC (4.30-5.90) m/uL Hgb (13.0-17.5) gm/dL Hct (39.0-53.0) % MCV (80.0-100.0) fL MCHC (31.0-37.0) g/dL Plt Count (150-450) k/uL PT (9.0-12.0) sec INR (<1.2) ABG HCO3 (21-25) mmol/L ABG Total CO2 (19-24) mmol/L ABG O2 Saturation (94-97) % BUN 49 H (9-20) mg/dL Creatinine 1.67 H (0.66-1.25) mg/dL Glucose 126 H (74-99) mg/dL POC Glucose (mg/dL) (70-110) mg/dL Calcium 7.7 L (8.4-10.2) mg/dL Total Bilirubin 1.8 H (0.2-1.3) mg/dL Total Protein 5.5 L (6.3-8.2) g/dL Albumin 2.8 L (3.5-5.0) g/dL Assessment and Plan Assessment: 1. Acute kidney injury secondary to ATN secondary to hypotension and cardiorenal syndrome. Urine output at about 50-100 mL per hour. Elevated BUN partially due to steroids. No hydronephrosis noted on kidney ultrasound. Started renal replacement therapy as BUN is significantly elevated and possible underlying uremic encephalopathy. Hemodialysis started on 09/17/2022. Patient continues to have good urine output. Mentation has improved significantly. Status post 3 treatments thus far 2. Chronic kidney disease stage IIIB with baseline creatinine 1.8-2 secondary to nephrosclerosis and cardiorenal syndrome. 3. Acute hypoxic and hypercapnic respiratory failure. Intubated. On 40% FiO2. 4. Acute on chronic systolic CHF with ejection fraction of 45% with severe tricuspid regurgitation. Status post AICD. 5. Hyperkalemia secondary to acute kidney injury. Resolved. 6. Encephalopathy, possibly uremic. Improved significantly with hemodialysis 7. Hypernatremia currently improved 8. Hypokalemia , status post replacement Plan: Continue free water flushes Monitor for recovery of renal function I may hold hemodialysis in a.m. depending on his labs and urine output. Continue to avoid nephrotoxic agents
--- NOTE | 2022-09-20 09:20 | P.PN ---
Subjective Progress Note Date: 09/20/22 PROGRESS NOTE The patient is a 67-year-old male who presented with symptoms of progressive dyspnea and CHF requiring chemical ventilation. He is intubated and sedated. Hemodynamically he is stable. He is having good urinary output. She has chronic atrial fibrillation and his ventricular response is controlled. He has been paced. There is no evidence of ventricular ectopic activity. He had recent Covid infection. He has renal failure and a history of chronic kidney disease. He was intubated yesterday. He has a pacemaker with normal sensing and pacing. His echocardiogram in July showed an ejection fraction of 45% with mild mitral and severe tricuspid regurgitation. He underwent cardiac catheterization in 2019 that showed mild obstructive disease. He is followed on a regular basis by Dr. Fletcher. He has a biventricular pacer placed in October 2020. He has a prior history of ventricular tachycardia. September 15: The patient remains intubated and sedated, he has good urinary output. He is ventricularly paced with no evidence of ventricular tachycardia. He continues to be on norepinephrine at the lower dose. Hemodynamically there is no significant changes. He has been followed by the neurology service for the metabolic encephalopathy and the myoclonic jerks that was thought to be related to metabolic abnormalities. September 16: The patient remains intubated, he is on no sedation. He remains unresponsive. His blood pressure is stable. His echocardiogram showed an ejection fraction of 50% with mild aortic stenosis and mild to moderate mitral and moderate to severe tricuspid regurgitation. His chest x-ray showed diffuse changes with pleural effusion. No evidence of recurrent ventricular tachycardia. September 17: The patient remains intubated, unresponsive, not sedated. He has no evidence of ventricular ectopic activity or pacemaker malfunction. His urine output has been stable. Hemodynamically he has been stable. He is undergoing an EEG to further evaluate his neurological status. His head CT yesterday showed no significant changes. September 18: He remains intubated, he had dialysis yesterday, his blood pressure dropped at the end of dialysis with removal of 800 mL. He appears to be more awake today, opening his eyes to command and following orders. He has no evidence of ventricular ectopic activity. He is scheduled to undergo repeat dialysis today. His blood pressure is stable this morning. His urine output has been good. He had evidence of GI bleeding and was evaluated by the GI service today, awaiting further input. If he has further reading he may require colonoscopy. September 19: The patient remains intubated, more awake and alert. Following command. He continues to be paced and his blood pressure is stable. He has received dialysis. He continues to be off anticoagulation because of GI bleeding. There is no evidence of ventricular ectopic activity. He has an underlying atrial fibrillation. September 20: He is more awake and alert, hemodynamically stable. He received dialysis yesterday. His urinary output is good. He is back on his Coumadin. He has no further episodes of GI bleeding. There is no evidence of ventricular ectopic activity. Attempt to wean yesterday was unsuccessful. He is on no vasop ressors. Medications: midodrine 10 mg 3 times a day, Keppra, insulin, Coumadin PHYSICAL EXAMINATION: Blood pressure 108/60 heart rate 90, intubated, following verbal commands, appears to be stronger LUNGS: Clear to auscultation anteriorly HEART: Regular rate and rhythm, S1, S2. No S3. Holosystolic murmur at the apex, 3/6 ABDOMEN: Soft, positive bowel sounds, no organomegaly EXTREMETIES: Trace +1 edema, improved LAB: Hemoglobin 9.8, potassium 3.7, BUN 49, creatinine 1.67 1. Respiratory failure with CHF and possible aspiration. He had a mildly impaired systolic function in the past 2. Worsening renal failure with acute renal injury, non-oliguric, underwent dialysis , stabilizing 3. Atrial fibrillation, anticoagulated, anticoagulation restarted 4. Post biventricular pacing 5. Recent COVID infection 7. Obesity 8. Unresponsiveness rule out neurological event, rule out metabolic encephalopathy with uremic encephalopathy, improving after dialysis, continues to improve PLAN: 1. Continue present therapy 2. Attempt to wean today 3. If there is a failure to extubate because of weakness he may be a candidate for tracheostomy 4. Follow renal function and INR Objective - Vital Signs Vital signs: Vital Signs Temp 98.1 F 09/20/22 08:00 Pulse 91 09/20/22 09:00 Resp 22 09/20/22 09:00 BP 108/64 09/20/22 09:00 Pulse Ox 100 09/20/22 09:00 FiO2 40 09/20/22 09:00 Intake & Output 09/19/22 09/20/22 09/20/22 18:59 06:59 18:59 Intake Total 1337 912 228 Output Total 2070 550 125 Balance -733 362 103 Weight 111.6 kg Intake: IV 133 390 40 Pressure Bag 33 30 Sodium Chloride 0.9% 1, 100 260 40 000 ml @ 20 mls/hr IV . Q24H [facility] Rx#:[id number] levETIRAcetam IV 500 mg 100 In Sodium Chloride 0.9% 100 ml @ 400 mls/hr IVPB Q12HR [facility] Rx#:[id number] Intake, IV Titration 300 Amount Dextrose 5% in Water 1, 300 000 ml @ 50 mls/hr IV . Q20H [facility] Rx#:[id number] Tube Feeding 204 522 88 Hemodialysis 500 Other 200 100 Output: Urine 570 550 125 Hemodialysis 1500 Other: Voiding Method Indwelling Catheter Indwelling Catheter # Bowel Movements 1 ABP, PAP, CO, CI - Last Documented Arterial Blood Pressure 106/55 - Labs CBC & Chem 7: 09/20/22 06:42 09/20/22 06:42 Labs: Abnormal Lab Results - Last 24 Hours (Table) 09/19/22 09/20/22 09/20/22 Range/Units 12:09 00:22 05:43 WBC (3.8-10.6) k/uL RBC (4.30-5.90) m/uL Hgb (13.0-17.5) gm/dL Hct (39.0-53.0) % MCV (80.0-100.0) fL MCHC (31.0-37.0) g/dL Plt Count (150-450) k/uL PT (9.0-12.0) sec INR (<1.2) ABG HCO3 29 H (21-25) mmol/L ABG Total CO2 30 H (19-24) mmol/L ABG O2 Saturation 98.1 H (94-97) % BUN (9-20) mg/dL Creatinine (0.66-1.25) mg/dL Glucose (74-99) mg/dL POC Glucose (mg/dL) 155 H 127 H (70-110) mg/dL Calcium (8.4-10.2) mg/dL Total Bilirubin (0.2-1.3) mg/dL Total Protein (6.3-8.2) g/dL Albumin (3.5-5.0) g/dL 09/20/22 09/20/22 09/20/22 Range/Units 06:37 06:42 06:42 WBC 10.7 H (3.8-10.6) k/uL RBC 3.22 L (4.30-5.90) m/uL Hgb 9.8 L (13.0-17.5) gm/dL Hct 32.4 L (39.0-53.0) % MCV 100.5 H (80.0-100.0) fL MCHC 30.2 L (31.0-37.0) g/dL Plt Count 101 L (150-450) k/uL PT 12.3 H (9.0-12.0) sec INR 1.2 H (<1.2) ABG HCO3 (21-25) mmol/L ABG Total CO2 (19-24) mmol/L ABG O2 Saturation (94-97) % BUN (9-20) mg/dL Creatinine (0.66-1.25) mg/dL Glucose (74-99) mg/dL POC Glucose (mg/dL) 117 H (70-110) mg/dL Calcium (8.4-10.2) mg/dL Total Bilirubin (0.2-1.3) mg/dL Total Protein (6.3-8.2) g/dL Albumin (3.5-5.0) g/dL 09/20/22 Range/Units 06:42 WBC (3.8-10.6) k/uL RBC (4.30-5.90) m/uL Hgb (13.0-17.5) gm/dL Hct (39.0-53.0) % MCV (80.0-100.0) fL MCHC (31.0-37.0) g/dL Plt Count (150-450) k/uL PT (9.0-12.0) sec INR (<1.2) ABG HCO3 (21-25) mmol/L ABG Total CO2 (19-24) mmol/L ABG O2 Saturation (94-97) % BUN 49 H (9-20) mg/dL Creatinine 1.67 H (0.66-1.25) mg/dL Glucose 126 H (74-99) mg/dL POC Glucose (mg/dL) (70-110) mg/dL Calcium 7.7 L (8.4-10.2) mg/dL Total Bilirubin 1.8 H (0.2-1.3) mg/dL Total Protein 5.5 L (6.3-8.2) g/dL Albumin 2.8 L (3.5-5.0) g/dL
[2022-09-20 11:05] LABS: Allen Test Performed? Yes
[2022-09-20 11:29] LABS: ABG Base Excess 3.5 mmol/L; ABG HCO3 29 mmol/L (21-25); ABG Oxygen Saturation 97.1 % (94-97); ABG PCO2 51 mmHg (35-45); ABG PH 7.36 (7.35-7.45); ABG PO2 85 mmHg (83-108); ABG TCO2 30 mmol/L (19-24)
--- NOTE | 2022-09-20 11:29 | P.PN ---
Subjective Progress Note Date: 09/20/22 The patient is seen at bedside and per nurse continues to following simple commands. He continues to be intubated on ventilator since was feel he was strong enough to be extubated. No new neurological issues. Objective - Vital Signs Vital signs: Vital Signs Temp 98.1 F 09/20/22 08:00 Pulse 79 09/20/22 11:20 Resp 23 09/20/22 11:00 BP 96/58 09/20/22 11:00 Pulse Ox 99 09/20/22 11:00 FiO2 40 09/20/22 11:00 Intake & Output 09/19/22 09/20/22 09/20/22 18:59 06:59 18:59 Intake Total 1337 912 356 Output Total 2070 550 250 Balance -733 362 106 Weight 111.6 kg Intake: IV 133 390 80 Pressure Bag 33 30 Sodium Chloride 0.9% 1, 100 260 80 000 ml @ 20 mls/hr IV . Q24H [facility] Rx#:[id number] levETIRAcetam IV 500 mg 100 In Sodium Chloride 0.9% 100 ml @ 400 mls/hr IVPB Q12HR [facility] Rx#:[id number] Intake, IV Titration 300 Amount Dextrose 5% in Water 1, 300 000 ml @ 50 mls/hr IV . Q20H [facility] Rx#:[id number] Tube Feeding 204 522 176 Hemodialysis 500 Other 200 100 Output: Urine 570 550 250 Hemodialysis 1500 Other: Voiding Method Indwelling Catheter Indwelling Catheter Indwelling Catheter # Bowel Movements 1 ABP, PAP, CO, CI - Last Documented Arterial Blood Pressure 106/55 - Exam GENERAL: The patient is laying in bed and does not appear in acute distress. NEUROLOGICAL: Higher mental function: The patient is mildly drowsy but is awakeable to voice. He is following simple commands (showing thumbs up, wiggling toes, opening and closing eyes). . Cranial nerves: The pupils are round, equal and reactive to light. Primary gaze is midline. No facial weakness. Is intubated and has weak cough and is breathing over the vent. Motor: The strength is hard to assess but wiggles toes and shoes some movement in hands. Cerebellum: Unable to assess. Sensation: Unable to assess. - Labs CBC & Chem 7: 09/20/22 06:42 09/20/22 06:42 Labs: Abnormal Lab Results - Last 24 Hours (Table) 09/19/22 09/20/22 09/20/22 Range/Units 12:09 00:22 05:43 WBC (3.8-10.6) k/uL RBC (4.30-5.90) m/uL Hgb (13.0-17.5) gm/dL Hct (39.0-53.0) % MCV (80.0-100.0) fL MCHC (31.0-37.0) g/dL Plt Count (150-450) k/uL PT (9.0-12.0) sec INR (<1.2) ABG HCO3 29 H (21-25) mmol/L ABG Total CO2 30 H (19-24) mmol/L ABG O2 Saturation 98.1 H (94-97) % BUN (9-20) mg/dL Creatinine (0.66-1.25) mg/dL Glucose (74-99) mg/dL POC Glucose (mg/dL) 155 H 127 H (70-110) mg/dL Calcium (8.4-10.2) mg/dL Total Bilirubin (0.2-1.3) mg/dL Total Protein (6.3-8.2) g/dL Albumin (3.5-5.0) g/dL 09/20/22 09/20/22 09/20/22 Range/Units 06:37 06:42 06:42 WBC 10.7 H (3.8-10.6) k/uL RBC 3.22 L (4.30-5.90) m/uL Hgb 9.8 L (13.0-17.5) gm/dL Hct 32.4 L (39.0-53.0) % MCV 100.5 H (80.0-100.0) fL MCHC 30.2 L (31.0-37.0) g/dL Plt Count 101 L (150-450) k/uL PT 12.3 H (9.0-12.0) sec INR 1.2 H (<1.2) ABG HCO3 (21-25) mmol/L ABG Total CO2 (19-24) mmol/L ABG O2 Saturation (94-97) % BUN (9-20) mg/dL Creatinine (0.66-1.25) mg/dL Glucose (74-99) mg/dL POC Glucose (mg/dL) 117 H (70-110) mg/dL Calcium (8.4-10.2) mg/dL Total Bilirubin (0.2-1.3) mg/dL Total Protein (6.3-8.2) g/dL Albumin (3.5-5.0) g/dL 09/20/22 Range/Units 06:42 WBC (3.8-10.6) k/uL RBC (4.30-5.90) m/uL Hgb (13.0-17.5) gm/dL Hct (39.0-53.0) % MCV (80.0-100.0) fL MCHC (31.0-37.0) g/dL Plt Count (150-450) k/uL PT (9.0-12.0) sec INR (<1.2) ABG HCO3 (21-25) mmol/L ABG Total CO2 (19-24) mmol/L ABG O2 Saturation (94-97) % BUN 49 H (9-20) mg/dL Creatinine 1.67 H (0.66-1.25) mg/dL Glucose 126 H (74-99) mg/dL POC Glucose (mg/dL) (70-110) mg/dL Calcium 7.7 L (8.4-10.2) mg/dL Total Bilirubin 1.8 H (0.2-1.3) mg/dL Total Protein 5.5 L (6.3-8.2) g/dL Albumin 2.8 L (3.5-5.0) g/dL Assessment and Plan Assessment: -Altered mental status due to Metabolic encephalopathy, probably multifactorial. Patient has hypercapnia with acute renal failure---mentation improving. -Abnormal EEG with possible epileptiform activity (? generalized), with some triphasic waves. -Anisocoria, now resolved. Perhaps related to medication effect. -Myoclonic jerks probably due to metabolic dysfunction, cannot rule out seizure because of abnormal EEG. -Acute hypoxemic and hypercapnic respiratory failure -Supratherapeutic INR -History of chronic atrial fibrillation on Coumadin -History of chronic kidney disease -Hypertension -History of recent [place] virus -Bilateral lower extremity edema -History of tobacco use -Anemia -Thrombocytopenia Plan: 1. Repeat EEG from 09/17/2022 showed background slowing of moderate to severe degree consistent with encephalopathy. Presence of higher amplitude slightly frontally predominant triphasic-type waves, which at times have more generalized distribution with occasional phase reversal. This may suggest underlying cortical irritability. When compared to the EEG from 09/14/2022, the background has become more slow and new appearance of this high amplitude triphasic Waves. Clinical correlation is strongly recommended.. 2. Dr. Herrera discontinue Vimpat because of concern about generalized sharp- appearing waves. Patient started Keppra 500 mg twice a day 09/17/2022 in the evening. Then felt clinical improvement, which uncertain related to initiation of hemodialysis, or related to Keppra. Prolonged 2.5 hours EEG was considered yesterday, but due to ongoing hemodialysis, and due to remarkable clinical improvement, we'll hold off on it. 3. Continue supportive respiratory care 4. Continue nephrology care for kidney disease. Patient started on hemodialysis.. 5. TSH 0.78, B12 1159, ammonia 19, hemoglobin A1c 5.6, all normal. 6. CT head showed age-related changes, with no acute process. 7. Will defer the rest of medical management to primary team. The plan is discussed with the nurse. Will continue to follow. Time with Patient: Less than 30
[2022-09-20 12:03] VITALS: TEMP 98
[2022-09-20 12:08] LABS: Glucose,Whole Blood 130 mg/dL (70-110)
--- NOTE | 2022-09-20 13:11 | P.PN ---
Subjective Progress Note Date: 09/20/22 On 09/14/2022, the patient is intubated on a mechanical ventilator. The patient has history of COPD, hypertension, chronic atrial fibrillation and the patient has a permanent pacemaker in place, chronic kidney disease and is a chronic smoker. The patient presented to the hospital because of worsening shortness of breath. Yesterday evening, the patient acutely became unresponsive, and he would to be intubated and placed on a mechanical ventilator. It is not clear to me whether the patient was having any seizure activity. It is possible the patient could've aspirated. However, those events overnight clear to me. This morning the patient is on propofol which is running at 50 mcg/kg/m. The patient is also on Nimbex for paralysis. IV fluids are currently at KVO. Patient is on norepinephrine which is running at 0.11 mg/kg/m. Overall fluid balance is +2.7 L over the past 24 hours. NG tube is in place and output from the NG tube inserted is in order of 700 mL. The patient is currently on a mechanical ventilator assist control mode at a rate of 32, tidal volume of 350, FiO2 of 40% with a PEEP of 5. Blood gas showed a pH of 7.55 with a pCO2 of 38 and pO2 of 82. The peak airway pressure is at 23 The chest x-ray from today showing diffuse parenchymal changes and cardiomegaly and bilateral pleural effusions more consistent with CHF. The blood work shows a white cell count 15.1 with a hemoglobin of 11.7 and a platelet count of 168. The patient's INR is at 3.5 with a PT of 35 and the patient's cardiac rhythm is currently paced at this point in time. The blood work shows a sodium level of 135, potassium level is 4.5, chloride is 96 with a bicarb of 29, sodium is at 130 with a potassium level of 3.5. Glucose at 159. The patient is afebrile. Bedside EEG was done and it showed no evidence of any acute seizure activity. Neurologically, the patient is grimacing to painful condition of 4 extremities. He is withdrawing to painful stimulation. No focal neurological deficits. On 09/15/2022, the patient is being seen for a follow-up. This morning, the patient is still sedated on propofol is running at 45 mcg/kg/m. The patient is on a mechanical ventilator on assist control mode with a rate of 32, tidal volume of 350 with an FiO2 of 40% and a PEEP of 5. The blood gases from today is showing a pH of 7.54 with episodes of 40 and pO2 of 74 and this was an apparent of 40%. Chest x-ray essentially unchanged. His cardiomegaly. There is also evidence of a stable pleural parenchymal changes with a loculated chronic right-sided pleural effusion. As part of further investigation, I the day CAT scan of the chest yesterday in addition to a CAT scan of the abdomen and a CAT scan showed anasarca changes with bilateral pleural effusions right more than left and right-sided pleural effusion seemed to be chronic and loculated and was well demarcated with some calcification along the pleural lining. There was also small volume of intra-abdominal/pelvic ascites. There was evidence of bibasilar atelectasis without definite consolidation. There was cardiomegaly. CAT scan of the brain was essentially negative for any acute abnormalities. The patient was being diuresed with IV Lasix. The patient is a negative fluid balance of 1.4 L over the past 24 hours. On today's evaluation, the patient is on norepinephrine which is running at a dose of 0.08 microvascular kilogram per minutes. His white cell count is at 3.4 with a hemoglobin of 11.1 and an INR of 2.3. Sodium is at 139, potassium is at 3.6, bicarb is 32, BUN is at 134 with a creatinine of 3.3. The patient has a paced cardiac rhythm at this point in time. Echocardiogram was also done presented on the function with dilated RV, dilated atria bilaterally right and left and [id number] mitral regurgitation and mitral aortic stenosis with moderate to severe tricuspid regurgitation. EEG was completed and showed no evidence of any seizure activity and the patient remains on Vimpat. 09/16/2022, the patient remains off sedation and the patient has been off propofol for the past 24 hours. Unfortunately, is not following commands. He grimaces to painful stimulation. He is fasting. All 4 extremities and occasionally withdraws. No seizure activity has been noted. The patient has positive brainstem reflexes including reading to flex, cough and gag reflex. He also has spontaneous eye opening and the patient blinks and looks around. Nevertheless, is not following any commands. This is obviously concerning. At the same time, the patient remains on a mechanical ventilator. Today, the patient is on assist control mode at a rate of 32, tidal volume of 350, FiO2 of 40% with a PEEP of 5. Blood gas shows a pH of 7.47 with a pCO2 of 47 and pO2 of 85. The patient remains on IV Lasix. Overall fluid balance is -680 mL over the past 24 hours. The patient has a paced cardiac rhythm. The patient has a sodium level of 141 with a potassium level of 3.6, sodium level is 141, BUN is 141 with a creatinine of 3.5. the patientthe patient also has a hemoglobin of 10.8 with a platelet count of 103 and a white cell count of 9.0.CULTURES are negative. Chest x-ray findings of essentially unchanged and the patient is about the pleural effusion and the patient has a loculated right-sided pleural effusion. She was in a good location. The patient is currently off pressors for now. Echo of the heart showed dilated RV, [id number] mitral regurgitation, mild aortic stenosis and moderate degree of tricuspid regurgitation. 09/17/2022, the patient is still off sedation. The patient has been off propofol for the past 48 hours. Unfortunately, is not following any commands. He keeps his eyes closed. At times he opens his eyes spontaneously. Does not track. Does not indicate that he is comprehending and the patient has been withdrawing only to painful stimulation. He does grimace when stimulated and we have noticed this for the past 24-48 hours. Another E is in progress today. Note that the repeat CAT scan of the brain showed no acute abnormalities. No seizure activity clinically has been noted. He is afebrile. He is hemodynamically stable. He is on a mechanical ventilator at this point in time. He is on assist-control mode and is able to tolerate that well while being Sedation. He Is Active 32 with a Tidal Volume of 350 and FiO2 of 40% with a PEEP of 5. A blood gas that was done this morning showed a pH of 7.46 with a pCO2 of 50 and pO2 of 106. A repeat chest x-ray was done today that shows cardiomegaly and there is evidence of bilateral pleural effusion which is essentially unchanged. The right-sided pleural effusion is loculated. There is also evidence also of cardiomegaly and pulmonary edema and increased pulmonary vascular markings bilaterally with cephalization. His ET tube is in a good location. He also has a left IJ triple lumen catheter in place. He continues to have third spacing and edema both in his upper and lower extremities and he also has scrotal edema. His urine output is in order of 2.2 L over the past 24 hours and the patient is still diuresing. He remains on Lasix 40 mg IV every 24 hours. On his blood work, the patient's creatinine today is at 3.43 with this BUN of 152 and his sodium level is at 144. Potassium levels at 3.1 and needs to be replaced. The white cell cause of 10.6 with a hemoglobin of 10.6 and a platelet count of 98. The INR today's of 2.9. The patient's cardiac rhythm. He remains on warfarin for long-term anticoagulation. I think the plan is to consider dialysis on this patient. There is a concern that he may have encephalopathy due to his chronic kidney disease and nephrology once dialyze him to optimize his volume status and the same time monitor his mental status while on dialysis. 09/18/2022, the patient is still intubated on mechanical ventilator. Noted the patient is still off sedation and the patient has been off propofol for the past 72 hours. The patient seems to be slightly more awake and the patient was able to follow some simple commands on today's evaluation. He remains profoundly weak. As such, there is some recovery in his neurologic status. Noted the patient was started hemodialysis yesterday. A hemodialysis catheter was inserted and the patient was started on dialysis with a total of 800 mL of fluid was also infiltrated and another session of hemodialysis being given this morning. Meanwhile, the patient remains on a mechanical ventilator. Today he has an assist-control mode at the rate of 32 with an FiO2 of 40% and PEEP of 5 a nd a tidal volume of 350. The chest x-ray findings are essentially stable with bilateral pleural effusions. The pleural effusion on the right is loculated. The blood gas shows a pH of 7.48 with episodes of 45 and pO2 of 108. The patient remains on enteral feeding for nutritional support and the patient is currently on vital high-protein which is being administered rate of 34 mL an hour. The white cell cause of 10.0 with a hemoglobin of 10.4 and a platelet count of 106. Sodium is at 147 and a BUN is 105 with a creatinine of 2.4. The patient's coagulopathy was reversed and the patient is back on Coumadin today and a dose of 1 mg will be given to him today. INR today is at 1.4. Note that his cardiac rhythm is still paced. I'll importance is some neurologic recovery. Encountered on today's evaluation. EEG showed diffuse slowing consistent with metabolic encephalopathy and there is no evidence of any seizure activity noted. 09/19/2022, the patient is being seen for a follow-up. Remains intubated on a mechanical ventilator. There is obvious improvement in his mentation as the patient is following commands. He remains profoundly weak. He is weaning parameters are extremely poor. He remains extremely weak and the patient is not ready for any further weaning off the mechanical ventilator. Meanwhile, the patient remains off sedation his been off alcohol for the past 4 days. He has undergone 2 sessions of hemodialysis in yesterday the patient a total of 2 L of ultrafiltration. Remains on a mechanical ventilator on assist control mode with a rate of 32, tidal volume of 350, FiO2 of 40% with a PEEP of 5. Blood gas showed a pH of 7.46 with a pCO2 of 44 and pO2 of 117. The INR is at 1.2. Sodium is at 144 with a potassium level of 3.2 and a BUN of 79 with a creatinine of 2.12. The patient is on enteral feeding for nutritional support.. The patient is afebrile. His cardiac rhythm is sinus. INR is at 1.2. He is white cell count at 7.6 with a hemoglobin 9.8 and a platelet count of 106. Sodium is at 144 with a potassium level of 3.2, BUN 79 with a creatinine of 2.12. On 09/20/2022, the patient is awake and alert off sedation. Following commands. The patient underwent hemodialysis yesterday and total of 1 L of fluid was removed. This morning, his assist-control mode at a rate of 18, tidal volume of 400, FiO2 of 40% with a PEEP of 5. Blood gas showed a pH of 7.42 episodes of 45 and pO2 of 86. The patient remains on vital high-protein at the rate of 44 mL an hour. The blood work shows a white second of 10.7 with a hemoglobin of 9.8. Sodium was at 142. BUN is 49 with a creatinine of 1.87. The patient is following simple commands. I check weaning parameters and there were adequate. Based on that, I get the patient's month is breathing trial with a pressure support of 5 and a PEEP of 5. The blood. We'll obtain within 30 minutes and the blood gas was adequate. Based on that, I made recommendations to extubate the patient to a nasal cannula. He remains on IV Zosyn. He remains on Keppra for possible seizure activity. No pressors for now. He is producing urine output. Objective - Vital Signs Vital signs: Vital Signs Temp 98 F 09/20/22 12:00 Pulse 90 09/20/22 12:00 Resp 32 H 09/20/22 12:00 BP 104/60 09/20/22 12:00 Pulse Ox 98 09/20/22 12:00 FiO2 40 09/20/22 11:00 Intake & Output 09/19/22 09/20/22 09/20/22 18:59 06:59 18:59 Intake Total 1337 912 356 Output Total 2070 550 250 Balance -733 362 106 Weight 111.6 kg Intake: IV 133 390 80 Pressure Bag 33 30 Sodium Chloride 0.9% 1, 100 260 80 000 ml @ 20 mls/hr IV . Q24H [facility] Rx#:[id number] levETIRAcetam IV 500 mg 100 In Sodium Chloride 0.9% 100 ml @ 400 mls/hr IVPB Q12HR [facility] Rx#:[id number] Intake, IV Titration 300 Amount Dextrose 5% in Water 1, 300 000 ml @ 50 mls/hr IV . Q20H [facility] Rx#:[id number] Tube Feeding 204 522 176 Hemodialysis 500 Other 200 100 Output: Urine 570 550 250 Hemodialysis 1500 Other: Voiding Method Indwelling Catheter Indwelling Catheter Indwelling Catheter # Bowel Movements 1 ABP, PAP, CO, CI - Last Documented Arterial Blood Pressure 106/55 - Exam Gen. appearance the patient is calm and comfortable not acute distress. Intubated on mechanical ventilator. the patient is off sedation. Head exam was generally normal. There was no scleral icterus or corneal arcus. M ucous membranes were moist. Neck was supple and without jugular venous distension, thyromegaly, or carotid bruits. Carotids were easily palpable bilaterally. There was no adenopathy. The patient has an orogastric and orotracheal tube water enema in place Lungs were clear to auscultation and percussion, and with normal diaphragmatic excursion. No wheezes or rales were noted. Cardiac exam revealed the PMI to be normally situated and sized. The rhythm was regular and no extrasystoles were noted during several minutes of auscultation. The first and second heart sounds were normal and physiologic splitting of the second heart sound was noted. There were no murmurs, rubs, clicks, or gallops. Abdominal exam revealed normal bowel sounds. The abdomen was soft, non-tender, and without masses, organomegaly, or appreciable enlargement of the abdominal aorta. Examination of the extremities revealed easily palpable radial, femoral and pedal pulses. There was no cyanosis, clubbing and the patient continues to have significant amount of edema in his lower extremities and is scrotal area. There is also some abdominal wall edema. Examination of the skin revealed no evidence of significant rashes, suspicious appearing nevi or other concerning lesions. Neurologically, the patient remains off sedation the patient was able to follow some simple commands. Nevertheless, he remains profoundly sleepy and lethargic and is mobile generalized weakness in all 4 extremities. He is withdrawing to painful stimulation in all 4 extremities and he grimaces to painful stimuli. Pupils are equal and reactive to light.neurologically, much more responsive. - Labs CBC & Chem 7: 09/20/22 06:42 09/20/22 06:42 Labs: Abnormal Lab Results - Last 24 Hours (Table) 09/20/22 09/20/22 09/20/22 Range/Units 00:22 05:43 06:37 WBC (3.8-10.6) k/uL RBC (4.30-5.90) m/uL Hgb (13.0-17.5) gm/dL Hct (39.0-53.0) % MCV (80.0-100.0) fL MCHC (31.0-37.0) g/dL Plt Count (150-450) k/uL PT (9.0-12.0) sec INR (<1.2) ABG pCO2 (35-45) mmHg ABG HCO3 29 H (21-25) mmol/L ABG Total CO2 30 H (19-24) mmol/L ABG O2 Saturation 98.1 H (94-97) % BUN (9-20) mg/dL Creatinine (0.66-1.25) mg/dL Glucose (74-99) mg/dL POC Glucose (mg/dL) 127 H 117 H (70-110) mg/dL Calcium (8.4-10.2) mg/dL Total Bilirubin (0.2-1.3) mg/dL Total Protein (6.3-8.2) g/dL Albumin (3.5-5.0) g/dL 09/20/22 09/20/22 09/20/22 Range/Units 06:42 06:42 06:42 WBC 10.7 H (3.8-10.6) k/uL RBC 3.22 L (4.30-5.90) m/uL Hgb 9.8 L (13.0-17.5) gm/dL Hct 32.4 L (39.0-53.0) % MCV 100.5 H (80.0-100.0) fL MCHC 30.2 L (31.0-37.0) g/dL Plt Count 101 L (150-450) k/uL PT 12.3 H (9.0-12.0) sec INR 1.2 H (<1.2) ABG pCO2 (35-45) mmHg ABG HCO3 (21-25) mmol/L ABG Total CO2 (19-24) mmol/L ABG O2 Saturation (94-97) % BUN 49 H (9-20) mg/dL Creatinine 1.67 H (0.66-1.25) mg/dL Glucose 126 H (74-99) mg/dL POC Glucose (mg/dL) (70-110) mg/dL Calcium 7.7 L (8.4-10.2) mg/dL Total Bilirubin 1.8 H (0.2-1.3) mg/dL Total Protein 5.5 L (6.3-8.2) g/dL Albumin 2.8 L (3.5-5.0) g/dL 09/20/22 09/20/22 Range/Units 11:03 12:06 WBC (3.8-10.6) k/uL RBC (4.30-5.90) m/uL Hgb (13.0-17.5) gm/dL Hct (39.0-53.0) % MCV (80.0-100.0) fL MCHC (31.0-37.0) g/dL Plt Count (150-450) k/uL PT (9.0-12.0) sec INR (<1.2) ABG pCO2 51 H (35-45) mmHg ABG HCO3 29 H (21-25) mmol/L ABG Total CO2 30 H (19-24) mmol/L ABG O2 Saturation 97.1 H (94-97) % BUN (9-20) mg/dL Creatinine (0.66-1.25) mg/dL Glucose (74-99) mg/dL POC Glucose (mg/dL) 130 H (70-110) mg/dL Calcium (8.4-10.2) mg/dL Total Bilirubin (0.2-1.3) mg/dL Total Protein (6.3-8.2) g/dL Albumin (3.5-5.0) g/dL Assessment and Plan Plan: Acute hypoxemic and hypercapnic respiratory failure, secondary to CHF/aspiration. Exact circumstances of the respiratory failure is not clear. T he patient was found to be unresponsive. patient remains encephalopathic and encephalopathy improved slowly with hemodialysis. Weaning parameters this morning were adequate. The patient has smoked is being failure and the patient was subsequently extubated. See above-mentioned details. Altered mental status this was likely encephalopathy related to kidney failure and the patient will definitely session of hemodialysis. Following Commands and Answering Questions. CAT Scan of the Brain Was Negative. Acute hypotension, recovered and the patient is currently off pressors History of recent coronavirus infection. History of chronic atrial fibrillation, rate is controlled for now. The patient had his coagulation profile reversed for dialysis catheter insertion. INR is subtherapeutic and the patient is being aggravated with warfarin Chronic systolic heart failure with previous ejection fraction from July 2022 showing an EF of around 45% along with mild MR, severe tricuspid regurgitation Coronary artery disease with mild nonobstructive disease based on an cardiac catheterization that was done in 2019 Previous history of ventricular tachycardia History of hypertension. Chronic lower extremity edema Acute on chronic kidney disease with KEYANA, nonoliguric at this point in time and nephrology is also on the case, the patient was started on hemodialysis Obesity. Prior history of tobacco use. Plan Patient has been extubated to nasal cannula Hemodialysis per nephrology Continue checking daily weaning parameters anticoagulation with Coumadin Monitor PT/INR, currently subtherapeutic Do a swallow evaluation at the bedside postextubation Continue Claus We'll continue to follow we'll continue to follow make further recommendations based on his progress. Long-term prognosis remains obviously poor. Family has been updated. Condition is critical and this is a critical care evaluation that was done in more than 30 minutes. Time with Patient: Greater than 30
[2022-09-20] MEDS ORDERED: FUROSEMIDE 10 MG/ML 10 ML VIAL IV STA (15:37)
[2022-09-20] MEDS ORDERED: LORazepam 2 MG/ML INJ IV PRN (16:07)
[2022-09-20] MEDS ORDERED: MORPHINE SULFATE 4 MG/ML SYRINGE IV PRN (16:07)
[2022-09-20 16:28] VITALS: BP 92/62; PULSE 121; RESP 41
[2022-09-20] MEDS ORDERED: MORPHINE SULFATE (100 MG/2 ML) 100 MG in SODIUM CHLORIDE 0.9% 100 ML IV SCH (16:30)
[2022-09-20] MEDS ORDERED: WARFARIN 1.5 MG TAB PO ONE (18:00)
--- NOTE | 2022-09-20 21:30 | P.DS ---
Providers Date of admission: 09/09/22 22:02 Attending physician: John Montesinos Consults: 09/09/22 22:02 Consult Physician Routine Consulting Provider: Kings Mendoza Consult Reason/Comments: Hypercarbia, on bipap Do you want consulting provider notified?: Yes Consult Physician Routine Consulting Provider: Grazyna Fletcher Consult Reason/Comments: CHF exacerbation Do you want consulting provider notified?: Yes 09/10/22 11:52 Consult Physician Routine Consulting Provider: Kev Diaz Consult Reason/Comments: leg wound Do you want consulting provider notified?: Yes 09/10/22 15:14 Consult Physician Routine Consulting Provider: Marcus Barrera Consult Reason/Comments: Acute on CK D Do you want consulting provider notified?: Yes 09/11/22 08:37 Consult Physician Stat Consulting Provider: Jayesh Mendoza Consult Reason/Comments: AMS/unequal pupils/weakness Do you want consulting provider notified?: Yes 09/17/22 13:38 Consult Physician Routine Consulting Provider: Lilliam García Consult Reason/Comments: Possible GIB Do you want consulting provider notified?: Already Contacted Primary care physician: Ricardo Lim [facility] Course: diagnoses: Acute hypoxic hypercapnic respiratory failure status post intubation Right pleural effusion with atelectasis, also with possible elements of pneumonia Encephalopathy, rule out stroke Acute on chronic diastolic CHF with ejection fraction of 50% Possible UTI Acute kidney injury on chronic kidney disease stage III, started on hemodialysis, Positive occult blood in his stool, rule out GI bleed Mild to moderate mitral regurgitation and moderate to severe tricuspid regurgitation with elevated right ventricle Chronic atrial fibrillation on A. fib Hospital course: This is a 67-year-old patient, follows with Dr. Ricardo Arnold. Chronic stable medical conditions include atrial fibrillation, hypertension, COPD, permanent pacemaker. Patient seen by me in the ER. Most of the history is obtained by the at the bedside. Patient was admitted for lung infection about a month ago. He didn't improve. Following the patient did have COVID. Patient now presents with worsening short of breath. Especially for 3-4 days. Also becoming bl oated. Lower extremity edema. Appetite is poor. No cough. Patient has also underlying chronic kidney disease. Patient does smoke cigars and pipes. Patient is requiring a BiPAP in the ER. Has lower extremity wound being followed by Dr. Leung. Patient has some not able to give much of history.) Short of breath. 09/10/2022: Patient remains or overflow in the ER. On BiPAP. Tired lethargic. IV Lasix. Worsening renal function. We have pneumonia. Start IV ceftriaxone. Bronchodilators. Steroids. Strict I's and O's. 09/11/2022: Patient will lethargic. Remains on BiPAP. 16//28%. Overnight patient had become hypotensive. I held the Lasix temporarily and given fluid bolus. Lasix resumed today. Remains on IV ceftriaxone, DuoNeb, IV Solu-Medrol. 09/12/2022: ICU: On 4 L nasal cannula. Lethargic but would answer occasional question. at the bedside. Started on midodrine yesterday. Per neurology started IV Vimpat. Remains on IV Lasix. 09/13/2022: ICU. On 5 L nasal cannula. Lethargic. Hypothermic. Temperature 97.2. Rectal. Apolonia hugger started. and [id number] at the bedside. Patient for unequal pupils was seen by neurology. Cause unknown. Patient also had some myoclonic jerks felt to be a metabolic dysfunction. He followed by neurology. Patient is on Vimpat per neurology. Advanced care planning carried out with patient's and [id number] at the bedside. Patient does have advanced directives. Currently full code. Patient has been on and off BiPAP. Abdomen distended. Abdominal x-ray shows gastric distention. We will try temp orary NG tube suction. Should help the bleeding also. 09/14/2022: ICU. Yesterday late afternoon patient had an NG tube placed for gastric distention. After he had some emesis into the BiPAP. About 700 mL of maroon-colored aspirate was obtained. Patient denied a 15 beat run of V. tach. Also had some abdominal breathing's. Patient had a bronchoscopy done by Dr. Mendoza. Following that patient's brother Nimbex and propofol drip. Intubated. This morning was taken out and the Bextra. Had his CAT scan demonstrated that showed bilateral pleural effusion. 2 feeding has been started 10 mL an hour. Currently the ventilator with FiO2 40 and a PEEP of 5. On propofol. Discussed with the at the bedside. 09/15/2022: ICU. Remains on the ventilator at 50/5. Small dose of levo. Propofol.. Remains on IV Lasix. Placed on IV Zosyn today. Discussed with at the bedside. Followed by multiple consultants. Ventricle paced rhythm. 09/16/2022: ICU. On the ventilator 40/5. Patient is off levo fed and propofol. Off the ladder for closer 24 hours. IV Lasix. IV Zosyn. 2 feeding at 34 mL an hour. Ventricular paced rhythm. Nephrology is planning to start dialysis tomorrow. Patient not responding otherwise. Encephalopathic 09/17/2022: ICU. On the ventilator 40/5. Remains encephalopathic. Urine output about 60-70 mL an hour. Earlier today had some dark stools and dark aspirate from the NG tube. Decision made to proceed with dialysis. Vitamin K given earlier. We'll give 2 units of FFP prior to dialysis catheter placement. Ventricle paced rhythm/A. fib. Discussed with the at the bedside. Hold tube feeding. Consult GI. Remains on IV Zosyn. IV Lasix. Worsening renal function. 09/18/2022: ICU. On the ventilator 40/5. Right groin dialysis catheter placed by Dr. Leung yesterday. 800 mL removed yesterday. Getting dialysis today. About 1000 mL to be removed. Opening eyes. Off any IVs. Making fairly urine. Telemetry shows V paced/A. fib. On IV Keppra and IV Zosyn. Seen by GI Dr. Russ García today. Hold EGD for now. If further bleeding then to proceed with endoscopy. Coumadin currently held. i am resuming the care of the pt today on 09/19/22 This is a pleasant 67 years old male with multiple medical problems admitted with acute hypoxic hypercapnic respiratory failure secondary to acute CHF exacerbation, he is currently kept in the ICU intubated and sedated, also patient with evidence of encephalopathy as he is not waking up despite being off sedative for more than 48 hours but there is some improvement and has mentation, there is a concern of stroke and therefore neurologist recommended MRI/MRA of the brain which is pending now, he was started on Keppra and a state of implant because of abnormal EEG, no active seizures suspected. But there was biphasic wave so it was checked per neurologist. [employer] also on the case, Lasix is on hold because of free water losses and kept on D5W, he's undergoing hemodialysis, branch coordinator following him closely Physical warfarin for his A. fib, INR 1.2, was restarted after GI team were consulted for positive occult blood in stool, hemoglobin 9.8 today compared to 11.9 on admission No active bleeding. Blood pressure is low normal but off pressors Patient currently continued on D5W at 50 L/h, Zosyn and warfarin 09/20/2022 Patient was still in the ICU, he was still intubated with pulmonary/critical care team following him closely until present management Patient was off sedation, he was awake but does not follow command. Neurologist was then the case and recommended MRI and MRA of the brain today patient was extubated and patient placed on nasal cannula however he was not doing well, eventually family decided to make him comfort care and patient later on today, to the nurse's note for more details physical exam prior to expiration in the morning -GENERAL: The patient is intubated and sedated HEENT: Pupils are round and equally reacting to light. EOMI. No scleral icterus. No conjunctival pallor. Normocephalic, atraumatic. No pharyngeal erythema. No thyromegaly. CARDIOVASCULAR: S1 and S2 present. No murmurs, rubs, or gallops. -PULMONARY: Chest is clear to auscultation, no wheezing, Mild distal crepitation ABDOMEN: Soft, nontender, nondistended, normoactive bowel sounds. No palpable organomegaly. MUSCULOSKELETAL: No joint swelling or deformity. -EXTREMITIES: No cyanosis, clubbing, . Bilateral pitting leg edema, mild. -NEUROLOGICAL:patient was awake but does not follow command, examination was limited by the patient condition SKIN: No rashes. no petechiae. Patient Condition at Discharge: Serious Plan - Discharge Summary Discharge Rx Participant: No New Discharge Prescriptions: No Action RX: Warfarin Sodium 2.5 mg PO SUMOTUTHFRSA@2100 RX: Metoprolol Succinate [Toprol XL] 50 mg PO DAILY #90 tab Cholecalciferol [Vitamin D3 (25 Mcg = 1000 Iu)] 50 mcg PO DAILY metOLazone [Zaroxolyn] 2.5 mg PO BID Thiamine [Vitamin B-1] 100 mg PO DAILY Torsemide [Demadex] 30 mg PO BID Losartan [Cozaar] 12.5 mg PO DAILY RX: Glucosamine Sulfate 500 mg PO HS Spironolactone [Aldactone] 12.5 mg PO DAILY Ferrous Sulfate [Feosol] 325 mg PO DAILY Warfarin [Coumadin] 1.25 mg PO WE@2099 Discharge Medication List RX: Warfarin Sodium 2.5 mg PO SUMOTUTHFRSA@209902/08/19 [History] RX: Metoprolol Succinate [Toprol XL] 50 mg PO DAILY #90 tab 10/29/20 [Rx] Cholecalciferol [Vitamin D3 (25 Mcg = 1000 Iu)] 50 mcg PO DAILY 09/09/22 [History] Ferrous Sulfate [Feosol] 325 mg PO DAILY 09/09/22 [History] Losartan [Cozaar] 12.5 mg PO DAILY 09/09/22 [History] RX: Glucosamine Sulfate 500 mg PO HS 09/09/22 [History] Spironolactone [Aldactone] 12.5 mg PO DAILY 09/09/22 [History] Thiamine [Vitamin B-1] 100 mg PO DAILY 09/09/22 [History] Torsemide [Demadex] 30 mg PO BID 09/09/22 [History] Warfarin [Coumadin] 1.25 mg PO WE@209909/09/22 [History] metOLazone [Zaroxolyn] 2.5 mg PO BID 09/09/22 [History] Follow up Appointment(s)/Referral(s): Grazyna Fletcher MD [STAFF PHYSICIAN] - 1 Week Zane Lim MD [REFERRING] - 1-2 days
== END 2022-09-20 19:30 | disposition expired | DRG 207 ==
LOC: EC 15:46 → 4SSUR 22:02 → 3SCARD 09-10 07:35 → 2SICU 09-10 11:33
PROVIDERS: ADMIT Hospitalist; ATTEND Hospitalist
PROC: 0BH17EZ Insertion of Endotracheal Airway into Trachea, Via Natural or Artificial Opening (ICD-10-PCS; principal; 2022-09-13)
PROC: 5A1955Z Respiratory Ventilation, Greater than 96 Consecutive Hours (ICD-10-PCS; principal; 2022-09-13)
PROC: 0B21XEZ Change Endotracheal Airway in Trachea, External Approach (ICD-10-PCS; 2022-09-13)
PROC: 5A09357 Assistance with Respiratory Ventilation, Less than 24 Consecutive Hours, Continuous Positive Airway Pressure (ICD-10-PCS; 2022-09-13)
PROC: 0BJ08ZZ Inspection of Tracheobronchial Tree, Via Natural or Artificial Opening Endoscopic (ICD-10-PCS; 2022-09-13)
PROC: 0DH67UZ Insertion of Feeding Device into Stomach, Via Natural or Artificial Opening (ICD-10-PCS; 2022-09-13)
PROC: 3E0G76Z Introduction of Nutritional Substance into Upper GI, Via Natural or Artificial Opening (ICD-10-PCS; 2022-09-13)
PROC: 02HV33Z Insertion of Infusion Device into Superior Vena Cava, Percutaneous Approach (ICD-10-PCS; 2022-09-13)
PROC: 3E043XZ Introduction of Vasopressor into Central Vein, Percutaneous Approach (ICD-10-PCS; 2022-09-13)
PROC: 4A133B1 Monitoring of Arterial Pressure, Peripheral, Percutaneous Approach (ICD-10-PCS; 2022-09-16)
PROC: 4A133J1 Monitoring of Arterial Pulse, Peripheral, Percutaneous Approach (ICD-10-PCS; 2022-09-16)
PROC: 03HY32Z Insertion of Monitoring Device into Upper Artery, Percutaneous Approach (ICD-10-PCS; 2022-09-16)
PROC: 06HM33Z Insertion of Infusion Device into Right Femoral Vein, Percutaneous Approach (ICD-10-PCS; 2022-09-17)
PROC: 5A1D70Z Performance of Urinary Filtration, Intermittent, Less than 6 Hours Per Day (ICD-10-PCS; 2022-09-17)
PROC: 30233K1 Transfusion of Nonautologous Frozen Plasma into Peripheral Vein, Percutaneous Approach (ICD-10-PCS; 2022-09-17)
DX: J96.01 Acute respiratory failure with hypoxia (principal); G93.41 Metabolic encephalopathy; I50.43 Acute on chronic combined systolic (congestive) and diastolic (congestive) heart failure; J18.9 Pneumonia, unspecified organism; N17.0 Acute kidney failure with tubular necrosis; I13.0 Hypertensive heart and chronic kidney disease with heart failure and stage 1 through stage 4 chronic kidney disease, or unspecified chronic kidney disease; J44.0 Chronic obstructive pulmonary disease with (acute) lower respiratory infection; J44.1 Chronic obstructive pulmonary disease with (acute) exacerbation; I48.21 Permanent atrial fibrillation; J98.11 Atelectasis; K92.2 Gastrointestinal hemorrhage, unspecified; R18.8 Other ascites; R57.9 Shock, unspecified; E87.0 Hyperosmolality and hypernatremia; E87.1 Hypo-osmolality and hyponatremia; G93.1 Anoxic brain damage, not elsewhere classified; D68.9 Coagulation defect, unspecified; I47.20 Ventricular tachycardia, unspecified; I42.8 Other cardiomyopathies; J96.02 Acute respiratory failure with hypercapnia; E66.9 Obesity, unspecified; N18.32 Chronic kidney disease, stage 3b; Z51.5 Encounter for palliative care; Z66 Do not resuscitate; Z79.01 Long term (current) use of anticoagulants; D63.1 Anemia in chronic kidney disease; Z68.31 Body mass index [BMI] 31.0-31.9, adult; D69.6 Thrombocytopenia, unspecified; G25.3 Myoclonus; N50.89 Other specified disorders of the male genital organs; T38.0X5A Adverse effect of glucocorticoids and synthetic analogues, initial encounter; E87.5 Hyperkalemia; K31.89 Other diseases of stomach and duodenum; E87.6 Hypokalemia; S80.922A Unspecified superficial injury of left lower leg, initial encounter; S80.921A Unspecified superficial injury of right lower leg, initial encounter; F17.290 Nicotine dependence, other tobacco product, uncomplicated; G89.29 Other chronic pain; M25.511 Pain in right shoulder; H57.02 Anisocoria; I08.3 Combined rheumatic disorders of mitral, aortic and tricuspid valves; I25.10 Atherosclerotic heart disease of native coronary artery without angina pectoris; I25.5 Ischemic cardiomyopathy; R68.0 Hypothermia, not associated with low environmental temperature; Z86.16 Personal history of COVID-19; Z79.899 Other long term (current) drug therapy; Z86.79 Personal history of other diseases of the circulatory system; Z95.810 Presence of automatic (implantable) cardiac defibrillator; Z71.3 Dietary counseling and surveillance; Z88.6 Allergy status to analgesic agent
CPT/HCPCS: 36415; 36600; 70450; 71045; 71046; 71250; 74018; 74176; 76770; 80048; 80053; 81001; 82140; 82271; 82272; 82533; 82607; 82746; 82805; 83036; 83605; 83735; 83880; 84100; 84132; 84145; 84443; 84484; 85025; 85027; 85610; 85730; 86706; 86850; 86900; 86901; 87040; 87070; 87086; 87205; 87340; 90935; 93005; 93306; 94002; 94003; 94640; 94660; 95816; 95819; 95822; 96374; 99285